=== PATIENT | male | born 1955 | race Native Hawaiian/Other Pacific Islander ===

== ENCOUNTER 2017-11-04 01:38 | Inpatient (IN) | payer MEDICAID, SELFPAY ==
--- NOTE | 2017-11-04 01:41 | C.PDOC ---
History Of Present Illness Patient presents to the ER after he woke up with sudden onset of severe SOB, no chest pain. Patient has a Hx of chronic kidney disease, not on dialysis yet. Patient is diaphoretic and unable to talk, Hx obtained from . Time Seen by Provider: 11/04/17 01:40 History Per: Family () History/Exam Limitations: clinical condition Onset/Duration Of Symptoms: Mins Current Symptoms Are (Timing): Worse Context: Other Severity: Severe Pain Scale Rating Of: 9 Associated Symptoms: Dyspnea Modifying Factors: None Exacerbating Factors: None Alleviating Factors: None Recent travel outside of the [place]: No Additional History Per: Family Past Medical History Reviewed: Historical Data, Nursing Documentation, Vital Signs Vital Signs: Last Vital Signs Temp Pulse 104 H 11/04/17 02:28 Resp 28 H 11/04/17 01:44 BP 266/134 H 11/04/17 01:44 Pulse Ox 78 L 11/04/17 02:26 Family History: States: No Known Family Hx Review Of Systems Review Of Systems: ROS cannot be obtained secondary to pt's inabilty to answer questions. Physical Exam - Physical Exam Appears: In Acute Distress, Other (Acute respiratory distress) Skin: Diaphoretic Head: Normacephalic Eye(s): bilateral: Normal Inspection Nose: Flaring Oral Mucosa: Dry Throat: No Erythema, No Exudate Neck: Trachea Midline, Supple Chest: Symmetrical, No Tenderness Cardiovascular: Rhythm Regular Respiratory: Decreased Breath Sounds, Rales, Rhonchi, No Wheezing Gastrointestinal/Abdominal: Soft, No Tenderness, Distention, No Guarding Back: No CVA Tenderness Extremity: Pedal Edema (Trace), No Calf Tenderness Extremity: Bilateral: Atraumatic Pulses: Left Dorsalis Pedis: Normal, Right Dorsalis Pedis: Normal Neurological/Psych: Oriented x3, Other (No focal deficit) Gait: Unable To Assess ED Course And Treatment - Laboratory Results Result Diagrams: 11/04/17 02:01 11/04/17 02:01 ECG: Interpreted By Me, Viewed By Me ECG Rhythm: Sinus Rhythm (91), R BBB, Nonspecific Changes O2 Sat by Pulse Oximetry: 78 Pulse Ox Interpretation: Abnormal (placed on bipap) - Radiology CXR: Interpreted by Me, Viewed By Me CXR Interpretation: Yes: Infiltrates (rll), Cardiomegaly, Other (chf) Progress Note: Blood work, CXR, EKG, and urinalysis ordered. Duoneb administered. Critical Care Time - Critical Care Note Total Time (in mins): 50 Documented critical care: time excludes all time spent performing seperately billable procedures. Disposition Discussed With DrOmar: Chaitanya Arguelles Comment: acceptd the pt on his service and took over the care at 3:10 AM Doctor Will See Patient In The: ED Counseled Patient/Family Regarding: Studies Performed, Diagnosis - Disposition Disposition: HOME/ ROUTINE Disposition Time: 01:40 Condition: CRITICAL - POA Present On Arrival: Poor Glycemic Control - Clinical Impression Clinical Impression: Respiratory distress, NSTEMI (non-ST elevated myocardial infarction), Renal failure, Pneumonia, CHF (congestive heart failure) - Scribe Statement The provider has reviewed the documentation as recorded by the Scribe Cal Waite All medical record entries made by the Scribe were at my direction and personally dictated by me. I have reviewed the chart and agree that the record accurately reflects my personal performance of the history, physical exam, medical decision making, and the department course for this patient. I have also personally directed, reviewed, and agree with the discharge instructions and disposition. Decision To Admit - Pt Status Changed To: Hospital Disposition Of: Inpatient - Admit Certification Admit to Inpatient:: After my assessment, the patient will require hospitalization for at least two midnights. This is because of the severity of symptoms shown, intensity of services needed, and/or the medical risk in this patient being treated as an outpatient. - InPatient: Physician Admission Certification: I certify that this patient requires 2 or more midnights of care for the following reason:: After my assessment, the patient will require hospitalization for at least two midnights. This is because of the severity of symptoms shown, intensity of services needed, and/or the medical risk in this patient being treated as an outpatient. - . Bed Request Type: Telemetry Admitting Physician: Chaitanya Arguelles Patient Diagnosis: Respiratory distress, NSTEMI (non-ST elevated myocardial infarction), Renal failure, Pneumonia, CHF (congestive heart failure)
[2017-11-04 01:48] VITALS: BMI 34.4
[2017-11-04] MEDS: Albuterol-Ipratrop 3 mg / 0.5 (3 ml) UD IH SCH ×3 (02:00→02:27)
[2017-11-04 02:05] LABS: BASO % 0.1 % (0.0-2.0); EOS # 1.2 K/uL (0.0-0.7); EOS % 8.4 % (0.0-4.0); HEMOGLOBIN 12.4 g/dL (12.0-18.0); LYMPH # 3.6 K/uL (1.0-4.3); LYMPH % 24.6 % (20.0-40.0); MEAN CELL VOLUME 88.9 fL (80.0-94.0); MEAN CORPUSCULAR HEMOGLOBIN 30.4 pg (27.0-31.0); MEAN CORPUSCULAR HGB CONC 34.2 g/dL (33.0-37.0); MONO # 1.6 K/uL (0.0-0.8); MONO % 10.9 % (0.0-10.0); NEUT # 8.3 K/uL (1.8-7.0); RBC 4.08 Mil/uL (4.40-5.90); RED CELL DISTRIBUTION WIDTH 13.4 % (11.5-14.5); WHITE BLOOD COUNT 14.8 K/uL (4.8-10.8)
[2017-11-04 02:17] LABS: ABG ALLEN TEST POS; ARTERIAL BLOOD GAS HCO3 25.6 mmol/L (21-28); ARTERIAL BLOOD GAS O2 SAT 94.4 % (95-98); ARTERIAL BLOOD GAS PCO2 76 mm/Hg (35-45); ARTERIAL BLOOD GAS PH 7.22 (7.35-7.45); ARTERIAL BLOOD GAS PO2 73 mm/Hg (80-100); ARTERIAL BLOOD GAS TCO2 33.4 mmol/L (22-28)
[2017-11-04] MEDS ORDERED: Piperacillin/Tazobact 3.375 gm 100 ML IVPB STA (02:21)
[2017-11-04] MEDS ORDERED: Albuterol-Ipratrop 3 mg / 0.5 (3 ml) UD ONE ×3 (02:23)
[2017-11-04] MEDS ORDERED: Vancomycin 1 GM 1 GM/250 ML BAG IVPB SCH (02:30)
[2017-11-04 02:43] LABS: CALCIUM 10.2 mg/dl (8.6-10.4)
[2017-11-04 02:44] LABS: ALB/GLOB RATIO 1.3 (1.0-2.1); ALBUMIN 4.8 g/dL (3.5-5.0)
[2017-11-04] MEDS ORDERED: Vancomycin 1 gm/NS 200 ml 1 GM/200 ML BAG IVPB SCH (02:45)
[2017-11-04 02:47] LABS: TROPONIN I 0.575 ng/mL (0.00-0.120)
[2017-11-04 02:56] LABS: PROTHROMBIN TIME 10.8 SECONDS (9.7-12.2)
[2017-11-04] MEDS ORDERED: Enoxaparin 40 mg Syringe SC STA (03:04)
[2017-11-04] MEDS ORDERED: Piperacillin/Tazobact 3.375 gm 100 ML IVPB ONE (03:06)
[2017-11-04] MEDS ORDERED: Enoxaparin 100 mg Syringe ONE (03:35)
[2017-11-04 05:34] LABS: HDL CHOLESTEROL 24 mg/dL (30-70)
--- NOTE | 2017-11-04 05:38 | CP.PCM.HP ---
<Blaire Whalen - Last Filed: 11/04/17 06:17> History of Present Illness - History of Present Illness History of Present Illness: Patient is a 62 year old male with a past medical history of HTN, DM, CHF, CKD, and cardiac stent, who presents to the ED with complaints of shortness of breath. The patient was sleeping, and abruptly woke up in the middle of the night feeling short of breath. He has had 2-3 similar episodes in the past few weeks, but never this severe. The patient sleeps flat with one pillow, but also sleeps on a chair that he has at bedside. Per the , who is at bedside, the patient transfers back and forth from the bed to the chair for the past few months due to shortness of breath. The patient reports being able to walk without difficulty, but he has noticed that he becomes increasingly more short of breath over the past few months. Patient states he also has a productive cough with white phlegm. He recently started using a CPAP since August 2017. Per the patient and patient's , they were scheduled for a "dialysis class" today to discuss possibly starting dialysis. The patient has been taking all of his medications as prescribed. He has not been hospitalized recently. He reports he is urinating normally, without difficulty, approximately every 2-3 hours. Patient denies chest pain, palpitations, nausea, vomiting, fevers, headaches, abdominal pain, diarrhea, constipation, dysuria, hematuria, sick contacts, and recent illnesses. PMD: Dr. Conte Service Observer: Dr. Davis Clock Repair Technician: Dr. Damon, who referred patient to Dr. Syed (patient has [facility]) PMHx: HTN, DM, CHF, CKD, and cardiac stent SurgHx: Angioplasty 2012 FamHx: Father- [place]; Brother- Stroke; Sister- cancer (unknown type) SocHx: Former tobacco use- quit 10 years ago ([id number]+yrs); denies alcohol and drug use; works 5 days/week at [employer]; lives with , Jocelin, in [place]. Allergies: NKDA Medications: Tamsulosin 0.4mg po daily, gabapentin 300mg po daily, furosemide 40mg po daily, carvidilol 12.5mg po daily, amlodipine 10mg po daily, lovastatin 40mg po hs , famotidine 40mg po daily, calcium acetate 667mg TID, Tresiba pen 450 units; glipizide 5mg po daily, asa 81mg po daily Code status: Full code; no living will/advanced directive. Proxy: Jocelin ( ; [phone]) Present on Admission - Present on Admission Any Indicators Present on Admission: No Review of Systems - Constitutional Constitutional: absent: Chills, Fever, Headache, Weakness - EENT Eyes: absent: Change in Vision Ears: absent: Dizziness - Cardiovascular Cardiovascular: Dyspnea, Dyspnea on Exertion. absent: Chest Pain, Edema, Irregular Heart Rhythm, Palpitations, Rapid Heart Rate - Respiratory Respiratory: Cough (productive of white phlegm), Dyspnea, Dyspnea on Exertion. absent: Hemoptysis - Gastrointestinal Gastrointestinal: absent: Abdominal Pain, Constipation, Diarrhea, Hematemesis, Hematochezia, Nausea, Vomiting - Genitourinary Genitourinary: absent: Difficulty Urinating, Dysuria, Hematuria, Pyuria, Urinary Frequency - Integumentary Integumentary: absent: Rash, Unusual Bruising - Neurological Neurological: absent: Dizziness, Frequent Falls, Headaches, Weakness - Endocrine Endocrine: absent: Fatigue, Palpitations, Polyuria - Hematologic/Lymphatic Hematologic: absent: Easy Bleeding, Easy Bruising Past Patient History - Infectious Disease Hx of Infectious Diseases: None - Past Social History Smoking Status: Never Smoked - CARDIAC Hx Hypercholesterolemia: Yes Hx Hypertension: Yes - RENAL Hx Dialysis: No - ENDOCRINE/METABOLIC Hx Diabetes Mellitus Type 1: Yes Hx Diabetes Mellitus Type 2: Yes - GENITOURINARY/GYNECOLOGICAL Hx Prostate Problems: Yes - PSYCHIATRIC Hx Substance Use: No - SURGICAL HISTORY Hx Angioplasty: Yes (3 stents 2012) - ANESTHESIA Hx Anesthesia: Yes Hx Anesthesia Reactions: No Meds Allergies/Adverse Reactions: Allergies Allergy/AdvReac Type Severity Reaction Status Date / Time No Known Allergies Allergy Verified 11/04/17 01:50 Physical Exam - Constitutional Appears: No Acute Distress - Head Exam Head Exam: ATRAUMATIC, NORMAL INSPECTION - Eye Exam Eye Exam: EOMI, Normal appearance, PERRL. absent: Scleral icterus - ENT Exam ENT Exam: Mucous Membranes Moist - Respiratory Exam Respiratory Exam: Rales (bilaterally mid to lower lung jimenez). absent: Clear to Auscultation Bilateral, Rhonchi, Wheezes Additional comments: BiPAP placed - Cardiovascular Exam Cardiovascular Exam: REGULAR RHYTHM, +S1, +S2. absent: Bradycardia, Tachycardia , Systolic Murmur - GI/Abdominal Exam GI & Abdominal Exam: Normal Bowel Sounds, Soft. absent: Distended, Firm, Guarding, Mass, Tenderness - Extremities Exam Extremities exam: Positive for: normal capillary refill, pedal edema (pitting pedal edema extending snf up to knee), pedal pulses present. Negative for: calf tenderness - Neurological Exam Neurological exam: Alert, CN II-XII Intact, Oriented x3 - Psychiatric Exam Psychiatric exam: Normal Affect, Normal Mood - Skin Skin Exam: Dry, Intact, Normal Color, Warm Results - Vital Signs Recent Vital Signs: Last Vital Signs Temp 97.2 F L 11/04/17 03:49 Pulse 74 11/04/17 03:49 Resp 21 11/04/17 03:49 BP 127/59 L 11/04/17 03:49 Pulse Ox 100 11/04/17 03:49 - Labs Result Diagrams: 11/04/17 02:01 11/04/17 02:01 Labs: Laboratory Results - last 24 hr 11/04/17 11/04/17 11/04/17 01:40 02:01 02:01 WBC 14.8 H D RBC 4.08 L Hgb 12.4 Hct 36.2 MCV 88.9 MCH 30.4 MCHC 34.2 RDW 13.4 Plt Count 354 MPV 9.0 Neut % (Auto) 56.0 Lymph % (Auto) 24.6 [place] % (Auto) 10.9 H Eos % (Auto) 8.4 H Baso % (Auto) 0.1 Neut # (Auto) 8.3 H Lymph # (Auto) 3.6 [place] # (Auto) 1.6 H Eos # (Auto) 1.2 H Baso # (Auto) 0.0 PT 10.8 INR 1.0 APTT 33 D-Dimer, Quantitative 329 H Puncture Site pCO2 pO2 HCO3 ABG pH ABG Total CO2 ABG O2 Saturation ABG Base Excess Dre Test ABG Potassium A-a O2 Difference Respiratory Index Glucose Lactate Vent Mode FiO2 Inspiratory BiPAP Expiratory BiPAP Crit Value Called To Crit Value Called By Crit Value Read Back Blood Gas Notified Time Sodium Potassium Chloride Carbon Dioxide Anion Gap BUN Creatinine Est GFR ( Amer) Est GFR (Non-Af Amer) POC Glucose (mg/dL) 86 Random Glucose Calcium Magnesium Total Bilirubin AST ALT Alkaline Phosphatase Troponin I NT-Pro-B Natriuret Pep Total Protein Albumin Globulin Albumin/Globulin Ratio Arterial Blood Potassium 11/04/17 11/04/17 02:01 02:05 WBC RBC Hgb Hct MCV MCH MCHC RDW Plt Count MPV Neut % (Auto) Lymph % (Auto) [place] % (Auto) Eos % (Auto) Baso % (Auto) Neut # (Auto) Lymph # (Auto) [place] # (Auto) Eos # (Auto) Baso # (Auto) PT INR APTT D-Dimer, Quantitative Puncture Site Rr pCO2 76 H* pO2 73 L HCO3 25.6 ABG pH 7.22 L ABG Total CO2 33.4 H ABG O2 Saturation 94.4 L ABG Base Excess 1.1 Dre Test Pos ABG Potassium 2.7 L A-a O2 Difference 545.0 Respiratory Index 7.5 Glucose 130 H Lactate 1.0 Vent Mode Bipap FiO2 100.0 Inspiratory BiPAP 12 Expiratory BiPAP 6 Crit Value Called To Yecenia rosen/rn Crit Value Called By Rudolph graham/rt Crit Value Read Back Y Blood Gas Notified Time 220 Sodium 143 Potassium 3.3 L Chloride 97 L 104.0 Carbon Dioxide 31 H Anion Gap 18 BUN 74 H Creatinine 5.4 H Est GFR ( Amer) 13 Est GFR (Non-Af Amer) 11 POC Glucose (mg/dL) Random Glucose 86 Calcium 10.2 Magnesium 2.8 H Total Bilirubin 0.7 AST 22 ALT 29 Alkaline Phosphatase 62 Troponin I 0.5750 H* NT-Pro-B Natriuret Pep 2910 H Total Protein 8.4 H Albumin 4.8 Globulin 3.6 Albumin/Globulin Ratio 1.3 Arterial Blood Potassium 2.7 L Assessment & Plan - Assessment and Plan (Free Text) Plan: Shortness of Breath - Secondary to CHF exacerbation? Renal failure? Pneumonia? - BiPAP 12/6, FiO2 100% - In the ED, Lasix 40mg IV given once. - Lasix 60mg IV and metolazone 5mg given once. - ABG: pH 7.22, Co2 76, O2 73, HCO3 25.6 - Repeat ABG: f/u - Chest xray: infiltrates right lower lobe; follow up official read - Pro-BNP: 2910 - Troponin 0.5750; follow up troponins & EKGs x2 - EKG: nsr@91bpm, LBBB, prolonged QT NSTEMI - EKG: nsr@91bpm, LBBB, prolonged QT - Troponin 0.5750 - Follow up troponins x2 & EKGs x2 - Lipid panel: f/u - A1c: f/u Abnormal chest xray - Chest xray: infiltrates right lower lobe; follow up official read - Infiltrates likely secondary to fluid overload 2/2 CHF? Renal Failure? Pneumonia? - Leukocytosis, WBC 14.8 - Afebrile; continue to monitor - lactate: 1.0 - Procalcitonin: f/u - In the ED, Vanco and Zosyn were given CHF - Echo (04/2017): LVEF 50-55%; mild concentric LVH; grade I abnormal relaxation pattern; aortic valve mildly sclerotic; mild MR, mild TR, mild PV regurg - Pro-BNP: 2910 - In the ED, Lasix 40mg IV given once. - Lasix 60mg IV and metolazone 5mg given once. - Continue home medication: furosemide 40mg po daily Renal Failure - Service Observer, Dr Davis, consulted; help appreciated - BUN/Cr at admission: 74/5.4 - Continue to monitor HTN - Continue home medications: carvidilol 12.5mg po daily, amlodipine 10mg po daily - Continue to monitor DM - Home medications: Tresiba pen 450 units; glipizide 5mg po daily, gabapentin 300mg po daily - Accuchecks - Hypoglycemia protocol - ISS - A1c: f/u CAD - Hx of angioplasty in 2012 - Continue home medications: lovastatin 40mg po hs, carvidilol 12.5mg po daily, [id number] po daily - Patient reports he was previously on Plavix, but was told by Dr. Damon, hoop punch and coiler operator, to stop taking it approximately 1 month ago. Prophylaxis: - DVT: SCDs, Heparin 5000u SC Q8h - GI: Pepcid 20mg PO daily - Renal diet <Chaitanya Arguelles P - Last Filed: 11/04/17 08:21> Results - Vital Signs Recent Vital Signs: Last Vital Signs Temp 97.2 F L 11/04/17 03:49 Pulse 72 11/04/17 07:11 Resp 14 11/04/17 07:11 BP 140/77 07/11/18 07:11 Pulse Ox 98 11/04/17 07:11 - Labs Result Diagrams: 11/04/17 02:01 11/04/17 02:01 Labs: Laboratory Results - last 24 hr 11/04/17 11/04/17 11/04/17 01:40 02:01 02:01 WBC 14.8 H D RBC 4.08 L Hgb 12.4 Hct 36.2 MCV 88.9 MCH 30.4 MCHC 34.2 RDW 13.4 Plt Count 354 MPV 9.0 Neut % (Auto) 56.0 Lymph % (Auto) 24.6 [place] % (Auto) 10.9 H Eos % (Auto) 8.4 H Baso % (Auto) 0.1 Neut # (Auto) 8.3 H Lymph # (Auto) 3.6 [place] # (Auto) 1.6 H Eos # (Auto) 1.2 H Baso # (Auto) 0.0 PT 10.8 INR 1.0 APTT 33 D-Dimer, Quantitative 329 H Puncture Site pCO2 pO2 HCO3 ABG pH ABG Total CO2 ABG O2 Saturation ABG Base Excess Dre Test ABG Potassium A-a O2 Difference Respiratory Index Glucose Lactate Vent Mode FiO2 Inspiratory BiPAP Expiratory BiPAP Crit Value Called To Crit Value Called By Crit Value Read Back Blood Gas Notified Time Sodium Potassium Chloride Carbon Dioxide Anion Gap BUN Creatinine Est GFR ( Amer) Est GFR (Non-Af Amer) POC Glucose (mg/dL) 86 Random Glucose Calcium Magnesium Total Bilirubin AST ALT Alkaline Phosphatase Troponin I NT-Pro-B Natriuret Pep Total Protein Albumin Globulin Albumin/Globulin Ratio Triglycerides Cholesterol LDL Cholesterol Direct HDL Cholesterol Arterial Blood Potassium Urine Color Urine Clarity Urine pH Ur Specific [place] Urine Protein Urine Glucose (UA) Urine Ketones Urine Blood Urine Nitrate Urine Bilirubin Urine Urobilinogen Ur Leukocyte Esterase Urine WBC (Auto) Urine RBC (Auto) Urine Bacteria 11/04/17 11/04/17 11/04/17 02:01 02:05 05:17 WBC RBC Hgb Hct MCV MCH MCHC RDW Plt Count MPV Neut % (Auto) Lymph % (Auto) [place] % (Auto) Eos % (Auto) Baso % (Auto) Neut # (Auto) Lymph # (Auto) [place] # (Auto) Eos # (Auto) Baso # (Auto) PT INR APTT D-Dimer, Quantitative Puncture Site Rr pCO2 76 H* pO2 73 L HCO3 25.6 ABG pH 7.22 L ABG Total CO2 33.4 H ABG O2 Saturation 94.4 L ABG Base Excess 1.1 Dre Test Pos ABG Potassium 2.7 L A-a O2 Difference 545.0 Respiratory Index 7.5 Glucose 130 H Lactate 1.0 Vent Mode Bipap FiO2 100.0 Inspiratory BiPAP 12 Expiratory BiPAP 6 Crit Value Called To Yecenia rosen/rn Crit Value Called By Rudolph graham/rt Crit Value Read Back Y Blood Gas Notified Time 220 Sodium 143 Potassium 3.3 L Chloride 97 L 104.0 Carbon Dioxide 31 H Anion Gap 18 BUN 74 H Creatinine 5.4 H Est GFR ( Amer) 13 Est GFR (Non-Af Amer) 11 POC Glucose (mg/dL) Random Glucose 86 Calcium 10.2 Magnesium 2.8 H Total Bilirubin 0.7 AST 22 ALT 29 Alkaline Phosphatase 62 Troponin I 0.5750 H* NT-Pro-B Natriuret Pep 2910 H Total Protein 8.4 H Albumin 4.8 Globulin 3.6 Albumin/Globulin Ratio 1.3 Triglycerides 423 H D Cholesterol 225 H LDL Cholesterol Direct 98 HDL Cholesterol 24 L Arterial Blood Potassium 2.7 L Urine Color Urine Clarity Urine pH Ur Specific [place] Urine Protein Urine Glucose (UA) Urine Ketones Urine Blood Urine Nitrate Urine Bilirubin Urine Urobilinogen Ur Leukocyte Esterase Urine WBC (Auto) Urine RBC (Auto) Urine Bacteria 11/04/17 11/04/17 11/04/17 05:50 07:30 07:54 WBC RBC Hgb Hct MCV MCH MCHC RDW Plt Count MPV Neut % (Auto) Lymph % (Auto) [place] % (Auto) Eos % (Auto) Baso % (Auto) Neut # (Auto) Lymph # (Auto) [place] # (Auto) Eos # (Auto) Baso # (Auto) PT INR APTT D-Dimer, Quantitative Puncture Site Rr pCO2 53 H pO2 193 H HCO3 26.4 ABG pH 7.34 L ABG Total CO2 30.2 H ABG O2 Saturation 100.0 H ABG Base Excess 1.8 Dre Test Pos ABG Potassium 2.7 L A-a O2 Difference 454.0 Respiratory Index 2.4 Glucose 106 Lactate 0.5 L Vent Mode FiO2 100.0 Inspiratory BiPAP 12 Expiratory BiPAP 6 Crit Value Called To Crit Value Called By Crit Value Read Back Blood Gas Notified Time Sodium 144.0 Potassium Chloride 109.0 H Carbon Dioxide Anion Gap BUN Creatinine Est GFR ( Amer) Est GFR (Non-Af Amer) POC Glucose (mg/dL) 125 H Random Glucose Calcium Magnesium Total Bilirubin AST ALT Alkaline Phosphatase Troponin I NT-Pro-B Natriuret Pep Total Protein Albumin Globulin Albumin/Globulin Ratio Triglycerides Cholesterol LDL Cholesterol Direct HDL Cholesterol Arterial Blood Potassium 2.7 L Urine Color Yellow Urine Clarity Clear Urine pH 5.0 Ur Specific [place] 1.011 Urine Protein 2+ H Urine Glucose (UA) 1+ H Urine Ketones Negative Urine Blood 1+ H Urine Nitrate Negative Urine Bilirubin Negative Urine Urobilinogen Normal Ur Leukocyte Esterase Neg Urine WBC (Auto) 2 Urine RBC (Auto) 1 Urine Bacteria Rare Attending/Attestation - Attestation I have personally seen and examined this patient.: Yes I have fully participated in the care of the patient.: Yes I have reviewed all pertinent clinical information: Yes Notes (Text): 11/04/17 08:17 SOB due to interstitial edema with hypoxia and Co2 retention, needed bipap on 100% fio2, responded with initial 40mg of iv lasix with 500ml of diuresis, as per patient has been compliant with meds, this was the 3rd episode in the 3 wks. Plan to diuresis more with 60mg of iv lasix and metalozone 5mg, patient will eventually need HD, when to start will be between him and nephrology group , who has been consulted. FIO2 requirement after initial lasix were 50%. Patient currently has mild volume overload, maintained ph, potassium, bicarb, mental status. Slight elevated trop, without ekg changes will repeat and make sure does not rise in the significant range.
[2017-11-04 05:44] LABS: LDL CHOLESTEROL 98 mg/dL (0-129)
[2017-11-04 06:03] LABS: ABG ALLEN TEST POS; ARTERIAL BLOOD GAS HCO3 26.4 mmol/L (21-28); ARTERIAL BLOOD GAS PCO2 53 mm/Hg (35-45); ARTERIAL BLOOD GAS PH 7.34 (7.35-7.45); ARTERIAL BLOOD GAS PO2 193 mm/Hg (80-100); ARTERIAL BLOOD GAS TCO2 30.2 mmol/L (22-28)
[2017-11-04 07:48] LABS: URINE BACTERIA RARE (<OCC); URINE BILIRUBIN NEGATIVE (NEGATIVE); URINE BLOOD 1+ (NEGATIVE); URINE CLARITY Clear (Clear); URINE COLOR Yellow (YELLOW); URINE GLUCOSE (UA) 1+ mg/dL (Normal); URINE LEUKOCYTE ESTERASE NEG Leu/uL (Negative); URINE PROTEIN 2+ mg/dL (NEGATIVE); URINE UROBILINOGEN NORMAL mg/dL (0.2-1.0)
[2017-11-04] MEDS: (Novolin R) Insulin Human Regular 100 units/ml vial SC SCH ×4 (08:04→22:12)
[2017-11-04 09:48] LABS: CK-MB 2.7 ng/mL (0.0-3.38)
--- NOTE | 2017-11-04 09:51 | RAD ---
Date of service: 11/04/2017 PROCEDURE: CHEST RADIOGRAPH, 1 VIEW HISTORY: SOB COMPARISON: None available. FINDINGS: LUNGS: Asymmetrical pulmonary edema right greater than left. PLEURA: No pneumothorax or pleural fluid seen. CARDIOVASCULAR: Cardiomegaly, asymmetric pulmonary edema. OSSEOUS STRUCTURES: No significant abnormalities. VISUALIZED UPPER ABDOMEN: Normal. OTHER FINDINGS: None. IMPRESSION: Cardiomegaly, asymmetrical acute pulmonary edema. Concordant results with the preliminary interpretation rendered by the emergency department physician procedure.
[2017-11-04] MEDS ORDERED: metOLazone 5 MG TAB PO SCH (10:00)
[2017-11-04 10:08] LABS: TROPONIN I 0.49 ng/mL (0.00-0.120)
--- NOTE | 2017-11-04 11:50 | CP.PCM.PN ---
Subjective - Date & Time of Evaluation Date of Evaluation: 11/04/17 Time of Evaluation: 09:30 - Subjective Subjective: PGY-[address] Brandon Damon. Patient seen and evaluated at bedside. Patient resting in bed on bipap. Denies shortness of breath at the time of examination. Denies chest pain, nausea, vomiting, shortness of breath, fever, chills, and lightheadedness. Objective - Vital Signs/Intake and Output Vital Signs (last 24 hours): Temp Pulse Resp BP Pulse Ox 97.2 F L 78 16 156/95 H 100 11/04/17 03:49 11/04/17 10:04 11/04/17 10:04 11/04/17 10:18 11/04/17 10:04 Intake and Output: 11/04/17 11/04/17 06:59 18:59 Output Total 500 300 Balance -500 -300 - Medications Medications: Current Medications Amlodipine Besylate (Norvasc) 10 mg PO DAILY [facility] Last Admin: 11/04/17 10:18 Dose: 10 mg Calcitriol (Rocaltrol) 0.5 mcg PO DAILY [facility] Last Admin: 11/04/17 10:19 Dose: 0.5 mcg Calcium Acetate (Phoslo) 667 mg PO TIDCC [facility] Last Admin: 11/04/17 10:10 Dose: 667 mg Carvedilol (Coreg) 12.5 mg PO DAILY [facility] Last Admin: 11/04/17 10:18 Dose: 12.5 mg Famotidine (Pepcid) 20 mg PO DAILY [facility] Last Admin: 11/04/17 10:19 Dose: 20 mg Furosemide (Lasix) 40 mg PO DAILY [facility] Gabapentin (Neurontin) 300 mg PO DAILY [facility] Last Admin: 11/04/17 10:18 Dose: 300 mg Heparin Sodium (Porcine) (Heparin) 5,000 units SC Q8 [facility] Last Admin: 11/04/17 06:08 Dose: Not Given Insulin Human Regular (Novolin R) 0 unit SC ACHS [facility] PRN Reason: Protocol Last Admin: 11/04/17 08:04 Dose: Not Given Metolazone (Zaroxolyn) 5 mg PO DAILY [facility] Last Admin: 11/04/17 10:19 Dose: 5 mg Rosuvastatin Calcium (Crestor) 5 mg PO HS [facility] Tamsulosin HCl (Flomax) 0.4 mg PO DAILY [facility] Last Admin: 11/04/17 10:18 Dose: 0.4 mg - Labs Labs: 11/04/17 02:01 11/04/17 02:01 PT 10.8 SECONDS (9.7-12.2) 11/04/17 02:01 INR 1.0 11/04/17 02:01 APTT 33 SECONDS (21-34) 11/04/17 02:01 - Constitutional Appears: No Acute Distress - Head Exam Head Exam: ATRAUMATIC, NORMAL INSPECTION, NORMOCEPHALIC - Eye Exam Eye Exam: EOMI, Normal appearance - ENT Exam ENT Exam: Mucous Membranes Moist - Respiratory Exam Respiratory Exam: Rales (bibasilar). absent: Rhonchi, Wheezes Additional comments: Patient on biPAP - Cardiovascular Exam Cardiovascular Exam: REGULAR RHYTHM, +S1, +S2 - GI/Abdominal Exam GI & Abdominal Exam: Soft, Normal Bowel Sounds. absent: Distended, Guarding, Rigid, Tenderness - Extremities Exam Extremities Exam: absent: Normal Inspection, Pedal Edema, Tenderness - Neurological Exam Neurological Exam: Alert, Awake, Oriented x3 - Psychiatric Exam Psychiatric exam: Normal Mood - Skin Skin Exam: Dry, Intact, Normal Color, Warm Assessment and Plan - Assessment and Plan (Free Text) Plan: 62 year old M admitted for shortness of breath. Shortness of Breath - Secondary to CHF exacerbation? Renal failure? Pneumonia? - BiPAP 12/6, FiO2 100% - In the ED, Lasix 40mg IV given once. - Lasix 60mg IV and metolazone 5mg given once. - ABG: pH 7.22, Co2 76, O2 73, HCO3 25.6 - Repeat ABG: pH 7.34, Co2 53, O2 193, HCO3 26.4 - Chest xray: infiltrates right lower lobe; follow up official read - Pro-BNP: 2910 - Troponin 0.5750; 0.4900; 0.382 - EKG: nsr@91bpm, LBBB, prolonged QT NSTEMI - EKG: nsr@91bpm, LBBB, prolonged QT - Troponin 0.5750 - Follow up troponins: 0.5750; 0.4900; 0.382, no significant changes in repeat EKGs - Lipid panel: TG 423, Chl 225, LDL 98, HDL 24 - A1c: 7.3 -Cardiology consulted, help appreciated. Abnormal chest xray - Chest xray: infiltrates right lower lobe; follow up official read - Infiltrates likely secondary to fluid overload 2/2 CHF? Renal Failure? Pneumonia? - Leukocytosis, WBC 14.8 - Afebrile; continue to monitor - lactate: 1.0 - Procalcitonin: 0.66 - In the ED, Vanco and Zosyn were given -Repeat chest XRay CHF - Echo (04/2017): LVEF 50-55%; mild concentric LVH; grade I abnormal relaxation pattern; aortic valve mildly sclerotic; mild MR, mild TR, mild PV regurg - Pro-BNP: 2910 - In the ED, Lasix 40mg IV given once. - Lasix 60mg IV and metolazone 5mg given once. - Continue home medication: furosemide 40mg po daily Renal Failure - Melter Assistant, Dr Davis, consulted; help appreciated -As per Dr. Davis note: Patient needs dialysis soon, will call surgery for access - BUN/Cr at admission: 74/5.4 - Continue to monitor HTN - Continue home medications: carvidilol 12.5mg po daily, amlodipine 10mg po daily - Continue to monitor DM - Home medications: Tresiba pen 450 units; glipizide 5mg po daily, gabapentin 300mg po daily - Accuchecks - Hypoglycemia protocol - ISS - A1c: 7.3 CAD - Hx of angioplasty in 2012 - Continue home medications: lovastatin 40mg po hs, carvidilol 12.5mg po daily, [id number] po daily - Patient reports he was previously on Plavix, but was told by Dr. Damon, dolly driver, to stop taking it approximately 1 month ago. Prophylaxis: - DVT: SCDs, Heparin 5000u SC Q8h - GI: Pepcid 20mg PO daily - Renal diet
[2017-11-04 14:41] LABS: CK-MB 2.47 ng/mL (0.0-3.38); TROPONIN I 0.382 ng/mL (0.00-0.120)
--- NOTE | 2017-11-04 14:55 | CP.PCM.CON ---
History of Present Illness - History of Present Illness History of Present Illness: : Patient is a 62 year old male with a past medical history of HTN, DM, CHF, CKD stage 4-5, and CAD postcardiac stent, who presents to the ED with complaints of shortness of breath. The patient was sleeping, and abruptly woke up in the middle of the night feeling short of breath. He has had 2-3 similar episodes in the past few weeks, but never this severe. The patient sleeps flat with one pillow, but also sleeps on a chair that he has at bedside. Per the , who is at bedside, the patient transfers back and forth from the bed to the chair for the past few months due to shortness of breath. The patient reports being able to walk without difficulty, but he has noticed that he becomes increasingly more short of breath over the past few months. Patient states he also has a productive cough with white phlegm. He recently started using a CPAP since August 2017. Per the patient and patient's , they were scheduled for a "dialysis class" ie [facility] program to discuss possibly starting dialysis. The patient has been taking all of his medications as prescribed. He has not been hospitalized recently. He reports he is urinating normally, without difficulty, approximately every 2-3 hours. Patient denies chest pain, palpitations, nausea, vomiting, fevers, headaches, abdominal pain, diarrhea, constipation, dysuria, hematuria, sick contacts, and recent illnesses. PMD: Dr. Conte Rope Walker: Dr. Davis Collection Specialist: Dr. Damon, who referred patient to Dr. Syed (patient has [facility]) PMHx: HTN, DM, CHF, CKD with proteinuria, and cardiac stent SurgHx: Angioplasty 2012 FamHx: Father- OR; Brother- Stroke; Sister- cancer (unknown type) SocHx: Former tobacco use- quit 10 years ago ([id number]); denies alcohol and drug use; works 5 days/week at [email or web address]; lives with , Jocelin, in [place]. Allergies: NKDA Medications: Tamsulosin 0.4mg po daily, gabapentin 300mg po daily, furosemide 40mg po daily, carvidilol 12.5mg po daily, amlodipine 10mg po daily, lovastatin 40mg po hs , famotidine 40mg po daily, calcium acetate 667mg TID, Tresiba pen 450 units; glipizide 5mg po daily, asa 81mg po daily Code status: Full code; no living will/advanced directive. Proxy: Jocelin ( ; [phone]) Review of Systems - Constitutional Constitutional: Fatigue, Weakness - EENT Eyes: absent: As Per HPI, Blind Spots, Blurred Vision, Change in Vision, Decreased Night Vision, Diplopia, Discharge, Dry Eye, Exophthalmos, Floaters, Irritation, Itchy Eyes, Loss of Peripheral Vision, Pain, Photophobia, Requires Corrective Lenses, Sees Flashes, Spots in Vision, Tunnel Vision, Other Visual Disturbances, Loss of Vision, Other Ears: absent: As Per HPI, Decreased Hearing, Ear Discharge, Ear Pain, Tinnitus, Abnormal Hearing, Disequilibrium, Dizziness, Other Nose/Mouth/Throat: absent: As Per HPI, Epistaxis, Nasal Congestion, Nasal Discharge, Nasal Obstruction, Nasal Trauma, Nose Pain, Post Nasal Drip, Sinus Pain, Sinus Pressure, Bleeding Gums, Change in Voice, Dental Pain, Dry Mouth, Dysphagia, Halitosis, Hoarsness, Lip Swelling, Mouth Lesions, Mouth Pain, Odynophagia, Sore Throat, Throat Swelling, Tongue Swelling, Facial Pain, Neck Pain, Neck Mass, Other - Cardiovascular Cardiovascular: Dyspnea on Exertion, Leg Edema - Respiratory Respiratory: Cough, Dyspnea on Exertion - Gastrointestinal Gastrointestinal: absent: As Per HPI, Abdominal Pain, Belching, Bloating, Change in Bowel Habits, Change in Stool Character, Coffee Ground Emesis, Constipation, Cramping, Diarrhea, Dyspepsia, Dysphagia, Early Satiety, Excessive Flatus, Fecal Incontinence, Heartburn, Hematemesis, Hematochezia, Loose Stools, Melena, Nausea, Odynophagia, Temesmus, Vomiting, Other - Genitourinary Genitourinary: Change in Urinary Stream - Musculoskeletal Musculoskeletal: Muscle Cramps, Muscle Weakness, Myalgias - Neurological Neurological: Weakness Past Patient History - Infectious Disease Hx of Infectious Diseases: None - Past Social History Smoking Status: Never Smoked Chewing Tobacco Use: No Cigar Use: No Alcohol: None Drugs: Denies Home Situation {Lives}: With Family - CARDIAC Hx Hypercholesterolemia: Yes Hx Hypertension: Yes - RENAL Hx Dialysis: No - ENDOCRINE/METABOLIC Hx Diabetes Mellitus Type 1: Yes Hx Diabetes Mellitus Type 2: Yes - GENITOURINARY/GYNECOLOGICAL Hx Prostate Problems: Yes - PSYCHIATRIC Hx Substance Use: No - SURGICAL HISTORY Hx Angioplasty: Yes (3 stents 2012) - ANESTHESIA Hx Anesthesia: Yes Hx Anesthesia Reactions: No Meds Allergies/Adverse Reactions: Allergies Allergy/AdvReac Type Severity Reaction Status Date / Time No Known Allergies Allergy Verified 11/04/17 01:50 - Medications Medications: Current Medications Amlodipine Besylate (Norvasc) 10 mg PO DAILY [facility] Last Admin: 11/04/17 10:18 Dose: 10 mg Calcitriol (Rocaltrol) 0.5 mcg PO DAILY [facility] Last Admin: 11/04/17 10:19 Dose: 0.5 mcg Calcium Acetate (Phoslo) 667 mg PO TIDCC [facility] Last Admin: 11/04/17 12:43 Dose: 667 mg Carvedilol (Coreg) 12.5 mg PO DAILY [facility] Last Admin: 11/04/17 10:18 Dose: 12.5 mg Famotidine (Pepcid) 20 mg PO DAILY [facility] Last Admin: 11/04/17 10:19 Dose: 20 mg Furosemide (Lasix) 40 mg PO DAILY [facility] Gabapentin (Neurontin) 300 mg PO DAILY [facility] Last Admin: 11/04/17 10:18 Dose: 300 mg Heparin Sodium (Porcine) (Heparin) 5,000 units SC Q8 [facility] Last Admin: 11/04/17 06:08 Dose: Not Given Insulin Human Regular (Novolin R) 0 unit SC ACHS [facility] PRN Reason: Protocol Last Admin: 11/04/17 12:43 Dose: 2 units Metolazone (Zaroxolyn) 5 mg PO DAILY [facility] Last Admin: 11/04/17 10:19 Dose: 5 mg Rosuvastatin Calcium (Crestor) 5 mg PO HS [facility] Tamsulosin HCl (Flomax) 0.4 mg PO DAILY [facility] Last Admin: 11/04/17 10:18 Dose: 0.4 mg Physical Exam - Constitutional Appears: No Acute Distress, Chronically Ill - Head Exam Head Exam: ATRAUMATIC, NORMAL INSPECTION - Eye Exam Eye Exam: EOMI, Normal appearance - Neck Exam Neck exam: Positive for: Normal Inspection. Negative for: Tenderness - Respiratory Exam Respiratory Exam: Rhonchi, NORMAL BREATHING PATTERN - Cardiovascular Exam Cardiovascular Exam: REGULAR RHYTHM, +S1 - GI/Abdominal Exam GI & Abdominal Exam: Soft. absent: Tenderness - Extremities Exam Extremities exam: Positive for: pedal edema. Negative for: tenderness - Neurological Exam Neurological exam: Alert, CN II-XII Intact - Skin Skin Exam: Dry, Warm Results - Vital Signs Recent Vital Signs: Last Vital Signs Temp 97.2 F L 11/04/17 03:49 Pulse 78 11/04/17 10:04 Resp 16 11/04/17 10:04 BP 156/95 H 11/04/17 10:18 Pulse Ox 100 11/04/17 10:04 - Labs Result Diagrams: 11/04/17 02:01 11/04/17 02:01 Labs: Laboratory Results - last 24 hr 11/04/17 11/04/17 11/04/17 01:40 02:01 02:01 WBC 14.8 H D RBC 4.08 L Hgb 12.4 Hct 36.2 MCV 88.9 MCH 30.4 MCHC 34.2 RDW 13.4 Plt Count 354 MPV 9.0 Neut % (Auto) 56.0 Lymph % (Auto) 24.6 [place] % (Auto) 10.9 H Eos % (Auto) 8.4 H Baso % (Auto) 0.1 Neut # (Auto) 8.3 H Lymph # (Auto) 3.6 [place] # (Auto) 1.6 H Eos # (Auto) 1.2 H Baso # (Auto) 0.0 PT 10.8 INR 1.0 APTT 33 D-Dimer, Quantitative 329 H Puncture Site pCO2 pO2 HCO3 ABG pH ABG Total CO2 ABG O2 Saturation ABG Base Excess Dre Test ABG Potassium A-a O2 Difference Respiratory Index Glucose Lactate Vent Mode FiO2 Inspiratory BiPAP Expiratory BiPAP Crit Value Called To Crit Value Called By Crit Value Read Back Blood Gas Notified Time Sodium Potassium Chloride Carbon Dioxide Anion Gap BUN Creatinine Est GFR ( Amer) Est GFR (Non-Af Amer) POC Glucose (mg/dL) 86 Random Glucose Hemoglobin A1c Calcium Magnesium Total Bilirubin AST ALT Alkaline Phosphatase Total Creatine Kinase CK-MB (Mass) Troponin I NT-Pro-B Natriuret Pep Total Protein Albumin Globulin Albumin/Globulin Ratio Triglycerides Cholesterol LDL Cholesterol Direct HDL Cholesterol Procalcitonin Arterial Blood Potassium Urine Color Urine Clarity Urine pH Ur Specific [place] Urine Protein Urine Glucose (UA) Urine Ketones Urine Blood Urine Nitrate Urine Bilirubin Urine Urobilinogen Ur Leukocyte Esterase Urine WBC (Auto) Urine RBC (Auto) Urine Bacteria 11/04/17 11/04/17 11/04/17 02:01 02:05 05:17 WBC RBC Hgb Hct MCV MCH MCHC RDW Plt Count MPV Neut % (Auto) Lymph % (Auto) [place] % (Auto) Eos % (Auto) Baso % (Auto) Neut # (Auto) Lymph # (Auto) [place] # (Auto) Eos # (Auto) Baso # (Auto) PT INR APTT D-Dimer, Quantitative Puncture Site Rr pCO2 76 H* pO2 73 L HCO3 25.6 ABG pH 7.22 L ABG Total CO2 33.4 H ABG O2 Saturation 94.4 L ABG Base Excess 1.1 Dre Test Pos ABG Potassium 2.7 L A-a O2 Difference 545.0 Respiratory Index 7.5 Glucose 130 H Lactate 1.0 Vent Mode Bipap FiO2 100.0 Inspiratory BiPAP 12 Expiratory BiPAP 6 Crit Value Called To Yecenia rosen/rn Crit Value Called By Rudolph graham/rt Crit Value Read Back Y Blood Gas Notified Time 220 Sodium 143 Potassium 3.3 L Chloride 97 L 104.0 Carbon Dioxide 31 H Anion Gap 18 BUN 74 H Creatinine 5.4 H Est GFR ( Amer) 13 Est GFR (Non-Af Amer) 11 POC Glucose (mg/dL) Random Glucose 86 Hemoglobin A1c 7.3 H Calcium 10.2 Magnesium 2.8 H Total Bilirubin 0.7 AST 22 ALT 29 Alkaline Phosphatase 62 Total Creatine Kinase CK-MB (Mass) Troponin I 0.5750 H* NT-Pro-B Natriuret Pep 2910 H Total Protein 8.4 H Albumin 4.8 Globulin 3.6 Albumin/Globulin Ratio 1.3 Triglycerides Cholesterol LDL Cholesterol Direct HDL Cholesterol Procalcitonin Arterial Blood Potassium 2.7 L Urine Color Urine Clarity Urine pH Ur Specific [place] Urine Protein Urine Glucose (UA) Urine Ketones Urine Blood Urine Nitrate Urine Bilirubin Urine Urobilinogen Ur Leukocyte Esterase Urine WBC (Auto) Urine RBC (Auto) Urine Bacteria 11/04/17 11/04/17 11/04/17 05:17 05:50 07:30 WBC RBC Hgb Hct MCV MCH MCHC RDW Plt Count MPV Neut % (Auto) Lymph % (Auto) [place] % (Auto) Eos % (Auto) Baso % (Auto) Neut # (Auto) Lymph # (Auto) [place] # (Auto) Eos # (Auto) Baso # (Auto) PT INR APTT D-Dimer, Quantitative Puncture Site Rr pCO2 53 H pO2 193 H HCO3 26.4 ABG pH 7.34 L ABG Total CO2 30.2 H ABG O2 Saturation 100.0 H ABG Base Excess 1.8 Dre Test Pos ABG Potassium 2.7 L A-a O2 Difference 454.0 Respiratory Index 2.4 Glucose 106 Lactate 0.5 L Vent Mode FiO2 100.0 Inspiratory BiPAP 12 Expiratory BiPAP 6 Crit Value Called To Crit Value Called By Crit Value Read Back Blood Gas Notified Time Sodium 144.0 Potassium Chloride 109.0 H Carbon Dioxide Anion Gap BUN Creatinine Est GFR ( Amer) Est GFR (Non-Af Amer) POC Glucose (mg/dL) Random Glucose Hemoglobin A1c Calcium Magnesium Total Bilirubin AST ALT Alkaline Phosphatase Total Creatine Kinase CK-MB (Mass) Troponin I NT-Pro-B Natriuret Pep Total Protein Albumin Globulin Albumin/Globulin Ratio Triglycerides 423 H D Cholesterol 225 H LDL Cholesterol Direct 98 HDL Cholesterol 24 L Procalcitonin Arterial Blood Potassium 2.7 L Urine Color Yellow Urine Clarity Clear Urine pH 5.0 Ur Specific [place] 1.011 Urine Protein 2+ H Urine Glucose (UA) 1+ H Urine Ketones Negative Urine Blood 1+ H Urine Nitrate Negative Urine Bilirubin Negative Urine Urobilinogen Normal Ur Leukocyte Esterase Neg Urine WBC (Auto) 2 Urine RBC (Auto) 1 Urine Bacteria Rare 11/04/17 11/04/17 11/04/17 07:54 08:17 08:17 WBC RBC Hgb Hct MCV MCH MCHC RDW Plt Count MPV Neut % (Auto) Lymph % (Auto) [place] % (Auto) Eos % (Auto) Baso % (Auto) Neut # (Auto) Lymph # (Auto) [place] # (Auto) Eos # (Auto) Baso # (Auto) PT INR APTT D-Dimer, Quantitative Puncture Site pCO2 pO2 HCO3 ABG pH ABG Total CO2 ABG O2 Saturation ABG Base Excess Dre Test ABG Potassium A-a O2 Difference Respiratory Index Glucose Lactate Vent Mode FiO2 Inspiratory BiPAP Expiratory BiPAP Crit Value Called To Crit Value Called By Crit Value Read Back Blood Gas Notified Time Sodium Potassium Chloride Carbon Dioxide Anion Gap BUN Creatinine Est GFR ( Amer) Est GFR (Non-Af Amer) POC Glucose (mg/dL) 125 H Random Glucose Hemoglobin A1c Calcium Magnesium Total Bilirubin AST ALT Alkaline Phosphatase Total Creatine Kinase 260 H CK-MB (Mass) 2.70 Troponin I 0.4900 H* NT-Pro-B Natriuret Pep Total Protein Albumin Globulin Albumin/Globulin Ratio Triglycerides Cholesterol LDL Cholesterol Direct HDL Cholesterol Procalcitonin 0.66 H Arterial Blood Potassium Urine Color Urine Clarity Urine pH Ur Specific [place] Urine Protein Urine Glucose (UA) Urine Ketones Urine Blood Urine Nitrate Urine Bilirubin Urine Urobilinogen Ur Leukocyte Esterase Urine WBC (Auto) Urine RBC (Auto) Urine Bacteria 11/04/17 11/04/17 12:26 13:54 WBC RBC Hgb Hct MCV MCH MCHC RDW Plt Count MPV Neut % (Auto) Lymph % (Auto) [place] % (Auto) Eos % (Auto) Baso % (Auto) Neut # (Auto) Lymph # (Auto) [place] # (Auto) Eos # (Auto) Baso # (Auto) PT INR APTT D-Dimer, Quantitative Puncture Site pCO2 pO2 HCO3 ABG pH ABG Total CO2 ABG O2 Saturation ABG Base Excess Dre Test ABG Potassium A-a O2 Difference Respiratory Index Glucose Lactate Vent Mode FiO2 Inspiratory BiPAP Expiratory BiPAP Crit Value Called To Crit Value Called By Crit Value Read Back Blood Gas Notified Time Sodium Potassium Chloride Carbon Dioxide Anion Gap BUN Creatinine Est GFR ( Amer) Est GFR (Non-Af Amer) POC Glucose (mg/dL) 184 H Random Glucose Hemoglobin A1c Calcium Magnesium Total Bilirubin AST ALT Alkaline Phosphatase Total Creatine Kinase 352 H CK-MB (Mass) 2.47 Troponin I 0.3820 H* NT-Pro-B Natriuret Pep Total Protein Albumin Globulin Albumin/Globulin Ratio Triglycerides Cholesterol LDL Cholesterol Direct HDL Cholesterol Procalcitonin Arterial Blood Potassium Urine Color Urine Clarity Urine pH Ur Specific [place] Urine Protein Urine Glucose (UA) Urine Ketones Urine Blood Urine Nitrate Urine Bilirubin Urine Urobilinogen Ur Leukocyte Esterase Urine WBC (Auto) Urine RBC (Auto) Urine Bacteria Assessment & Plan (1) CAD (coronary artery disease) Status: Acute (2) ESRD (end stage renal disease) Status: Acute (3) Type 2 diabetes mellitus with diabetic nephropathy Status: Acute (4) CHF (congestive heart failure) Status: Acute - Assessment and Plan (Free Text) Plan: due to CHF and worsening renal failure, will need dialysis soon will contact surgery for access recheck chemistries
[2017-11-04 18:56] LABS: HEPATITIS B SURFACE AG Negative (NEGATIVE)
[2017-11-04 19:01] LABS: FERRITIN 28.6 ng/mL; HEPATITIS B CORE AB NEGATIVE (NEGATIVE)
[2017-11-04 19:11] LABS: ALB/GLOB RATIO 1.2 (1.0-2.1); ALBUMIN 3.8 g/dL (3.5-5.0); CALCIUM 9.2 mg/dl (8.6-10.4)
[2017-11-04 19:12] LABS: HEPATITIS C ANTIBODY NEGATIVE (NEGATIVE)
[2017-11-05 04:31] LABS: BASO # 0.1 K/uL (0.0-0.2); EOS # 0.8 K/uL (0.0-0.7); HEMOGLOBIN 11.6 g/dL (12.0-18.0); LYMPH # 1.5 K/uL (1.0-4.3); LYMPH % 13.3 % (20.0-40.0); MEAN CELL VOLUME 88.1 fL (80.0-94.0); MEAN CORPUSCULAR HEMOGLOBIN 31.5 pg (27.0-31.0); MEAN CORPUSCULAR HGB CONC 35.7 g/dL (33.0-37.0); MEAN PLATELET VOLUME 8.6 fL (7.2-11.7); MONO % 8.6 % (0.0-10.0); NEUT # 8.2 K/uL (1.8-7.0); NEUT % 70.1 % (50.0-75.0); RBC 3.69 Mil/uL (4.40-5.90); RED CELL DISTRIBUTION WIDTH 13.4 % (11.5-14.5); WHITE BLOOD COUNT 11.6 K/uL (4.8-10.8)
[2017-11-05 04:41] LABS: ALB/GLOB RATIO 1.4 (1.0-2.1); ALBUMIN 4.3 g/dL (3.5-5.0); CALCIUM 9.3 mg/dl (8.6-10.4)
[2017-11-05] MEDS: (Novolin R) Insulin Human Regular 100 units/ml vial SC SCH ×4 (07:42→21:27)
[2017-11-05] MEDS ORDERED: Lidocaine 1% 20 MG/2 ML PF AMP ONE (08:58)
[2017-11-05] MEDS ORDERED: HEPARIN-NS 5,000 UNITS/500 ML 5,000 UNIT/500 ML BAG IV ONE (08:58)
[2017-11-05] MEDS ORDERED: Lidocaine 2% MPF (5 ml) Inj ONE (08:59)
[2017-11-05] MEDS ORDERED: Sodium Chloride 0.9% 500 ML IV ONE (09:00)
[2017-11-05] MEDS ORDERED: ceFAZolin 1 gm in NS 2 GM/200 ML BAG IVPB ONE (09:05)
[2017-11-05] MEDS ORDERED: Propofol 10 mg/ml Inj (20 ML) ONE (09:20)
[2017-11-05] MEDS ORDERED: Etomidate 20 mg/10ml Inj IV ONE (09:21)
--- NOTE | 2017-11-05 09:39 | CP.PCM.PN ---
<Padmini Zuniga P - Last Filed: 11/05/17 18:23> Subjective - Date & Time of Evaluation Date of Evaluation: 11/05/17 Time of Evaluation: 09:39 - Subjective Subjective: PGY-[address] Brandon Damon. Patient was seen and evaluated at bedside. Patient status post permacath placement this morning. He is sitting in his chair, off bipap, in no acute distress. Patient feels much better and is in good spirits. States he is no longer short of breath. Denies chest pain, shortness of breath, fever, chills, abdominal pain, nausea, vomiting and headache. Patient to start dialysis today. Objective - Vital Signs/Intake and Output Vital Signs (last 24 hours): Temp Pulse Resp BP Pulse Ox 98.7 F 80 20 150/82 96 11/05/17 07:30 11/05/17 07:30 11/05/17 07:30 11/05/17 07:30 11/05/17 07:30 Intake and Output: 11/05/17 11/05/17 06:59 18:59 Intake Total 220 Balance 220 - Medications Medications: Current Medications Amlodipine Besylate (Norvasc) 10 mg PO DAILY [facility] Last Admin: 11/04/17 10:18 Dose: 10 mg Calcitriol (Rocaltrol) 0.5 mcg PO DAILY [facility] Last Admin: 11/04/17 10:19 Dose: 0.5 mcg Calcium Acetate (Phoslo) 667 mg PO TIDCC [facility] Last Admin: 11/05/17 07:52 Dose: 667 mg Carvedilol (Coreg) 12.5 mg PO DAILY [facility] Last Admin: 11/04/17 10:18 Dose: 12.5 mg Famotidine (Pepcid) 20 mg PO DAILY [facility] Last Admin: 11/04/17 10:19 Dose: 20 mg Furosemide (Lasix) 80 mg PO BID [facility] Gabapentin (Neurontin) 300 mg PO DAILY [facility] Last Admin: 11/04/17 10:18 Dose: 300 mg Heparin Sodium (Porcine) (Heparin) 5,000 units SC Q8 [facility] Last Admin: 11/05/17 05:22 Dose: 5,000 units Potassium Chloride (Potassium Chloride 20 Meq/100 Ml) 20 meq in 100 mls @ 50 mls/hr IVPB Q2H [facility] Stop: 11/05/17 10:59 Last Admin: 11/05/17 07:02 Dose: 50 mls/hr Insulin Human Regular (Novolin R) 0 unit SC ACHS [facility] PRN Reason: Protocol Last Admin: 11/05/17 07:42 Dose: Not Given Metolazone (Zaroxolyn) 5 mg PO DAILY [facility] Last Admin: 11/04/17 10:19 Dose: 5 mg Rosuvastatin Calcium (Crestor) 5 mg PO HS [facility] Last Admin: 11/04/17 21:17 Dose: 5 mg Tamsulosin HCl (Flomax) 0.4 mg PO DAILY [facility] Last Admin: 11/04/17 10:18 Dose: 0.4 mg - Labs Labs: 11/05/17 04:19 11/05/17 04:19 PT 10.8 SECONDS (9.7-12.2) 11/04/17 02:01 INR 1.0 11/04/17 02:01 APTT 33 SECONDS (21-34) 11/04/17 02:01 - Constitutional Appears: No Acute Distress - Head Exam Head Exam: ATRAUMATIC, NORMOCEPHALIC - Eye Exam Eye Exam: EOMI, Normal appearance - ENT Exam ENT Exam: Mucous Membranes Moist - Respiratory Exam Respiratory Exam: Decreased Breath Sounds (R base), Clear to Ausculation Bilateral - Cardiovascular Exam Cardiovascular Exam: REGULAR RHYTHM, +S1, +S2 - GI/Abdominal Exam GI & Abdominal Exam: Soft, Normal Bowel Sounds. absent: Tenderness - Extremities Exam Extremities Exam: Normal Capillary Refill. absent: Pedal Edema, Tenderness - Neurological Exam Neurological Exam: Alert, Awake, Oriented x3 - Psychiatric Exam Psychiatric exam: Normal Affect, Normal Mood - Skin Skin Exam: Dry, Intact, Normal Color Additional comments: Permacath R chest Assessment and Plan - Assessment and Plan (Free Text) Plan: 62 year old M admitted for shortness of breath. Shortness of Breath - Secondary to CHF exacerbation? Renal failure? - BiPAP /, FiO2 100% - In the ED, Lasix 40mg IV given once. - Lasix 60mg IV and metolazone 5mg given once. - ABG: pH 7.22, Co2 76, O2 73, HCO3 25.6 - Repeat ABG: pH 7.34, Co2 53, O2 193, HCO3 26.4 - Chest xray: infiltrates right lower lobe; follow up official read - Pro-BNP: 2910 - Troponin 0.5750; 0.4900; 0.382 - EKG: nsr@91bpm, LBBB, prolonged QT Elevated troponin likely secondary to renal failure - EKG: nsr@91bpm, LBBB, prolonged QT - troponins: 0.5750; 0.4900; 0.382, no significant changes in repeat EKGs - Lipid panel: TG 423, Chl 225, LDL 98, HDL 24 - A1c: 7.3 CHF - Echo (04/2017): LVEF 50-55%; mild concentric LVH; grade I abnormal relaxation pattern; aortic valve mildly sclerotic; mild MR, mild TR, mild PV regurg - Pro-BNP: 2910 - In the ED, Lasix 40mg IV given once. - Lasix 60mg IV and metolazone 5mg given once. - Continue home medication: furosemide 40mg po daily Abnormal chest XRay likely secondary to CHF - 11/04 Chest xray: infiltrates right lower lobe ([place]); Official read: Cardiomegaly, asymmetrical pulmonary edema - In the ED, Vanco and Zosyn were given due to possible PNA - 11/05 Repeat chest xray: Pulmonary vascular congestion. No consolidation. - Leukocytosis, WBC 14.8->11.6 - Afebrile; continue to monitor - lactate: 1.0 - Procalcitonin: 0.66 Renal Failure - [place] Planning Manager, Dr Davis, consulted; help appreciated -As per Dr. Davis note: arranging dialysis for patient today status post permacath placement. Pt to have AV fistula placed next week. -Cardiology consulted, help appreciated. 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 Prophylaxis: - DVT: SCDs, Heparin 5000u SC Q8h - GI: Pepcid 20mg PO daily - Renal diet Patient status post permacath placement and going for dialysis today. Patient to have AV fistula placed next week by vascular surgery. Dr. Smith, Cardiology, consulted for medical optimization. f/u recs <Bjorn Damon - Last Filed: 11/05/17 20:41> Objective - Vital Signs/Intake and Output Vital Signs (last 24 hours): Temp Pulse Resp BP Pulse Ox 98.6 F 92 H 20 165/79 H 95 11/05/17 19:17 11/05/17 19:17 11/05/17 19:17 11/05/17 19:17 11/05/17 19:17 Intake and Output: 11/05/17 11/06/17 18:59 06:59 Intake Total 600 Balance 600 - Medications Medications: Current Medications Amlodipine Besylate (Norvasc) 10 mg PO DAILY [facility] Last Admin: 11/05/17 12:19 Dose: 10 mg Calcitriol (Rocaltrol) 0.5 mcg PO DAILY [facility] Last Admin: 11/05/17 12:20 Dose: 0.5 mcg Calcium Acetate (Phoslo) 667 mg PO TIDCC [facility] Last Admin: 11/05/17 18:53 Dose: 667 mg Carvedilol (Coreg) 12.5 mg PO DAILY [facility] Last Admin: 11/05/17 12:19 Dose: 12.5 mg Famotidine (Pepcid) 20 mg PO DAILY [facility] Last Admin: 11/05/17 12:19 Dose: 20 mg Ferric Sodium Gluconate Complex (Ferrlecit) 125 mg IVPB Q24H [facility] Stop: 11/13/17 12:01 Last Admin: 11/05/17 12:20 Dose: 125 mg Gabapentin (Neurontin) 300 mg PO DAILY [facility] Last Admin: 11/05/17 12:19 Dose: 300 mg Heparin Sodium (Porcine) (Heparin) 5,000 units SC Q8 [facility] Last Admin: 11/05/17 13:57 Dose: Not Given Insulin Human Regular (Novolin R) 0 unit SC ACHS [facility] PRN Reason: Protocol Last Admin: 11/05/17 18:53 Dose: 2 units Rosuvastatin Calcium (Crestor) 5 mg PO HS [facility] Last Admin: 11/04/17 21:17 Dose: 5 mg Tamsulosin HCl (Flomax) 0.4 mg PO DAILY [facility] Last Admin: 11/05/17 12:19 Dose: 0.4 mg - Labs Labs: 11/05/17 04:19 11/05/17 04:19 PT 10.8 SECONDS (9.7-12.2) 11/04/17 02:01 INR 1.0 11/04/17 02:01 APTT 33 SECONDS (21-34) 11/04/17 02:01 Attending/Attestation - Attestation I have personally seen and examined this patient.: Yes I have fully participated in the care of the patient.: Yes I have reviewed all pertinent clinical information, including history, physical exam and plan: Yes Notes (Text): 11/05/17 20:22 Patient was seen and examined at 1:30 PM Exam, assessment and plan were gone over with the resident Also upon ROS: NO longer with SOB NO cough NO other complaints upon FULL ROS Also on Exam: Respiratory: NO R/R/W with decreased breath sounds at the bilateral basilar area Assessments: 1). SOB secondary to Pulmonary Edema secondary to ESRD Symptomatically improved after 100 mg total of Lasix on 11/04/17 and Metaloz[employer] 2). ESRD CKD Stage 5 S/P Right Chest Permacath placement by Dr. Gil 11/05/17 Tentatively planning for Left Arm AVF for Thursday11/09/17 once clearance obtained from Cardiology Will need to have at least 3 HD inpatient before being accepted by outpatient HD center F/U with [facility] for outpatient HD placement process Nephrology Dr. Davis Calcitriol 0.5 mcg PO 1x/day Phoslo 667 mg PO TID 3). Elevated Troponin Likely secondary to ESRD 4). Hx CAD with Angioplasty in 2012 and Hx of HFpEF Coreg 12.5 mg PO 1x/day Crestor 5 mg PO HS Lasix 40 mg PO 1x/day Metolazone 5 mg PO 1x/day ProBNP upon admission 2910 Echo 04/2017: LVEF 50-55%, mild concentric LVH, Grade I abnormal relaxation pattern, aortic valve mildly sclerotic Cardiology Dr. Smith on board and we will need cardiac clearance for the planned AVF 5). DM 2 requiring Insulin HgBA1C is 7.1 On Insulin Degludec 45 units SC 1x/day and Glipizide 5 mg PO 1x/day at home Currently on RISS and blood glucose are under control Added Glipizide 5 mg PO 1x/day starting 11/06/17 6). HTN Norvasc 10 mg PO 1x/day 7). Diabetic Neuropathy Involving the toes and feet bilaterally Gabapentin 300 mg PO 1x/day 8). BPH Flomax 0.4 mg PO 1x/day 9). Anemia likely secondary to ESRD Ferric Gluconate 125 mg IV 1x/day Plan: need cardiac clearance for tentative AVF placement 11/09/17. Will need to have outpatient HD placement arrangement with the help of Nephrology and [facility] Bjorn Damon D.O. 11/05/17 20:41
[2017-11-05] MEDS ORDERED: HYDROmorphone 0.5 mg/0.5 ml ISec IVP PRN (09:55)
--- NOTE | 2017-11-05 09:56 | PCM.SURG1 ---
Surgeon's Initial Post Op Note - Surgeon's Notes Surgeon: Dr. Neto Gil [employer] Supervisor: Akhil Acuña PGY1 Type of Anesthesia: IV Sedation Pre-Operative Diagnosis: ESRD Operative Findings: see dictation Post-Operative Diagnosis: ESRD Operation Performed: Permacatheter placement Right Internal Jugular Vein Specimen/Specimens Removed: none Estimated Blood Loss: EBL {In ML}: 10 Blood Products Given: N/A Drains Used: No Drains Date of Surgery/Procedure: 11/05/17 Time of Surgery/Procedure: 09:56
[2017-11-05] MEDS ORDERED: Labetalol 25mg/5ml Syringe IV STA (09:57)
--- NOTE | 2017-11-05 10:40 | CP.PCM.PN ---
Subjective - Date & Time of Evaluation Date of Evaluation: 11/05/17 Time of Evaluation: 10:37 - Subjective Subjective: right permcath just placed awaiting cardiac clearance for AV access less dyspneic before will arrange for dialysis soon Objective - Vital Signs/Intake and Output Vital Signs (last 24 hours): Temp Pulse Resp BP Pulse Ox 99.1 F 86 14 179/75 H 100 11/05/17 09:53 11/05/17 10:15 11/05/17 10:15 11/05/17 10:15 11/05/17 10:15 Intake and Output: 11/05/17 11/05/17 06:59 18:59 Intake Total 220 Balance 220 - Medications Medications: Current Medications Amlodipine Besylate (Norvasc) 10 mg PO DAILY [facility] Last Admin: 11/04/17 10:18 Dose: 10 mg Calcitriol (Rocaltrol) 0.5 mcg PO DAILY [facility] Last Admin: 11/04/17 10:19 Dose: 0.5 mcg Calcium Acetate (Phoslo) 667 mg PO TIDCC [facility] Last Admin: 11/05/17 07:52 Dose: 667 mg Carvedilol (Coreg) 12.5 mg PO DAILY [facility] Last Admin: 11/04/17 10:18 Dose: 12.5 mg Famotidine (Pepcid) 20 mg PO DAILY [facility] Last Admin: 11/04/17 10:19 Dose: 20 mg Furosemide (Lasix) 80 mg PO BID [facility] Gabapentin (Neurontin) 300 mg PO DAILY [facility] Last Admin: 11/04/17 10:18 Dose: 300 mg Heparin Sodium (Porcine) (Heparin) 5,000 units SC Q8 [facility] Last Admin: 11/05/17 05:22 Dose: 5,000 units Hydromorphone HCl (Dilaudid) 0.25 mg IVP Q10M PRN PRN Reason: Pain, moderate (4-7) Stop: 11/05/17 11:55 Potassium Chloride (Potassium Chloride 20 Meq/100 Ml) 20 meq in 100 mls @ 50 mls/hr IVPB Q2H [facility] Stop: 11/05/17 10:59 Last Admin: 11/05/17 07:02 Dose: 50 mls/hr Insulin Human Regular (Novolin R) 0 unit SC ACHS [facility] PRN Reason: Protocol Last Admin: 11/05/17 07:42 Dose: Not Given Metolazone (Zaroxolyn) 5 mg PO DAILY [facility] Last Admin: 11/04/17 10:19 Dose: 5 mg Rosuvastatin Calcium (Crestor) 5 mg PO HS [facility] Last Admin: 11/04/17 21:17 Dose: 5 mg Tamsulosin HCl (Flomax) 0.4 mg PO DAILY [facility] Last Admin: 11/04/17 10:18 Dose: 0.4 mg - Labs Labs: 11/05/17 04:19 11/05/17 04:19 PT 10.8 SECONDS (9.7-12.2) 11/04/17 02:01 INR 1.0 11/04/17 02:01 APTT 33 SECONDS (21-34) 11/04/17 02:01 - Constitutional Appears: No Acute Distress, Chronically Ill - Head Exam Head Exam: ATRAUMATIC, NORMAL INSPECTION - Eye Exam Eye Exam: EOMI, Normal appearance - Neck Exam Neck Exam: Normal Inspection. absent: Tenderness - Respiratory Exam Respiratory Exam: Clear to Ausculation Bilateral, NORMAL BREATHING PATTERN - Cardiovascular Exam Cardiovascular Exam: REGULAR RHYTHM, +S1 - GI/Abdominal Exam GI & Abdominal Exam: Soft. absent: Tenderness - Extremities Exam Extremities Exam: Normal Inspection. absent: Tenderness - Neurological Exam Neurological Exam: Alert, CN II-XII Intact - Skin Skin Exam: Dry, Warm Assessment and Plan (1) CAD (coronary artery disease) Status: Acute (2) ESRD (end stage renal disease) Status: Acute (3) Type 2 diabetes mellitus with diabetic nephropathy Status: Acute (4) CHF (congestive heart failure) Status: Acute - Assessment and Plan (Free Text) Plan: dialysis soon await Av access IV Fe
--- NOTE | 2017-11-05 11:00 | RAD ---
Date of service: 11/05/2017 HISTORY: permacath COMPARISON: Chest radiograph dated 11/04/2017. FINDINGS: LUNGS: Pulmonary vascular congestion. No focal consolidation. PLEURA: No significant pleural effusion identified, no pneumothorax apparent. CARDIOVASCULAR: Atherosclerotic aortic calcifications. Cardiomediastinal silhouette stably enlarged. OSSEOUS STRUCTURES: Unchanged. VISUALIZED UPPER ABDOMEN: Normal. OTHER FINDINGS: Right internal jugular access tunneled hemodialysis catheter with tips in the upper right atrium. IMPRESSION: New right internal jugular access tunneled hemodialysis catheter in satisfactory position. No appreciable pneumothorax. No other significant interval change.
[2017-11-05] MEDS ORDERED: Labetalol 25mg/5ml Syringe ONE (11:01)
[2017-11-05] MEDS: Ferric Sodium Gluconat Complex 62.5 mg/5 ml Vial IVPB SCH (12:20)
--- NOTE | 2017-11-05 15:18 | RAD ---
Date of service: 11/05/2017 PROCEDURE: Fluoroscopy up to 1 hr. HISTORY: RENAL FAILURE COMPARISON: None TECHNIQUE: Standard protocol for this study/examination. FINDINGS: Total fluoroscopic time (continuous mode) utilized during the procedure (seconds) 17.3. IMPRESSION: Total exam DLP: 1.69 (mGy)
--- NOTE | 2017-11-05 21:33 | OP ---
PROCEDURE DATE: 11/05/2017 PREOPERATIVE DIAGNOSIS: Renal failure. POSTOPERATIVE DIAGNOSIS: Renal failure. PROCEDURE CARRIED OUT: Placement of Perm-A-Cath right jugular vein with C-arm fluoroscopy, ultrasound-guided puncture, and micropuncture technique. SURGEON: Neto Gil Jr., M.D. TRAIN CONTROL TECHNICIAN: Dr. Acuña ANESTHESIOLOGIST: Dr. Pollard. TYPE OF ANESTHESIA: Local with sedation. INDICATION: A 62-year-old man with renal insufficiency, now requiring dialysis. OPERATIVE FINDINGS: Catheter was inserted uneventfully via the jugular vein. DESCRIPTION OF PROCEDURE: Using ultrasound guidance and micropuncture technique, the right jugular vein was punctured. Under fluoroscopic control, a guidewire was advanced centrally. This was exchanged for an 0.035 wire. After this had been done, a sheath dilator was passed over this and the catheter was positioned at the tip in the superior vena cava and right atrium, draped out on the right chest wall and coming out through the jugular vein on the right side. There was excellent flow and return. The patient tolerated the procedure uneventfully. Blood loss was 20 mL. Ultrasound images from the neck showed that the vein was 14 mm in diameter with normal compressibility and no intraluminal thrombosis. Neto Gil Jr., MD
--- NOTE | 2017-11-06 03:01 | CON ---
DATE: 11/05/2017 CARDIOLOGY CONSULTATION REASON FOR CONSULTATION: Shortness of breath. HISTORY OF PRESENT ILLNESS: The patient is a 62-year-old [facility] male who has advanced renal insufficiency, being followed at an outpatient clinic in [place]. He presented because of worsening of shortness of breath. The patient denies any productive cough or retrosternal chest pain, and is unaware of any history of heart attack in the past. SOCIAL HISTORY: Nonsmoker. He is and lives with his . MEDICATIONS: Coreg 12.5 mg daily, Crestor 5 mg once a day, Flomax 0.4 mg once a day, Ferrlecit infusion, heparin 5000 units every 8 hours, Neurontin 300 mg once a day, Norvasc 10 mg once a day, Lasix 20 mg orally daily, Rocaltrol 0.5 mg daily. PAST MEDICAL HISTORY: Hypertension and diabetes mellitus as well as chronic renal insufficiency. PHYSICAL EXAMINATION: GENERAL: The patient is an elderly female who does not appear to be in acute distress. VITAL SIGNS: Blood pressure 137/78, heart rate 81, temperature 98.5, respirations 17. HEENT: Normocephalic. NECK: No JVD. CHEST: Diffuse bilateral rhonchi. HEART: S1, S2 regular. ABDOMEN: Soft. EXTREMITIES: No edema. IMAGING: Chest x-ray on admission revealed cardiomegaly with moderate to severe congestive heart failure. EKG revealed sinus rhythm, left atrial enlargement, incomplete left bundle branch block, prolonged QT interval. Echocardiographic study performed in April of this year revealed normal ejection fraction and normal wall motion, mild concentric LVH, mild mitral insufficiency, and mild tricuspid insufficiency. LABORATORY DATA: Today's SMA-7: Sodium 143, potassium 2.9, chloride is 97, CO2 of 33, glucose 119, BUN 72, creatinine 5.2. Troponins were borderline 0.49 and 0.38. Hemoglobin and hematocrit today 11.6 and 32.5, white count 11.6, and platelet count 326,000. D-dimer is elevated 329. PT, PTT, INR are within normal limit. Hepatitis profile is negative. ASSESSMENT: 1. End-stage renal disease. 2. Volume overload. 3. Diastolic heart failure. 4. Borderline troponin elevation, unlikely represents myocardial injury. 5. Hypokalemia. 6. Hypertension. 7. Diabetes mellitus. RECOMMENDATIONS: Continue current Coreg 12.5 mg daily, heparin 5000 units every 8 hours, Norvasc 10 mg once a day. I did increase Lasix to 80 mg orally twice a day yesterday. The patient underwent Perm-A-Cath this morning, and he is due to undergo hemodialysis today. The patient can undergo AV fistula placement from the cardiac point of view. Felipe Smith MD
[2017-11-06 07:26] LABS: BASO # 0.1 K/uL (0.0-0.2); BASO % 0.7 % (0.0-2.0); EOS # 0.8 K/uL (0.0-0.7); HEMOGLOBIN 11.2 g/dL (12.0-18.0); LYMPH # 1.5 K/uL (1.0-4.3); LYMPH % 15.1 % (20.0-40.0); MEAN CELL VOLUME 88.6 fL (80.0-94.0); MEAN CORPUSCULAR HEMOGLOBIN 30.8 pg (27.0-31.0); MEAN CORPUSCULAR HGB CONC 34.8 g/dL (33.0-37.0); MONO # 0.9 K/uL (0.0-0.8); MONO % 9.5 % (0.0-10.0); NEUT # 6.6 K/uL (1.8-7.0); NEUT % 66.7 % (50.0-75.0); RBC 3.64 Mil/uL (4.40-5.90); RED CELL DISTRIBUTION WIDTH 12.9 % (11.5-14.5)
[2017-11-06 07:27] LABS: ALB/GLOB RATIO 1.4 (1.0-2.1); ALBUMIN 4.2 g/dL (3.5-5.0); CALCIUM 9.3 mg/dl (8.6-10.4)
[2017-11-06] MEDS: (Novolin R) Insulin Human Regular 100 units/ml vial SC SCH ×4 (07:37→22:14)
--- NOTE | 2017-11-06 07:43 | CP.PCM.PN ---
<Padmini Zuniga P - Last Filed: 11/06/17 10:38> Subjective - Date & Time of Evaluation Date of Evaluation: 11/06/17 Time of Evaluation: 07:40 - Subjective Subjective: PGY-[address] Damon. Patient seen and evaluated at bedside. Patient laying bed, off biPAP, and in no acute distress. Patient went for dialysis yesterday and tolerated well. Patient denies shortness of breath, chest pain, nausea, vomiting, fevers, and chills. Objective - Vital Signs/Intake and Output Vital Signs (last 24 hours): Temp Pulse Resp BP Pulse Ox 98.4 F 93 H 20 157/78 H 96 11/06/17 04:00 11/06/17 04:00 11/06/17 04:00 11/06/17 04:00 11/06/17 04:00 Intake and Output: 11/06/17 11/06/17 06:59 18:59 Intake Total 400 Balance 400 - Medications Medications: Current Medications Amlodipine Besylate (Norvasc) 10 mg PO DAILY [facility] Last Admin: 11/05/17 12:19 Dose: 10 mg Calcitriol (Rocaltrol) 0.5 mcg PO DAILY [facility] Last Admin: 11/05/17 12:20 Dose: 0.5 mcg Calcium Acetate (Phoslo) 667 mg PO TIDCC [facility] Last Admin: 11/05/17 18:53 Dose: 667 mg Carvedilol (Coreg) 12.5 mg PO DAILY [facility] Last Admin: 11/05/17 12:19 Dose: 12.5 mg Famotidine (Pepcid) 20 mg PO DAILY [facility] Last Admin: 11/05/17 12:19 Dose: 20 mg Ferric Sodium Gluconate Complex (Ferrlecit) 125 mg IVPB Q24H [facility] Stop: 11/13/17 12:01 Last Admin: 11/05/17 12:20 Dose: 125 mg Gabapentin (Neurontin) 300 mg PO DAILY [facility] Last Admin: 11/05/17 12:19 Dose: 300 mg Glipizide (Glucotrol) 5 mg PO ACB [facility] Heparin Sodium (Porcine) (Heparin) 5,000 units SC Q8 [facility] Last Admin: 11/06/17 06:06 Dose: 5,000 units Insulin Human Regular (Novolin R) 0 unit SC ACHS [facility] PRN Reason: Protocol Last Admin: 11/06/17 07:37 Dose: Not Given Rosuvastatin Calcium (Crestor) 5 mg PO HS [facility] Last Admin: 11/05/17 21:24 Dose: 5 mg Tamsulosin HCl (Flomax) 0.4 mg PO DAILY [facility] Last Admin: 11/05/17 12:19 Dose: 0.4 mg - Labs Labs: 11/06/17 06:38 11/06/17 06:38 PT 10.8 SECONDS (9.7-12.2) 11/04/17 02:01 INR 1.0 11/04/17 02:01 APTT 33 SECONDS (21-34) 11/04/17 02:01 - Head Exam Head Exam: ATRAUMATIC, NORMAL INSPECTION, NORMOCEPHALIC - Eye Exam Eye Exam: EOMI, Normal appearance - ENT Exam ENT Exam: Mucous Membranes Moist - Respiratory Exam Respiratory Exam: Decreased Breath Sounds, Clear to Ausculation Bilateral, NORMAL BREATHING PATTERN. absent: Rales, Rhonchi, Wheezes - Cardiovascular Exam Cardiovascular Exam: REGULAR RHYTHM, +S1, +S2 - GI/Abdominal Exam GI & Abdominal Exam: Soft, Normal Bowel Sounds. absent: Tenderness - Extremities Exam Extremities Exam: absent: Pedal Edema, Tenderness - Neurological Exam Neurological Exam: Alert, Awake, Oriented x3 - Psychiatric Exam Psychiatric exam: Normal Affect, Normal Mood - Skin Skin Exam: Dry, Normal Color, Warm Additional comments: Patient with tunneled catheter in R upper chest, dressing is clean, dry and intact. Assessment and Plan - Assessment and Plan (Free Text) Plan: 62 year old M admitted for shortness of breath. Shortness of Breath secondary to ESRD - BiPAP 04/01, FiO2 100% - In the ED, Lasix 40mg IV given once. - Lasix 60mg IV and metolazone 5mg given once. - ABG: pH 7.22, Co2 76, O2 73, HCO3 25.6 - Repeat ABG: pH 7.34, Co2 53, O2 193, HCO3 26.4 - Chest xray: infiltrates right lower lobe; follow up official read - Pro-BNP: 2910 - Troponin 0.5750; 0.4900; 0.382 - EKG: nsr@91bpm, LBBB, prolonged QT CKD stage 5 - Stud Master/Mistress, Dr Davis, consulted; help appreciated -As per Dr. Davis note: arranging dialysis for patient 11/05 status post permacath placement. Pt to have AV fistula placed next week. -Cardiology consulted for cardiac optimization, help appreciated. f/u recs - BUN/Cr at admission: 74/5.4-> 43/4.0 on 11/06 Elevated troponin likely secondary to ESRD - EKG: nsr@91bpm, LBBB, prolonged QT - troponins: 0.5750; 0.4900; 0.382, no significant changes in repeat EKGs - Lipid panel: TG 423, Chl 225, LDL 98, HDL 24 - A1c: 7.3 CHF - Echo (04/2017): LVEF 50-55%; mild concentric LVH; grade I abnormal relaxation pattern; aortic valve mildly sclerotic; mild MR, mild TR, mild PV regurg - Pro-BNP: 2910 - In the ED, Lasix 40mg IV given once. - Lasix 60mg IV and metolazone 5mg given once. - Continue home medication: furosemide 40mg po daily Abnormal chest XRay likely secondary to CHF - 11/04 Chest xray: infiltrates right lower lobe ([place]); Official read: Cardiomegaly, asymmetrical pulmonary edema - In the ED, Vanco and Zosyn were given due to possible PNA - 11/05 Repeat chest xray: Pulmonary vascular congestion. No consolidation. - Leukocytosis, WBC 14.8->11.6 - Afebrile; continue to monitor - lactate: 1.0 - Procalcitonin: 0.66 HTN - Continue home medications: carvidilol 12.5mg po daily, amlodipine 10mg po daily - Continue to monitor DM - Home medications: Tresiba pen 450 units; glipizide 5mg po daily, gabapentin 300mg po daily - Accuchecks - Hypoglycemia protocol - ISS - A1c: 7.3 CAD - Hx of angioplasty in 2012 - Continue home medications: lovastatin 40mg po hs, carvidilol 12.5mg po daily, [id number] po daily - Patient reports he was previously on Plavix, but was told by Dr. Damon, jet aircraft servicer, to stop taking it approximately 1 month ago. Prophylaxis: - DVT: SCDs, Heparin 5000u SC Q8h - GI: Pepcid 20mg PO daily - Renal diet Patient went for dialysis yesterday. Tolerated well. Patient to have AV fistula to be placed next week by vascular surgery. Cardiac optimization approved as per Dr. Smith. SW working on placing patient in outpatient dialysis [facility] and [facility], patient is [facility] patient. <Bjorn Damon - Last Filed: 11/06/17 18:58> Objective - Vital Signs/Intake and Output Vital Signs (last 24 hours): Temp Pulse Resp BP Pulse Ox 98.1 F 76 20 151/72 H 95 11/06/17 15:10 11/06/17 15:10 11/06/17 15:10 11/06/17 15:10 11/06/17 15:10 Intake and Output: 11/06/17 11/06/17 06:59 18:59 Intake Total 400 500 Balance 400 500 - Medications Medications: Current Medications Amlodipine Besylate (Norvasc) 10 mg PO DAILY [facility] Last Admin: 11/06/17 10:26 Dose: 10 mg Calcitriol (Rocaltrol) 0.5 mcg PO DAILY [facility] Last Admin: 11/06/17 10:27 Dose: 0.5 mcg Calcium Acetate (Phoslo) 667 mg PO TIDCC [facility] Last Admin: 11/06/17 17:56 Dose: 667 mg Carvedilol (Coreg) 12.5 mg PO DAILY [facility] Last Admin: 11/06/17 10:26 Dose: 12.5 mg Famotidine (Pepcid) 20 mg PO DAILY [facility] Last Admin: 11/06/17 10:27 Dose: 20 mg Ferric Sodium Gluconate Complex (Ferrlecit) 125 mg IVPB Q24H [facility] Stop: 11/13/17 12:01 Last Admin: 11/06/17 12:30 Dose: 125 mg Gabapentin (Neurontin) 300 mg PO DAILY [facility] Last Admin: 11/06/17 10:26 Dose: 300 mg Glipizide (Glucotrol) 5 mg PO ACB [facility] Last Admin: 11/06/17 08:02 Dose: 5 mg Heparin Sodium (Porcine) (Heparin) 5,000 units SC Q8 [facility] Last Admin: 11/06/17 13:32 Dose: 5,000 units Insulin Human Regular (Novolin R) 0 unit SC ACHS [facility] PRN Reason: Protocol Last Admin: 11/06/17 16:47 Dose: Not Given Rosuvastatin Calcium (Crestor) 5 mg PO HS [facility] Last Admin: 11/05/17 21:24 Dose: 5 mg Tamsulosin HCl (Flomax) 0.4 mg PO DAILY [facility] Last Admin: 11/06/17 10:27 Dose: 0.4 mg - Labs Labs: 11/06/17 06:38 11/06/17 06:38 PT 10.8 SECONDS (9.7-12.2) 11/04/17 02:01 INR 1.0 11/04/17 02:01 APTT 33 SECONDS (21-34) 11/04/17 02:01 Attending/Attestation - Attestation I have personally seen and examined this patient.: Yes I have fully participated in the care of the patient.: Yes I have reviewed all pertinent clinical information, including history, physical exam and plan: Yes Notes (Text): 11/06/17 18:48 Patient was seen and examined at 1:45 PM Hospitalist Progress Note Currently upon FULL ROS: NO chest pain NO SOB/Cough NO abdominal pain NO n/v/d/c: normal bowel movement this morning NO burning pain with urination NO dysphagia/odynophagia NO lightheadedenss/dizziness NO paresthesias NO new changes in visioin NO new changes in hearing NO headache Exam: General: AAOX3, NAD HEENT: NCA, EOMI, PERRLA, NO cervical/supraclavicular/submandibular lymphadenopathy, NO pharyngeal erythema/exudate, Nasal Turbinates are nonerythematous/nonedematous, Oral Mucosa is moist Cardio: NS1 and NS2, NO M/R?G Resp: CTA B/L, NO R/R/W Right chest permacath GI: BSx4, Soft, NT, NO HSM, NO guarding/rebound tenderness Ext: Pulses are strong and equal in bilateral UE and LE, NO edema noted, capillary refills is 2 seconds on all toes Neuro: CN II through XII are grossly intact Assessments: 1). SOB secondary to Pulmonary Edema secondary to ESRD Symptomatically improved after 100 mg total of Lasix on 11/04/17 and Metalozone at the time of admission 2). ESRD CKD Stage 5 S/P Right Chest Permacath placement by Dr. Gil 11/05/17 Tentatively planning for Left Arm AVF for Thursday11/09/17 or Thursday11/10/17: he has been cleared by Cardiology Will need to have at least 3 HD inpatient before being accepted by outpatient HD center Associate Product Integrity Engineer Smita and Aluminum Pourer Julia are aware that patient needs outpatient HD placement Nephrology Dr. Davis Calcitriol 0.5 mcg PO 1x/day Phoslo 667 mg PO TID 3). Hx Elevated Troponin Likely secondary to ESRD 4). Hx CAD with Angioplasty in 2012 and Hx of HFpEF Coreg 12.5 mg PO 1x/day Crestor 5 mg PO HS Lasix and Metolazone were discontinued 11/05/17 ProBNP upon admission 0 Echo 04/2017: LVEF 50-55%, mild concentric LVH, Grade I abnormal relaxation pattern, aortic valve mildly sclerotic Cardiology Dr. Smith on board and he has cleared patient for planned AVF 5). DM 2 requiring Insulin HgBA1C is 7.1 On Insulin Degludec 45 units SC 1x/day and Glipizide 5 mg PO 1x/day at home Currently on RISS and Glipizide 5 mg PO 1x/day and blood glucose are under control 6). HTN Norvasc 10 mg PO 1x/day 7). Diabetic Neuropathy Involving the toes and feet bilaterally Gabapentin 300 mg PO 1x/day 8). BPH Flomax 0.4 mg PO 1x/day 9). Anemia likely secondary to ESRD Ferric Gluconate 125 mg IV 1x/day Plan: patient has been cleared by Cardiology for AVF, which is tentatively planned for either 11/09/17 or 11/10/17. Will need to have outpatient HD placement arrangement with the help of Nephrology and Associate Product Integrity Engineer/Aluminum Pourer. Emergency Medicaid application was completed and placed in the front of the patient chart. Bjorn Damon D.O.
--- NOTE | 2017-11-06 12:05 | CP.PCM.PN ---
Subjective - Date & Time of Evaluation Date of Evaluation: 11/06/17 Time of Evaluation: 12:04 - Subjective Subjective: hd yesterday no complaints s/p permcath denies any n/v/d/sob/cp/dizziness/headache/dysuria/cough/f/c Objective - Vital Signs/Intake and Output Vital Signs (last 24 hours): Temp Pulse Resp BP Pulse Ox 98.1 F 90 18 153/72 H 98 11/06/17 07:00 11/06/17 10:23 11/06/17 07:00 11/06/17 10:26 11/06/17 07:00 Intake and Output: 11/06/17 11/06/17 06:59 18:59 Intake Total 400 Balance 400 - Medications Medications: Current Medications Amlodipine Besylate (Norvasc) 10 mg PO DAILY [facility] Last Admin: 11/06/17 10:26 Dose: 10 mg Calcitriol (Rocaltrol) 0.5 mcg PO DAILY [facility] Last Admin: 11/06/17 10:27 Dose: 0.5 mcg Calcium Acetate (Phoslo) 667 mg PO TIDCC [facility] Last Admin: 11/06/17 08:02 Dose: 667 mg Carvedilol (Coreg) 12.5 mg PO DAILY [facility] Last Admin: 11/06/17 10:26 Dose: 12.5 mg Famotidine (Pepcid) 20 mg PO DAILY [facility] Last Admin: 11/06/17 10:27 Dose: 20 mg Ferric Sodium Gluconate Complex (Ferrlecit) 125 mg IVPB Q24H [facility] Stop: 11/13/17 12:01 Last Admin: 11/05/17 12:20 Dose: 125 mg Gabapentin (Neurontin) 300 mg PO DAILY [facility] Last Admin: 11/06/17 10:26 Dose: 300 mg Glipizide (Glucotrol) 5 mg PO ACB [facility] Last Admin: 11/06/17 08:02 Dose: 5 mg Heparin Sodium (Porcine) (Heparin) 5,000 units SC Q8 [facility] Last Admin: 11/06/17 06:06 Dose: 5,000 units Insulin Human Regular (Novolin R) 0 unit SC ACHS [facility] PRN Reason: Protocol Last Admin: 11/06/17 07:37 Dose: Not Given Rosuvastatin Calcium (Crestor) 5 mg PO HS [facility] Last Admin: 11/05/17 21:24 Dose: 5 mg Tamsulosin HCl (Flomax) 0.4 mg PO DAILY [facility] Last Admin: 11/06/17 10:27 Dose: 0.4 mg - Labs Labs: 11/06/17 06:38 11/06/17 06:38 PT 10.8 SECONDS (9.7-12.2) 11/04/17 02:01 INR 1.0 11/04/17 02:01 APTT 33 SECONDS (21-34) 11/04/17 02:01 - Constitutional Appears: Non-toxic, No Acute Distress, Chronically Ill - Head Exam Head Exam: NORMAL INSPECTION, NORMOCEPHALIC - Eye Exam Eye Exam: Normal appearance, PERRL - ENT Exam ENT Exam: Mucous Membranes Moist, Normal Exam - Neck Exam Neck Exam: Full ROM - Respiratory Exam Respiratory Exam: Clear to Ausculation Bilateral, NORMAL BREATHING PATTERN - Cardiovascular Exam Cardiovascular Exam: REGULAR RHYTHM, RRR - GI/Abdominal Exam GI & Abdominal Exam: Distended, Soft - Extremities Exam Extremities Exam: Full ROM, Normal Inspection, Pedal Edema - Neurological Exam Neurological Exam: Alert, Awake, Oriented x3 Assessment and Plan (1) CAD (coronary artery disease) Status: Acute (2) CHF (congestive heart failure) Status: Acute (3) ESRD (end stage renal disease) Status: Acute (4) Respiratory distress Status: Acute (5) Type 2 diabetes mellitus with diabetic nephropathy Status: Acute - Assessment and Plan (Free Text) Assessment: maintain hd, next treatment tomorrow. liberalize potassium in diet hgb acceptable, on iv iron outpt hd placement. avf after cardiac clearance
--- NOTE | 2017-11-06 12:12 | CARD ---
APPROVED REPORT Date of service: 11/04/2017 EKG Measurement Heart [id number] <Conclusion> Normal sinus rhythm Possible Left atrial enlargement Nonspecific intraventricular conduction delay Nonspecific T wave abnormality Prolonged QT Abnormal ECG
--- NOTE | 2017-11-06 12:12 | CARD ---
APPROVED REPORT Date of service: 11/04/2017 EKG Measurement Heart [id number] <Conclusion> Normal sinus rhythm Prolonged QT Abnormal ECG
--- NOTE | 2017-11-06 12:13 | CARD ---
APPROVED REPORT Date of service: 11/04/2017 EKG Measurement Heart [id number] <Conclusion> Normal sinus rhythm Possible Left atrial enlargement Incomplete left bundle branch block Nonspecific ST abnormality Prolonged QT Abnormal ECG
[2017-11-06] MEDS: Ferric Sodium Gluconat Complex 62.5 mg/5 ml Vial IVPB SCH (12:30)
--- NOTE | 2017-11-06 13:21 | VASCLAB ---
Date of service: 11/06/2017 PROCEDURE: Upper Extremity Venous Mapping HISTORY: Pre-op AV Fistula, Vein mapping PRIORS: None. TECHNIQUE: Bilateral upper extremity, internal jugular, subclavian, axillary, brachial, ulnar, radial, basilic and upper cephalic veins were evaluated. Flow was assessed with color Doppler, compressibility, assessment of phasic flow and augmentation response. Report prepared by Cal [place], BS, RVT FINDINGS: RIGHT: 1. Internal Jugular Vein: Compressibility - Fully compressible: Thrombus - None : Flow - Phasic 2. Subclavian Vein:Compressibility - Fully compressible: Thrombus - None : Flow - Phasic 3. Axillary Vein: Compressibility - Fully compressible: Thrombus - None 4. Brachial Vein: Compressibility - Fully compressible: Thrombus - None 5. Ulnar Vein:Compressibility - Fully compressible: Thrombus - None 6. Radial Vein:Compressibility - Fully compressible: Thrombus - None 7. Cephalic Vein: Compressibility - Fully compressible: thrombus - None 7.1. Upper Arm: Proximal Diameter: 0.62cm. Mid Diameter: 0.57cm. Distal Diameter: 0.64cm. 7.2. Forearm: Proximal Diameter: 0.43cm. Mid Diameter:0.41cm. Distal Diameter: 0.32cm 8. Basilic Vein:Compressibility - Fully compressible: thrombus - None 8.1. Upper Arm:Proximal Diameter: 0.71cm. Mid Diameter: 0.68cm. Distal Diameter: 0.65cm. 8.2. Forearm: Proximal Diameter: 0.42cm. Mid Diameter:0.40cm. Distal Diameter: 0.34cm. LEFT: 1. Internal Jugular Vein: Compressibility - Fully compressible: Thrombus - None : Flow - Phasic 2. Subclavian Vein:Compressibility - Fully compressible: Thrombus - None : Flow - Phasic 3. Axillary Vein: Compressibility - Fully compressible: Thrombus - None 4. Brachial Vein: Compressibility - Fully compressible: Thrombus - None 5. Ulnar Vein:Compressibility - Fully compressible: Thrombus - None 6. Radial Vein:Compressibility - Fully compressible: Thrombus - None 7. Cephalic Vein: Compressibility - Fully compressible: thrombus - None 7.1. Upper Arm: Proximal Diameter: 0.55cm. Mid Diameter: 0.62cm. Distal Diameter: 0.68cm. 7.2. Forearm: Proximal Diameter: 0.40cm. Mid Diameter:0.47cm. Distal Diameter: 0.38cm 8. Basilic Vein:Compressibility - Fully compressible: thrombus - None 8.1. Upper Arm:Proximal Diameter: 0.71cm. Mid Diameter: 0.75cm. Distal Diameter: 0.67cm. 8.2. Forearm: Proximal Diameter: 0.25cm. Mid Diameter:0.25cm. Distal Diameter: 0.25cm. OTHER FINDINGS: Right: None. Left: None. IMPRESSION: Refer to the above listed measurements for vein sizes.
--- NOTE | 2017-11-06 18:33 | PN ---
DATE: 11/06/2017 SUBJECTIVE: The patient underwent hemodialysis yesterday. He denies any chest pain. PHYSICAL EXAMINATION: VITAL SIGNS: Blood pressure 153/72, heart rate 90, temperature 98.2, and respirations 18. HEENT: Normocephalic. CHEST: Clear. HEART: S1 and S2, regular. EXTREMITIES: No edema. LABORATORY DATA: Today's SMA-7, sodium 146, potassium 3.3, chloride 98, CO2 of 34, glucose 141, BUN 43, creatinine 4. Today's hemoglobin and hematocrit 11.1 and 32.3. White count and platelet count are within normal limits. ASSESSMENT: 1. End-stage renal disease, hemodialysis was initiated yesterday. 2. Hypokalemia. 3. Diastolic left ventricular dysfunction. 4. Hypertension. 5. Diabetes mellitus. RECOMMENDATIONS: Continue Coreg 12.5 mg daily, Crestor 5 mg daily, glipizide 5 mg twice a day, heparin 5000 units every 8 hours, Neurontin 300 mg daily, Norvasc 10 mg once a day, and PhosLo one tablet t.i.d. Consider potassium replacement if okay with the design studio consultant caul fat puller. Felipe Smith MD
--- NOTE | 2017-11-07 04:03 | CP.PCM.PN ---
<Zain Manzo - Last Filed: 11/07/17 08:37> Subjective - Date & Time of Evaluation Date of Evaluation: 11/07/17 Time of Evaluation: 03:59 - Subjective Subjective: PGY-[address] Bjorn Damon Service Patient is seen and examined at bedside. Patient reports no acute events overnight. Patient feels well overall and was previously sleeping before the encounter. Patient denies any fevers, chills, headache, Chest pain, SOB, nausea , vomiting, diarrhea or constipation. Objective - Vital Signs/Intake and Output Vital Signs (last 24 hours): Temp Pulse Resp BP Pulse Ox 98.1 F 76 20 171/77 H 97 11/06/17 23:15 11/06/17 23:38 11/06/17 23:15 11/06/17 23:15 11/06/17 23:15 Intake and Output: 11/06/17 11/07/17 18:59 06:59 Intake Total 500 Balance 500 - Medications Medications: Current Medications Amlodipine Besylate (Norvasc) 10 mg PO DAILY [facility] Last Admin: 11/06/17 10:26 Dose: 10 mg Calcitriol (Rocaltrol) 0.5 mcg PO DAILY [facility] Last Admin: 11/06/17 10:27 Dose: 0.5 mcg Calcium Acetate (Phoslo) 667 mg PO TIDCC [facility] Last Admin: 11/06/17 17:56 Dose: 667 mg Carvedilol (Coreg) 12.5 mg PO DAILY [facility] Last Admin: 11/06/17 10:26 Dose: 12.5 mg Famotidine (Pepcid) 20 mg PO DAILY [facility] Last Admin: 11/06/17 10:27 Dose: 20 mg Ferric Sodium Gluconate Complex (Ferrlecit) 125 mg IVPB Q24H [facility] Stop: 11/13/17 12:01 Last Admin: 11/06/17 12:30 Dose: 125 mg Gabapentin (Neurontin) 300 mg PO DAILY [facility] Last Admin: 11/06/17 10:26 Dose: 300 mg Glipizide (Glucotrol) 5 mg PO ACB [facility] Last Admin: 11/06/17 08:02 Dose: 5 mg Heparin Sodium (Porcine) (Heparin) 5,000 units SC Q8 [facility] Last Admin: 11/06/17 21:30 Dose: 5,000 units Insulin Human Regular (Novolin R) 0 unit SC ACHS [facility] PRN Reason: Protocol Last Admin: 11/06/17 22:14 Dose: Not Given Rosuvastatin Calcium (Crestor) 5 mg PO HS [facility] Last Admin: 11/06/17 21:30 Dose: 5 mg Tamsulosin HCl (Flomax) 0.4 mg PO DAILY [facility] Last Admin: 11/06/17 10:27 Dose: 0.4 mg - Labs Labs: 11/06/17 06:38 11/06/17 06:38 PT 10.8 SECONDS (9.7-12.2) 11/04/17 02:01 INR 1.0 11/04/17 02:01 APTT 33 SECONDS (21-34) 11/04/17 02:01 - Constitutional Appears: Well, Non-toxic, No Acute Distress - Head Exam Head Exam: ATRAUMATIC, NORMAL INSPECTION, NORMOCEPHALIC - Eye Exam Eye Exam: EOMI, Normal appearance, PERRL - Neck Exam Neck Exam: Full ROM, Normal Inspection - Respiratory Exam Respiratory Exam: Clear to Ausculation Bilateral, NORMAL BREATHING PATTERN - Cardiovascular Exam Cardiovascular Exam: REGULAR RHYTHM, +S1, +S2 - GI/Abdominal Exam GI & Abdominal Exam: Soft, Hypoactive Bowel Sounds. absent: Distended, Guarding , Tenderness - Extremities Exam Extremities Exam: Full ROM, Normal Capillary Refill, Normal Inspection - Neurological Exam Neurological Exam: Alert, Awake - Psychiatric Exam Psychiatric exam: Normal Affect, Normal Mood - Skin Skin Exam: Dry, Normal Color Assessment and Plan - Assessment and Plan (Free Text) Plan: Shortness of Breath secondary to ESRD - 11/04 Pro-BNP: 2910 - 11/04 Troponin 0.5750; 0.4900; 0.382 - 11/04EKG: nsr@91bpm, LBBB, prolonged QT - Chest xray: infiltrates right lower lobe; follow up official read - 11/04 ABG: pH 7.22, Co2 76, O2 73, HCO3 25.6 - Repeat ABG: pH 7.34, Co2 53, O2 193, HCO3 26.4 - BiPAP 12/6, FiO2 100% CKD stage 5 -F/U labs 11/08, BUN and Cr levels -Last BUN and Cr levels on 11/07: 51/4.3 -Dialysis today 11/07 -awaiting outpatient Hd placement -AV fistula scheduled for placement on Thursday 11/09. Cardiac clearance needed- F /U -Right permacath placed 11/05 -Senior Sales Operations Manager, Dr Davis, consulted - liberalize potassium in diet, hbg acceptable, on IV iron. - BUN/Cr at admission: 74/5.4 Elevated troponin likely secondary to ESRD -No chest pain symptoms -EKG: nsr@91bpm, LBBB, prolonged QT - phvurureb89/11: 0.5750; 0.4900; 0.382, no significant changes in repeat EKGs - 11/04 Lipid panel: TG 423, Chl 225, LDL 98, HDL 24 - 11/04 A1c: 7.3 CHF - Echo (04/2017): LVEF 50-55%; mild concentric LVH; grade I abnormal relaxation pattern; aortic valve mildly sclerotic; mild MR, mild TR, mild PV regurg - Pro-BNP: 2910 - Meds -Continue furosemide 40mg po daily Abnormal chest XRay likely secondary to CHF - 11/04 Chest xray: infiltrates right lower lobe ([place]); Official read: Cardiomegaly, asymmetrical pulmonary edema - In the ED, Vanco and Zosyn were given due to possible PNA - 11/05 Repeat chest xray: Pulmonary vascular congestion. No consolidation. - Leukocytosis 11/06 - 10.0 to 11/07 - 12.2 - Afebrile; continue to monitor - lactate: 1.0 - Procalcitonin: 0.66 HTN - Continue Meds: - carvidilol 12.5mg po daily - amlodipine 10mg po daily - Continue to monitor BP DM - Home medications: Tresiba pen 450 units; glipizide 5mg po daily, gabapentin 300mg po daily - Accuchecks - Hypoglycemia protocol - ISS - 11/04 A1c: 7.3 CAD - Hx of angioplasty in 2012 - Continue meds: -lovastatin 40mg po hs -carvidilol 12.5mg po daily -[id number] po daily Prophylaxis: - DVT: SCDs, Heparin 5000u SC Q8h - GI: Pepcid 20mg PO daily - Renal diet <Bjorn Damon - Last Filed: 11/07/17 09:33> Objective - Vital Signs/Intake and Output Vital Signs (last 24 hours): Temp Pulse Resp BP Pulse Ox 98.2 F 97 H 20 146/77 96 11/07/17 07:20 11/07/17 07:20 11/07/17 07:20 11/07/17 07:20 11/07/17 07:20 - Medications Medications: Current Medications Amlodipine Besylate (Norvasc) 10 mg PO DAILY [facility] Last Admin: 11/06/17 10:26 Dose: 10 mg Calcitriol (Rocaltrol) 0.5 mcg PO DAILY [facility] Last Admin: 11/06/17 10:27 Dose: 0.5 mcg Calcium Acetate (Phoslo) 667 mg PO TIDCC [facility] Last Admin: 11/07/17 07:43 Dose: 667 mg Carvedilol (Coreg) 12.5 mg PO DAILY [facility] Last Admin: 11/06/17 10:26 Dose: 12.5 mg Famotidine (Pepcid) 20 mg PO DAILY [facility] Last Admin: 11/06/17 10:27 Dose: 20 mg Ferric Sodium Gluconate Complex (Ferrlecit) 125 mg IVPB Q24H [facility] Stop: 11/13/17 12:01 Last Admin: 11/06/17 12:30 Dose: 125 mg Gabapentin (Neurontin) 300 mg PO DAILY [facility] Last Admin: 11/06/17 10:26 Dose: 300 mg Glipizide (Glucotrol) 5 mg PO ACB [facility] Last Admin: 11/07/17 07:43 Dose: 5 mg Insulin Human Regular (Novolin R) 0 unit SC ACHS [facility] PRN Reason: Protocol Last Admin: 11/07/17 07:18 Dose: Not Given Rosuvastatin Calcium (Crestor) 5 mg PO HS [facility] Last Admin: 11/06/17 21:30 Dose: 5 mg Tamsulosin HCl (Flomax) 0.4 mg PO DAILY [facility] Last Admin: 11/06/17 10:27 Dose: 0.4 mg - Labs Labs: 11/07/17 06:14 11/07/17 06:14 PT 10.8 SECONDS (9.7-12.2) 11/04/17 02:01 INR 1.0 11/04/17 02:01 APTT 33 SECONDS (21-34) 11/04/17 02:01 Attending/Attestation - Attestation I have personally seen and examined this patient.: Yes I have fully participated in the care of the patient.: Yes I have reviewed all pertinent clinical information, including history, physical exam and plan: Yes Notes (Text): 11/07/17 09:32 Hospitalist Progress Note Patient was seen and examined at 9:15 AM Hospitalist Progress Note Currently upon FULL ROS: NO chest pain NO SOB/Cough NO abdominal pain NO n/v/d/c: normal bowel movement this morning NO burning pain with urination NO dysphagia/odynophagia NO lightheadedenss/dizziness NO paresthesias NO new changes in visioin NO new changes in hearing NO headache Exam: General: AAOX3, NAD HEENT: NCA, EOMI, PERRLA, NO cervical/supraclavicular/submandibular lymphadenopathy, NO pharyngeal erythema/exudate, Nasal Turbinates are nonerythematous/nonedematous, Oral Mucosa is moist Cardio: NS1 and NS2, NO M/R/G Resp: CTA B/L, NO R/R/W Right chest permacath GI: BSx4, Soft, NT, NO HSM, NO guarding/rebound tenderness Ext: Pulses are strong and equal in bilateral UE and LE, NO edema noted, capillary refills is 2 seconds on all toes Neuro: CN II through XII are grossly intact Assessments: 1). SOB secondary to Pulmonary Edema secondary to ESRD Symptomatically improved after 100 mg total of Lasix on 11/04/17 and Metalozone at the time of admission 2). ESRD CKD Stage 5 S/P Right Chest Permacath placement by Dr. Gil 11/05/17 Tentatively planning for Left Arm AVF for Thursday11/09/17 or Thursday11/10/17: he has been cleared by Cardiology Will need to have at least 3 HD inpatient before being accepted by outpatient HD center Recreational Resort Manager Smita and Survey Analyst Julia are aware that patient needs outpatient HD placement Nephrology Dr. Davis Calcitriol 0.5 mcg PO 1x/day Phoslo 667 mg PO TID 3). Hx Elevated Troponin Likely secondary to ESRD 4). Hx CAD with Angioplasty in 2012 and Hx of HFpEF Coreg 12.5 mg PO 1x/day Crestor 5 mg PO HS Lasix and Metolazone were discontinued 11/05/17 ProBNP upon admission 2910 Echo 04/2017: LVEF 50-55%, mild concentric LVH, Grade I abnormal relaxation pattern, aortic valve mildly sclerotic Cardiology Dr. Smith on board and he has cleared patient for planned AVF 5). DM 2 requiring Insulin HgBA1C is 7.1 On Insulin Degludec 45 units SC 1x/day and Glipizide 5 mg PO 1x/day at home Currently on RISS and Glipizide 5 mg PO 1x/day and blood glucose are under control 6). HTN Norvasc 10 mg PO 1x/day 7). Diabetic Neuropathy Involving the toes and feet bilaterally Gabapentin 300 mg PO 1x/day 8). BPH Flomax 0.4 mg PO 1x/day 9). Anemia likely secondary to ESRD Ferric Gluconate 125 mg IV 1x/day Plan: patient has been cleared by Cardiology for AVF, which is tentatively planned for either 11/09/17 or 11/10/17. Will need to have outpatient HD placement arrangement with the help of Nephrology and Recreational Resort Manager/Survey Analyst. Emergency Medicaid application was completed and placed in the front of the patient chart. Bjorn Damon D.O.
[2017-11-07 06:20] LABS: BASO # 0.1 K/uL (0.0-0.2); BASO % 0.6 % (0.0-2.0); EOS # 0.9 K/uL (0.0-0.7); EOS % 7.6 % (0.0-4.0); HEMOGLOBIN 11.7 g/dL (12.0-18.0); LYMPH # 1.5 K/uL (1.0-4.3); LYMPH % 12.4 % (20.0-40.0); MEAN CELL VOLUME 87.4 fL (80.0-94.0); MEAN CORPUSCULAR HEMOGLOBIN 30.3 pg (27.0-31.0); MEAN CORPUSCULAR HGB CONC 34.7 g/dL (33.0-37.0); MEAN PLATELET VOLUME 8.6 fL (7.2-11.7); MONO # 1.1 K/uL (0.0-0.8); NEUT # 8.6 K/uL (1.8-7.0); NEUT % 70.4 % (50.0-75.0); RBC 3.85 Mil/uL (4.40-5.90); RED CELL DISTRIBUTION WIDTH 12.8 % (11.5-14.5); WHITE BLOOD COUNT 12.2 K/uL (4.8-10.8)
[2017-11-07 06:44] LABS: ALB/GLOB RATIO 1.3 (1.0-2.1); ALBUMIN 4.2 g/dL (3.5-5.0); CALCIUM 10.2 mg/dl (8.6-10.4)
[2017-11-07] MEDS: (Novolin R) Insulin Human Regular 100 units/ml vial SC SCH ×4 (07:18→22:52)
--- NOTE | 2017-11-07 07:49 | CP.PCM.PN ---
Subjective - Date & Time of Evaluation Date of Evaluation: 11/07/17 Time of Evaluation: 07:45 - Subjective Subjective: comfortabe in chair ROS no chills fever no sob or chest pain No abd pain,n,v,d Objective - Vital Signs/Intake and Output Vital Signs (last 24 hours): Temp Pulse Resp BP Pulse Ox 98.1 F 90 20 139/80 96 11/07/17 04:05 11/07/17 04:05 11/07/17 04:05 11/07/17 04:05 11/07/17 04:05 - Medications Medications: Current Medications Amlodipine Besylate (Norvasc) 10 mg PO DAILY [facility] Last Admin: 11/06/17 10:26 Dose: 10 mg Calcitriol (Rocaltrol) 0.5 mcg PO DAILY [facility] Last Admin: 11/06/17 10:27 Dose: 0.5 mcg Calcium Acetate (Phoslo) 667 mg PO TIDCC [facility] Last Admin: 11/07/17 07:43 Dose: 667 mg Carvedilol (Coreg) 12.5 mg PO DAILY [facility] Last Admin: 11/06/17 10:26 Dose: 12.5 mg Famotidine (Pepcid) 20 mg PO DAILY [facility] Last Admin: 11/06/17 10:27 Dose: 20 mg Ferric Sodium Gluconate Complex (Ferrlecit) 125 mg IVPB Q24H [facility] Stop: 11/13/17 12:01 Last Admin: 11/06/17 12:30 Dose: 125 mg Gabapentin (Neurontin) 300 mg PO DAILY [facility] Last Admin: 11/06/17 10:26 Dose: 300 mg Glipizide (Glucotrol) 5 mg PO ACB [facility] Last Admin: 11/07/17 07:43 Dose: 5 mg Insulin Human Regular (Novolin R) 0 unit SC ACHS [facility] PRN Reason: Protocol Last Admin: 11/07/17 07:18 Dose: Not Given Rosuvastatin Calcium (Crestor) 5 mg PO HS [facility] Last Admin: 11/06/17 21:30 Dose: 5 mg Tamsulosin HCl (Flomax) 0.4 mg PO DAILY [facility] Last Admin: 11/06/17 10:27 Dose: 0.4 mg - Labs Labs: 11/07/17 06:14 11/07/17 06:14 PT 10.8 SECONDS (9.7-12.2) 11/04/17 02:01 INR 1.0 11/04/17 02:01 APTT 33 SECONDS (21-34) 11/04/17 02:01 - Constitutional Appears: No Acute Distress - Eye Exam Eye Exam: Normal appearance - ENT Exam ENT Exam: Mucous Membranes Moist - Respiratory Exam Respiratory Exam: Clear to Ausculation Bilateral - Cardiovascular Exam Cardiovascular Exam: REGULAR RHYTHM - GI/Abdominal Exam GI & Abdominal Exam: Soft. absent: Tenderness - Back Exam Back Exam: absent: CVA tenderness (L), CVA tenderness (R) - Neurological Exam Additional comments: 1+ leg edema - Psychiatric Exam Psychiatric exam: Normal Affect - Skin Skin Exam: Dry Assessment and Plan (1) ESRD (end stage renal disease) Status: Acute (2) Type 2 diabetes mellitus with diabetic nephropathy Status: Acute - Assessment and Plan (Free Text) Plan: dialysis today await outpatient dialysis placement
[2017-11-07] MEDS: Ferric Sodium Gluconat Complex 62.5 mg/5 ml Vial IVPB SCH (12:37)
--- NOTE | 2017-11-07 22:49 | PN ---
DATE: 11/07/2017 SUBJECTIVE: The patient denies chest pain and on hemodialysis today. PHYSICAL EXAMINATION: VITAL SIGNS: Blood pressure 112/78, heart rate 89, temperature 99.6, respirations 20. HEENT: Normocephalic. CHEST: Clear. HEART: Heart sounds are regular. EXTREMITIES: No edema. LABORATORY DATA: SMA-7 morning, sodium 144, potassium 3.1, chloride 97, CO2 of 32, glucose 157, BUN 51, creatinine 4.3. Hemoglobin and hematocrit 11.7 and 33.6. White count 12.2, platelet count 211,000. ASSESSMENT: 1. End-stage renal disease. The patient was initiated on hemodialysis and is awaiting AV fistula placement. 2. Uncontrolled diabetes mellitus. 3. Diastolic left ventricular dysfunction. 4. Hypokalemia. 5. Hypertension. RECOMMENDATIONS: Continue Coreg 12.5 mg daily, Crestor 5 mg once a day, Glucotrol 5 mg once a day, heparin 5000 units every 12 hours, Norvasc 10 mg once a day, PhosLo one tablet t.i.d., Pepcid 20 mg p.o. once a day. The patient can undergo AV fistula placement on Thursday given the fact that his serum potassium is normalized. Felpie Smith MD
[2017-11-08 07:22] LABS: BASO # 0.1 K/uL (0.0-0.2); BASO % 0.7 % (0.0-2.0); EOS % 7.9 % (0.0-4.0); HEMOGLOBIN 11.4 g/dL (12.0-18.0); LYMPH # 1.7 K/uL (1.0-4.3); LYMPH % 14.1 % (20.0-40.0); MEAN CELL VOLUME 88.5 fL (80.0-94.0); MEAN CORPUSCULAR HEMOGLOBIN 30.6 pg (27.0-31.0); MEAN CORPUSCULAR HGB CONC 34.6 g/dL (33.0-37.0); MEAN PLATELET VOLUME 8.9 fL (7.2-11.7); MONO # 1.2 K/uL (0.0-0.8); MONO % 9.5 % (0.0-10.0); NEUT # 8.3 K/uL (1.8-7.0); NEUT % 67.8 % (50.0-75.0); RBC 3.73 Mil/uL (4.40-5.90); RED CELL DISTRIBUTION WIDTH 12.8 % (11.5-14.5); WHITE BLOOD COUNT 12.3 K/uL (4.8-10.8)
[2017-11-08 07:57] LABS: ALB/GLOB RATIO 1.3 (1.0-2.1); ALBUMIN 4.2 g/dL (3.5-5.0); CALCIUM 9.5 mg/dl (8.6-10.4)
[2017-11-08] MEDS: (Novolin R) Insulin Human Regular 100 units/ml vial SC SCH ×4 (08:05→22:40)
--- NOTE | 2017-11-08 08:23 | CP.PCM.PN ---
Subjective - Date & Time of Evaluation Date of Evaluation: 11/08/17 Time of Evaluation: 08:22 - Subjective Subjective: PGY-[address] Bjorn Damon service Patient is seen and examined at bedside. Patient states feeling much better. Patient states she has mild tingling type of pain in the right foot, 5/10. Patient denies fever, chills shortness of breath, chest pain, abdominal pain, nausea, vomiting, diarrhea, constipation or dysuria. Objective - Vital Signs/Intake and Output Vital Signs (last 24 hours): Temp Pulse Resp BP Pulse Ox 98.1 F 89 20 127/62 98 11/08/17 04:42 11/08/17 04:42 11/08/17 04:42 11/08/17 04:42 11/08/17 04:42 - Medications Medications: Current Medications Amlodipine Besylate (Norvasc) 10 mg PO DAILY [facility] Last Admin: 11/07/17 12:37 Dose: 10 mg Calcitriol (Rocaltrol) 0.5 mcg PO DAILY [facility] Last Admin: 11/07/17 12:38 Dose: 0.5 mcg Calcium Acetate (Phoslo) 667 mg PO TIDCC [facility] Last Admin: 11/08/17 08:08 Dose: 667 mg Carvedilol (Coreg) 12.5 mg PO DAILY [facility] Last Admin: 11/07/17 12:37 Dose: 12.5 mg Famotidine (Pepcid) 20 mg PO DAILY [facility] Last Admin: 11/07/17 12:37 Dose: 20 mg Ferric Sodium Gluconate Complex (Ferrlecit) 125 mg IVPB Q24H [facility] Stop: 11/13/17 12:01 Last Admin: 11/07/17 12:37 Dose: 125 mg Gabapentin (Neurontin) 300 mg PO DAILY [facility] Last Admin: 11/07/17 12:36 Dose: 300 mg Glipizide (Glucotrol) 5 mg PO ACB [facility] Last Admin: 11/08/17 08:05 Dose: 5 mg Heparin Sodium (Porcine) (Heparin) 5,000 units SC Q8 [facility] Last Admin: 11/08/17 05:40 Dose: 5,000 units Insulin Human Regular (Novolin R) 0 unit SC ACHS [facility] PRN Reason: Protocol Last Admin: 11/08/17 08:05 Dose: 2 units Potassium Chloride (K-Dur 20 Meq Er Tab) 40 meq PO ONCE ONE Stop: 11/08/17 18:46 Rosuvastatin Calcium (Crestor) 5 mg PO HS [facility] Last Admin: 11/07/17 21:35 Dose: 5 mg Tamsulosin HCl (Flomax) 0.4 mg PO DAILY [facility] Last Admin: 11/07/17 12:37 Dose: 0.4 mg - Labs Labs: 11/08/17 07:15 11/08/17 07:15 PT 10.8 SECONDS (9.7-12.2) 11/04/17 02:01 INR 1.0 11/04/17 02:01 APTT 33 SECONDS (21-34) 11/04/17 02:01 - Constitutional Appears: Well, Non-toxic, No Acute Distress - Head Exam Head Exam: ATRAUMATIC, NORMAL INSPECTION, NORMOCEPHALIC - Eye Exam Eye Exam: EOMI, Normal appearance, PERRL Pupil Exam: NORMAL ACCOMODATION - ENT Exam ENT Exam: Mucous Membranes Moist, Normal Exam - Neck Exam Neck Exam: Full ROM, Normal Inspection - Respiratory Exam Respiratory Exam: Clear to Ausculation Bilateral, NORMAL BREATHING PATTERN - Cardiovascular Exam Cardiovascular Exam: REGULAR RHYTHM, +S1, +S2. absent: Tachycardia, Gallop, Rubs - GI/Abdominal Exam GI & Abdominal Exam: Soft, Normal Bowel Sounds. absent: Distended, Guarding, Rigid, Tenderness - Extremities Exam Extremities Exam: Full ROM, Normal Inspection. absent: Pedal Edema, Tenderness - Neurological Exam Neurological Exam: Alert, Awake, Oriented x3 - Psychiatric Exam Psychiatric exam: Normal Affect, Normal Mood - Skin Skin Exam: Dry, Intact Assessment and Plan - Assessment and Plan (Free Text) Plan: Shortness of Breath secondary to ESRD - SOB resolved, continue to monitor patient - 11/04 Pro-BNP: 2910 - 11/04 Troponin 0.5750; 0.4900; 0.382 - 11/04EKG: nsr@91bpm, LBBB, prolonged QT - Chest xray: infiltrates right lower lobe; follow up official read - 11/04 ABG: pH 7.22, Co2 76, O2 73, HCO3 25.6 - Repeat ABG: pH 7.34, Co2 53, O2 193, HCO3 26.4 - continue BiPAP 04/01, FiO2 100% CKD stage 5 -11/08, BUN and Cr levels 49/4.9 -Last BUN and Cr levels on 11/07: 51/4.3 -awaiting outpatient Hd placement -AV fistula scheduled for placement on Thursday 11/09. Cardiac clearance needed- F /U -Right permacath placed 11/05 -Home Stereo Equipment Installer, Dr Davis, consulted - liberalize potassium in diet, hbg acceptable, on IV iron. - BUN/Cr at admission: 74/5.4 CHF - Echo (04/2017): LVEF 50-55%; mild concentric LVH; grade I abnormal relaxation pattern; aortic valve mildly sclerotic; mild MR, mild TR, mild PV regurg - Pro-BNP: 2910 - Meds -Continue furosemide 40mg po daily HTN - Continue Meds: - carvidilol 12.5mg po daily - amlodipine 10mg po daily - Continue to monitor BP DM - Home medications: Tresiba pen 450 units; glipizide 5mg po daily, gabapentin 300mg po daily - Accuchecks - Hypoglycemia protocol - ISS - 11/04 A1c: 7.3 CAD - Hx of angioplasty in 2012 - Continue meds: -lovastatin 40mg po hs -carvidilol 12.5mg po daily -ASA 81mg po daily Prophylaxis: - DVT: SCDs, Heparin 5000u SC Q8h - GI: Pepcid 20mg PO daily - Renal diet Zain Manzo, PGY-1 Plan to be discussed with Dr Brandon Damon
[2017-11-08] MEDS: Ferric Sodium Gluconat Complex 62.5 mg/5 ml Vial IVPB SCH (12:09)
[2017-11-08] MEDS ORDERED: Glucagon Recombinant 1 mg Inj IM PRN (14:55)
[2017-11-08] MEDS ORDERED: Dextrose 50% SYRINGE Inj (50 ml) IV PRN (14:55)
--- NOTE | 2017-11-08 14:55 | CP.PCM.PN ---
Subjective - Date & Time of Evaluation Date of Evaluation: 11/08/17 Time of Evaluation: 14:30 - Subjective Subjective: Hospitalist Progress Note Patient was seen and examined at 2:30 PM at 652 A Currently upon FULL ROS: Complains of Right Ankle Pain: located on lateral aspect posterior to the Right Lateral Malleoli NO chest pain NO SOB/Cough NO abdominal pain NO n/v/d/c: normal bowel movement this morning NO burning pain with urination NO dysphagia/odynophagia NO lightheadedenss/dizziness NO paresthesias NO new changes in visioin NO new changes in hearing NO headache Exam: General: AAOX3, NAD HEENT: NCA, EOMI, PERRLA, NO cervical/supraclavicular/submandibular lymphadenopathy, NO pharyngeal erythema/exudate, Nasal Turbinates are nonerythematous/nonedematous, Oral Mucosa is moist Cardio: NS1 and NS2, NO M/R/G Resp: CTA B/L, NO R/R/W Right chest permacath GI: BSx4, Soft, NT, NO HSM, NO guarding/rebound tenderness Ext: Pulses are strong and equal in bilateral UE and LE, NO edema noted, capillary refills is 2 seconds on all toes, slightly tender to deep palpation on the Right Lateral Malleoli posterior aspect (no signs of edema/erythema/ warmth on exam) Neuro: CN II through XII are grossly intact Assessments: 1). SOB secondary to Pulmonary Edema secondary to ESRD Symptomatically improved after 100 mg total of Lasix on 11/04/17 and Metalozone at the time of admission 2). ESRD CKD Stage 5 S/P Right Chest Permacath placement by Dr. Gil 11/05/17 Tentatively planning for Left Arm AVF for Thursday11/09/17 or Thursday11/10/17: he has been cleared by Cardiology Will need to have at least 3 HD inpatient before being accepted by outpatient HD center Geographic Area Intelligence Officer Smita and Signal Maintenance Technician Julia are aware that patient needs outpatient HD placement Nephrology Dr. Davis Calcitriol 0.5 mcg PO 1x/day Phoslo 667 mg PO TID 3). Hx Elevated Troponin Likely secondary to ESRD 4). Hx CAD with Angioplasty in 2012 and Hx of HFpEF Coreg 12.5 mg PO 1x/day Crestor 5 mg PO HS Lasix and Metolazone were discontinued 11/05/17 ProBNP upon admission 2910 Echo 04/2017: LVEF 50-55%, mild concentric LVH, Grade I abnormal relaxation pattern, aortic valve mildly sclerotic Cardiology Dr. Smith on board and he has cleared patient for planned AVF 5). DM 2 requiring Insulin HgBA1C is 7.1 On Insulin Degludec 45 units SC 1x/day and Glipizide 5 mg PO 1x/day at home Currently on RISS and Glipizide 5 mg PO 1x/day and blood glucose are under control 6). HTN Norvasc 10 mg PO 1x/day 7). Diabetic Neuropathy Involving the toes and feet bilaterally Gabapentin 300 mg PO 1x/day 8). BPH Flomax 0.4 mg PO 1x/day 9). Anemia likely secondary to ESRD Ferric Gluconate 125 mg IV 1x/day 10). Prophylaxis Heparin 5,000 Units SC Q8H ICE Pack to the Right Lateral Ankle Q6H Plan: patient has been cleared by Cardiology for AVF, which is tentatively planned for either 11/09/17 or 11/10/17. Will need to have outpatient HD placement arrangement with the help of Nephrology and Geographic Area Intelligence Officer/Signal Maintenance Technician. Emergency Medicaid application was completed and placed in the front of the patient chart. Both patient and his are aware that outpatient HD placement can take weeks to months and he can not leave the hospital during that time. Bjorn Damon D.O. Objective - Vital Signs/Intake and Output Vital Signs (last 24 hours): Temp Pulse Resp BP Pulse Ox 97.8 F 87 20 123/76 97 11/08/17 07:20 11/08/17 07:20 11/08/17 07:20 11/08/17 09:19 11/08/17 07:20 - Medications Medications: Current Medications Amlodipine Besylate (Norvasc) 10 mg PO DAILY [facility] Last Admin: 11/08/17 09:23 Dose: 10 mg Calcitriol (Rocaltrol) 0.5 mcg PO DAILY [facility] Last Admin: 11/08/17 09:22 Dose: 0.5 mcg Calcium Acetate (Phoslo) 667 mg PO TIDCC [facility] Last Admin: 11/08/17 12:09 Dose: 667 mg Carvedilol (Coreg) 12.5 mg PO DAILY [facility] Last Admin: 11/08/17 09:19 Dose: 12.5 mg Famotidine (Pepcid) 20 mg PO DAILY [facility] Last Admin: 11/08/17 09:21 Dose: 20 mg Ferric Sodium Gluconate Complex (Ferrlecit) 125 mg IVPB Q24H [facility] Stop: 11/13/17 12:01 Last Admin: 11/08/17 12:09 Dose: 125 mg Gabapentin (Neurontin) 300 mg PO DAILY [facility] Last Admin: 11/08/17 09:21 Dose: 300 mg Glipizide (Glucotrol) 5 mg PO ACB [facility] Last Admin: 11/08/17 08:05 Dose: 5 mg Heparin Sodium (Porcine) (Heparin) 5,000 units SC Q8 [facility] Last Admin: 11/08/17 13:12 Dose: 5,000 units Insulin Human Regular (Novolin R) 0 unit SC ACHS [facility] PRN Reason: Protocol Last Admin: 11/08/17 12:09 Dose: 2 units Potassium Chloride (K-Dur 20 Meq Er Tab) 40 meq PO ONCE ONE Stop: 11/08/17 18:46 Rosuvastatin Calcium (Crestor) 5 mg PO HS [facility] Last Admin: 11/07/17 21:35 Dose: 5 mg Tamsulosin HCl (Flomax) 0.4 mg PO DAILY [facility] Last Admin: 11/08/17 09:22 Dose: 0.4 mg - Labs Labs: 11/08/17 07:15 11/08/17 07:15 PT 10.8 SECONDS (9.7-12.2) 11/04/17 02:01 INR 1.0 11/04/17 02:01 APTT 33 SECONDS (21-34) 11/04/17 02:01
[2017-11-08] MEDS ORDERED: Potassium Chloride 20 mEq ER Tab PO ONE (18:45)
--- NOTE | 2017-11-09 06:30 | CP.PCM.PN ---
<Liana Aguilera V - Last Filed: 11/09/17 14:52> Objective - Vital Signs/Intake and Output Vital Signs (last 24 hours): Temp Pulse Resp BP Pulse Ox 97.8 F 83 16 133/78 98 11/09/17 14:10 11/09/17 14:10 11/09/17 14:10 11/09/17 14:40 11/09/17 14:10 - Medications Medications: Current Medications Calcitriol (Rocaltrol) 0.5 mcg PO DAILY [facility] Last Admin: 11/09/17 10:47 Dose: 0.5 mcg Calcium Acetate (Phoslo) 667 mg PO TIDCC [facility] Last Admin: 11/09/17 12:06 Dose: 667 mg Carvedilol (Coreg) 6.25 mg PO BID [facility] Last Admin: 11/09/17 11:00 Dose: 6.25 mg Dextrose (Dextrose 50% Inj) 0 ml IV STAT PRN; Protocol PRN Reason: Hypoglycemia Protocol Dextrose (Glutose 15) 0 gm PO ONCE PRN; Protocol PRN Reason: Hypoglycemia Protocol Famotidine (Pepcid) 20 mg PO DAILY [facility] Last Admin: 11/09/17 11:00 Dose: 20 mg Ferric Sodium Gluconate Complex (Ferrlecit) 125 mg IVPB Q24H [facility] Stop: 11/13/17 12:01 Last Admin: 11/09/17 11:19 Dose: 125 mg Gabapentin (Neurontin) 300 mg PO MWF [facility] Glipizide (Glucotrol) 5 mg PO ACB [facility] Last Admin: 11/09/17 08:19 Dose: 5 mg Glucagon (Glucagen Diagnostic Kit) 0 mg IM STAT PRN; Protocol PRN Reason: Hypoglycemia Protocol Heparin Sodium (Porcine) (Heparin) 5,000 units SC Q8 [facility] Last Admin: 11/09/17 06:03 Dose: 5,000 units Dextrose (Dextrose 5% In Water 1000 Ml) 1,000 mls @ 0 mls/hr IV .Q0M PRN; Protocol; Per Protocol PRN Reason: Hypoglycemia Protocol Insulin Human Regular (Novolin R) 0 unit SC ACHS [facility] PRN Reason: Protocol Last Admin: 11/09/17 12:37 Dose: 4 units Rosuvastatin Calcium (Crestor) 5 mg PO HS [facility] Last Admin: 11/08/17 21:31 Dose: 5 mg Tamsulosin HCl (Flomax) 0.4 mg PO DAILY [facility] Last Admin: 11/09/17 11:00 Dose: 0.4 mg - Labs Labs: 11/09/17 06:43 11/09/17 06:43 PT 10.8 SECONDS (9.7-12.2) 11/04/17 02:01 INR 1.0 11/04/17 02:01 APTT 33 SECONDS (21-34) 11/04/17 02:01 Attending/Attestation - Attestation I have personally seen and examined this patient.: Yes I have fully participated in the care of the patient.: Yes I have reviewed all pertinent clinical information, including history, physical exam and plan: Yes Notes (Text): Patient seen, examined, case and case discussed with medical aides teacher. Patient seen after lunch approximately about 1:30 PM. Patient denies acute complaints. He is a very pleasant gentleman. This is my first meeting with him. Patient with a known history of chronic kidney disease preparation for dialysis who had symptomatic shortness of breath on admission. Patient has noted permacath placement last week and is currently receiving dialysis Thursday and Thursday. Patient is scheduled for left arm AV fistula for tomorrow Thursday with surgery. We will hold heparin and we will hold glipizide to prevent hypoglycemic events until patient is completely procedure tomorrow. Assessments: 1). SOB secondary to Pulmonary Edema secondary to ESRD Assessment/plan * Symptomatically improved after 100 mg total of Lasix on 11/04/17 and [employer] at the time of admission * No complaints with me at this time 2). ESRD CKD Stage 5 Assessment/plan * Nephrology (Dr. Davis) on the case help appreciated * Vascular surgery (Dr. Gil) on the case help appreciated * dialysis Thursday//Thursday * S/P Right Chest Permacath placement by Dr. Gil 11/05/17 * Patient planned for left arm AV fistula for Thursday11/10/17: he has been cleared by Cardiology * Will need to have at least 3 HD inpatient before being accepted by outpatient HD center * Certification Engineer Smita and [employer]ch [employer]razier Julia are aware that patient needs outpatient HD placement * Calcitriol 0.5 mcg PO 1x/day * Phoslo 667 mg PO TIDCC 3). Hx Elevated Troponin Assessment/plan * Likely secondary to ESRD 4). Hx CAD with Angioplasty in 2012 and Hx of HFpEF Assessment/plan * Cardiology Dr. Smith on board and he has cleared patient for planned AVF * changed Coreg to 6.25 by mouth twice to accommodate 12.5mg PO once a daily * Crestor 5 mg PO HS * Lasix and Metolazone were discontinued 11/05/17 * ProBNP upon admission 2910 * Echo 04/2017: LVEF 50-55%, mild concentric LVH, Grade I abnormal relaxation pattern, aortic valve mildly sclerotic 5). DM 2 requiring Insulin Assessment/plan * HgBA1C is 7.1 * home medications: Insulin Degludec 45 units SC 1x/day and Glipizide 5 mg PO 1x /day at home * Currently on RISS and holdGlipizide 5 mg PO 1x/day and blood glucose are under control * Accu-Cheks Q before meals daily at bedtime * hypoglycemic protocol 6). HTN Assessment/Plan * Norvasc discontinued by nephrology noted for low blood pressure today * Change Coreg o 6.25 mg by mouth twice a day 7). Diabetic Neuropathy Assessment/Plan * Involving the toes and feet bilaterally * Gabapentin 300 mg PO 1x/day 8). BPH Assessment/Plan * Flomax 0.4 mg PO 1x/day 9). Anemia likely secondary to ESRD * Ferric Gluconate 125 mg IV 1x/day 10). Prophylaxis * hold Heparin 5,000 Units SC Q8Hfor left arm aVF surgery tomorrow * ICE Pack to the Right Lateral Ankle Q6H * Pepcid 20 mg once a day Plan: patient has been cleared by Cardiology for AVF, which is tentatively planned for Thursday11/10/17. heparin held in light of procedure tomorrow. Glipizide held in light of procedure tomorrow. <Padmini Zuniga P - Last Filed: 11/09/17 20:44> Subjective - Date & Time of Evaluation Date of Evaluation: 11/09/17 Time of Evaluation: 06:30 - Subjective Subjective: PGY-[address] Aguilera. Patient seen and evaluated at bedside. Sitting in chair, in no acute distress. Only complaint is a chronic burning pain to lateral R foot. Pain worsens with weight bearing. Patient denies foot trauma, fever, chills, chest pain, shortness of breath, abdominal pain, nausea, and vomiting. Objective - Vital Signs/Intake and Output Vital Signs (last 24 hours): Temp Pulse Resp BP Pulse Ox 99.7 F H 101 H 20 122/63 96 11/08/17 23:10 11/08/17 23:10 11/08/17 23:10 11/08/17 23:10 11/08/17 23:10 - Medications Medications: Current Medications Amlodipine Besylate (Norvasc) 10 mg PO DAILY [facility] Last Admin: 11/08/17 09:23 Dose: 10 mg Calcitriol (Rocaltrol) 0.5 mcg PO DAILY [facility] Last Admin: 11/08/17 09:22 Dose: 0.5 mcg Calcium Acetate (Phoslo) 667 mg PO TIDCC [facility] Last Admin: 11/08/17 17:25 Dose: 667 mg Carvedilol (Coreg) 12.5 mg PO DAILY [facility] Last Admin: 11/08/17 09:19 Dose: 12.5 mg Dextrose (Dextrose 50% Inj) 0 ml IV STAT PRN; Protocol PRN Reason: Hypoglycemia Protocol Dextrose (Glutose 15) 0 gm PO ONCE PRN; Protocol PRN Reason: Hypoglycemia Protocol Famotidine (Pepcid) 20 mg PO DAILY [facility] Last Admin: 11/08/17 09:21 Dose: 20 mg Ferric Sodium Gluconate Complex (Ferrlecit) 125 mg IVPB Q24H [facility] Stop: 11/13/17 12:01 Last Admin: 11/08/17 12:09 Dose: 125 mg Gabapentin (Neurontin) 300 mg PO DAILY [facility] Last Admin: 11/08/17 09:21 Dose: 300 mg Glipizide (Glucotrol) 5 mg PO ACB [facility] Last Admin: 11/08/17 08:05 Dose: 5 mg Glucagon (Glucagen Diagnostic Kit) 0 mg IM STAT PRN; Protocol PRN Reason: Hypoglycemia Protocol Heparin Sodium (Porcine) (Heparin) 5,000 units SC Q8 [facility] Last Admin: 11/09/17 06:03 Dose: 5,000 units Dextrose (Dextrose 5% In Water 1000 Ml) 1,000 mls @ 0 mls/hr IV .Q0M PRN; Protocol; Per Protocol PRN Reason: Hypoglycemia Protocol Insulin Human Regular (Novolin R) 0 unit SC ACHS [facility] PRN Reason: Protocol Last Admin: 11/08/17 22:40 Dose: Not Given Rosuvastatin Calcium (Crestor) 5 mg PO HS [facility] Last Admin: 11/08/17 21:31 Dose: 5 mg Tamsulosin HCl (Flomax) 0.4 mg PO DAILY [facility] Last Admin: 11/08/17 09:22 Dose: 0.4 mg - Labs Labs: 11/08/17 07:15 11/08/17 07:15 PT 10.8 SECONDS (9.7-12.2) 11/04/17 02:01 INR 1.0 11/04/17 02:01 APTT 33 SECONDS (21-34) 11/04/17 02:01 - Constitutional Appears: Non-toxic, No Acute Distress - Head Exam Head Exam: ATRAUMATIC, NORMOCEPHALIC - Eye Exam Eye Exam: EOMI, Normal appearance - ENT Exam ENT Exam: Mucous Membranes Moist - Respiratory Exam Respiratory Exam: Clear to Ausculation Bilateral. absent: Rales, Rhonchi, Wheezes - Cardiovascular Exam Cardiovascular Exam: REGULAR RHYTHM. absent: +S1, +S2 - GI/Abdominal Exam GI & Abdominal Exam: Soft, Normal Bowel Sounds. absent: Tenderness - Extremities Exam Extremities Exam: Tenderness (to R lateral foot, full ROM, no signs of trauma. ) . absent: Joint Swelling - Neurological Exam Neurological Exam: Alert, Awake, Oriented x3 - Psychiatric Exam Psychiatric exam: Normal Affect, Normal Mood - Skin Skin Exam: Intact, Normal Color, Warm Assessment and Plan - Assessment and Plan (Free Text) Plan: 62 year old M admitted for shortness of breath. Shortness of Breath secondary to ESRD-improved - On admission: In the ED, Lasix 40mg IV given once. - Lasix 60mg IV and metolazone 5mg given once. - ABG: pH 7.22, Co2 76, O2 73, HCO3 25.6 - Repeat ABG: pH 7.34, Co2 53, O2 193, HCO3 26.4 - Chest xray: infiltrates right lower lobe; follow up official read - Pro-BNP: 2910 - Troponin 0.5750; 0.4900; 0.382 - EKG: nsr@91bpm, LBBB, prolonged QT CKD stage 5 HD TTHS - Coffee Shop Manager, Dr Davis, consulted; help appreciated -11/05 status post permacath placement. -Cardiac clearance approved by Dr. Smith for AVF - Pt to have AV fistula placed 11/10/17. Patient NPO past Midnight -Ferrlecit 125mg IVBP Q24H, Phoslo 667mg PO TIDCC, Calcitriol 0.5mcg PO daily Abnormal chest XRay likely secondary to ESRD - 11/04 Chest xray: infiltrates right lower lobe ([place]); Official read: Cardiomegaly, asymmetrical pulmonary edema - In the ED, Vanco and Zosyn were given due to possible PNA - 11/05 Repeat chest xray: Pulmonary vascular congestion. No consolidation. - Leukocytosis, WBC 14.8->11.6 - Afebrile; continue to monitor - lactate: 1.0 - Procalcitonin: 0.66 HTN - Continue home medications: carvidilol 6.25mg BID, Flomax 0.4mg PO daily, amlodipine 10mg po daily (held due to low bp) - Continue to monitor DM - Home medications: glipizide 5mg po daily (held 11/10) - Accuchecks - Hypoglycemia protocol - ISS - A1c: 7.3 Neuropathic pain Secondary to DM -gabapentin 300mg po MWF Elevated troponin likely secondary to ESRD- downtrending - EKG: nsr@91bpm, LBBB, prolonged QT - troponins: 0.5750; 0.4900; 0.382, no significant changes in repeat EKGs - Lipid panel: TG 423, Chl 225, LDL 98, HDL 24 - A1c: 7.3 CHF - Echo (04/2017): LVEF 50-55%; mild concentric LVH; grade I abnormal relaxation pattern; aortic valve mildly sclerotic; mild MR, mild TR, mild PV regurg - Pro-BNP: 2910 - In the ED, Lasix 40mg IV given once. - Lasix 60mg IV and metolazone 5mg given once. - Continue home medication: furosemide 40mg po daily CAD - Hx of angioplasty in 2012 - Continue home medications: lovastatin 40mg po hs, carvidilol 12.5mg po daily, SRF10sp po daily - Patient reports he was previously on Plavix, but was told by Dr. Damon, industrial controller, to stop taking it approximately 1 month ago. Prophylaxis: - DVT: SCDs, Heparin 5000u SC Q8h (held 11/09/17) - GI: Pepcid 20mg PO daily - Renal diet Pt to have AV fistula placed 11/10/17. Patient NPO past Midnight. Heparin held, Glipizide held.
[2017-11-09 06:54] LABS: BASO # 0.1 K/uL (0.0-0.2); BASO % 0.8 % (0.0-2.0); EOS # 0.8 K/uL (0.0-0.7); EOS % 6.8 % (0.0-4.0); HEMOGLOBIN 11.3 g/dL (12.0-18.0); LYMPH # 1.8 K/uL (1.0-4.3); LYMPH % 14.8 % (20.0-40.0); MEAN CORPUSCULAR HEMOGLOBIN 30.2 pg (27.0-31.0); MEAN CORPUSCULAR HGB CONC 34.3 g/dL (33.0-37.0); MEAN PLATELET VOLUME 8.9 fL (7.2-11.7); MONO # 1.2 K/uL (0.0-0.8); MONO % 9.6 % (0.0-10.0); NEUT # 8.3 K/uL (1.8-7.0); RBC 3.73 Mil/uL (4.40-5.90); WHITE BLOOD COUNT 12.2 K/uL (4.8-10.8)
[2017-11-09 07:39] LABS: ALB/GLOB RATIO 1.5 (1.0-2.1); ALBUMIN 4.3 g/dL (3.5-5.0); CALCIUM 9.5 mg/dl (8.6-10.4)
[2017-11-09] MEDS: (Novolin R) Insulin Human Regular 100 units/ml vial SC SCH ×4 (08:12→21:35)
--- NOTE | 2017-11-09 10:15 | CP.PCM.PN ---
Subjective - Date & Time of Evaluation Date of Evaluation: 11/09/17 Time of Evaluation: 10:12 - Subjective Subjective: Surgery: Dr. Gil Pt seen and examined. Resting comfortably in bed. No complaints / acute events overnight. Objective - Vital Signs/Intake and Output Vital Signs (last 24 hours): Temp Pulse Resp BP Pulse Ox 97.7 F 92 H 20 100/57 L 100 11/09/17 07:25 11/09/17 07:25 11/09/17 07:25 11/09/17 07:25 11/09/17 07:25 - Medications Medications: Current Medications Amlodipine Besylate (Norvasc) 10 mg PO DAILY [facility] Last Admin: 11/08/17 09:23 Dose: 10 mg Calcitriol (Rocaltrol) 0.5 mcg PO DAILY [facility] Last Admin: 11/08/17 09:22 Dose: 0.5 mcg Calcium Acetate (Phoslo) 667 mg PO TIDCC [facility] Last Admin: 11/09/17 08:19 Dose: 667 mg Carvedilol (Coreg) 6.25 mg PO BID [facility] Dextrose (Dextrose 50% Inj) 0 ml IV STAT PRN; Protocol PRN Reason: Hypoglycemia Protocol Dextrose (Glutose 15) 0 gm PO ONCE PRN; Protocol PRN Reason: Hypoglycemia Protocol Famotidine (Pepcid) 20 mg PO DAILY [facility] Last Admin: 11/08/17 09:21 Dose: 20 mg Ferric Sodium Gluconate Complex (Ferrlecit) 125 mg IVPB Q24H [facility] Stop: 11/13/17 12:01 Last Admin: 11/08/17 12:09 Dose: 125 mg Gabapentin (Neurontin) 300 mg PO DAILY [facility] Last Admin: 11/08/17 09:21 Dose: 300 mg Glipizide (Glucotrol) 5 mg PO ACB [facility] Last Admin: 11/09/17 08:19 Dose: 5 mg Glucagon (Glucagen Diagnostic Kit) 0 mg IM STAT PRN; Protocol PRN Reason: Hypoglycemia Protocol Heparin Sodium (Porcine) (Heparin) 5,000 units SC Q8 [facility] Last Admin: 11/09/17 06:03 Dose: 5,000 units Dextrose (Dextrose 5% In Water 1000 Ml) 1,000 mls @ 0 mls/hr IV .Q0M PRN; Protocol; Per Protocol PRN Reason: Hypoglycemia Protocol Insulin Human Regular (Novolin R) 0 unit SC ACHS [facility] PRN Reason: Protocol Last Admin: 11/09/17 08:12 Dose: Not Given Rosuvastatin Calcium (Crestor) 5 mg PO HS [facility] Last Admin: 11/08/17 21:31 Dose: 5 mg Tamsulosin HCl (Flomax) 0.4 mg PO DAILY [facility] Last Admin: 11/08/17 09:22 Dose: 0.4 mg - Labs Labs: 11/09/17 06:43 11/09/17 06:43 PT 10.8 SECONDS (9.7-12.2) 11/04/17 02:01 INR 1.0 11/04/17 02:01 APTT 33 SECONDS (21-34) 11/04/17 02:01 - Constitutional Appears: Non-toxic, No Acute Distress - Head Exam Head Exam: ATRAUMATIC, NORMOCEPHALIC - Eye Exam Eye Exam: EOMI - ENT Exam ENT Exam: Mucous Membranes Moist - Neck Exam Neck Exam: Full ROM - Respiratory Exam Respiratory Exam: NORMAL BREATHING PATTERN. absent: Accessory Muscle Use, Respiratory Distress - Cardiovascular Exam Cardiovascular Exam: REGULAR RHYTHM - GI/Abdominal Exam GI & Abdominal Exam: Soft. absent: Tenderness - Extremities Exam Extremities Exam: absent: Calf Tenderness, Pedal Edema - Neurological Exam Neurological Exam: Alert, Awake, Oriented x3 - Skin Skin Exam: Dry, Warm Assessment and Plan - Assessment and Plan (Free Text) Assessment: 62M w. ESRD -Plan for OR tomorrow 11/10 -NPO at midnight -PM labs -L arm precautions -d/w attending Zemaitis PGY4
--- NOTE | 2017-11-09 10:24 | CP.PCM.PN ---
Subjective - Date & Time of Evaluation Date of Evaluation: 11/09/17 Time of Evaluation: 10:23 - Subjective Subjective: seen and examined no complaints. no events notes reviewd bp low feels well. no complaints Objective - Vital Signs/Intake and Output Vital Signs (last 24 hours): Temp Pulse Resp BP Pulse Ox 97.7 F 92 H 20 100/57 L 100 11/09/17 07:25 11/09/17 07:25 11/09/17 07:25 11/09/17 07:25 11/09/17 07:25 - Medications Medications: Current Medications Calcitriol (Rocaltrol) 0.5 mcg PO DAILY [facility] Last Admin: 11/08/17 09:22 Dose: 0.5 mcg Calcium Acetate (Phoslo) 667 mg PO TIDCC [facility] Last Admin: 11/09/17 08:19 Dose: 667 mg Carvedilol (Coreg) 6.25 mg PO BID [facility] Dextrose (Dextrose 50% Inj) 0 ml IV STAT PRN; Protocol PRN Reason: Hypoglycemia Protocol Dextrose (Glutose 15) 0 gm PO ONCE PRN; Protocol PRN Reason: Hypoglycemia Protocol Famotidine (Pepcid) 20 mg PO DAILY [facility] Last Admin: 11/08/17 09:21 Dose: 20 mg Ferric Sodium Gluconate Complex (Ferrlecit) 125 mg IVPB Q24H [facility] Stop: 11/13/17 12:01 Last Admin: 11/08/17 12:09 Dose: 125 mg Gabapentin (Neurontin) 300 mg PO MWF [facility] Glipizide (Glucotrol) 5 mg PO ACB [facility] Last Admin: 11/09/17 08:19 Dose: 5 mg Glucagon (Glucagen Diagnostic Kit) 0 mg IM STAT PRN; Protocol PRN Reason: Hypoglycemia Protocol Heparin Sodium (Porcine) (Heparin) 5,000 units SC Q8 [facility] Last Admin: 11/09/17 06:03 Dose: 5,000 units Dextrose (Dextrose 5% In Water 1000 Ml) 1,000 mls @ 0 mls/hr IV .Q0M PRN; Protocol; Per Protocol PRN Reason: Hypoglycemia Protocol Insulin Human Regular (Novolin R) 0 unit SC ACHS [facility] PRN Reason: Protocol Last Admin: 11/09/17 08:12 Dose: Not Given Rosuvastatin Calcium (Crestor) 5 mg PO HS [facility] Last Admin: 11/08/17 21:31 Dose: 5 mg Tamsulosin HCl (Flomax) 0.4 mg PO DAILY [facility] Last Admin: 11/08/17 09:22 Dose: 0.4 mg - Labs Labs: 11/09/17 06:43 11/09/17 06:43 PT 10.8 SECONDS (9.7-12.2) 11/04/17 02:01 INR 1.0 11/04/17 02:01 APTT 33 SECONDS (21-34) 11/04/17 02:01 - Constitutional Appears: Non-toxic, No Acute Distress - Head Exam Head Exam: NORMAL INSPECTION, NORMOCEPHALIC - Eye Exam Eye Exam: Normal appearance, PERRL Pupil Exam: PERRL - ENT Exam ENT Exam: Mucous Membranes Moist, Normal Exam - Neck Exam Neck Exam: Full ROM, Normal Inspection - Respiratory Exam Respiratory Exam: Clear to Ausculation Bilateral, NORMAL BREATHING PATTERN - Cardiovascular Exam Cardiovascular Exam: REGULAR RHYTHM, RRR - GI/Abdominal Exam GI & Abdominal Exam: Distended, Soft, Normal Bowel Sounds - Extremities Exam Extremities Exam: Full ROM, Normal Inspection - Neurological Exam Neurological Exam: Alert, Awake, CN II-XII Intact - Psychiatric Exam Psychiatric exam: Normal Affect, Normal Mood - Skin Skin Exam: Dry, Normal Color Assessment and Plan (1) CAD (coronary artery disease) Status: Acute (2) CHF (congestive heart failure) Status: Acute (3) ESRD (end stage renal disease) Status: Acute (4) Respiratory distress Status: Acute (5) Type 2 diabetes mellitus with diabetic nephropathy Status: Acute - Assessment and Plan (Free Text) Assessment: hd today and mwf plan for OR for avf tomorrow noted dc norvasc lower gabapentin to mwf dosing
[2017-11-09] MEDS: Ferric Sodium Gluconat Complex 62.5 mg/5 ml Vial IVPB SCH (11:19)
[2017-11-09] MEDS ORDERED: Potassium Chloride 20 mEq/15 ml LIQ UD PO ONE (13:51)
--- NOTE | 2017-11-09 22:37 | PN ---
DATE: 11/09/2017 SUBJECTIVE: The patient denies any chest pain or shortness of breath. He is awaiting to go for hemodialysis. PHYSICAL EXAMINATION: VITAL SIGNS: Blood pressure 120/83, heart rate 87, temperature 97.9, respirations 16. HEENT: Normocephalic. CHEST: Clear. HEART: S1 and S2 are regular. EXTREMITIES: No edema. LABORATORY DATA: SMA-7: Sodium 138, potassium 3.3, chloride 95, CO2 of 25, glucose 133, BUN 63, creatinine 5.5. Today's hemoglobin and hematocrit 11.3 and 32.8, white count 12.2, platelet count 197,000. ASSESSMENT: 1. End-stage renal disease, on hemodialysis. 2. Hypokalemia. 3. Diastolic left ventricular dysfunction. 4. Hypertension. 5. Diabetes mellitus. RECOMMENDATIONS: Continue Coreg 6.25 mg twice a day; Crestor 5 mg once a day; Flomax 0.4 mg daily; glipizide 5 mg once a day; Neurontin 300 mg on Thursday, Thursday and Thursday; PhosLo one tablet t.i.d. The patient can undergo AV fistula placement tomorrow from the cardiac point of view with postoperative telemetry monitoring. Felipe Smith MD
--- NOTE | 2017-11-10 06:28 | CP.PCM.PN ---
<Liana Aguilera V - Last Filed: 11/10/17 17:12> Objective - Vital Signs/Intake and Output Vital Signs (last 24 hours): Temp Pulse Resp BP Pulse Ox 98.2 F 84 16 141/41 L 96 11/10/17 15:16 11/10/17 15:16 11/10/17 15:16 11/10/17 15:16 11/10/17 15:16 Intake and Output: 11/10/17 11/10/17 06:59 18:59 Intake Total 620 450 Balance 620 450 - Medications Medications: Current Medications Acetaminophen (Tylenol 325mg Tab) 650 mg PO Q6 PRN PRN Reason: Pain, Mild (1-3) Last Admin: 11/09/17 21:38 Dose: 650 mg Calcitriol (Rocaltrol) 0.5 mcg PO DAILY [facility] Last Admin: 11/10/17 10:32 Dose: 0.5 mcg Calcium Acetate (Phoslo) 667 mg PO TIDCC [facility] Last Admin: 11/10/17 11:30 Dose: Not Given Carvedilol (Coreg) 6.25 mg PO BID [facility] Last Admin: 11/10/17 10:32 Dose: 6.25 mg Dextrose (Dextrose 50% Inj) 0 ml IV STAT PRN; Protocol PRN Reason: Hypoglycemia Protocol Dextrose (Glutose 15) 0 gm PO ONCE PRN; Protocol PRN Reason: Hypoglycemia Protocol Famotidine (Pepcid) 20 mg PO DAILY [facility] Last Admin: 11/10/17 10:32 Dose: 20 mg Ferric Sodium Gluconate Complex (Ferrlecit) 125 mg IVPB Q24H [facility] Stop: 11/13/17 12:01 Last Admin: 11/10/17 11:25 Dose: 125 mg Gabapentin (Neurontin) 300 mg PO MWF [facility] Glipizide (Glucotrol) 5 mg PO ACB [facility] Glucagon (Glucagen Diagnostic Kit) 0 mg IM STAT PRN; Protocol PRN Reason: Hypoglycemia Protocol Heparin Sodium (Porcine) (Heparin) 5,000 units SC Q8 [facility] Last Admin: 11/09/17 06:03 Dose: 5,000 units Dextrose (Dextrose 5% In Water 1000 Ml) 1,000 mls @ 0 mls/hr IV .Q0M PRN; Protocol; Per Protocol PRN Reason: Hypoglycemia Protocol Insulin Human Regular (Novolin R) 0 unit SC ACHS [facility] PRN Reason: Protocol Last Admin: 11/10/17 11:30 Dose: Not Given Oxycodone/Acetaminophen (Percocet 5/325 Mg Tab) 1 tab PO Q4H PRN PRN Reason: Pain, moderate (4-7) Stop: 11/13/17 14:13 Rosuvastatin Calcium (Crestor) 5 mg PO HS [facility] Last Admin: 11/09/17 21:39 Dose: 5 mg Tamsulosin HCl (Flomax) 0.4 mg PO DAILY [facility] Last Admin: 11/10/17 10:33 Dose: 0.4 mg - Labs Labs: 11/10/17 08:23 11/10/17 08:23 PT 11.8 SECONDS (9.7-12.2) 11/10/17 08:23 INR 1.1 11/10/17 08:23 APTT 33 SECONDS (21-34) 11/04/17 02:01 Attending/Attestation - Attestation I have personally seen and examined this patient.: Yes I have fully participated in the care of the patient.: Yes I have reviewed all pertinent clinical information, including history, physical exam and plan: Yes Notes (Text): Patient seen, examined, and case discussed with medical library assistant. Patient seen this morning. Patient awaiting OR this morning for left AV fistula placement. Patient subsequently underwent placement of left snuffbox aVR. We have renewed telemetry per cardio work recommendation for monitoring. As post-OR, diet was restarted. We'll follow up with surgery in regards to restarting chemical anticoagulation for DVT prophylaxis. Assessments: 1). SOB secondary to Pulmonary Edema secondary to ESRD Assessment/plan * Symptomatically improved after 100 mg total of Lasix on 11/04/17 and Metalozone at the time of admission * No complaints with me at this time 2). ESRD CKD Stage 5 Assessment/plan * Nephrology (Dr. Davis) on the case help appreciated * Vascular surgery (Dr. Gil) on the case help appreciated * dialysis Thursday//Thursday * S/P Right Chest Permacath placement by Dr. Gil 11/05/17 * Patient planned for left arm AV fistula for today 11/10/17: he has been cleared by Cardiology * Postoperative telemetry monitoring * Will need to have at least 3 HD inpatient before being accepted by outpatient HD center * Managed Care Specialist Smita and Box Car Bracer Julia are aware that patient needs outpatient HD placement * Calcitriol 0.5 mcg PO 1x/day * Phoslo 667 mg PO TIDCC 3). Hx Elevated Troponin Assessment/plan * Likely secondary to ESRD 4). Hx CAD with Angioplasty in 2012 and Hx of HFpEF Assessment/plan * Cardiology Dr. Smith on board and he has cleared patient for planned AVF * changed Coreg to 6.25 by mouth twice to accommodate 12.5mg PO once a daily * Crestor 5 mg PO HS * Lasix and Metolazone were discontinued 11/05/17 * ProBNP upon admission 2910 * Echo 04/2017: LVEF 50-55%, mild concentric LVH, Grade I abnormal relaxation pattern, aortic valve mildly sclerotic 5). DM 2 requiring Insulin Assessment/plan * HgBA1C is 7.1 * home medications: Insulin Degludec 45 units SC 1x/day and Glipizide 5 mg PO 1x /day at home * Currently on RISS and hold Glipizide 5 mg PO 1x/day and blood glucose are under control * Accu-Cheks Q before meals daily at bedtime * hypoglycemic protocol 6). HTN Assessment/Plan * Norvasc discontinued by nephrology noted for low blood pressure * Change Coreg o 6.25 mg by mouth twice a day 7). Diabetic Neuropathy Assessment/Plan * Involving the toes and feet bilaterally * Gabapentin 300 mg PO 1x/day 8). BPH Assessment/Plan * Flomax 0.4 mg PO 1x/day 9). Anemia likely secondary to ESRD * Ferric Gluconate 125 mg IV 1x/day 10). Prophylaxis * hold Heparin 5,000 Units SC Q8Hfor left arm aVF surgery today * ICE Pack to the Right Lateral Ankle Q6H * Pepcid 20 mg once a day Plan: patient to OR today for creation of AV fistula. He will restart glipizide and diet post-OR. We will follow up with surgery to see when to restart DVT ppx. Telemetry renewed. <Padmini Zuniga P - Last Filed: 11/10/17 21:24> Subjective - Date & Time of Evaluation Date of Evaluation: 11/10/17 Time of Evaluation: 06:28 - Subjective Subjective: PGY-[address] Aguilera. Patient seen and evaluated at bedside. Patient is in no acute distress. He went for hemodialysis yesterday and tolerated well. States R foot pain has improved. Also states he did not sleep well last night as his neighbor was quite loud. Patient denies fever, chills, chest pain, shortness of breath, abdominal pain, nausea, and vomiting. Patient to go to OR today for L AV fistula. Objective - Vital Signs/Intake and Output Vital Signs (last 24 hours): Temp Pulse Resp BP Pulse Ox 98.0 F 88 20 145/78 96 11/09/17 23:10 11/09/17 23:10 11/09/17 23:10 11/09/17 23:10 11/09/17 23:10 Intake and Output: 11/09/17 11/10/17 18:59 06:59 Intake Total 620 Balance 620 - Medications Medications: Current Medications Acetaminophen (Tylenol 325mg Tab) 650 mg PO Q6 PRN PRN Reason: Pain, Mild (1-3) Last Admin: 11/09/17 21:38 Dose: 650 mg Calcitriol (Rocaltrol) 0.5 mcg PO DAILY [facility] Last Admin: 11/09/17 10:47 Dose: 0.5 mcg Calcium Acetate (Phoslo) 667 mg PO TIDCC [facility] Last Admin: 11/09/17 18:28 Dose: 667 mg Carvedilol (Coreg) 6.25 mg PO BID [facility] Last Admin: 11/09/17 18:28 Dose: 6.25 mg Dextrose (Dextrose 50% Inj) 0 ml IV STAT PRN; Protocol PRN Reason: Hypoglycemia Protocol Dextrose (Glutose 15) 0 gm PO ONCE PRN; Protocol PRN Reason: Hypoglycemia Protocol Famotidine (Pepcid) 20 mg PO DAILY [facility] Last Admin: 11/09/17 11:00 Dose: 20 mg Ferric Sodium Gluconate Complex (Ferrlecit) 125 mg IVPB Q24H [facility] Stop: 11/13/17 12:01 Last Admin: 11/09/17 11:19 Dose: 125 mg Gabapentin (Neurontin) 300 mg PO MWF [facility] Glucagon (Glucagen Diagnostic Kit) 0 mg IM STAT PRN; Protocol PRN Reason: Hypoglycemia Protocol Heparin Sodium (Porcine) (Heparin) 5,000 units SC Q8 [facility] Last Admin: 11/09/17 06:03 Dose: 5,000 units Dextrose (Dextrose 5% In Water 1000 Ml) 1,000 mls @ 0 mls/hr IV .Q0M PRN; Protocol; Per Protocol PRN Reason: Hypoglycemia Protocol Insulin Human Regular (Novolin R) 0 unit SC ACHS [facility] PRN Reason: Protocol Last Admin: 11/09/17 21:35 Dose: Not Given Rosuvastatin Calcium (Crestor) 5 mg PO HS [facility] Last Admin: 11/09/17 21:39 Dose: 5 mg Tamsulosin HCl (Flomax) 0.4 mg PO DAILY [facility] Last Admin: 11/09/17 11:00 Dose: 0.4 mg - Labs Labs: 11/09/17 06:43 11/09/17 19:48 PT 10.8 SECONDS (9.7-12.2) 11/04/17 02:01 INR 1.0 11/04/17 02:01 APTT 33 SECONDS (21-34) 11/04/17 02:01 - Constitutional Appears: No Acute Distress - Head Exam Head Exam: ATRAUMATIC, NORMOCEPHALIC - Eye Exam Eye Exam: EOMI, Normal appearance - Respiratory Exam Respiratory Exam: Clear to Ausculation Bilateral. absent: Rales, Rhonchi, Wheezes - Cardiovascular Exam Cardiovascular Exam: REGULAR RHYTHM, +S1, +S2 Additional comments: Permacath R upper chest, without redness, warmth or signs of infection. - GI/Abdominal Exam GI & Abdominal Exam: Soft, Normal Bowel Sounds. absent: Firm, Guarding, Tenderness - Back Exam Back Exam: Full ROM, tenderness (mild, lateral R foot) - Neurological Exam Neurological Exam: Alert, Awake, Oriented x3 - Psychiatric Exam Psychiatric exam: Normal Mood - Skin Skin Exam: Dry, Intact, Normal Color Assessment and Plan - Assessment and Plan (Free Text) Plan: 62 year old M with PMHx of ESRD, DM, HTN, CHF, and CAD admitted for shortness of breath. Shortness of Breath secondary to ESRD-improved - On admission: In the ED, Lasix 40mg IV given once. - Lasix 60mg IV and metolazone 5mg given once. - ABG: pH 7.22, Co2 76, O2 73, HCO3 25.6 - Repeat ABG: pH 7.34, Co2 53, O2 193, HCO3 26.4 - Chest xray: infiltrates right lower lobe; follow up official read - Pro-BNP: 2910 - Troponin 0.5750; 0.4900; 0.382 - EKG: nsr@91bpm, LBBB, prolonged QT ESRD CKD stage 5 with anemia -Nephrology, Dr Davis, consulted; help appreciated -Vascular surgery, Dr. Gil consulted, help appreciated. -Cardiology, Dr. Smith consulted, help appreciated -Cardiac clearance approved by Dr. Smith for permacath and AVF -Permacath placed 11/05/17 , AV fistula placed 11/10/17. -Ferrlecit 125mg IVBP Q24H, Phoslo 667mg PO TIDCC, Calcitriol 0.5mcg PO daily -HD MWF Abnormal chest XRay likely secondary to ESRD - 11/04 Chest xray: infiltrates right lower lobe ([place]); Official read: Cardiomegaly, asymmetrical pulmonary edema - In the ED, Vanco and Zosyn were given due to possible PNA - 11/05 Repeat chest xray: Pulmonary vascular congestion. No consolidation. - Afebrile; continue to monitor - lactate: 1.0 - Procalcitonin: 0.66 HTN - Continue home medications: carvidilol 6.25mg BID, amlodipine 10mg po daily ( held due to low bp) - Continue to monitor DM - Home medications: glipizide 5mg po daily (restarted 11/11) - Accuchecks - Hypoglycemia protocol - ISS - A1c: 7.3 Neuropathic pain Secondary to DM -gabapentin 300mg po MWF Elevated troponin likely secondary to ESRD- downtrending - EKG: nsr@91bpm, LBBB, prolonged QT - troponins: 0.5750; 0.4900; 0.382, no significant changes in repeat EKGs - Lipid panel: TG 423, Chl 225, LDL 98, HDL 24 - A1c: 7.3 CHF - Echo (04/2017): LVEF 50-55%; mild concentric LVH; grade I abnormal relaxation pattern; aortic valve mildly sclerotic; mild MR, mild TR, mild PV regurg - Pro-BNP: 2910 - In the ED, Lasix 40mg IV given once. - Lasix 60mg IV and metolazone 5mg given once. - Continue home medication: furosemide 40mg po daily (discontinued by Dr. Davis ) CAD - Hx of angioplasty in 2013 - Continue home medications: lovastatin 40mg po hs, carvidilol 12.5mg po daily, LEQ71po po daily - Patient reports he was previously on Plavix, but was told by Dr. Damon, county engineer, to stop taking it approximately 1 month ago. -Cardiology, Dr. Smith consulted, help appreciated BPH -Flomax 0.4mg PO daily Prophylaxis: - Heparin 5000u SC Q8h (restarted 11/10/17) - Pepcid 20mg PO daily - Renal diet Patient went for left AVF today with Dr. Gil. heparin resumed, as per surgery. Patient placed on post operative telemetry monitoring, as per Dr. Smith. Glipizide resumed.
[2017-11-10] MEDS: (Novolin R) Insulin Human Regular 100 units/ml vial SC SCH ×4 (08:06→23:03)
[2017-11-10 08:38] LABS: INR 1.1; PROTHROMBIN TIME 11.8 SECONDS (9.7-12.2)
[2017-11-10 08:40] LABS: BASO # 0.1 K/uL (0.0-0.2); BASO % 0.8 % (0.0-2.0); EOS # 0.8 K/uL (0.0-0.7); EOS % 7.8 % (0.0-4.0); HEMOGLOBIN 11.4 g/dL (12.0-18.0); LYMPH # 1.4 K/uL (1.0-4.3); LYMPH % 13.5 % (20.0-40.0); MEAN CELL VOLUME 88.9 fL (80.0-94.0); MEAN CORPUSCULAR HEMOGLOBIN 30.9 pg (27.0-31.0); MEAN CORPUSCULAR HGB CONC 34.7 g/dL (33.0-37.0); MEAN PLATELET VOLUME 8.8 fL (7.2-11.7); MONO % 10.1 % (0.0-10.0); NEUT # 6.9 K/uL (1.8-7.0); NEUT % 67.8 % (50.0-75.0); RBC 3.68 Mil/uL (4.40-5.90); RED CELL DISTRIBUTION WIDTH 13.1 % (11.5-14.5); WHITE BLOOD COUNT 10.2 K/uL (4.8-10.8)
[2017-11-10 08:55] LABS: ALB/GLOB RATIO 1.4 (1.0-2.1); ALBUMIN 4.4 g/dL (3.5-5.0); CALCIUM 9.8 mg/dl (8.6-10.4)
[2017-11-10] MEDS: Ferric Sodium Gluconat Complex 62.5 mg/5 ml Vial IVPB SCH (11:25)
[2017-11-10] MEDS ORDERED: HEPARIN-NS 5,000 UNITS/500 ML 5,000 UNIT/500 ML BAG IV ONE (11:56)
[2017-11-10] MEDS ORDERED: ceFAZolin 1 gm in NS 2 GM/200 ML BAG IVPB ONE (11:56)
[2017-11-10] MEDS ORDERED: Midazolam 2 MG/2 ML VIAL ONE (12:01)
[2017-11-10] MEDS ORDERED: Propofol 10 mg/ml Inj (20 ML) ONE (12:02)
[2017-11-10] MEDS ORDERED: Papaverine Hydrochloride 30 mg/ml (2ml) ONE (12:33)
[2017-11-10] MEDS ORDERED: HYDROmorphone 0.5 mg/0.5 ml ISec IVP PRN (13:47)
--- NOTE | 2017-11-10 13:48 | PCM.SURG1 ---
Surgeon's Initial Post Op Note - Surgeon's Notes Surgeon: Dr. Gil Golf Course Ranger: Dr. Bryant PGY3, Dr. Acuña PGY1 Type of Anesthesia: General LMA Pre-Operative Diagnosis: ESRD Operative Findings: See operative dictation Post-Operative Diagnosis: ESRD Operation Performed: Left Snuffbox Arterio-venous fistula creation Specimen/Specimens Removed: none Estimated Blood Loss: EBL {In ML}: 20 Blood Products Given: N/A Drains Used: No Drains Post-Op Condition: Good Date of Surgery/Procedure: 11/10/17 Time of Surgery/Procedure: 13:48
--- NOTE | 2017-11-10 17:28 | CP.PCM.PN ---
Subjective - Date & Time of Evaluation Date of Evaluation: 11/10/17 Time of Evaluation: 17:26 - Subjective Subjective: seen and examined in am c/o rt foot pain no f/c/n/v/d/sob/dizziness Objective - Vital Signs/Intake and Output Vital Signs (last 24 hours): Temp Pulse Resp BP Pulse Ox 98.2 F 84 16 141/41 L 96 11/10/17 15:16 11/10/17 15:16 11/10/17 15:16 11/10/17 15:16 11/10/17 15:16 Intake and Output: 11/10/17 11/10/17 06:59 18:59 Intake Total 620 450 Balance 620 450 - Medications Medications: Current Medications Acetaminophen (Tylenol 325mg Tab) 650 mg PO Q6 PRN PRN Reason: Pain, Mild (1-3) Last Admin: 11/09/17 21:38 Dose: 650 mg Calcitriol (Rocaltrol) 0.5 mcg PO DAILY [facility] Last Admin: 11/10/17 10:32 Dose: 0.5 mcg Calcium Acetate (Phoslo) 667 mg PO TIDCC [facility] Last Admin: 11/10/17 11:30 Dose: Not Given Carvedilol (Coreg) 6.25 mg PO BID [facility] Last Admin: 11/10/17 10:32 Dose: 6.25 mg Dextrose (Dextrose 50% Inj) 0 ml IV STAT PRN; Protocol PRN Reason: Hypoglycemia Protocol Dextrose (Glutose 15) 0 gm PO ONCE PRN; Protocol PRN Reason: Hypoglycemia Protocol Famotidine (Pepcid) 20 mg PO DAILY [facility] Last Admin: 11/10/17 10:32 Dose: 20 mg Ferric Sodium Gluconate Complex (Ferrlecit) 125 mg IVPB Q24H [facility] Stop: 11/13/17 12:01 Last Admin: 11/10/17 11:25 Dose: 125 mg Gabapentin (Neurontin) 300 mg PO MWF [facility] Glipizide (Glucotrol) 5 mg PO ACB [facility] Glucagon (Glucagen Diagnostic Kit) 0 mg IM STAT PRN; Protocol PRN Reason: Hypoglycemia Protocol Heparin Sodium (Porcine) (Heparin) 5,000 units SC Q8 [facility] Last Admin: 11/09/17 06:03 Dose: 5,000 units Dextrose (Dextrose 5% In Water 1000 Ml) 1,000 mls @ 0 mls/hr IV .Q0M PRN; Protocol; Per Protocol PRN Reason: Hypoglycemia Protocol Insulin Human Regular (Novolin R) 0 unit SC ACHS [facility] PRN Reason: Protocol Last Admin: 11/10/17 11:30 Dose: Not Given Oxycodone/Acetaminophen (Percocet 5/325 Mg Tab) 1 tab PO Q4H PRN PRN Reason: Pain, moderate (4-7) Stop: 11/13/17 14:13 Rosuvastatin Calcium (Crestor) 5 mg PO HS [facility] Last Admin: 11/09/17 21:39 Dose: 5 mg Tamsulosin HCl (Flomax) 0.4 mg PO DAILY [facility] Last Admin: 11/10/17 10:33 Dose: 0.4 mg - Labs Labs: 11/10/17 08:23 11/10/17 08:23 PT 11.8 SECONDS (9.7-12.2) 11/10/17 08:23 INR 1.1 11/10/17 08:23 APTT 33 SECONDS (21-34) 11/04/17 02:01 - Constitutional Appears: No Acute Distress, Chronically Ill - Head Exam Head Exam: NORMAL INSPECTION, NORMOCEPHALIC - Eye Exam Eye Exam: Normal appearance Pupil Exam: NORMAL ACCOMODATION - ENT Exam ENT Exam: Mucous Membranes Moist, Normal Exam - Neck Exam Neck Exam: Full ROM, Normal Inspection - Respiratory Exam Respiratory Exam: Clear to Ausculation Bilateral, NORMAL BREATHING PATTERN - Cardiovascular Exam Cardiovascular Exam: REGULAR RHYTHM, RRR - GI/Abdominal Exam GI & Abdominal Exam: Distended, Soft - Extremities Exam Extremities Exam: Full ROM, Normal Inspection - Neurological Exam Neurological Exam: Alert, Awake, Oriented x3 - Psychiatric Exam Psychiatric exam: Normal Affect, Normal Mood - Skin Skin Exam: Dry, Normal Color Assessment and Plan (1) CAD (coronary artery disease) Status: Acute (2) CHF (congestive heart failure) Status: Acute (3) ESRD (end stage renal disease) Status: Acute (4) Respiratory distress Status: Acute (5) Type 2 diabetes mellitus with diabetic nephropathy Status: Acute - Assessment and Plan (Free Text) Assessment: maintain hd mwf bp acceptable av fistula today outpt placement pending
[2017-11-10] MEDS: Oxycodone/Acetaminophen 5/325 mg Tab PO PRN (17:43)
[2017-11-11] MEDS: Oxycodone/Acetaminophen 5/325 mg Tab PO PRN ×2 (04:18→14:25)
[2017-11-11 06:47] LABS: ALB/GLOB RATIO 1.5 (1.0-2.1); ALBUMIN 4.1 g/dL (3.5-5.0); CALCIUM 9.3 mg/dl (8.6-10.4)
--- NOTE | 2017-11-11 07:01 | OP ---
PROCEDURE DATE: 11/10/2017 PREOPERATIVE DIAGNOSIS: Renal failure. POSTOPERATIVE DIAGNOSIS: Renal failure. PROCEDURE CARRIED OUT: Snuffbox fistula, left wrist. SURGEON: Neto Gil M.D. CONVEYOR SYSTEM DISPATCHER: Carmelo Bryant DO ANESTHESIOLOGIST: Mr. Antony. TYPE OF ANESTHESIA: General LMA. INDICATIONS: The patient is a middle-aged man with renal insufficiency presently dialyzes by means of a catheter placed on an urgent basis. OPERATIVE FINDINGS: Vein was of good size, artery was of good size. Artery did not seem there was much I wanted to have but basically at the end of the procedure, we had good flow through the fistula and a palpable thrill. DESCRIPTION OF PROCEDURE: The patient was given general anesthesia and intravenous antibiotics. The arm was prepped and draped with Betadine. An incision was made exposing the artery and the vein which were then anastomosed in an end of vein to side of artery which was the superficial branch of the radial artery in an end-to-side fashion using loupe magnification and heparin anticoagulation. After completion of the anastomosis, there was good hemostasis. The wound was then closed with Monocryl and nylon sutures. Blood loss for the procedure was less than 20 mL. Operation carried out, snuffbox fistula, left wrist. Neto Gil Jr., MD
[2017-11-11 07:24] LABS: BASO # 0.1 K/uL (0.0-0.2); BASO % 0.8 % (0.0-2.0); EOS # 0.8 K/uL (0.0-0.7); EOS % 7.8 % (0.0-4.0); HEMOGLOBIN 10.2 g/dL (12.0-18.0); LYMPH # 1.6 K/uL (1.0-4.3); LYMPH % 15.8 % (20.0-40.0); MEAN CELL VOLUME 88.3 fL (80.0-94.0); MEAN CORPUSCULAR HEMOGLOBIN 30.7 pg (27.0-31.0); MEAN CORPUSCULAR HGB CONC 34.8 g/dL (33.0-37.0); MEAN PLATELET VOLUME 8.9 fL (7.2-11.7); MONO # 1.2 K/uL (0.0-0.8); MONO % 11.9 % (0.0-10.0); NEUT # 6.5 K/uL (1.8-7.0); NEUT % 63.7 % (50.0-75.0); RBC 3.33 Mil/uL (4.40-5.90); RED CELL DISTRIBUTION WIDTH 12.8 % (11.5-14.5); WHITE BLOOD COUNT 10.2 K/uL (4.8-10.8)
[2017-11-11] MEDS: (Novolin R) Insulin Human Regular 100 units/ml vial SC SCH ×4 (08:24→21:22)
[2017-11-11] MEDS: Ferric Sodium Gluconat Complex 62.5 mg/5 ml Vial IVPB SCH (11:22)
--- NOTE | 2017-11-11 12:18 | CP.PCM.PN ---
Subjective - Date & Time of Evaluation Date of Evaluation: 11/11/17 Time of Evaluation: 12:17 - Subjective Subjective: 62M seen and evaluated this morning at bedside. Pt resting comfortably in bed. No acute events overnight. Pain controlled and diet tolerated. Dressings over left AVF c/d/i w/ palpable thrill. Denies f/c and n/v/d. Objective - Vital Signs/Intake and Output Vital Signs (last 24 hours): Temp Pulse Resp BP Pulse Ox 97.9 F 81 17 144/84 96 11/11/17 09:30 11/11/17 12:00 11/11/17 12:00 11/11/17 12:00 11/11/17 12:00 - Medications Medications: Current Medications Acetaminophen (Tylenol 325mg Tab) 650 mg PO Q6 PRN PRN Reason: Pain, Mild (1-3) Last Admin: 11/09/17 21:38 Dose: 650 mg Calcitriol (Rocaltrol) 0.5 mcg PO DAILY [facility] Last Admin: 11/10/17 10:32 Dose: 0.5 mcg Calcium Acetate (Phoslo) 667 mg PO TIDCC [facility] Last Admin: 11/11/17 08:24 Dose: 667 mg Carvedilol (Coreg) 6.25 mg PO BID [facility] Last Admin: 11/10/17 17:44 Dose: 6.25 mg Dextrose (Dextrose 50% Inj) 0 ml IV STAT PRN; Protocol PRN Reason: Hypoglycemia Protocol Dextrose (Glutose 15) 0 gm PO ONCE PRN; Protocol PRN Reason: Hypoglycemia Protocol Famotidine (Pepcid) 20 mg PO DAILY [facility] Last Admin: 11/10/17 10:32 Dose: 20 mg Ferric Sodium Gluconate Complex (Ferrlecit) 125 mg IVPB Q24H [facility] Stop: 11/13/17 12:01 Last Admin: 11/11/17 11:22 Dose: 125 mg Gabapentin (Neurontin) 300 mg PO MWF [facility] Last Admin: 11/11/17 08:27 Dose: 300 mg Glipizide (Glucotrol) 5 mg PO ACB [facility] Last Admin: 11/11/17 08:24 Dose: 5 mg Glucagon (Glucagen Diagnostic Kit) 0 mg IM STAT PRN; Protocol PRN Reason: Hypoglycemia Protocol Heparin Sodium (Porcine) (Heparin) 5,000 units SC Q8 [facility] Last Admin: 11/11/17 06:22 Dose: 5,000 units Dextrose (Dextrose 5% In Water 1000 Ml) 1,000 mls @ 0 mls/hr IV .Q0M PRN; Protocol; Per Protocol PRN Reason: Hypoglycemia Protocol Insulin Human Regular (Novolin R) 0 unit SC ACHS [facility] PRN Reason: Protocol Last Admin: 11/11/17 08:24 Dose: 2 units Oxycodone/Acetaminophen (Percocet 5/325 Mg Tab) 1 tab PO Q4H PRN PRN Reason: Pain, moderate (4-7) Stop: 11/13/17 14:13 Last Admin: 11/11/17 04:18 Dose: 1 tab Rosuvastatin Calcium (Crestor) 5 mg PO HS [facility] Last Admin: 11/10/17 21:20 Dose: 5 mg Tamsulosin HCl (Flomax) 0.4 mg PO DAILY [facility] Last Admin: 11/10/17 10:33 Dose: 0.4 mg - Labs Labs: 11/11/17 06:20 11/11/17 06:18 PT 11.8 SECONDS (9.7-12.2) 11/10/17 08:23 INR 1.1 11/10/17 08:23 APTT 33 SECONDS (21-34) 11/04/17 02:01 - Constitutional Appears: Well, Non-toxic, No Acute Distress - Head Exam Head Exam: ATRAUMATIC, NORMAL INSPECTION, NORMOCEPHALIC - Eye Exam Eye Exam: EOMI, Normal appearance - Respiratory Exam Respiratory Exam: Clear to Ausculation Bilateral, NORMAL BREATHING PATTERN - Cardiovascular Exam Cardiovascular Exam: REGULAR RHYTHM, +S1, +S2. absent: Murmur - GI/Abdominal Exam GI & Abdominal Exam: Soft, Normal Bowel Sounds. absent: Tenderness - Extremities Exam Extremities Exam: Normal Inspection, Tenderness - Neurological Exam Neurological Exam: Alert, Awake, Oriented x3 - Psychiatric Exam Psychiatric exam: Normal Affect, Normal Mood - Skin Skin Exam: Dry, Intact, Normal Color, Warm Assessment and Plan - Assessment and Plan (Free Text) Assessment: 62M w/ ESRD s/p left arm AVF POD1 Plan: palpable thrill on left arm AVF no further surgical intervention at this time please reconsult as needed Akhil Acuña PGY1
--- NOTE | 2017-11-11 13:24 | CP.PCM.PN ---
Subjective - Date & Time of Evaluation Date of Evaluation: 11/11/17 Time of Evaluation: 13:20 - Subjective Subjective: Hospitalist note Patient seen, examined. Sign patient seen upright in chair. Patient eating lunch. Patient denies acute complaints except for mild tenderness over the left snuffbox AV fistula placement. Patient reports he is moving bowels. Patient is very pleasant. Objective - Vital Signs/Intake and Output Vital Signs (last 24 hours): Temp Pulse Resp BP Pulse Ox 97.9 F 78 18 140/49 L 96 11/11/17 09:30 11/11/17 12:30 11/11/17 12:30 11/11/17 12:30 11/11/17 12:30 - Medications Medications: Current Medications Acetaminophen (Tylenol 325mg Tab) 650 mg PO Q6 PRN PRN Reason: Pain, Mild (1-3) Last Admin: 11/09/17 21:38 Dose: 650 mg Calcitriol (Rocaltrol) 0.5 mcg PO DAILY [facility] Last Admin: 11/10/17 10:32 Dose: 0.5 mcg Calcium Acetate (Phoslo) 667 mg PO TIDCC [facility] Last Admin: 11/11/17 08:24 Dose: 667 mg Carvedilol (Coreg) 6.25 mg PO BID [facility] Last Admin: 11/10/17 17:44 Dose: 6.25 mg Dextrose (Dextrose 50% Inj) 0 ml IV STAT PRN; Protocol PRN Reason: Hypoglycemia Protocol Dextrose (Glutose 15) 0 gm PO ONCE PRN; Protocol PRN Reason: Hypoglycemia Protocol Famotidine (Pepcid) 20 mg PO DAILY [facility] Last Admin: 11/10/17 10:32 Dose: 20 mg Ferric Sodium Gluconate Complex (Ferrlecit) 125 mg IVPB Q24H [facility] Stop: 11/13/17 12:01 Last Admin: 11/11/17 11:22 Dose: 125 mg Gabapentin (Neurontin) 300 mg PO MWF [facility] Last Admin: 11/11/17 08:27 Dose: 300 mg Glipizide (Glucotrol) 5 mg PO ACB [facility] Last Admin: 11/11/17 08:24 Dose: 5 mg Glucagon (Glucagen Diagnostic Kit) 0 mg IM STAT PRN; Protocol PRN Reason: Hypoglycemia Protocol Heparin Sodium (Porcine) (Heparin) 5,000 units SC Q8 [facility] Last Admin: 11/11/17 06:22 Dose: 5,000 units Dextrose (Dextrose 5% In Water 1000 Ml) 1,000 mls @ 0 mls/hr IV .Q0M PRN; Protocol; Per Protocol PRN Reason: Hypoglycemia Protocol Insulin Human Regular (Novolin R) 0 unit SC ACHS [facility] PRN Reason: Protocol Last Admin: 11/11/17 08:24 Dose: 2 units Oxycodone/Acetaminophen (Percocet 5/325 Mg Tab) 1 tab PO Q4H PRN PRN Reason: Pain, moderate (4-7) Stop: 11/13/17 14:13 Last Admin: 11/11/17 04:18 Dose: 1 tab Rosuvastatin Calcium (Crestor) 5 mg PO HS [facility] Last Admin: 11/10/17 21:20 Dose: 5 mg Tamsulosin HCl (Flomax) 0.4 mg PO DAILY [facility] Last Admin: 11/10/17 10:33 Dose: 0.4 mg - Labs Labs: 11/11/17 06:20 11/11/17 06:18 PT 11.8 SECONDS (9.7-12.2) 11/10/17 08:23 INR 1.1 11/10/17 08:23 APTT 33 SECONDS (21-34) 11/04/17 02:01 - Constitutional Appears: Non-toxic, No Acute Distress - Head Exam Head Exam: NORMAL INSPECTION Additional comments: tunneled permacath over right-sided chest clean dry intact old Steri-Strip over the nape of neck. - Eye Exam Eye Exam: EOMI - ENT Exam ENT Exam: Mucous Membranes Moist - Respiratory Exam Respiratory Exam: NORMAL BREATHING PATTERN. absent: Rales, Rhonchi, Wheezes - Cardiovascular Exam Cardiovascular Exam: REGULAR RHYTHM, +S1, +S2 - GI/Abdominal Exam GI & Abdominal Exam: Distended (obese habitus), Soft, Normal Bowel Sounds. absent: Firm, Guarding, Rigid, Tenderness, Rebound - Extremities Exam Additional comments: left snuffbox (hand) clean dry and intact - Neurological Exam Neurological Exam: Alert, Awake, Oriented x3 Neuro motor strength exam: Left Upper Extremity: 5, Right Upper Extremity: 5, Left Lower Extremity: 5, Right Lower Extremity: 5 - Psychiatric Exam Psychiatric exam: Normal Affect, Normal Mood - Skin Skin Exam: Dry, Intact, Normal Color, Warm Assessment and Plan - Assessment and Plan (Free Text) Assessment: Patient seen at lunch. Patient is postoperative day 1 of left snuffbox AV fistula placement. Patient reports mild pain over surgical s Patient denies any acute complaints. Patient is tolerating diet. Patient reports he is having bowel movements. Patient completed dialysis this morning. Assessments: 1). SOB secondary to Pulmonary Edema secondary to ESRD Assessment/plan * Symptomatically improved after 100 mg total of Lasix on 11/04/17 and Metalozone at the time of admission * resolved 2). ESRD CKD Stage 5 Assessment/plan * Nephrology (Dr. Davis) on the case help appreciated * Vascular surgery (Dr. Gil) on the case help appreciated * dialysis Thursday//Thursday * S/P Right Chest Permacath placement by Dr. Gil 11/05/17 * Patient planned for left arm AV fistula for today 11/10/17: he has been cleared by Cardiology * Postoperative telemetry monitoring * Will need to have at least 3 HD inpatient before being accepted by outpatient HD center * Dietary Worker Smita and Campus Manager Julia are aware that patient needs outpatient HD placement * Calcitriol 0.5 mcg PO 1x/day * Phoslo 667 mg PO TIDCC 3). Hx Elevated Troponin Assessment/plan * Likely secondary to ESRD 4). Hx CAD with Angioplasty in 2012 and Hx of HFpEF Assessment/plan * Cardiology Dr. Smith on board and he has cleared patient for planned AVF * changed Coreg to 6.25 by mouth twice to accommodate 12.5mg PO once a daily * Crestor 5 mg PO HS * Lasix and Metolazone were discontinued 11/05/17 * ProBNP upon admission 2910 * Echo 04/2017: LVEF 50-55%, mild concentric LVH, Grade I abnormal relaxation pattern, aortic valve mildly sclerotic 5). DM 2 requiring Insulin Assessment/plan * HgBA1C is 7.1 * home medications: Insulin Degludec 45 units SC 1x/day and Glipizide 5 mg PO 1x /day at home * Currently on RISS and hold Glipizide 5 mg PO 1x/day and blood glucose are under control * Accu-Cheks Q before meals daily at bedtime * hypoglycemic protocol 6). HTN Assessment/Plan * Norvasc discontinued by nephrology noted for low blood pressure * Change Coreg o 6.25 mg by mouth twice a day * bblood pressure controlled * Patient is dialysis Thursday 7). Diabetic Neuropathy Assessment/Plan * Involving the toes and feet bilaterally * Gabapentin 300 mg PO 1x/day 8). BPH Assessment/Plan * Flomax 0.4 mg PO 1x/day 9). Anemia likely secondary to ESRD * Ferric Gluconate 125 mg IV 1x/day 10). Prophylaxis * Resumed Heparin 5,000 Units SC Q8H post procedure * ICE Pack to the Right Lateral Ankle Q6H * Pepcid 20 mg once a day Plan: patient is awaiting placement for outpatient dialysis. Patient is postoperative day one of left snuffbox AV fistula placement.
--- NOTE | 2017-11-11 14:41 | CP.PCM.PN ---
Subjective - Date & Time of Evaluation Date of Evaluation: 11/11/17 Time of Evaluation: 14:40 - Subjective Subjective: tolerating HD [facility] with good bruit HD today no chest pain no sob Objective - Vital Signs/Intake and Output Vital Signs (last 24 hours): Temp Pulse Resp BP Pulse Ox 97.9 F 78 18 140/49 L 96 11/11/17 09:30 11/11/17 12:30 11/11/17 12:30 11/11/17 12:30 11/11/17 12:30 - Medications Medications: Current Medications Acetaminophen (Tylenol 325mg Tab) 650 mg PO Q6 PRN PRN Reason: Pain, Mild (1-3) Last Admin: 11/09/17 21:38 Dose: 650 mg Calcitriol (Rocaltrol) 0.5 mcg PO DAILY [facility] Last Admin: 11/11/17 14:21 Dose: 0.5 mcg Calcium Acetate (Phoslo) 667 mg PO TIDCC [facility] Last Admin: 11/11/17 14:20 Dose: 667 mg Carvedilol (Coreg) 6.25 mg PO BID [facility] Last Admin: 11/11/17 10:00 Dose: Not Given Dextrose (Dextrose 50% Inj) 0 ml IV STAT PRN; Protocol PRN Reason: Hypoglycemia Protocol Dextrose (Glutose 15) 0 gm PO ONCE PRN; Protocol PRN Reason: Hypoglycemia Protocol Famotidine (Pepcid) 20 mg PO DAILY [facility] Last Admin: 11/11/17 14:20 Dose: 20 mg Ferric Sodium Gluconate Complex (Ferrlecit) 125 mg IVPB Q24H [facility] Stop: 11/13/17 12:01 Last Admin: 11/11/17 11:22 Dose: 125 mg Gabapentin (Neurontin) 300 mg PO MWF [facility] Last Admin: 11/11/17 08:27 Dose: 300 mg Glipizide (Glucotrol) 5 mg PO ACB [facility] Last Admin: 11/11/17 08:24 Dose: 5 mg Glucagon (Glucagen Diagnostic Kit) 0 mg IM STAT PRN; Protocol PRN Reason: Hypoglycemia Protocol Heparin Sodium (Porcine) (Heparin) 5,000 units SC Q8 [facility] Last Admin: 11/11/17 14:21 Dose: 5,000 units Dextrose (Dextrose 5% In Water 1000 Ml) 1,000 mls @ 0 mls/hr IV .Q0M PRN; Protocol; Per Protocol PRN Reason: Hypoglycemia Protocol Insulin Human Regular (Novolin R) 0 unit SC ACHS [facility] PRN Reason: Protocol Last Admin: 11/11/17 11:30 Dose: Not Given Oxycodone/Acetaminophen (Percocet 5/325 Mg Tab) 1 tab PO Q4H PRN PRN Reason: Pain, moderate (4-7) Stop: 11/13/17 14:13 Last Admin: 11/11/17 14:25 Dose: 1 tab Rosuvastatin Calcium (Crestor) 5 mg PO HS [facility] Last Admin: 11/10/17 21:20 Dose: 5 mg Tamsulosin HCl (Flomax) 0.4 mg PO DAILY [facility] Last Admin: 11/11/17 14:20 Dose: 0.4 mg - Labs Labs: 11/11/17 06:20 11/11/17 06:18 PT 11.8 SECONDS (9.7-12.2) 11/10/17 08:23 INR 1.1 11/10/17 08:23 APTT 33 SECONDS (21-34) 11/04/17 02:01 - Constitutional Appears: Non-toxic, No Acute Distress - Head Exam Head Exam: ATRAUMATIC, NORMAL INSPECTION - Eye Exam Eye Exam: EOMI, Normal appearance - ENT Exam ENT Exam: Mucous Membranes Moist - Neck Exam Neck Exam: Full ROM. absent: Lymphadenopathy - Respiratory Exam Respiratory Exam: Clear to Ausculation Bilateral. absent: Accessory Muscle Use - Cardiovascular Exam Cardiovascular Exam: REGULAR RHYTHM. absent: Rubs - GI/Abdominal Exam GI & Abdominal Exam: Normal Bowel Sounds. absent: Tenderness - Extremities Exam Extremities Exam: absent: Pedal Edema - Neurological Exam Neurological Exam: Alert, Oriented x3 Assessment and Plan - Assessment and Plan (Free Text) Plan: new HD treatment today awaiting acceptance to unit
--- NOTE | 2017-11-11 21:55 | PN ---
DATE: 11/11/2017 SUBJECTIVE: The patient underwent AV fistula placement yesterday in the left forearm, and he underwent hemodialysis today. He denies any chest pain. PHYSICAL EXAMINATION: VITAL SIGNS: Blood pressure 116/69, heart rate 88, temperature 98.5, respirations 18. HEENT: Normocephalic. CHEST: Clear. HEART: S1, S2 are regular. EXTREMITIES: No edema. LABORATORY DATA: Today's SMA-7: Sodium 139, potassium 3.5, chloride 97, CO2 of 28, glucose 164, BUN 68, creatinine 5.8. Today's hemoglobin and hematocrit 10.2 and 29.4. ASSESSMENT: 1. End-stage renal disease, on hemodialysis. 2. Status post left forearm arteriovenous fistula placement. 3. Hypertension and diabetes mellitus. 4. Hypokalemia. 5. Diastolic left ventricular dysfunction. RECOMMENDATIONS: Continue Coreg 6.25 mg twice a day, Crestor 5 mg once a day, subcutaneous heparin 5000 units every 8 hours, PhosLo one tablet t.i.d. Obtain postoperative 12-lead EKG and if unremarkable, discontinue telemetry. Felipe Smith MD
[2017-11-12 06:28] LABS: BASO # 0.1 K/uL (0.0-0.2); EOS # 0.6 K/uL (0.0-0.7); EOS % 6.5 % (0.0-4.0); HEMOGLOBIN 10.7 g/dL (12.0-18.0); LYMPH # 1.9 K/uL (1.0-4.3); MEAN CELL VOLUME 88.4 fL (80.0-94.0); MEAN CORPUSCULAR HEMOGLOBIN 30.3 pg (27.0-31.0); MEAN CORPUSCULAR HGB CONC 34.2 g/dL (33.0-37.0); MEAN PLATELET VOLUME 8.5 fL (7.2-11.7); MONO # 1.1 K/uL (0.0-0.8); MONO % 11.4 % (0.0-10.0); NEUT # 5.8 K/uL (1.8-7.0); NEUT % 61.1 % (50.0-75.0); RBC 3.53 Mil/uL (4.40-5.90); RED CELL DISTRIBUTION WIDTH 12.9 % (11.5-14.5); WHITE BLOOD COUNT 9.5 K/uL (4.8-10.8)
[2017-11-12 06:54] LABS: ALB/GLOB RATIO 1.3 (1.0-2.1); ALBUMIN 4.1 g/dL (3.5-5.0); CALCIUM 9.3 mg/dl (8.6-10.4)
--- NOTE | 2017-11-12 07:20 | CP.PCM.PN ---
<Bhavani Mendez Y - Last Filed: 11/12/17 20:32> Subjective - Date & Time of Evaluation Date of Evaluation: 11/12/17 Time of Evaluation: 07:50 - Subjective Subjective: PGY-1 Medicine Progress Note for hospitalist Dr. Aguilera Patient was seen and examined today OOB sitting in chair in no acute distress. Nurse reports no overnight events. Patient complains of no acute new problems. Pain at AVF site is still at 2/10 pain, unchanged from yesterday. Denies chest pain, shortness of breath, abdominal pain, nausea, vomiting, constipation, diarrhea. Objective - Vital Signs/Intake and Output Vital Signs (last 24 hours): Temp Pulse Resp BP Pulse Ox 97.6 F 90 20 154/81 H 97 11/11/17 23:05 11/11/17 23:05 11/11/17 23:05 11/11/17 23:05 11/11/17 23:05 - Medications Medications: Current Medications Acetaminophen (Tylenol 325mg Tab) 650 mg PO Q6 PRN PRN Reason: Pain, Mild (1-3) Last Admin: 11/09/17 21:38 Dose: 650 mg Calcitriol (Rocaltrol) 0.5 mcg PO DAILY [facility] Last Admin: 11/11/17 14:21 Dose: 0.5 mcg Calcium Acetate (Phoslo) 667 mg PO TIDCC [facility] Last Admin: 11/11/17 17:13 Dose: 667 mg Carvedilol (Coreg) 6.25 mg PO BID [facility] Last Admin: 11/11/17 17:13 Dose: 6.25 mg Dextrose (Dextrose 50% Inj) 0 ml IV STAT PRN; Protocol PRN Reason: Hypoglycemia Protocol Dextrose (Glutose 15) 0 gm PO ONCE PRN; Protocol PRN Reason: Hypoglycemia Protocol Famotidine (Pepcid) 20 mg PO DAILY [facility] Last Admin: 11/11/17 14:20 Dose: 20 mg Ferric Sodium Gluconate Complex (Ferrlecit) 125 mg IVPB Q24H [facility] Stop: 11/13/17 12:01 Last Admin: 11/11/17 11:22 Dose: 125 mg Gabapentin (Neurontin) 300 mg PO MWF [facility] Last Admin: 11/11/17 08:27 Dose: 300 mg Glipizide (Glucotrol) 5 mg PO ACB [facility] Last Admin: 11/11/17 08:24 Dose: 5 mg Glucagon (Glucagen Diagnostic Kit) 0 mg IM STAT PRN; Protocol PRN Reason: Hypoglycemia Protocol Heparin Sodium (Porcine) (Heparin) 5,000 units SC Q8 [facility] Last Admin: 11/12/17 05:51 Dose: 5,000 units Dextrose (Dextrose 5% In Water 1000 Ml) 1,000 mls @ 0 mls/hr IV .Q0M PRN; Protocol; Per Protocol PRN Reason: Hypoglycemia Protocol Insulin Human Regular (Novolin R) 0 unit SC ACHS [facility] PRN Reason: Protocol Last Admin: 11/11/17 21:22 Dose: Not Given Oxycodone/Acetaminophen (Percocet 5/325 Mg Tab) 1 tab PO Q4H PRN PRN Reason: Pain, moderate (4-7) Stop: 11/13/17 14:13 Last Admin: 11/11/17 14:25 Dose: 1 tab Rosuvastatin Calcium (Crestor) 5 mg PO HS [facility] Last Admin: 11/11/17 21:23 Dose: 5 mg Tamsulosin HCl (Flomax) 0.4 mg PO DAILY [facility] Last Admin: 11/11/17 14:20 Dose: 0.4 mg - Labs Labs: 11/12/17 06:20 11/12/17 06:20 PT 11.8 SECONDS (9.7-12.2) 11/10/17 08:23 INR 1.1 11/10/17 08:23 APTT 33 SECONDS (21-34) 11/04/17 02:01 - Constitutional Appears: Well, Non-toxic, No Acute Distress - Head Exam Head Exam: ATRAUMATIC, NORMOCEPHALIC - Eye Exam Eye Exam: EOMI, Normal appearance, PERRL. absent: Scleral icterus Additional comments: glasses - ENT Exam ENT Exam: Mucous Membranes Moist, Normal Exam - Neck Exam Neck Exam: Full ROM, Normal Inspection. absent: Lymphadenopathy Additional comments: Steri strip remains on lower right aspect, not yet peeling - Respiratory Exam Respiratory Exam: Clear to Ausculation Bilateral, NORMAL BREATHING PATTERN. absent: Rales, Rhonchi, Wheezes - Cardiovascular Exam Cardiovascular Exam: REGULAR RHYTHM, +S1, +S2. absent: Murmur Additional comments: Permacath on right chest - GI/Abdominal Exam GI & Abdominal Exam: Soft, Normal Bowel Sounds. absent: Tenderness Additional comments: obese - Extremities Exam Extremities Exam: Full ROM, Normal Capillary Refill, Normal Inspection. absent : Joint Swelling, Pedal Edema Additional comments: slight right ankle swelling. tenderness to palpation of bunion on right foot. AVF at L snuffbox healing well. Dressing c/d/i IV in right inner wrist, good flow - Neurological Exam Neurological Exam: Alert, Awake, CN II-XII Intact, Normal Gait, Oriented x3 - Psychiatric Exam Psychiatric exam: Normal Affect, Normal Mood - Skin Skin Exam: Dry, Intact, Normal Color, Warm Assessment and Plan - Assessment and Plan (Free Text) Plan: Assessments: 1). SOB secondary to Pulmonary Edema secondary to ESRD Assessment/plan * Symptomatically improved after 100 mg total of Lasix on 11/04/17 and Metalozone at the time of admission * resolved 2). ESRD CKD Stage 5 Assessment/plan * Nephrology (Dr. Davis) on the case help appreciated * Vascular surgery (Dr. Gil) on the case help appreciated * dialysis MWF * S/P Right Chest Permacath placement by Dr. Gil 11/05/17 * Cleared by Cardiology for AVF placement * POD#2 AVF placement left arm (11/10/17) * Postoperative telemetry monitoring * Per cardiology, can discontinue telemetry if repeat EKG shows no changes post- op * Will need to have at least 3 HD inpatient before being accepted by outpatient HD center (has had 1, going for 2nd tomorrow) * Plunger Shovel Operator Smita and Auto Emissions Technician Julia are aware that patient needs outpatient HD placement * Calcitriol 0.5 mcg PO 1x/day * Phoslo 667 mg PO TIDCC * Monitor Cr 3). Hx Elevated Troponin Assessment/plan * Likely secondary to ESRD 4). Hx CAD with Angioplasty in 2012 and Hx of HFpEF Assessment/plan * Cardiology Dr. Smith on board and cleared patient for planned AVF * changed Coreg to 6.25 by mouth twice to accommodate 12.5mg PO once a daily * Crestor 5 mg PO HS * Lasix and Metolazone were discontinued 11/05/17 * ProBNP upon admission 2910 * Echo 04/2017: LVEF 50-55%, mild concentric LVH, Grade I abnormal relaxation pattern, aortic valve mildly sclerotic 5). DM 2 requiring Insulin Assessment/plan * HgBA1C is 7.1 * home medications: Insulin Degludec 45 units SC 1x/day and Glipizide 5 mg PO 1x /day at home * Currently on RISS and hold Glipizide 5 mg PO 1x/day and blood glucose are under control * Accu-Cheks Q before meals daily at bedtime * hypoglycemic protocol 6). HTN Assessment/Plan * Norvasc discontinued by nephrology noted for low blood pressure * Change Coreg to 6.25 mg by mouth twice a day * blood pressure controlled * Patient is dialysis Thursday 7). Diabetic Neuropathy Assessment/Plan * Involving the toes and feet bilaterally * Gabapentin 300 mg PO 1x/day 8). BPH Assessment/Plan * Flomax 0.4 mg PO 1x/day 9). Anemia likely secondary to ESRD * Ferric Gluconate 125 mg IV 1x/day * H&H stable. Continue to monitor 10). Prophylaxis * Resumed Heparin 5,000 Units SC Q8H post procedure * ICE Pack to the Right Lateral Ankle Q6H * Pepcid 20 mg once a day * PT/OT discharge rec: home with cane Plan: patient is awaiting placement for outpatient dialysis. Patient is postoperative day two of left snuffbox AV fistula placement. <Liana Aguilera V - Last Filed: 11/14/17 16:56> Objective - Vital Signs/Intake and Output Vital Signs (last 24 hours): Temp Pulse Resp BP Pulse Ox 98.8 F 86 20 110/74 99 11/14/17 15:51 11/14/17 15:51 11/14/17 15:51 11/14/17 15:51 11/14/17 15:51 Intake and Output: 11/14/17 11/14/17 06:59 18:59 Intake Total 500 480 Balance 500 480 - Medications Medications: Current Medications Acetaminophen (Tylenol 325mg Tab) 650 mg PO Q6 PRN PRN Reason: Pain, Mild (1-3) Last Admin: 11/13/17 21:35 Dose: 650 mg Calcitriol (Rocaltrol) 0.5 mcg PO DAILY [facility] Last Admin: 11/14/17 09:57 Dose: 0.5 mcg Calcium Acetate (Phoslo) 667 mg PO TIDCC [facility] Last Admin: 11/14/17 11:51 Dose: 667 mg Carvedilol (Coreg) 6.25 mg PO BID [facility] Last Admin: 11/14/17 09:57 Dose: 6.25 mg Dextrose (Dextrose 50% Inj) 0 ml IV STAT PRN; Protocol PRN Reason: Hypoglycemia Protocol Dextrose (Glutose 15) 0 gm PO ONCE PRN; Protocol PRN Reason: Hypoglycemia Protocol Famotidine (Pepcid) 20 mg PO DAILY [facility] Last Admin: 11/14/17 09:57 Dose: 20 mg Gabapentin (Neurontin) 300 mg PO MWF [facility] Last Admin: 11/13/17 14:32 Dose: 300 mg Glipizide (Glucotrol) 5 mg PO ACB [facility] Last Admin: 11/14/17 08:09 Dose: 5 mg Glucagon (Glucagen Diagnostic Kit) 0 mg IM STAT PRN; Protocol PRN Reason: Hypoglycemia Protocol Heparin Sodium (Porcine) (Heparin) 5,000 units SC Q8 [facility] Last Admin: 11/14/17 13:12 Dose: 5,000 units Dextrose (Dextrose 5% In Water 1000 Ml) 1,000 mls @ 0 mls/hr IV .Q0M PRN; Protocol; Per Protocol PRN Reason: Hypoglycemia Protocol Insulin Human Regular (Novolin R) 0 unit SC ACHS [facility] PRN Reason: Protocol Last Admin: 11/14/17 11:51 Dose: 3 units Rosuvastatin Calcium (Crestor) 5 mg PO HS [facility] Last Admin: 11/13/17 21:37 Dose: 5 mg Tamsulosin HCl (Flomax) 0.4 mg PO DAILY [facility] Last Admin: 11/14/17 09:57 Dose: 0.4 mg - Labs Labs: 11/14/17 08:29 11/14/17 08:29 PT 11.8 SECONDS (9.7-12.2) 11/10/17 08:23 INR 1.1 11/10/17 08:23 APTT 33 SECONDS (21-34) 11/04/17 02:01 Attending/Attestation - Attestation I have personally seen and examined this patient.: Yes I have fully participated in the care of the patient.: Yes I have reviewed all pertinent clinical information, including history, physical exam and plan: Yes Notes (Text): this is late computer entry for 11/12/17. Patient seen at lunch. Patient is postoperative day 2 of left snuffbox AV fistula placement. Patient denies any acute complaints. Patient is tolerating diet. Patient reports he is having bowel movements. We will f/u with case management and social work in regards to outpatient dialysis placement Assessments: 1). SOB secondary to Pulmonary Edema secondary to ESRD Assessment/plan * Symptomatically improved after 100 mg total of Lasix on 11/04/17 and Metalozone at the time of admission * resolved 2). ESRD CKD Stage 5 Assessment/plan * Nephrology (Dr. Davis) on the case help appreciated * Vascular surgery (Dr. Gil) on the case help appreciated * dialysis Thursday//Thursday * S/P Right Chest Permacath placement by Dr. Gil 11/05/17 * s/p left arm AV fistula 11/10/17: he has been cleared by Cardiology * Will need to have at least 3 HD inpatient before being accepted by outpatient HD center * Plunger Shovel Operator Smita and Auto Emissions Technician Julia are aware that patient needs outpatient HD placement * Calcitriol 0.5 mcg PO 1x/day * Phoslo 667 mg PO TIDCC 3). Hx Elevated Troponin Assessment/plan * Likely secondary to ESRD 4). Hx CAD with Angioplasty in 2012 and Hx of HFpEF Assessment/plan * Cardiology Dr. Smith on board and he has cleared patient for planned AVF * changed Coreg to 6.25 by mouth twice to accommodate 12.5mg PO once a daily * Crestor 5 mg PO HS * Lasix and Metolazone were discontinued 11/05/17 * ProBNP upon admission 2910 * Echo 04/2017: LVEF 50-55%, mild concentric LVH, Grade I abnormal relaxation pattern, aortic valve mildly sclerotic 5). DM 2 requiring Insulin Assessment/plan * HgBA1C is 7.1 * home medications: Insulin Degludec 45 units SC 1x/day and Glipizide 5 mg PO 1x /day at home * Currently on RISS and hold Glipizide 5 mg PO 1x/day and blood glucose are under control * Accu-Cheks Q before meals daily at bedtime * hypoglycemic protocol 6). HTN Assessment/Plan * Norvasc discontinued by nephrology noted for low blood pressure * Change Coreg to 6.25 mg by mouth twice a day * Blood pressure controlled * Patient is dialysis Thursday 7). Diabetic Neuropathy Assessment/Plan * Involving the toes and feet bilaterally * Gabapentin 300 mg PO 1x/day 8). BPH Assessment/Plan * Flomax 0.4 mg PO 1x/day 9). Anemia likely secondary to ESRD * Ferric Gluconate 125 mg IV 1x/day 10). Prophylaxis * Heparin 5,000 Units SC Q8H post procedure * ICE Pack to the Right Lateral Ankle Q6H * Pepcid 20 mg once a day Plan: patient is awaiting placement for outpatient dialysis.
[2017-11-12] MEDS: (Novolin R) Insulin Human Regular 100 units/ml vial SC SCH ×4 (07:48→21:38)
--- NOTE | 2017-11-12 10:04 | CP.PCM.PN ---
Subjective - Date & Time of Evaluation Date of Evaluation: 11/12/17 Time of Evaluation: 10:02 - Subjective Subjective: feels better s/p AV fistula- has thrill no new complaint on MWF dialysis schedule Objective - Vital Signs/Intake and Output Vital Signs (last 24 hours): Temp Pulse Resp BP Pulse Ox 98.6 F 93 H 18 135/76 97 11/12/17 07:30 11/12/17 07:30 11/12/17 07:30 11/12/17 07:30 11/12/17 07:30 - Medications Medications: Current Medications Acetaminophen (Tylenol 325mg Tab) 650 mg PO Q6 PRN PRN Reason: Pain, Mild (1-3) Last Admin: 11/09/17 21:38 Dose: 650 mg Calcitriol (Rocaltrol) 0.5 mcg PO DAILY [facility] Last Admin: 11/11/17 14:21 Dose: 0.5 mcg Calcium Acetate (Phoslo) 667 mg PO TIDCC [facility] Last Admin: 11/12/17 08:23 Dose: 667 mg Carvedilol (Coreg) 6.25 mg PO BID [facility] Last Admin: 11/11/17 17:13 Dose: 6.25 mg Dextrose (Dextrose 50% Inj) 0 ml IV STAT PRN; Protocol PRN Reason: Hypoglycemia Protocol Dextrose (Glutose 15) 0 gm PO ONCE PRN; Protocol PRN Reason: Hypoglycemia Protocol Famotidine (Pepcid) 20 mg PO DAILY [facility] Last Admin: 11/11/17 14:20 Dose: 20 mg Ferric Sodium Gluconate Complex (Ferrlecit) 125 mg IVPB Q24H [facility] Stop: 11/13/17 12:01 Last Admin: 11/11/17 11:22 Dose: 125 mg Gabapentin (Neurontin) 300 mg PO MWF [facility] Last Admin: 11/11/17 08:27 Dose: 300 mg Glipizide (Glucotrol) 5 mg PO ACB [facility] Last Admin: 11/12/17 08:23 Dose: 5 mg Glucagon (Glucagen Diagnostic Kit) 0 mg IM STAT PRN; Protocol PRN Reason: Hypoglycemia Protocol Heparin Sodium (Porcine) (Heparin) 5,000 units SC Q8 [facility] Last Admin: 11/12/17 05:51 Dose: 5,000 units Dextrose (Dextrose 5% In Water 1000 Ml) 1,000 mls @ 0 mls/hr IV .Q0M PRN; Protocol; Per Protocol PRN Reason: Hypoglycemia Protocol Insulin Human Regular (Novolin R) 0 unit SC ACHS [facility] PRN Reason: Protocol Last Admin: 11/12/17 07:48 Dose: Not Given Oxycodone/Acetaminophen (Percocet 5/325 Mg Tab) 1 tab PO Q4H PRN PRN Reason: Pain, moderate (4-7) Stop: 11/13/17 14:13 Last Admin: 11/11/17 14:25 Dose: 1 tab Rosuvastatin Calcium (Crestor) 5 mg PO HS [facility] Last Admin: 11/11/17 21:23 Dose: 5 mg Tamsulosin HCl (Flomax) 0.4 mg PO DAILY [facility] Last Admin: 11/11/17 14:20 Dose: 0.4 mg - Labs Labs: 11/12/17 06:20 11/12/17 06:20 PT 11.8 SECONDS (9.7-12.2) 11/10/17 08:23 INR 1.1 11/10/17 08:23 APTT 33 SECONDS (21-34) 11/04/17 02:01 - Constitutional Appears: No Acute Distress, Chronically Ill - Head Exam Head Exam: ATRAUMATIC, NORMAL INSPECTION - Eye Exam Eye Exam: EOMI, Normal appearance - Neck Exam Neck Exam: Normal Inspection. absent: Tenderness - Respiratory Exam Respiratory Exam: Clear to Ausculation Bilateral, NORMAL BREATHING PATTERN - Cardiovascular Exam Cardiovascular Exam: REGULAR RHYTHM, +S1 - GI/Abdominal Exam GI & Abdominal Exam: Soft. absent: Tenderness - Extremities Exam Extremities Exam: Normal Inspection. absent: Tenderness - Neurological Exam Neurological Exam: Alert, CN II-XII Intact - Skin Skin Exam: Dry, Warm Assessment and Plan (1) CAD (coronary artery disease) Status: Acute (2) ESRD (end stage renal disease) Status: Acute (3) Type 2 diabetes mellitus with diabetic nephropathy Status: Acute (4) CHF (congestive heart failure) Status: Acute - Assessment and Plan (Free Text) Plan: [facility] dialysis MWF follow up labs await AV access maturation needs outpt dialysis placement
--- NOTE | 2017-11-12 11:28 | CARD ---
APPROVED REPORT Date of service: 11/11/2017 EKG Measurement Heart [id number] <Conclusion> Normal sinus rhythm Possible Left atrial enlargement Prolonged QT Abnormal ECG
[2017-11-12] MEDS: Ferric Sodium Gluconat Complex 62.5 mg/5 ml Vial IVPB SCH (12:14)
[2017-11-13 06:27] LABS: BASO # 0.1 K/uL (0.0-0.2); EOS # 0.8 K/uL (0.0-0.7); EOS % 7.8 % (0.0-4.0); LYMPH # 1.8 K/uL (1.0-4.3); LYMPH % 17.7 % (20.0-40.0); MEAN CELL VOLUME 87.7 fL (80.0-94.0); MEAN CORPUSCULAR HEMOGLOBIN 30.5 pg (27.0-31.0); MEAN CORPUSCULAR HGB CONC 34.8 g/dL (33.0-37.0); MEAN PLATELET VOLUME 8.3 fL (7.2-11.7); MONO % 9.7 % (0.0-10.0); NEUT # 6.5 K/uL (1.8-7.0); NEUT % 63.8 % (50.0-75.0); NRBC % 0.1 % (0.0-2.0); RBC 3.6 Mil/uL (4.40-5.90); RED CELL DISTRIBUTION WIDTH 12.9 % (11.5-14.5); WHITE BLOOD COUNT 10.2 K/uL (4.8-10.8)
[2017-11-13 06:53] LABS: ALB/GLOB RATIO 1.2 (1.0-2.1); ALBUMIN 4.1 g/dL (3.5-5.0); CALCIUM 9.5 mg/dl (8.6-10.4)
[2017-11-13] MEDS: (Novolin R) Insulin Human Regular 100 units/ml vial SC SCH ×4 (07:43→21:42)
[2017-11-13] MEDS: Ferric Sodium Gluconat Complex 62.5 mg/5 ml Vial IVPB SCH (11:13)
--- NOTE | 2017-11-13 13:31 | CP.PCM.PN ---
Subjective - Date & Time of Evaluation Date of Evaluation: 11/13/17 Time of Evaluation: 13:29 - Subjective Subjective: Stable dialysis today- UF 1700ml good thrill over AV F feels better labs acceptable Objective - Vital Signs/Intake and Output Vital Signs (last 24 hours): Temp Pulse Resp BP Pulse Ox 97.7 F 89 16 127/87 98 11/13/17 12:20 11/13/17 12:20 11/13/17 12:20 11/13/17 12:20 11/13/17 12:20 - Medications Medications: Current Medications Acetaminophen (Tylenol 325mg Tab) 650 mg PO Q6 PRN PRN Reason: Pain, Mild (1-3) Last Admin: 11/12/17 21:40 Dose: 650 mg Calcitriol (Rocaltrol) 0.5 mcg PO DAILY [facility] Last Admin: 11/13/17 10:00 Dose: Not Given Calcium Acetate (Phoslo) 667 mg PO TIDCC [facility] Last Admin: 11/13/17 08:00 Dose: 667 mg Carvedilol (Coreg) 6.25 mg PO BID [facility] Last Admin: 11/13/17 09:58 Dose: Not Given Dextrose (Dextrose 50% Inj) 0 ml IV STAT PRN; Protocol PRN Reason: Hypoglycemia Protocol Dextrose (Glutose 15) 0 gm PO ONCE PRN; Protocol PRN Reason: Hypoglycemia Protocol Famotidine (Pepcid) 20 mg PO DAILY [facility] Last Admin: 11/13/17 10:00 Dose: Not Given Gabapentin (Neurontin) 300 mg PO MWF [facility] Last Admin: 11/11/17 08:27 Dose: 300 mg Glipizide (Glucotrol) 5 mg PO ACB [facility] Last Admin: 11/13/17 08:00 Dose: 5 mg Glucagon (Glucagen Diagnostic Kit) 0 mg IM STAT PRN; Protocol PRN Reason: Hypoglycemia Protocol Heparin Sodium (Porcine) (Heparin) 5,000 units SC Q8 [facility] Last Admin: 11/13/17 05:25 Dose: 5,000 units Dextrose (Dextrose 5% In Water 1000 Ml) 1,000 mls @ 0 mls/hr IV .Q0M PRN; Protocol; Per Protocol PRN Reason: Hypoglycemia Protocol Insulin Human Regular (Novolin R) 0 unit SC ACHS [facility] PRN Reason: Protocol Last Admin: 11/13/17 07:43 Dose: Not Given Oxycodone/Acetaminophen (Percocet 5/325 Mg Tab) 1 tab PO Q4H PRN PRN Reason: Pain, moderate (4-7) Stop: 11/13/17 14:13 Last Admin: 11/11/17 14:25 Dose: 1 tab Rosuvastatin Calcium (Crestor) 5 mg PO HS [facility] Last Admin: 11/12/17 21:13 Dose: 5 mg Tamsulosin HCl (Flomax) 0.4 mg PO DAILY [facility] Last Admin: 11/13/17 09:58 Dose: Not Given - Labs Labs: 11/13/17 06:16 11/13/17 06:16 PT 11.8 SECONDS (9.7-12.2) 11/10/17 08:23 INR 1.1 11/10/17 08:23 APTT 33 SECONDS (21-34) 11/04/17 02:01 - Constitutional Appears: No Acute Distress, Chronically Ill - Head Exam Head Exam: ATRAUMATIC, NORMAL INSPECTION - Eye Exam Eye Exam: EOMI, Normal appearance - Neck Exam Neck Exam: Normal Inspection. absent: Tenderness - Respiratory Exam Respiratory Exam: Clear to Ausculation Bilateral, NORMAL BREATHING PATTERN - Cardiovascular Exam Cardiovascular Exam: REGULAR RHYTHM, +S1 - GI/Abdominal Exam GI & Abdominal Exam: Soft. absent: Tenderness - Extremities Exam Extremities Exam: Normal Inspection. 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
--- NOTE | 2017-11-14 02:48 | CP.PCM.PN ---
<Nestor Garnett - Last Filed: 11/14/17 02:52> Subjective - Date & Time of Evaluation Date of Evaluation: 11/14/17 Time of Evaluation: 02:45 - Subjective Subjective: Progress Note for Hospitalist service Patient seen and examined at bedside. Patient is sitting in chair, eating food and watching TV. He has no acute complaints currently. Only admits to some pain on his right foot, which is chronic in nature. He denies chest pain, shortness of breath, abdominal pain, nausea, vomiting, constipation, diarrhea, leg swelling. Family at bedside. Objective - Vital Signs/Intake and Output Vital Signs (last 24 hours): Temp Pulse Resp BP Pulse Ox 98.3 F 82 20 147/66 98 11/13/17 23:10 11/13/17 23:10 11/13/17 23:10 11/13/17 23:10 11/13/17 23:10 Intake and Output: 11/13/17 11/14/17 18:59 06:59 Intake Total 500 Balance 500 - Medications Medications: Current Medications Acetaminophen (Tylenol 325mg Tab) 650 mg PO Q6 PRN PRN Reason: Pain, Mild (1-3) Last Admin: 11/13/17 21:35 Dose: 650 mg Calcitriol (Rocaltrol) 0.5 mcg PO DAILY [facility] Last Admin: 11/13/17 10:00 Dose: Not Given Calcium Acetate (Phoslo) 667 mg PO TIDCC [facility] Last Admin: 11/13/17 18:00 Dose: 667 mg Carvedilol (Coreg) 6.25 mg PO BID [facility] Last Admin: 11/13/17 17:59 Dose: Not Given Dextrose (Dextrose 50% Inj) 0 ml IV STAT PRN; Protocol PRN Reason: Hypoglycemia Protocol Dextrose (Glutose 15) 0 gm PO ONCE PRN; Protocol PRN Reason: Hypoglycemia Protocol Famotidine (Pepcid) 20 mg PO DAILY [facility] Last Admin: 11/13/17 10:00 Dose: Not Given Gabapentin (Neurontin) 300 mg PO MWF [facility] Last Admin: 11/13/17 14:32 Dose: 300 mg Glipizide (Glucotrol) 5 mg PO ACB [facility] Last Admin: 11/13/17 08:00 Dose: 5 mg Glucagon (Glucagen Diagnostic Kit) 0 mg IM STAT PRN; Protocol PRN Reason: Hypoglycemia Protocol Heparin Sodium (Porcine) (Heparin) 5,000 units SC Q8 [facility] Last Admin: 11/13/17 21:37 Dose: 5,000 units Dextrose (Dextrose 5% In Water 1000 Ml) 1,000 mls @ 0 mls/hr IV .Q0M PRN; Protocol; Per Protocol PRN Reason: Hypoglycemia Protocol Insulin Human Regular (Novolin R) 0 unit SC ACHS [facility] PRN Reason: Protocol Last Admin: 11/13/17 21:42 Dose: Not Given Rosuvastatin Calcium (Crestor) 5 mg PO HS [facility] Last Admin: 11/13/17 21:37 Dose: 5 mg Tamsulosin HCl (Flomax) 0.4 mg PO DAILY [facility] Last Admin: 11/13/17 09:58 Dose: Not Given - Labs Labs: 11/13/17 06:16 11/13/17 06:16 PT 11.8 SECONDS (9.7-12.2) 11/10/17 08:23 INR 1.1 11/10/17 08:23 APTT 33 SECONDS (21-34) 11/04/17 02:01 - Constitutional Appears: Well, Non-toxic, No Acute Distress - Head Exam Head Exam: ATRAUMATIC, NORMOCEPHALIC - Eye Exam Eye Exam: EOMI, PERRL. absent: Scleral icterus - ENT Exam ENT Exam: Mucous Membranes Moist - Neck Exam Neck Exam: Full ROM. absent: Tenderness - Respiratory Exam Respiratory Exam: Clear to Ausculation Bilateral, NORMAL BREATHING PATTERN. absent: Rales, Rhonchi, Wheezes, Respiratory Distress, Stridor Additional comments: permacath to right chest - Cardiovascular Exam Cardiovascular Exam: REGULAR RHYTHM, +S1, +S2 - GI/Abdominal Exam GI & Abdominal Exam: Soft, Normal Bowel Sounds. absent: Distended, Firm, Guarding, Rigid, Tenderness - Extremities Exam Extremities Exam: Tenderness (Mild tenderness to dorsum of right foot. Mild ankle swelling. Good pulses on right lower extremity. ). absent: Calf Tenderness, Pedal Edema Additional comments: AV fistula in place on left snuffbox, with palpable thrill. Dressing clean dry and intact. - Neurological Exam Neurological Exam: Alert, Awake, Oriented x3 - Psychiatric Exam Psychiatric exam: Normal Affect, Normal Mood - Skin Skin Exam: Dry, Intact, Normal Color, Warm Assessment and Plan - Assessment and Plan (Free Text) Plan: Plan: Assessments: 1). SOB secondary to Pulmonary Edema secondary to ESRD * Symptomatically improved after 100 mg total of Lasix on 11/04/17 and Metalozone at the time of admission * resolved 2). ESRD CKD Stage 5 * Nephrology (Dr. Davis) on the case help appreciated * Vascular surgery (Dr. Gil) on the case help appreciated * dialysis MWF, received dialysis last on 11/13/17 * S/P Right Chest Permacath placement by Dr. Gil 11/05/17 * Cleared by Cardiology for AVF placement * POD#4 AVF placement left arm on 11/10/17 * Postoperative telemetry monitoring * Per cardiology, can discontinue telemetry if repeat EKG shows no changes post- op * Lead Generation Marketing Manager Smita and [employer] Operator Julia are aware that patient needs outpatient HD placement * Calcitriol 0.5 mcg PO 1x/day * Phoslo 667 mg PO TIDCC * Monitor Cr 3). Hx Elevated Troponin * Likely secondary to ESRD * continue to monitor for symptoms 4). Hx CAD with Angioplasty in 2012 and Hx of HFpEF * Cardiology Dr. Smith on board and cleared patient for planned AVF * changed Coreg to 6.25 by mouth twice to accommodate 12.5mg PO once a daily * Crestor 5 mg PO HS * Lasix and Metolazone were discontinued 11/05/17 * ProBNP upon admission 2910 * Echo 04/2017: LVEF 50-55%, mild concentric LVH, Grade I abnormal relaxation pattern, aortic valve mildly sclerotic 5). DM 2 requiring Insulin * HgBA1C is 7.1 * home medications: Insulin Degludec 45 units SC 1x/day and Glipizide 5 mg PO 1x /day at home * Currently on RISS and hold Glipizide 5 mg PO 1x/day and blood glucose are under control * Accu-Cheks Q before meals daily at bedtime * hypoglycemic protocol 6). HTN * Norvasc discontinued by nephrology noted for low blood pressure * Coreg to 6.25 mg by mouth twice a day * blood pressure controlled * Patient is dialysis Thursday 7). Diabetic Neuropathy * Involving the toes and feet bilaterally * Gabapentin 300 mg PO 1x/day 8). BPH * Flomax 0.4 mg PO 1x/day 9). Anemia likely secondary to ESRD * H&H stable. Continue to monitor 10). Prophylaxis * Resumed Heparin 5,000 Units SC Q8H post procedure * ICE Pack to the Right Lateral Ankle Q6H * Pepcid 20 mg once a day * PT/OT discharge rec: home with cane Plan:patient is awaiting placement for outpatient dialysis. Patient is postoperative day 4 of left snuffbox AV fistula placement. <Liana Aguilera V - Last Filed: 11/14/17 16:54> Objective - Vital Signs/Intake and Output Vital Signs (last 24 hours): Temp Pulse Resp BP Pulse Ox 98.8 F 86 20 110/74 99 11/14/17 15:51 11/14/17 15:51 11/14/17 15:51 11/14/17 15:51 11/14/17 15:51 Intake and Output: 11/14/17 11/14/17 06:59 18:59 Intake Total 500 480 Balance 500 480 - Medications Medications: Current Medications Acetaminophen (Tylenol 325mg Tab) 650 mg PO Q6 PRN PRN Reason: Pain, Mild (1-3) Last Admin: 11/13/17 21:35 Dose: 650 mg Calcitriol (Rocaltrol) 0.5 mcg PO DAILY [facility] Last Admin: 11/14/17 09:57 Dose: 0.5 mcg Calcium Acetate (Phoslo) 667 mg PO TIDCC [facility] Last Admin: 11/14/17 11:51 Dose: 667 mg Carvedilol (Coreg) 6.25 mg PO BID [facility] Last Admin: 11/14/17 09:57 Dose: 6.25 mg Dextrose (Dextrose 50% Inj) 0 ml IV STAT PRN; Protocol PRN Reason: Hypoglycemia Protocol Dextrose (Glutose 15) 0 gm PO ONCE PRN; Protocol PRN Reason: Hypoglycemia Protocol Famotidine (Pepcid) 20 mg PO DAILY [facility] Last Admin: 11/14/17 09:57 Dose: 20 mg Gabapentin (Neurontin) 300 mg PO MWF [facility] Last Admin: 11/13/17 14:32 Dose: 300 mg Glipizide (Glucotrol) 5 mg PO ACB [facility] Last Admin: 11/14/17 08:09 Dose: 5 mg Glucagon (Glucagen Diagnostic Kit) 0 mg IM STAT PRN; Protocol PRN Reason: Hypoglycemia Protocol Heparin Sodium (Porcine) (Heparin) 5,000 units SC Q8 [facility] Last Admin: 11/14/17 13:12 Dose: 5,000 units Dextrose (Dextrose 5% In Water 1000 Ml) 1,000 mls @ 0 mls/hr IV .Q0M PRN; Protocol; Per Protocol PRN Reason: Hypoglycemia Protocol Insulin Human Regular (Novolin R) 0 unit SC ACHS [facility] PRN Reason: Protocol Last Admin: 11/14/17 11:51 Dose: 3 units Rosuvastatin Calcium (Crestor) 5 mg PO HS [facility] Last Admin: 11/13/17 21:37 Dose: 5 mg Tamsulosin HCl (Flomax) 0.4 mg PO DAILY [facility] Last Admin: 11/14/17 09:57 Dose: 0.4 mg - Labs Labs: 11/14/17 08:29 11/14/17 08:29 PT 11.8 SECONDS (9.7-12.2) 11/10/17 08:23 INR 1.1 11/10/17 08:23 APTT 33 SECONDS (21-34) 11/04/17 02:01 Attending/Attestation - Attestation I have personally seen and examined this patient.: Yes I have fully participated in the care of the patient.: Yes I have reviewed all pertinent clinical information, including history, physical exam and plan: Yes Notes (Text): Patient seen at lunch. Patient is postoperative day 4 of left snuffbox AV fistula placement. Patient denies any acute complaints. Patient is tolerating diet. Patient reports he is having bowel movements. Patient reports he has mild swelling over the right antecubital fossa. It appears he had had peripheral access there in the past. Will order right lower extremity venous doppler r/o SVT. He is celebrating soberly off alcohol and smoking for the past 20 years. I did acknowledge to him that it is an achievement. Assessments: 1). SOB secondary to Pulmonary Edema secondary to ESRD Assessment/plan * Symptomatically improved after 100 mg total of Lasix on 11/04/17 and Metalozone at the time of admission * resolved 2). ESRD CKD Stage 5 Assessment/plan * Nephrology (Dr. Davis) on the case help appreciated * Vascular surgery (Dr. Gil) on the case help appreciated * dialysis Thursday//Thursday * S/P Right Chest Permacath placement by Dr. Gil 11/05/17 * s/p left arm AV fistula 11/10/17: he has been cleared by Cardiology * Will need to have at least 3 HD inpatient before being accepted by outpatient HD center * Lead Generation Marketing Manager Smita and [employer] Operator Julia are aware that patient needs outpatient HD placement * Calcitriol 0.5 mcg PO 1x/day * Phoslo 667 mg PO TIDCC 3). Hx Elevated Troponin Assessment/plan * Likely secondary to ESRD 4). Hx CAD with Angioplasty in 2012 and Hx of HFpEF Assessment/plan * Cardiology Dr. Smith on board and he has cleared patient for planned AVF * changed Coreg to 6.25 by mouth twice to accommodate 12.5mg PO once a daily * Crestor 5 mg PO HS * Lasix and Metolazone were discontinued 11/05/17 * ProBNP upon admission 2910 * Echo 04/2017: LVEF 50-55%, mild concentric LVH, Grade I abnormal relaxation pattern, aortic valve mildly sclerotic 5). DM 2 requiring Insulin Assessment/plan * HgBA1C is 7.1 * home medications: Insulin Degludec 45 units SC 1x/day and Glipizide 5 mg PO 1x /day at home * Currently on RISS and hold Glipizide 5 mg PO 1x/day and blood glucose are under control * Accu-Cheks Q before meals daily at bedtime * hypoglycemic protocol 6). HTN Assessment/Plan * Norvasc discontinued by nephrology noted for low blood pressure * Change Coreg o 6.25 mg by mouth twice a day * bblood pressure controlled * Patient is dialysis Thursday 7). Diabetic Neuropathy Assessment/Plan * Involving the toes and feet bilaterally * Gabapentin 300 mg PO 1x/day 8). BPH Assessment/Plan * Flomax 0.4 mg PO 1x/day 9). Anemia likely secondary to ESRD * Ferric Gluconate 125 mg IV 1x/day 10). Prophylaxis * Heparin 5,000 Units SC Q8H post procedure * ICE Pack to the Right Lateral Ankle Q6H * Pepcid 20 mg once a day Plan: patient is awaiting placement for outpatient dialysis.
--- NOTE | 2017-11-14 08:05 | CP.PCM.PN ---
Subjective - Date & Time of Evaluation Date of Evaluation: 11/14/17 Time of Evaluation: 08:03 - Subjective Subjective: alert, no new complaint stable dialysis 11/13 labs acceptable Objective - Vital Signs/Intake and Output Vital Signs (last 24 hours): Temp Pulse Resp BP Pulse Ox 98.3 F 82 20 147/66 98 11/13/17 23:10 11/13/17 23:10 11/13/17 23:10 11/13/17 23:10 11/13/17 23:10 Intake and Output: 11/14/17 11/14/17 06:59 18:59 Intake Total 500 Balance 500 - Medications Medications: Current Medications Acetaminophen (Tylenol 325mg Tab) 650 mg PO Q6 PRN PRN Reason: Pain, Mild (1-3) Last Admin: 11/13/17 21:35 Dose: 650 mg Calcitriol (Rocaltrol) 0.5 mcg PO DAILY [facility] Last Admin: 11/13/17 10:00 Dose: Not Given Calcium Acetate (Phoslo) 667 mg PO TIDCC [facility] Last Admin: 11/13/17 18:00 Dose: 667 mg Carvedilol (Coreg) 6.25 mg PO BID [facility] Last Admin: 11/13/17 17:59 Dose: Not Given Dextrose (Dextrose 50% Inj) 0 ml IV STAT PRN; Protocol PRN Reason: Hypoglycemia Protocol Dextrose (Glutose 15) 0 gm PO ONCE PRN; Protocol PRN Reason: Hypoglycemia Protocol Famotidine (Pepcid) 20 mg PO DAILY [facility] Last Admin: 11/13/17 10:00 Dose: Not Given Gabapentin (Neurontin) 300 mg PO MWF [facility] Last Admin: 11/13/17 14:32 Dose: 300 mg Glipizide (Glucotrol) 5 mg PO ACB [facility] Last Admin: 11/13/17 08:00 Dose: 5 mg Glucagon (Glucagen Diagnostic Kit) 0 mg IM STAT PRN; Protocol PRN Reason: Hypoglycemia Protocol Heparin Sodium (Porcine) (Heparin) 5,000 units SC Q8 [facility] Last Admin: 11/14/17 06:16 Dose: 5,000 units Dextrose (Dextrose 5% In Water 1000 Ml) 1,000 mls @ 0 mls/hr IV .Q0M PRN; Protocol; Per Protocol PRN Reason: Hypoglycemia Protocol Insulin Human Regular (Novolin R) 0 unit SC ACHS [facility] PRN Reason: Protocol Last Admin: 11/13/17 21:42 Dose: Not Given Rosuvastatin Calcium (Crestor) 5 mg PO HS [facility] Last Admin: 11/13/17 21:37 Dose: 5 mg Tamsulosin HCl (Flomax) 0.4 mg PO DAILY [facility] Last Admin: 11/13/17 09:58 Dose: Not Given - Labs Labs: 11/13/17 06:16 11/13/17 06:16 PT 11.8 SECONDS (9.7-12.2) 11/10/17 08:23 INR 1.1 11/10/17 08:23 APTT 33 SECONDS (21-34) 11/04/17 02:01 - Constitutional Appears: No Acute Distress, Chronically Ill - Head Exam Head Exam: ATRAUMATIC, NORMAL INSPECTION - Eye Exam Eye Exam: EOMI, Normal appearance - Neck Exam Neck Exam: Normal Inspection. absent: Tenderness - Respiratory Exam Respiratory Exam: Clear to Ausculation Bilateral, NORMAL BREATHING PATTERN - Cardiovascular Exam Cardiovascular Exam: REGULAR RHYTHM, +S1 - GI/Abdominal Exam GI & Abdominal Exam: Soft. absent: Tenderness - Extremities Exam Extremities Exam: Normal Inspection, Tenderness - Neurological Exam Neurological Exam: Alert, CN II-XII Intact - Skin Skin Exam: Warm. 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
[2017-11-14] MEDS: (Novolin R) Insulin Human Regular 100 units/ml vial SC SCH ×4 (08:09→22:15)
[2017-11-14 08:44] LABS: BASO # 0.1 K/uL (0.0-0.2); BASO % 0.9 % (0.0-2.0); EOS # 0.6 K/uL (0.0-0.7); EOS % 6.4 % (0.0-4.0); HEMOGLOBIN 11.1 g/dL (12.0-18.0); LYMPH # 1.6 K/uL (1.0-4.3); MEAN CELL VOLUME 88.2 fL (80.0-94.0); MEAN CORPUSCULAR HEMOGLOBIN 30.5 pg (27.0-31.0); MEAN CORPUSCULAR HGB CONC 34.6 g/dL (33.0-37.0); MEAN PLATELET VOLUME 8.2 fL (7.2-11.7); MONO # 0.9 K/uL (0.0-0.8); MONO % 9.3 % (0.0-10.0); NEUT # 6.4 K/uL (1.8-7.0); NEUT % 66.4 % (50.0-75.0); RBC 3.65 Mil/uL (4.40-5.90); RED CELL DISTRIBUTION WIDTH 12.8 % (11.5-14.5); WHITE BLOOD COUNT 9.6 K/uL (4.8-10.8)
[2017-11-14 09:04] LABS: ALB/GLOB RATIO 1.3 (1.0-2.1); ALBUMIN 4.2 g/dL (3.5-5.0); CALCIUM 9.5 mg/dl (8.6-10.4)
--- NOTE | 2017-11-14 16:48 | CP.PCM.PN ---
Subjective - Date & Time of Evaluation Date of Evaluation: 11/13/17 Time of Evaluation: 13:00 - Subjective Subjective: Medical Attending Note: Patient seen and examined. Patient denies headache, denies dizziness, denies chest pain, denies palpitations, denies abdominal pain, denies nausea, denies dizziness, denies constipation, and denies dysuria. Patient had dialysis this morning. Objective - Vital Signs/Intake and Output Vital Signs (last 24 hours): Temp Pulse Resp BP Pulse Ox 98.8 F 86 20 110/74 99 11/14/17 15:51 11/14/17 15:51 11/14/17 15:51 11/14/17 15:51 11/14/17 15:51 Intake and Output: 11/14/17 11/14/17 06:59 18:59 Intake Total 500 480 Balance 500 480 - Medications Medications: Current Medications Acetaminophen (Tylenol 325mg Tab) 650 mg PO Q6 PRN PRN Reason: Pain, Mild (1-3) Last Admin: 11/13/17 21:35 Dose: 650 mg Calcitriol (Rocaltrol) 0.5 mcg PO DAILY [facility] Last Admin: 11/14/17 09:57 Dose: 0.5 mcg Calcium Acetate (Phoslo) 667 mg PO TIDCC [facility] Last Admin: 11/14/17 11:51 Dose: 667 mg Carvedilol (Coreg) 6.25 mg PO BID [facility] Last Admin: 11/14/17 09:57 Dose: 6.25 mg Dextrose (Dextrose 50% Inj) 0 ml IV STAT PRN; Protocol PRN Reason: Hypoglycemia Protocol Dextrose (Glutose 15) 0 gm PO ONCE PRN; Protocol PRN Reason: Hypoglycemia Protocol Famotidine (Pepcid) 20 mg PO DAILY [facility] Last Admin: 11/14/17 09:57 Dose: 20 mg Gabapentin (Neurontin) 300 mg PO MWF [facility] Last Admin: 11/13/17 14:32 Dose: 300 mg Glipizide (Glucotrol) 5 mg PO ACB [facility] Last Admin: 11/14/17 08:09 Dose: 5 mg Glucagon (Glucagen Diagnostic Kit) 0 mg IM STAT PRN; Protocol PRN Reason: Hypoglycemia Protocol Heparin Sodium (Porcine) (Heparin) 5,000 units SC Q8 [facility] Last Admin: 11/14/17 13:12 Dose: 5,000 units Dextrose (Dextrose 5% In Water 1000 Ml) 1,000 mls @ 0 mls/hr IV .Q0M PRN; Protocol; Per Protocol PRN Reason: Hypoglycemia Protocol Insulin Human Regular (Novolin R) 0 unit SC ACHS [facility] PRN Reason: Protocol Last Admin: 11/14/17 11:51 Dose: 3 units Rosuvastatin Calcium (Crestor) 5 mg PO HS [facility] Last Admin: 11/13/17 21:37 Dose: 5 mg Tamsulosin HCl (Flomax) 0.4 mg PO DAILY [facility] Last Admin: 11/14/17 09:57 Dose: 0.4 mg - Labs Labs: 11/14/17 08:29 11/14/17 08:29 PT 11.8 SECONDS (9.7-12.2) 11/10/17 08:23 INR 1.1 11/10/17 08:23 APTT 33 SECONDS (21-34) 11/04/17 02:01 - Constitutional Appears: Non-toxic, No Acute Distress - Head Exam Head Exam: NORMAL INSPECTION Additional comments: permcath right c/d/i - Eye Exam Eye Exam: EOMI - ENT Exam ENT Exam: Mucous Membranes Moist - Respiratory Exam Respiratory Exam: Clear to Ausculation Bilateral, NORMAL BREATHING PATTERN. absent: Rales, Rhonchi, Wheezes - Cardiovascular Exam Cardiovascular Exam: REGULAR RHYTHM, +S1, +S2 - GI/Abdominal Exam GI & Abdominal Exam: Rigid, Soft, Normal Bowel Sounds. absent: Distended, Firm , Guarding, Tenderness, Rebound - Extremities Exam Extremities Exam: absent: Pedal Edema Additional comments: left hand extremity: c/d/i snuffbox dialysis etc - Neurological Exam Neurological Exam: Alert, Awake, Oriented x3 - Psychiatric Exam Psychiatric exam: Normal Affect, Normal Mood - Skin Skin Exam: Dry, Normal Color, Warm Assessment and Plan - Assessment and Plan (Free Text) Assessment: This is late computer entry for 11/13/17. Patient seen at lunch. Patient is postoperative day 3 of left snuffbox AV fistula placement. Patient denies any acute complaints. Patient is tolerating diet. Patient reports he is having bowel movements. Patient completed dialysis this morning. Assessments: 1). SOB secondary to Pulmonary Edema secondary to ESRD Assessment/plan * Symptomatically improved after 100 mg total of Lasix on 11/04/17 and Metalozone at the time of admission * resolved 2). ESRD CKD Stage 5 Assessment/plan * Nephrology (Dr. Davis) on the case help appreciated * Vascular surgery (Dr. Gil) on the case help appreciated * dialysis Thursday//Thursday * S/P Right Chest Permacath placement by Dr. Gil 11/05/17 * Patient planned for left arm AV fistula for today 11/10/17: he has been cleared by Cardiology * Postoperative telemetry monitoring * Will need to have at least 3 HD inpatient before being accepted by outpatient HD center * Loan Consultant Smita and Laboratory Animal Facility Supervisor Julia are aware that patient needs outpatient HD placement * Calcitriol 0.5 mcg PO 1x/day * Phoslo 667 mg PO TIDCC 3). Hx Elevated Troponin Assessment/plan * Likely secondary to ESRD 4). Hx CAD with Angioplasty in 2012 and Hx of HFpEF Assessment/plan * Cardiology Dr. Smith on board and he has cleared patient for planned AVF * changed Coreg to 6.25 by mouth twice to accommodate 12.5mg PO once a daily * Crestor 5 mg PO HS * Lasix and Metolazone were discontinued 11/05/17 * ProBNP upon admission 2910 * Echo 04/2017: LVEF 50-55%, mild concentric LVH, Grade I abnormal relaxation pattern, aortic valve mildly sclerotic 5). DM 2 requiring Insulin Assessment/plan * HgBA1C is 7.1 * home medications: Insulin Degludec 45 units SC 1x/day and Glipizide 5 mg PO 1x /day at home * Currently on RISS and hold Glipizide 5 mg PO 1x/day and blood glucose are under control * Accu-Cheks Q before meals daily at bedtime * hypoglycemic protocol 6). HTN Assessment/Plan * Norvasc discontinued by nephrology noted for low blood pressure * Change Coreg o 6.25 mg by mouth twice a day * bblood pressure controlled * Patient is dialysis Thursday 7). Diabetic Neuropathy Assessment/Plan * Involving the toes and feet bilaterally * Gabapentin 300 mg PO 1x/day 8). BPH Assessment/Plan * Flomax 0.4 mg PO 1x/day 9). Anemia likely secondary to ESRD * Ferric Gluconate 125 mg IV 1x/day 10). Prophylaxis * Resumed Heparin 5,000 Units SC Q8H post procedure * ICE Pack to the Right Lateral Ankle Q6H * Pepcid 20 mg once a day Plan: patient is awaiting placement for outpatient dialysis. Patient is postoperative day one of left snuffbox AV fistula placement.
--- NOTE | 2017-11-15 02:38 | CP.PCM.PN ---
<Nestor Garnett - Last Filed: 11/15/17 04:33> Subjective - Date & Time of Evaluation Date of Evaluation: 11/15/17 Time of Evaluation: 02:38 - Subjective Subjective: Progress note for Hospitalist service Patient seen and examined. He currently offers no complaints. Patient was advised that he may shower. States that his pain in his left foot has improved. He denies fevers, chills, chest pain, shortness of breath, abdominal pain, nausea, vomiting, diarrhea, leg pain. Objective - Vital Signs/Intake and Output Vital Signs (last 24 hours): Temp Pulse Resp BP Pulse Ox 97.8 F 83 20 150/77 97 11/14/17 23:10 11/14/17 23:10 11/14/17 23:10 11/14/17 23:10 11/14/17 23:10 Intake and Output: 11/14/17 11/15/17 18:59 06:59 Intake Total 480 Balance 480 - Medications Medications: Current Medications Acetaminophen (Tylenol 325mg Tab) 650 mg PO Q6 PRN PRN Reason: Pain, Mild (1-3) Last Admin: 11/13/17 21:35 Dose: 650 mg Calcitriol (Rocaltrol) 0.5 mcg PO DAILY [facility] Last Admin: 11/14/17 09:57 Dose: 0.5 mcg Calcium Acetate (Phoslo) 667 mg PO TIDCC [facility] Last Admin: 11/14/17 17:46 Dose: 667 mg Carvedilol (Coreg) 6.25 mg PO BID [facility] Last Admin: 11/14/17 17:54 Dose: 6.25 mg Dextrose (Dextrose 50% Inj) 0 ml IV STAT PRN; Protocol PRN Reason: Hypoglycemia Protocol Dextrose (Glutose 15) 0 gm PO ONCE PRN; Protocol PRN Reason: Hypoglycemia Protocol Famotidine (Pepcid) 20 mg PO DAILY [facility] Last Admin: 11/14/17 09:57 Dose: 20 mg Gabapentin (Neurontin) 300 mg PO MWF [facility] Last Admin: 11/13/17 14:32 Dose: 300 mg Glipizide (Glucotrol) 5 mg PO ACB [facility] Last Admin: 11/14/17 08:09 Dose: 5 mg Glucagon (Glucagen Diagnostic Kit) 0 mg IM STAT PRN; Protocol PRN Reason: Hypoglycemia Protocol Heparin Sodium (Porcine) (Heparin) 5,000 units SC Q8 [facility] Last Admin: 11/14/17 22:28 Dose: 5,000 units Dextrose (Dextrose 5% In Water 1000 Ml) 1,000 mls @ 0 mls/hr IV .Q0M PRN; Protocol; Per Protocol PRN Reason: Hypoglycemia Protocol Insulin Human Regular (Novolin R) 0 unit SC ACHS [facility] PRN Reason: Protocol Last Admin: 11/14/17 22:15 Dose: Not Given Rosuvastatin Calcium (Crestor) 5 mg PO HS [facility] Last Admin: 11/14/17 22:28 Dose: 5 mg Tamsulosin HCl (Flomax) 0.4 mg PO DAILY [facility] Last Admin: 11/14/17 09:57 Dose: 0.4 mg - Labs Labs: 11/14/17 08:29 11/14/17 08:29 PT 11.8 SECONDS (9.7-12.2) 11/10/17 08:23 INR 1.1 11/10/17 08:23 APTT 33 SECONDS (21-34) 11/04/17 02:01 - Constitutional Appears: Well, No Acute Distress - Head Exam Head Exam: ATRAUMATIC, NORMOCEPHALIC - Eye Exam Eye Exam: EOMI - ENT Exam ENT Exam: Mucous Membranes Moist - Neck Exam Neck Exam: Full ROM - Respiratory Exam Respiratory Exam: Clear to Ausculation Bilateral, NORMAL BREATHING PATTERN. absent: Rales, Rhonchi, Wheezes, Respiratory Distress - Cardiovascular Exam Cardiovascular Exam: REGULAR RHYTHM, +S1, +S2 Additional comments: Portacath to right anterior chest - GI/Abdominal Exam GI & Abdominal Exam: Soft, Normal Bowel Sounds. absent: Distended, Firm, Guarding, Rigid, Tenderness - Extremities Exam Extremities Exam: absent: Calf Tenderness, Pedal Edema Additional comments: Right upper extremity: small area of edema with mild tenderness on right arm near elbow Left upper extremity: AV fistula near snuffbox with palpable thrill - Back Exam Back Exam: absent: CVA tenderness (L), CVA tenderness (R) - Neurological Exam Neurological Exam: Alert, Awake, Oriented x3 Assessment and Plan - Assessment and Plan (Free Text) Plan: Assessment/plan 1). SOB secondary to Pulmonary Edema secondary to ESRD Symptomatically improved after 100 mg total of Lasix on 11/04/17 and Metalozone at the time of admission resolved 2). ESRD CKD Stage 5 Nephrology (Dr. Davis) on the case help appreciated Vascular surgery (Dr. Gil) on the case help appreciated dialysis MWF, received dialysis last on 11/13/17 S/P Right Chest Permacath placement by Dr. Gil 11/05/17 Cleared by Cardiology for AVF placement POD#6 AVF placement left arm on 11/10/17 Transport Tech Smita and Marketing Operations Consultant Julia are aware that patient needs outpatient HD placement Calcitriol 0.5 mcg PO 1x/day Phoslo 667 mg PO TIDCC Monitor Cr 3). Hx Elevated Troponin Likely secondary to ESRD continue to monitor for symptoms 4). Hx CAD with Angioplasty in 2012 and Hx of HFpEF Cardiology Dr. Smith on board and cleared patient for planned AVF changed Coreg to 6.25 by mouth twice to accommodate 12.5mg PO once a daily Crestor 5 mg PO HS Lasix and Metolazone were discontinued 11/05/17 ProBNP upon admission 2910 Echo 04/2017: LVEF 50-55%, mild concentric LVH, Grade I abnormal relaxation pattern,aortic valve mildly sclerotic 5). DM 2 requiring Insulin HgBA1C is 7.1 home medications: Insulin Degludec 45 units SC 1x/day and Glipizide 5 mg PO 1x/day at home Currently on RISS and hold Glipizide 5 mg PO 1x/day and blood glucose are under control Accu-Cheks Q before meals daily at bedtime hypoglycemic protocol 6). HTN Norvasc discontinued by nephrology noted for low blood pressure Coreg to 6.25 mg by mouth twice a day blood pressure controlled Patient is dialysis Thursday 7). Diabetic Neuropathy Involving the toes and feet bilaterally Gabapentin 300 mg PO 1x/day 8). BPH Flomax 0.4 mg PO 1x/day 9). Anemia likely secondary to ESRD H&H stable. Continue to monitor 10). Prophylaxis Resumed Heparin 5,000 Units SC Q8H post procedure ICE Pack to the Right Lateral Ankle Q6H Pepcid 20 mg once a day PT/OT discharge rec: home with cane Plan:patient is awaiting placement for outpatient dialysis. Patient is postoperative day 6 of left snuffbox AV fistula placement. Case discussed with Dr. Ale Garnett, PGY1 <Liana Aguilera V - Last Filed: 11/15/17 14:03> Objective - Vital Signs/Intake and Output Vital Signs (last 24 hours): Temp Pulse Resp BP Pulse Ox 99.1 F 95 H 18 130/78 97 11/15/17 07:00 11/15/17 07:00 11/15/17 07:00 11/15/17 07:00 11/15/17 07:00 - Medications Medications: Current Medications Acetaminophen (Tylenol 325mg Tab) 650 mg PO Q6 PRN PRN Reason: Pain, Mild (1-3) Last Admin: 11/13/17 21:35 Dose: 650 mg Calcitriol (Rocaltrol) 0.5 mcg PO DAILY [facility] Last Admin: 11/15/17 10:45 Dose: 0.5 mcg Calcium Acetate (Phoslo) 667 mg PO TIDCC [facility] Last Admin: 11/15/17 12:11 Dose: 667 mg Carvedilol (Coreg) 6.25 mg PO BID [facility] Last Admin: 11/15/17 10:45 Dose: 6.25 mg Dextrose (Dextrose 50% Inj) 0 ml IV STAT PRN; Protocol PRN Reason: Hypoglycemia Protocol Dextrose (Glutose 15) 0 gm PO ONCE PRN; Protocol PRN Reason: Hypoglycemia Protocol Famotidine (Pepcid) 20 mg PO DAILY [facility] Last Admin: 11/15/17 10:45 Dose: 20 mg Gabapentin (Neurontin) 300 mg PO MWF [facility] Last Admin: 11/13/17 14:32 Dose: 300 mg Glipizide (Glucotrol) 5 mg PO ACB [facility] Last Admin: 11/15/17 08:15 Dose: 5 mg Glucagon (Glucagen Diagnostic Kit) 0 mg IM STAT PRN; Protocol PRN Reason: Hypoglycemia Protocol Heparin Sodium (Porcine) (Heparin) 5,000 units SC Q8 [facility] Last Admin: 11/15/17 05:14 Dose: 5,000 units Dextrose (Dextrose 5% In Water 1000 Ml) 1,000 mls @ 0 mls/hr IV .Q0M PRN; Protocol; Per Protocol PRN Reason: Hypoglycemia Protocol Insulin Human Regular (Novolin R) 0 unit SC ACHS [facility] PRN Reason: Protocol Last Admin: 11/15/17 12:09 Dose: 2 units Rosuvastatin Calcium (Crestor) 5 mg PO HS [facility] Last Admin: 11/14/17 22:28 Dose: 5 mg Tamsulosin HCl (Flomax) 0.4 mg PO DAILY [facility] Last Admin: 11/15/17 10:45 Dose: 0.4 mg - Labs Labs: 11/15/17 07:58 11/15/17 07:58 PT 11.8 SECONDS (9.7-12.2) 11/10/17 08:23 INR 1.1 11/10/17 08:23 APTT 33 SECONDS (21-34) 11/04/17 02:01 Attending/Attestation - Attestation I have personally seen and examined this patient.: Yes I have fully participated in the care of the patient.: Yes I have reviewed all pertinent clinical information, including history, physical exam and plan: Yes Notes (Text): Patient seen at lunch. Patient is postoperative day 5 of left snuffbox AV fistula placement. Patient denies any acute complaints. Patient is tolerating diet. Patient reports he is having bowel movements. Patient reports he has mild swelling over the right antecubital fossa. It appears he had had peripheral access there in the past. Will order right upper extremity venous doppler r/o SVT. Assessments: 1). SOB secondary to Pulmonary Edema secondary to ESRD Assessment/plan * Symptomatically improved after 100 mg total of Lasix on 11/04/17 and Metalozone at the time of admission * resolved 2). ESRD CKD Stage 5 Assessment/plan * Nephrology (Dr. Davis) on the case help appreciated * Vascular surgery (Dr. Gil) on the case help appreciated * dialysis Thursday//Thursday * S/P Right Chest Permacath placement by Dr. Gil 11/05/17 * s/p left arm AV fistula 11/10/17: he has been cleared by Cardiology * Will need to have at least 3 HD inpatient before being accepted by outpatient HD center * Transport Tech Smita and Marketing Operations Consultant Julia are aware that patient needs outpatient HD placement * Calcitriol 0.5 mcg PO 1x/day * Phoslo 667 mg PO TIDCC 3). Hx Elevated Troponin Assessment/plan * Likely secondary to ESRD 4). Hx CAD with Angioplasty in 2012 and Hx of HFpEF Assessment/plan * Cardiology Dr. Smith on board and he has cleared patient for planned AVF * changed Coreg to 6.25 by mouth twice to accommodate 12.5mg PO once a daily * Crestor 5 mg PO HS * Lasix and Metolazone were discontinued 11/05/17 * ProBNP upon admission 2910 * Echo 04/2017: LVEF 50-55%, mild concentric LVH, Grade I abnormal relaxation pattern, aortic valve mildly sclerotic 5). DM 2 requiring Insulin Assessment/plan * HgBA1C is 7.1 * home medications: Insulin Degludec 45 units SC 1x/day and Glipizide 5 mg PO 1x /day at home * Currently on RISS and hold Glipizide 5 mg PO 1x/day and blood glucose are under control * Accu-Cheks Q before meals daily at bedtime * hypoglycemic protocol 6). HTN Assessment/Plan * Norvasc discontinued by nephrology noted for low blood pressure * Change Coreg o 6.25 mg by mouth twice a day * bblood pressure controlled * Patient is dialysis Thursday 7). Diabetic Neuropathy Assessment/Plan * Involving the toes and feet bilaterally * Gabapentin 300 mg PO 1x/day 8). BPH Assessment/Plan * Flomax 0.4 mg PO 1x/day 9). Anemia likely secondary to ESRD * Ferric Gluconate 125 mg IV 1x/day 10). Prophylaxis * Heparin 5,000 Units SC Q8H post procedure * ICE Pack to the Right Lateral Ankle Q6H * Pepcid 20 mg once a day Plan: patient is awaiting placement for outpatient dialysis.
[2017-11-15 08:12] LABS: BASO # 0.1 K/uL (0.0-0.2); BASO % 1.2 % (0.0-2.0); EOS # 0.6 K/uL (0.0-0.7); EOS % 5.8 % (0.0-4.0); HEMOGLOBIN 10.6 g/dL (12.0-18.0); LYMPH # 1.8 K/uL (1.0-4.3); LYMPH % 17.5 % (20.0-40.0); MEAN CELL VOLUME 88.5 fL (80.0-94.0); MEAN CORPUSCULAR HEMOGLOBIN 30.7 pg (27.0-31.0); MEAN CORPUSCULAR HGB CONC 34.7 g/dL (33.0-37.0); MEAN PLATELET VOLUME 8.4 fL (7.2-11.7); MONO # 0.9 K/uL (0.0-0.8); NEUT # 6.9 K/uL (1.8-7.0); NEUT % 66.5 % (50.0-75.0); RBC 3.47 Mil/uL (4.40-5.90); RED CELL DISTRIBUTION WIDTH 13.1 % (11.5-14.5); WHITE BLOOD COUNT 10.4 K/uL (4.8-10.8)
[2017-11-15] MEDS: (Novolin R) Insulin Human Regular 100 units/ml vial SC SCH ×4 (08:15→22:12)
[2017-11-15 08:27] LABS: ALB/GLOB RATIO 1.2 (1.0-2.1); ALBUMIN 4.1 g/dL (3.5-5.0); CALCIUM 9.7 mg/dl (8.6-10.4)
--- NOTE | 2017-11-16 07:05 | CP.PCM.PN ---
<Padmini Zuniga P - Last Filed: 11/16/17 21:41> Subjective - Date & Time of Evaluation Date of Evaluation: 11/16/17 Time of Evaluation: 07:05 - Subjective Subjective: PGY-[address] Damon. Patient seen and examined at bedside. Patient complains of worsening pain and swelling to R AC previous IV site. states pain is 8/10. Denies fever, chills, chest pain and shortness of breath. Objective - Vital Signs/Intake and Output Vital Signs (last 24 hours): Temp Pulse Resp BP Pulse Ox 98.2 F 95 H 20 137/69 97 11/15/17 23:10 11/15/17 23:10 11/15/17 23:10 11/15/17 23:10 11/15/17 23:10 - Medications Medications: Current Medications Acetaminophen (Tylenol 325mg Tab) 650 mg PO Q6 PRN PRN Reason: Pain, Mild (1-3) Last Admin: 11/13/17 21:35 Dose: 650 mg Calcitriol (Rocaltrol) 0.5 mcg PO DAILY [facility] Last Admin: 11/15/17 10:45 Dose: 0.5 mcg Calcium Acetate (Phoslo) 667 mg PO TIDCC [facility] Last Admin: 11/15/17 17:37 Dose: 667 mg Carvedilol (Coreg) 6.25 mg PO BID [facility] Last Admin: 11/15/17 17:37 Dose: 6.25 mg Dextrose (Dextrose 50% Inj) 0 ml IV STAT PRN; Protocol PRN Reason: Hypoglycemia Protocol Dextrose (Glutose 15) 0 gm PO ONCE PRN; Protocol PRN Reason: Hypoglycemia Protocol Famotidine (Pepcid) 20 mg PO DAILY [facility] Last Admin: 11/15/17 10:45 Dose: 20 mg Gabapentin (Neurontin) 300 mg PO MWF [facility] Last Admin: 11/13/17 14:32 Dose: 300 mg Glipizide (Glucotrol) 5 mg PO ACB [facility] Last Admin: 11/15/17 08:15 Dose: 5 mg Glucagon (Glucagen Diagnostic Kit) 0 mg IM STAT PRN; Protocol PRN Reason: Hypoglycemia Protocol Heparin Sodium (Porcine) (Heparin) 5,000 units SC Q8 [facility] Last Admin: 11/16/17 05:24 Dose: 5,000 units Dextrose (Dextrose 5% In Water 1000 Ml) 1,000 mls @ 0 mls/hr IV .Q0M PRN; Protocol; Per Protocol PRN Reason: Hypoglycemia Protocol Insulin Human Regular (Novolin R) 0 unit SC ACHS [facility] PRN Reason: Protocol Last Admin: 11/15/17 22:12 Dose: Not Given Rosuvastatin Calcium (Crestor) 5 mg PO HS [facility] Last Admin: 11/15/17 21:48 Dose: 5 mg Tamsulosin HCl (Flomax) 0.4 mg PO DAILY [facility] Last Admin: 11/15/17 10:45 Dose: 0.4 mg - Labs Labs: 11/15/17 07:58 11/15/17 07:58 PT 11.8 SECONDS (9.7-12.2) 11/10/17 08:23 INR 1.1 11/10/17 08:23 APTT 33 SECONDS (21-34) 11/04/17 02:01 - Constitutional Appears: No Acute Distress - Head Exam Head Exam: ATRAUMATIC, NORMOCEPHALIC - Eye Exam Eye Exam: EOMI, Normal appearance - ENT Exam ENT Exam: Mucous Membranes Moist - Neck Exam Neck Exam: Full ROM, Normal Inspection - Respiratory Exam Respiratory Exam: Clear to Ausculation Bilateral, NORMAL BREATHING PATTERN. absent: Rales, Rhonchi, Wheezes - Cardiovascular Exam Cardiovascular Exam: REGULAR RHYTHM, +S1, +S2 - GI/Abdominal Exam GI & Abdominal Exam: Soft, Normal Bowel Sounds. absent: Guarding, Rigid, Tenderness - Extremities Exam Extremities Exam: absent: Pedal Edema Additional comments: Slightly increased swelling and warmth to R Antecubita fossa, old IV site. There is mild tenderness to palpation. non-fluctuant. no drainage. AVF to L anatomical snuff box with palpable thrill. - Neurological Exam Neurological Exam: Alert, Awake, Oriented x3 - Psychiatric Exam Psychiatric exam: Normal Affect, Normal Mood - Skin Skin Exam: Dry, Intact, Warm Additional comments: Permacath R chest clean and dry, no signs of infection. Assessment and Plan - Assessment and Plan (Free Text) Plan: Assessments: 1). SOB secondary to Pulmonary Edema secondary to ESRD * Symptomatically improved after 100 mg total of Lasix on 11/04/17 and Metalozone at the time of admission * resolved 2). ESRD CKD Stage 5 * Nephrology (Dr. Davis) on the case help appreciated * Vascular surgery (Dr. Gil) on the case help appreciated * dialysis MWF, received dialysis last on 11/13/17 * S/P Right Chest Permacath placement by Dr. Gil 11/05/17 * Cleared by Cardiology for AVF placement * POD#4 AVF placement left arm on 11/10/17 * Postoperative telemetry monitoring * Per cardiology, can discontinue telemetry if repeat EKG shows no changes post- op * Sales Development Director Smita and Nuclear Waste Process Operator Julia are aware that patient needs outpatient HD placement * Calcitriol 0.5 mcg PO 1x/day * Phoslo 667 mg PO TIDCC * Monitor Cr 3). Hx Elevated Troponin * Likely secondary to ESRD * continue to monitor for symptoms 4). Hx CAD with Angioplasty in 2012 and Hx of HFpEF * Cardiology Dr. Smith on board and cleared patient for planned AVF * changed Coreg to 6.25 by mouth twice to accommodate 12.5mg PO once a daily * Crestor 5 mg PO HS * Lasix and Metolazone were discontinued 11/05/17 * ProBNP upon admission 2910 * Echo 04/2017: LVEF 50-55%, mild concentric LVH, Grade I abnormal relaxation pattern, aortic valve mildly sclerotic 5). DM 2 requiring Insulin * HgBA1C is 7.1 * home medications: Insulin Degludec 45 units SC 1x/day and Glipizide 5 mg PO 1x /day at home * Currently on RISS and hold Glipizide 5 mg PO 1x/day and blood glucose are under control * Accu-Cheks Q before meals daily at bedtime * hypoglycemic protocol 6). HTN * Norvasc discontinued by nephrology noted for low blood pressure * Coreg to 6.25 mg by mouth twice a day * blood pressure controlled * Patient is dialysis Thursday 7). Diabetic Neuropathy * Involving the toes and feet bilaterally * Gabapentin 300 mg PO 1x/day 8). BPH * Flomax 0.4 mg PO 1x/day 9). Anemia likely secondary to ESRD * H&H stable. Continue to monitor * 11/06/17- hemoglobin downtrending. Dr. Davis to order iron studies. EPO MWF. 10). Prophylaxis * Resumed Heparin 5,000 Units SC Q8H post procedure * ICE Pack to the Right Lateral Ankle Q6H * Pepcid 20 mg once a day * PT/OT discharge rec: home with cane Plan:patient is awaiting placement for outpatient dialysis. Patient with pain and swelling to R antecubital fossa. RUE US was negative. ordered warm compresses and elevation of arm for possible phlebitis. <Bjorn Damon - Last Filed: 11/19/17 20:49> Objective - Vital Signs/Intake and Output Vital Signs (last 24 hours): Temp Pulse Resp BP Pulse Ox 98.3 F 111 H 20 136/72 98 11/19/17 18:10 11/19/17 18:10 11/19/17 15:01 11/19/17 18:10 11/19/17 15:01 - Medications Medications: Current Medications Acetaminophen (Tylenol 325mg Tab) 650 mg PO Q6 PRN PRN Reason: Pain, Mild (1-3) Last Admin: 11/18/17 08:25 Dose: 650 mg Calcitriol (Rocaltrol) 0.5 mcg PO DAILY [facility] Last Admin: 11/19/17 10:00 Dose: Not Given Calcium Acetate (Phoslo) 667 mg PO TIDCC [facility] Last Admin: 11/19/17 17:55 Dose: 667 mg Carvedilol (Coreg) 6.25 mg PO BID [facility] Last Admin: 11/19/17 18:14 Dose: 6.25 mg Dextrose (Dextrose 50% Inj) 0 ml IV STAT PRN; Protocol PRN Reason: Hypoglycemia Protocol Dextrose (Glutose 15) 0 gm PO ONCE PRN; Protocol PRN Reason: Hypoglycemia Protocol Epoetin Rodrigo (Procrit) 10,000 unit IV [facility] Famotidine (Pepcid) 20 mg PO DAILY [facility] Last Admin: 11/19/17 10:00 Dose: Not Given Ferric Sodium Gluconate Complex (Ferrlecit) 125 mg IVPB DAILY [facility] Stop: 11/27/17 10:01 Last Admin: 11/19/17 10:00 Dose: Not Given Gabapentin (Neurontin) 300 mg PO F [facility] Last Admin: 11/18/17 08:22 Dose: 300 mg Glipizide (Glucotrol) 5 mg PO ACB [facility] Last Admin: 11/19/17 08:00 Dose: Not Given Glucagon (Glucagen Diagnostic Kit) 0 mg IM STAT PRN; Protocol PRN Reason: Hypoglycemia Protocol Heparin Sodium (Porcine) (Heparin) 5,000 units SC Q8 [facility] Last Admin: 11/19/17 14:30 Dose: Not Given Insulin Human Regular (Novolin R) 0 unit SC ACHS [facility] PRN Reason: Protocol Last Admin: 11/19/17 17:10 Dose: 4 units Oxycodone/Acetaminophen (Percocet 5/325 Mg Tab) 1 tab PO Q4H PRN PRN Reason: Pain, moderate (4-7) Stop: 11/22/17 10:28 Rosuvastatin Calcium (Crestor) 5 mg PO HS [facility] Last Admin: 11/18/17 21:15 Dose: 5 mg Tamsulosin HCl (Flomax) 0.4 mg PO DAILY [facility] Last Admin: 11/19/17 10:00 Dose: Not Given - Labs Labs: 11/19/17 06:37 11/19/17 06:37 PT 11.8 SECONDS (9.7-12.2) 11/10/17 08:23 INR 1.1 11/10/17 08:23 APTT 33 SECONDS (21-34) 11/04/17 02:01 Attending/Attestation - Attestation I have personally seen and examined this patient.: Yes I have fully participated in the care of the patient.: Yes I have reviewed all pertinent clinical information, including history, physical exam and plan: Yes
[2017-11-16 07:15] LABS: BASO # 0.1 K/uL (0.0-0.2); BASO % 0.9 % (0.0-2.0); EOS # 0.5 K/uL (0.0-0.7); EOS % 4.3 % (0.0-4.0); HEMOGLOBIN 10.2 g/dL (12.0-18.0); LYMPH # 1.9 K/uL (1.0-4.3); LYMPH % 15.4 % (20.0-40.0); MEAN CELL VOLUME 88.1 fL (80.0-94.0); MEAN CORPUSCULAR HEMOGLOBIN 30.3 pg (27.0-31.0); MEAN CORPUSCULAR HGB CONC 34.4 g/dL (33.0-37.0); MEAN PLATELET VOLUME 8.4 fL (7.2-11.7); MONO # 1.2 K/uL (0.0-0.8); MONO % 9.9 % (0.0-10.0); NEUT # 8.4 K/uL (1.8-7.0); NEUT % 69.5 % (50.0-75.0); RBC 3.36 Mil/uL (4.40-5.90)
[2017-11-16 07:41] LABS: ALB/GLOB RATIO 1.4 (1.0-2.1); ALBUMIN 4.1 g/dL (3.5-5.0); CALCIUM 9.5 mg/dl (8.6-10.4)
[2017-11-16] MEDS: (Novolin R) Insulin Human Regular 100 units/ml vial SC SCH ×4 (07:43→21:07)
--- NOTE | 2017-11-16 11:21 | CP.PCM.PN ---
Subjective - Date & Time of Evaluation Date of Evaluation: 11/16/17 Time of Evaluation: 11:18 - Subjective Subjective: Seen at dialysis No new complant To UF 2500ml AV fistula with thrill Hg lower now Objective - Vital Signs/Intake and Output Vital Signs (last 24 hours): Temp Pulse Resp BP Pulse Ox 98.1 F 99 H 18 150/74 98 11/16/17 09:20 11/16/17 09:20 11/16/17 09:20 11/16/17 10:50 11/16/17 09:20 - Medications Medications: Current Medications Acetaminophen (Tylenol 325mg Tab) 650 mg PO Q6 PRN PRN Reason: Pain, Mild (1-3) Last Admin: 11/13/17 21:35 Dose: 650 mg Calcitriol (Rocaltrol) 0.5 mcg PO DAILY [facility] Last Admin: 11/16/17 10:00 Dose: Not Given Calcium Acetate (Phoslo) 667 mg PO TIDCC [facility] Last Admin: 11/16/17 08:01 Dose: 667 mg Carvedilol (Coreg) 6.25 mg PO BID [facility] Last Admin: 11/16/17 10:00 Dose: Not Given Dextrose (Dextrose 50% Inj) 0 ml IV STAT PRN; Protocol PRN Reason: Hypoglycemia Protocol Dextrose (Glutose 15) 0 gm PO ONCE PRN; Protocol PRN Reason: Hypoglycemia Protocol Famotidine (Pepcid) 20 mg PO DAILY [facility] Last Admin: 11/16/17 10:00 Dose: Not Given Gabapentin (Neurontin) 300 mg PO MWF [facility] Last Admin: 11/16/17 08:01 Dose: 300 mg Glipizide (Glucotrol) 5 mg PO ACB [facility] Last Admin: 11/16/17 08:01 Dose: 5 mg Glucagon (Glucagen Diagnostic Kit) 0 mg IM STAT PRN; Protocol PRN Reason: Hypoglycemia Protocol Insulin Human Regular (Novolin R) 0 unit SC ACHS [facility] PRN Reason: Protocol Last Admin: 11/16/17 07:43 Dose: Not Given Rosuvastatin Calcium (Crestor) 5 mg PO HS [facility] Last Admin: 11/15/17 21:48 Dose: 5 mg Tamsulosin HCl (Flomax) 0.4 mg PO DAILY [facility] Last Admin: 11/16/17 10:00 Dose: Not Given - Labs Labs: 11/16/17 06:32 11/16/17 06:32 PT 11.8 SECONDS (9.7-12.2) 11/10/17 08:23 INR 1.1 11/10/17 08:23 APTT 33 SECONDS (21-34) 11/04/17 02:01 - Constitutional Appears: No Acute Distress, Chronically Ill - Head Exam Head Exam: ATRAUMATIC, NORMAL INSPECTION - Eye Exam Eye Exam: EOMI, Normal appearance - Neck Exam Neck Exam: Normal Inspection. absent: Tenderness - Respiratory Exam Respiratory Exam: Clear to Ausculation Bilateral, NORMAL BREATHING PATTERN - Cardiovascular Exam Cardiovascular Exam: REGULAR RHYTHM, +S1 - GI/Abdominal Exam GI & Abdominal Exam: Soft. absent: Tenderness - Extremities Exam Extremities Exam: Normal Inspection. absent: Tenderness - Neurological Exam Neurological Exam: Alert, CN II-XII Intact - Skin Skin Exam: Dry, Warm Assessment and Plan (1) CAD (coronary artery disease) Status: Acute (2) ESRD (end stage renal disease) Status: Acute (3) Type 2 diabetes mellitus with diabetic nephropathy Status: Acute (4) CHF (congestive heart failure) Status: Acute - Assessment and Plan (Free Text) Plan: dialysis MWF outpt dialysis placement EPO recheck iron stores
--- NOTE | 2017-11-16 13:59 | US ---
Date of service: 11/15/2017 PROCEDURE: Ultrasound soft tissue limited HISTORY: swelling antecubital fossa, right upper extremity COMPARISON: Not available TECHNIQUE: Targeted examination of the right antecubital fossa was performed utilizing a high-frequency linear array transducer. FINDINGS: No solid or cystic mass is identified. There is no fluid collection. IMPRESSION: Unremarkable examination.
--- NOTE | 2017-11-17 07:36 | CP.PCM.PN ---
Subjective - Date & Time of Evaluation Date of Evaluation: 11/17/17 Time of Evaluation: 07:34 - Subjective Subjective: no complaints rt arm pain improved no n/v/d/f/c/sob/cp/dizziness/headache Objective - Vital Signs/Intake and Output Vital Signs (last 24 hours): Temp Pulse Resp BP Pulse Ox 97.9 F 90 20 129/74 99 11/16/17 23:10 11/16/17 23:10 11/16/17 23:10 11/16/17 23:10 11/16/17 23:10 - Medications Medications: Current Medications Acetaminophen (Tylenol 325mg Tab) 650 mg PO Q6 PRN PRN Reason: Pain, Mild (1-3) Last Admin: 11/13/17 21:35 Dose: 650 mg Calcitriol (Rocaltrol) 0.5 mcg PO DAILY [facility] Last Admin: 11/16/17 14:37 Dose: 0.5 mcg Calcium Acetate (Phoslo) 667 mg PO TIDCC [facility] Last Admin: 11/16/17 17:30 Dose: 667 mg Carvedilol (Coreg) 6.25 mg PO BID [facility] Last Admin: 11/16/17 17:30 Dose: 6.25 mg Dextrose (Dextrose 50% Inj) 0 ml IV STAT PRN; Protocol PRN Reason: Hypoglycemia Protocol Dextrose (Glutose 15) 0 gm PO ONCE PRN; Protocol PRN Reason: Hypoglycemia Protocol Epoetin Rodrigo (Procrit) 4,000 unit IV [facility] Famotidine (Pepcid) 20 mg PO DAILY [facility] Last Admin: 11/16/17 14:37 Dose: 20 mg Gabapentin (Neurontin) 300 mg PO MWF [facility] Last Admin: 11/16/17 08:01 Dose: 300 mg Glipizide (Glucotrol) 5 mg PO ACB [facility] Last Admin: 11/16/17 08:01 Dose: 5 mg Glucagon (Glucagen Diagnostic Kit) 0 mg IM STAT PRN; Protocol PRN Reason: Hypoglycemia Protocol Heparin Sodium (Porcine) (Heparin) 5,000 units SC Q8 [facility] Last Admin: 11/17/17 05:36 Dose: 5,000 units Insulin Human Regular (Novolin R) 0 unit SC ACHS [facility] PRN Reason: Protocol Last Admin: 11/16/17 21:07 Dose: Not Given Rosuvastatin Calcium (Crestor) 5 mg PO HS [facility] Last Admin: 11/16/17 22:08 Dose: 5 mg Tamsulosin HCl (Flomax) 0.4 mg PO DAILY [facility] Last Admin: 11/16/17 14:37 Dose: 0.4 mg - Labs Labs: 11/16/17 06:32 11/16/17 06:32 PT 11.8 SECONDS (9.7-12.2) 11/10/17 08:23 INR 1.1 11/10/17 08:23 APTT 33 SECONDS (21-34) 11/04/17 02:01 - Constitutional Appears: Non-toxic, No Acute Distress - Head Exam Head Exam: NORMAL INSPECTION, NORMOCEPHALIC - Eye Exam Eye Exam: Normal appearance Pupil Exam: NORMAL ACCOMODATION, PERRL - ENT Exam ENT Exam: Mucous Membranes Moist, Normal Exam - Neck Exam Neck Exam: Normal Inspection - Respiratory Exam Respiratory Exam: Clear to Ausculation Bilateral, NORMAL BREATHING PATTERN - Cardiovascular Exam Cardiovascular Exam: REGULAR RHYTHM, RRR - GI/Abdominal Exam GI & Abdominal Exam: Distended, Soft - Extremities Exam Extremities Exam: Normal Inspection (lue avf w/ thrill) - Neurological Exam Neurological Exam: Alert, Awake, Oriented x3 - Psychiatric Exam Psychiatric exam: Normal Affect, Normal Mood - Skin Skin Exam: Intact, Warm Assessment and Plan (1) CAD (coronary artery disease) Status: Acute (2) CHF (congestive heart failure) Status: Acute (3) ESRD (end stage renal disease) Status: Acute (4) Respiratory distress Status: Acute (5) Type 2 diabetes mellitus with diabetic nephropathy Status: Acute - Assessment and Plan (Free Text) Assessment: maintain hd mwf await placement mae w/ hd bp controlled
[2017-11-17 07:46] LABS: BASO # 0.1 K/uL (0.0-0.2); EOS # 0.3 K/uL (0.0-0.7); EOS % 2.4 % (0.0-4.0); HEMOGLOBIN 10.2 g/dL (12.0-18.0); LYMPH # 1.8 K/uL (1.0-4.3); LYMPH % 14.1 % (20.0-40.0); MEAN CELL VOLUME 88.5 fL (80.0-94.0); MEAN CORPUSCULAR HEMOGLOBIN 30.6 pg (27.0-31.0); MEAN CORPUSCULAR HGB CONC 34.6 g/dL (33.0-37.0); MEAN PLATELET VOLUME 8.2 fL (7.2-11.7); MONO # 1.3 K/uL (0.0-0.8); NEUT % 72.5 % (50.0-75.0); NRBC % 0.1 % (0.0-2.0); RBC 3.35 Mil/uL (4.40-5.90); RED CELL DISTRIBUTION WIDTH 12.9 % (11.5-14.5); WHITE BLOOD COUNT 12.5 K/uL (4.8-10.8)
[2017-11-17] MEDS: (Novolin R) Insulin Human Regular 100 units/ml vial SC SCH ×4 (08:09→21:11)
[2017-11-17 08:25] LABS: ALB/GLOB RATIO 1.3 (1.0-2.1); ALBUMIN 4.2 g/dL (3.5-5.0); CALCIUM 9.5 mg/dl (8.6-10.4)
--- NOTE | 2017-11-17 12:22 | VASCLAB ---
Date of service: 11/17/2017 PROCEDURE: Right Upper Extremity Venous Duplex Exam HISTORY: Swelling of right upper extremity PRIORS: None. TECHNIQUE: Right upper extremity, internal jugular, subclavian, axillary, brachial, ulnar, radial, basilic and upper cephalic veins were evaluated. Flow was assessed with color Doppler, compressibility, assessment of phasic flow and augmentation response. Report prepared by KEVIN Pascual FINDINGS: RIGHT: 1. Internal Jugular: 1.1. Compressibility - Fully compressible: Thrombus - None : Flow - Phasic: Augmentation -Normal: Reflux - None. 2. Subclavian: 2.1. PICC line in place 3. Axillary: 3.1. Compressibility - Fully compressible: Thrombus - None : Flow - Phasic: Augmentation -Normal: Reflux - None. 4. Brachial: 4.1. Compressibility - Fully compressible: Thrombus - None: Flow - Phasic: Augmentation -Normal: Reflux - None. 5. Ulnar: 5.1. Compressibility - Fully compressible: Thrombus - None: Flow - Phasic: Augmentation -Normal: Reflux - None. 6. Radial: 6.1. Compressibility - Fully compressible: Thrombus - None: Flow - Phasic: Augmentation - Normal: Reflux - None. 7. Cephalic: 7.1. Compressibility - Fully compressible: Thrombus - None: Flow - Phasic: Augmentation -Normal: Reflux - None. 8. Basilic: 8.1. Compressibility - Fully compressible: Thrombus - None: Flow - Phasic: Augmentation -Normal: Reflux - None. OTHER FINDINGS: Right: None. IMPRESSION: Right: No evidence of vein thrombosis of the right upper extremity with excellent venous flow. Normal valve function noted of the right side. Normal venous flow noted in the left internal jugular and left subclavian veins.
--- NOTE | 2017-11-17 21:27 | CP.PCM.PN ---
<Padmini Zuniga P - Last Filed: 11/17/17 21:30> Subjective - Date & Time of Evaluation Date of Evaluation: 11/17/17 Time of Evaluation: 09:00 - Subjective Subjective: PGY-1 note for hospitalist service. Patient seen and evaluated at bedside. Complains of continued pain to R arm. Denies fever, chills, nausea and vomiting. Patient advised that he has both acetaminophen and warm compresses ordered for him. Objective - Vital Signs/Intake and Output Vital Signs (last 24 hours): Temp Pulse Resp BP Pulse Ox 98.2 F 96 H 20 115/61 99 11/17/17 15:00 11/17/17 15:00 11/17/17 15:00 11/17/17 15:00 11/17/17 15:00 - Medications Medications: Current Medications Acetaminophen (Tylenol 325mg Tab) 650 mg PO Q6 PRN PRN Reason: Pain, Mild (1-3) Last Admin: 11/13/17 21:35 Dose: 650 mg Calcitriol (Rocaltrol) 0.5 mcg PO DAILY [facility] Last Admin: 11/17/17 10:26 Dose: 0.5 mcg Calcium Acetate (Phoslo) 667 mg PO TIDCC [facility] Last Admin: 11/17/17 17:42 Dose: 667 mg Carvedilol (Coreg) 6.25 mg PO BID [facility] Last Admin: 11/17/17 17:42 Dose: 6.25 mg Dextrose (Dextrose 50% Inj) 0 ml IV STAT PRN; Protocol PRN Reason: Hypoglycemia Protocol Dextrose (Glutose 15) 0 gm PO ONCE PRN; Protocol PRN Reason: Hypoglycemia Protocol Epoetin Rodrigo (Procrit) 4,000 unit IV [facility] Famotidine (Pepcid) 20 mg PO DAILY [facility] Last Admin: 11/17/17 10:26 Dose: 20 mg Gabapentin (Neurontin) 300 mg PO MWF [facility] Last Admin: 11/16/17 08:01 Dose: 300 mg Glipizide (Glucotrol) 5 mg PO ACB [facility] Last Admin: 11/17/17 08:08 Dose: 5 mg Glucagon (Glucagen Diagnostic Kit) 0 mg IM STAT PRN; Protocol PRN Reason: Hypoglycemia Protocol Heparin Sodium (Porcine) (Heparin) 5,000 units SC Q8 [facility] Last Admin: 11/17/17 21:08 Dose: 5,000 units Insulin Human Regular (Novolin R) 0 unit SC ACHS [facility] PRN Reason: Protocol Last Admin: 11/17/17 21:11 Dose: Not Given Rosuvastatin Calcium (Crestor) 5 mg PO HS [facility] Last Admin: 11/17/17 21:09 Dose: 5 mg Tamsulosin HCl (Flomax) 0.4 mg PO DAILY [facility] Last Admin: 11/17/17 10:26 Dose: 0.4 mg - Labs Labs: 11/17/17 07:37 11/17/17 07:37 PT 11.8 SECONDS (9.7-12.2) 11/10/17 08:23 INR 1.1 11/10/17 08:23 APTT 33 SECONDS (21-34) 11/04/17 02:01 - Constitutional Appears: Well, No Acute Distress - Head Exam Head Exam: ATRAUMATIC, NORMOCEPHALIC - Eye Exam Eye Exam: EOMI, Normal appearance - ENT Exam ENT Exam: Mucous Membranes Moist - Neck Exam Neck Exam: Full ROM - Respiratory Exam Respiratory Exam: Clear to Ausculation Bilateral, NORMAL BREATHING PATTERN. absent: Rales, Rhonchi, Wheezes, Stridor - Cardiovascular Exam Cardiovascular Exam: REGULAR RHYTHM, +S1, +S2 - GI/Abdominal Exam GI & Abdominal Exam: Soft, Normal Bowel Sounds. absent: Firm, Guarding, Tenderness - Extremities Exam Additional comments: AV fistula to L anatomical snuffbox clean, dry, intact, with palpable thrill. - Neurological Exam Neurological Exam: Alert, Awake, Oriented x3 - Psychiatric Exam Psychiatric exam: Normal Affect, Normal Mood - Skin Skin Exam: Dry, Normal Color, Warm Assessment and Plan - Assessment and Plan (Free Text) Plan: 1). SOB secondary to Pulmonary Edema secondary to ESRD * Symptomatically improved after 100 mg total of Lasix on 11/04/17 and Metalozone at the time of admission * resolved 2). ESRD CKD Stage 5 * Nephrology (Dr. Davis) on the case help appreciated * Vascular surgery (Dr. Gil) on the case help appreciated * dialysis MWF, received dialysis last on 11/13/17 * S/P Right Chest Permacath placement by Dr. Gil 11/05/17 * Cleared by Cardiology for AVF placement * POD#4 AVF placement left arm on 11/10/17 * Postoperative telemetry monitoring * Per cardiology, can discontinue telemetry if repeat EKG shows no changes post- op * Motion Picture Commentator Smita and Fibreglass Laminator Julia are aware that patient needs outpatient HD placement * Calcitriol 0.5 mcg PO 1x/day * Phoslo 667 mg PO TIDCC * Monitor Cr 3). Hx Elevated Troponin * Likely secondary to ESRD * continue to monitor for symptoms 4). Hx CAD with Angioplasty in 2012 and Hx of HFpEF * Cardiology Dr. Smith on board and cleared patient for planned AVF * changed Coreg to 6.25 by mouth twice to accommodate 12.5mg PO once a daily * Crestor 5 mg PO HS * Lasix and Metolazone were discontinued 11/05/17 * ProBNP upon admission 2910 * Echo 04/2017: LVEF 50-55%, mild concentric LVH, Grade I abnormal relaxation pattern, aortic valve mildly sclerotic 5). DM 2 requiring Insulin * HgBA1C is 7.1 * home medications: Insulin Degludec 45 units SC 1x/day and Glipizide 5 mg PO 1x /day at home * Currently on RISS and hold Glipizide 5 mg PO 1x/day and blood glucose are under control * Accu-Cheks Q before meals daily at bedtime * hypoglycemic protocol 6). HTN * Norvasc discontinued by nephrology noted for low blood pressure * Coreg to 6.25 mg by mouth twice a day * blood pressure controlled * Patient is dialysis Thursday 7). Diabetic Neuropathy * Involving the toes and feet bilaterally * Gabapentin 300 mg PO 1x/day 8). BPH * Flomax 0.4 mg PO 1x/day 9). Anemia likely secondary to ESRD * H&H stable. Continue to monitor * 11/06/17- hemoglobin downtrending. Dr. Davis to order iron studies. EPO MWF. 10). Prophylaxis * Resumed Heparin 5,000 Units SC Q8H post procedure * ICE Pack to the Right Lateral Ankle Q6H * Pepcid 20 mg once a day * PT/OT discharge rec: home with cane Plan:patient is awaiting placement for outpatient dialysis. Patient with pain and swelling to R antecubital fossa. RUE US was negative. ordered warm compresses and elevation of arm for possible phlebitis. <Bjorn Damon - Last Filed: 11/19/17 20:49> Objective - Vital Signs/Intake and Output Vital Signs (last 24 hours): Temp Pulse Resp BP Pulse Ox 98.3 F 111 H 20 136/72 98 11/19/17 18:10 11/19/17 18:10 11/19/17 15:01 11/19/17 18:10 11/19/17 15:01 - Medications Medications: Current Medications Acetaminophen (Tylenol 325mg Tab) 650 mg PO Q6 PRN PRN Reason: Pain, Mild (1-3) Last Admin: 11/18/17 08:25 Dose: 650 mg Calcitriol (Rocaltrol) 0.5 mcg PO DAILY [facility] Last Admin: 11/19/17 10:00 Dose: Not Given Calcium Acetate (Phoslo) 667 mg PO TIDCC [facility] Last Admin: 11/19/17 17:55 Dose: 667 mg Carvedilol (Coreg) 6.25 mg PO BID [facility] Last Admin: 11/19/17 18:14 Dose: 6.25 mg Dextrose (Dextrose 50% Inj) 0 ml IV STAT PRN; Protocol PRN Reason: Hypoglycemia Protocol Dextrose (Glutose 15) 0 gm PO ONCE PRN; Protocol PRN Reason: Hypoglycemia Protocol Epoetin Rodrigo (Procrit) 10,000 unit IV [facility] Famotidine (Pepcid) 20 mg PO DAILY [facility] Last Admin: 11/19/17 10:00 Dose: Not Given Ferric Sodium Gluconate Complex (Ferrlecit) 125 mg IVPB DAILY [facility] Stop: 11/27/17 10:01 Last Admin: 11/19/17 10:00 Dose: Not Given Gabapentin (Neurontin) 300 mg PO MWF [facility] Last Admin: 11/18/17 08:22 Dose: 300 mg Glipizide (Glucotrol) 5 mg PO ACB [facility] Last Admin: 11/19/17 08:00 Dose: Not Given Glucagon (Glucagen Diagnostic Kit) 0 mg IM STAT PRN; Protocol PRN Reason: Hypoglycemia Protocol Heparin Sodium (Porcine) (Heparin) 5,000 units SC Q8 [facility] Last Admin: 11/19/17 14:30 Dose: Not Given Insulin Human Regular (Novolin R) 0 unit SC ACHS [facility] PRN Reason: Protocol Last Admin: 11/19/17 17:10 Dose: 4 units Oxycodone/Acetaminophen (Percocet 5/325 Mg Tab) 1 tab PO Q4H PRN PRN Reason: Pain, moderate (4-7) Stop: 11/22/17 10:28 Rosuvastatin Calcium (Crestor) 5 mg PO HS [facility] Last Admin: 11/18/17 21:15 Dose: 5 mg Tamsulosin HCl (Flomax) 0.4 mg PO DAILY [facility] Last Admin: 11/19/17 10:00 Dose: Not Given - Labs Labs: 11/19/17 06:37 11/19/17 06:37 PT 11.8 SECONDS (9.7-12.2) 11/10/17 08:23 INR 1.1 11/10/17 08:23 APTT 33 SECONDS (21-34) 11/04/17 02:01 Attending/Attestation - Attestation I have personally seen and examined this patient.: Yes I have fully participated in the care of the patient.: Yes I have reviewed all pertinent clinical information, including history, physical exam and plan: Yes
--- NOTE | 2017-11-18 07:12 | CP.PCM.PN ---
<Padmini Zuniga P - Last Filed: 11/18/17 14:35> Subjective - Date & Time of Evaluation Date of Evaluation: 11/18/17 Time of Evaluation: 07:11 - Subjective Subjective: PGY-1 medicine note for hospitalist service. Patient seen and evaluated today. Patient states R arm pain increased and had difficulty sleeping. Has not asked nurse for tylenol, which is ordered. Patient going for hemodyalsis today. Denies chest pain, shortness of breath, fever, chills. Objective - Vital Signs/Intake and Output Vital Signs (last 24 hours): Temp Pulse Resp BP Pulse Ox 98.2 F 96 H 20 136/67 97 11/18/17 04:53 11/18/17 04:53 11/18/17 04:53 11/18/17 04:53 11/18/17 04:53 Intake and Output: 11/18/17 11/18/17 06:59 18:59 Intake Total 120 Balance 120 - Medications Medications: Current Medications Acetaminophen (Tylenol 325mg Tab) 650 mg PO Q6 PRN PRN Reason: Pain, Mild (1-3) Last Admin: 11/13/17 21:35 Dose: 650 mg Calcitriol (Rocaltrol) 0.5 mcg PO DAILY [facility] Last Admin: 11/17/17 10:26 Dose: 0.5 mcg Calcium Acetate (Phoslo) 667 mg PO TIDCC [facility] Last Admin: 11/17/17 17:42 Dose: 667 mg Carvedilol (Coreg) 6.25 mg PO BID [facility] Last Admin: 11/17/17 17:42 Dose: 6.25 mg Dextrose (Dextrose 50% Inj) 0 ml IV STAT PRN; Protocol PRN Reason: Hypoglycemia Protocol Dextrose (Glutose 15) 0 gm PO ONCE PRN; Protocol PRN Reason: Hypoglycemia Protocol Epoetin Rodrigo (Procrit) 4,000 unit IV [facility] [place] Famotidine (Pepcid) 20 mg PO DAILY [facility] Last Admin: 11/17/17 10:26 Dose: 20 mg Gabapentin (Neurontin) 300 mg PO F [facility] Last Admin: 11/16/17 08:01 Dose: 300 mg Glipizide (Glucotrol) 5 mg PO ACB [facility] Last Admin: 11/17/17 08:08 Dose: 5 mg Glucagon (Glucagen Diagnostic Kit) 0 mg IM STAT PRN; Protocol PRN Reason: Hypoglycemia Protocol Heparin Sodium (Porcine) (Heparin) 5,000 units SC Q8 [facility] Last Admin: 11/18/17 06:12 Dose: 5,000 units Insulin Human Regular (Novolin R) 0 unit SC ACHS [facility] PRN Reason: Protocol Last Admin: 11/17/17 21:11 Dose: Not Given Rosuvastatin Calcium (Crestor) 5 mg PO HS [facility] Last Admin: 11/17/17 21:09 Dose: 5 mg Tamsulosin HCl (Flomax) 0.4 mg PO DAILY [facility] Last Admin: 11/17/17 10:26 Dose: 0.4 mg - Labs Labs: 11/17/17 07:37 11/17/17 07:37 PT 11.8 SECONDS (9.7-12.2) 11/10/17 08:23 INR 1.1 11/10/17 08:23 APTT 33 SECONDS (21-34) 11/04/17 02:01 - Constitutional Appears: Well, No Acute Distress - Head Exam Head Exam: ATRAUMATIC, NORMOCEPHALIC - Eye Exam Eye Exam: EOMI, Normal appearance - ENT Exam ENT Exam: Mucous Membranes Moist - Neck Exam Neck Exam: Full ROM, Normal Inspection - Respiratory Exam Respiratory Exam: Clear to Ausculation Bilateral, NORMAL BREATHING PATTERN. absent: Rales, Rhonchi, Wheezes - Cardiovascular Exam Cardiovascular Exam: REGULAR RHYTHM, +S1, +S2 - GI/Abdominal Exam GI & Abdominal Exam: Soft, Normal Bowel Sounds. absent: Firm, Guarding, Rigid, Tenderness - Extremities Exam Extremities Exam: Full ROM. absent: Pedal Edema Additional comments: mild erythema, swelling, and warmth to R antecubital fossa, no change from previous. - Neurological Exam Neurological Exam: Alert, Awake, Normal Gait, Oriented x3 - Psychiatric Exam Psychiatric exam: Normal Affect, Normal Mood - Skin Skin Exam: Normal Color, Warm Assessment and Plan - Assessment and Plan (Free Text) Plan: Plan: SOB secondary to Pulmonary Edema secondary to ESRD-resolved * Symptomatically improved after 100 mg total of Lasix on 11/04/17 and Metalozone at the time of admission * resolved ESRD CKD Stage 5 * Nephrology (Dr. Davis) on the case help appreciated * Vascular surgery (Dr. Gil) on the case help appreciated * dialysis MWF, received dialysis last on 11/13/17 * S/P Right Chest Permacath placement by Dr. Gil 11/05/17 * Cleared by Cardiology for AVF placement * AVF placement left arm on 11/10/17 * Postoperative telemetry monitoring * Per cardiology, can discontinue telemetry if repeat EKG shows no changes post- op * Weld Fitter Smita and I&C Technician Julia are aware that patient needs outpatient HD placement * Calcitriol 0.5 mcg PO 1x/day * Phoslo 667 mg PO TIDCC * Monitor Cr R arm phlebitis Warm compress tylenol for pain keep arm elevated RUE US- negative Hx Elevated Troponin * Likely secondary to ESRD * continue to monitor for symptoms Hx CAD with Angioplasty in 2012 and Hx of HFpEF * Cardiology Dr. Smith on board and cleared patient for planned AVF * changed Coreg to 6.25 by mouth twice to accommodate 12.5mg PO once a daily * Crestor 5 mg PO HS * Lasix and Metolazone were discontinued 11/05/17 * ProBNP upon admission 2910 * Echo 04/2017: LVEF 50-55%, mild concentric LVH, Grade I abnormal relaxation pattern, aortic valve mildly sclerotic DM 2 requiring Insulin * HgBA1C is 7.1 * home medications: Insulin Degludec 45 units SC 1x/day and Glipizide 5 mg PO 1x /day at home * Currently on RISS and hold Glipizide 5 mg PO 1x/day and blood glucose are under control * Accu-Cheks Q before meals daily at bedtime * hypoglycemic protocol HTN * Norvasc discontinued by nephrology noted for low blood pressure * Coreg to 6.25 mg by mouth twice a day * blood pressure controlled * Patient is dialysis Thursday Diabetic Neuropathy * Involving the toes and feet bilaterally * Gabapentin 300 mg PO 1x/day BPH * Flomax 0.4 mg PO 1x/day Anemia likely secondary to ESRD * H&H stable. Continue to monitor * 11/06/17- hemoglobin downtrending. Dr. Davis to order iron studies. EPO MWF. * EPO, as per nephro Prophylaxis * Resumed Heparin 5,000 Units SC Q8H post procedure * ICE Pack to the Right Lateral Ankle Q6H * Pepcid 20 mg once a day * PT/OT discharge rec: home with cane Plan:patient is awaiting placement for outpatient dialysis. Hemodialysis today. Follow up nephrology recs. <Bjorn Damon - Last Filed: 11/19/17 20:49> Objective - Vital Signs/Intake and Output Vital Signs (last 24 hours): Temp Pulse Resp BP Pulse Ox 98.3 F 111 H 20 136/72 98 11/19/17 18:10 11/19/17 18:10 11/19/17 15:01 11/19/17 18:10 11/19/17 15:01 - Medications Medications: Current Medications Acetaminophen (Tylenol 325mg Tab) 650 mg PO Q6 PRN PRN Reason: Pain, Mild (1-3) Last Admin: 11/18/17 08:25 Dose: 650 mg Calcitriol (Rocaltrol) 0.5 mcg PO DAILY [facility] Last Admin: 11/19/17 10:00 Dose: Not Given Calcium Acetate (Phoslo) 667 mg PO TIDCC [facility] Last Admin: 11/19/17 17:55 Dose: 667 mg Carvedilol (Coreg) 6.25 mg PO BID [facility] Last Admin: 11/19/17 18:14 Dose: 6.25 mg Dextrose (Dextrose 50% Inj) 0 ml IV STAT PRN; Protocol PRN Reason: Hypoglycemia Protocol Dextrose (Glutose 15) 0 gm PO ONCE PRN; Protocol PRN Reason: Hypoglycemia Protocol Epoetin Rodrigo (Procrit) 10,000 unit IV [facility] [place] Famotidine (Pepcid) 20 mg PO DAILY [facility] Last Admin: 11/19/17 10:00 Dose: Not Given Ferric Sodium Gluconate Complex (Ferrlecit) 125 mg IVPB DAILY [facility] Stop: 11/27/17 10:01 Last Admin: 11/19/17 10:00 Dose: Not Given Gabapentin (Neurontin) 300 mg PO MWF [facility] Last Admin: 11/18/17 08:22 Dose: 300 mg Glipizide (Glucotrol) 5 mg PO ACB [facility] Last Admin: 11/19/17 08:00 Dose: Not Given Glucagon (Glucagen Diagnostic Kit) 0 mg IM STAT PRN; Protocol PRN Reason: Hypoglycemia Protocol Heparin Sodium (Porcine) (Heparin) 5,000 units SC Q8 [facility] Last Admin: 11/19/17 14:30 Dose: Not Given Insulin Human Regular (Novolin R) 0 unit SC ACHS [facility] PRN Reason: Protocol Last Admin: 11/19/17 17:10 Dose: 4 units Oxycodone/Acetaminophen (Percocet 5/325 Mg Tab) 1 tab PO Q4H PRN PRN Reason: Pain, moderate (4-7) Stop: 11/22/17 10:28 Rosuvastatin Calcium (Crestor) 5 mg PO HS [facility] Last Admin: 11/18/17 21:15 Dose: 5 mg Tamsulosin HCl (Flomax) 0.4 mg PO DAILY [facility] Last Admin: 11/19/17 10:00 Dose: Not Given - Labs Labs: 11/19/17 06:37 11/19/17 06:37 PT 11.8 SECONDS (9.7-12.2) 11/10/17 08:23 INR 1.1 11/10/17 08:23 APTT 33 SECONDS (21-34) 11/04/17 02:01 Attending/Attestation - Attestation I have personally seen and examined this patient.: Yes I have fully participated in the care of the patient.: Yes I have reviewed all pertinent clinical information, including history, physical exam and plan: Yes
[2017-11-18 07:33] LABS: BASO # 0.1 K/uL (0.0-0.2); BASO % 1.2 % (0.0-2.0); EOS # 0.3 K/uL (0.0-0.7); EOS % 2.6 % (0.0-4.0); HEMOGLOBIN 9.8 g/dL (12.0-18.0); LYMPH # 1.7 K/uL (1.0-4.3); LYMPH % 14.8 % (20.0-40.0); MEAN CELL VOLUME 87.3 fL (80.0-94.0); MEAN CORPUSCULAR HGB CONC 35.5 g/dL (33.0-37.0); MEAN PLATELET VOLUME 8.6 fL (7.2-11.7); MONO # 1.2 K/uL (0.0-0.8); MONO % 10.2 % (0.0-10.0); NEUT # 8.3 K/uL (1.8-7.0); NEUT % 71.2 % (50.0-75.0); RBC 3.15 Mil/uL (4.40-5.90); RED CELL DISTRIBUTION WIDTH 12.9 % (11.5-14.5); WHITE BLOOD COUNT 11.7 K/uL (4.8-10.8)
[2017-11-18 07:53] LABS: ALB/GLOB RATIO 1.2 (1.0-2.1); ALBUMIN 3.9 g/dL (3.5-5.0); CALCIUM 9.1 mg/dl (8.6-10.4)
[2017-11-18] MEDS: (Novolin R) Insulin Human Regular 100 units/ml vial SC SCH ×4 (08:12→21:15)
[2017-11-18] MEDS ORDERED: EPOETIN ALFA 4,000 UNIT/ML ML Dialysis IV SCH ×2 (09:00→11:45)
--- NOTE | 2017-11-18 12:41 | CP.PCM.PN ---
Subjective - Date & Time of Evaluation Date of Evaluation: 11/18/17 Time of Evaluation: 12:39 - Subjective Subjective: Stable dialysis now- UF 1500ml Feels well Hg lower now ? AV bruit over fistula Objective - Vital Signs/Intake and Output Vital Signs (last 24 hours): Temp Pulse Resp BP Pulse Ox 98.1 F 84 18 124/54 L 98 11/18/17 09:20 11/18/17 12:10 11/18/17 12:10 11/18/17 12:10 11/18/17 12:10 Intake and Output: 11/18/17 11/18/17 06:59 18:59 Intake Total 120 Balance 120 - Medications Medications: Current Medications Acetaminophen (Tylenol 325mg Tab) 650 mg PO Q6 PRN PRN Reason: Pain, Mild (1-3) Last Admin: 11/18/17 08:25 Dose: 650 mg Calcitriol (Rocaltrol) 0.5 mcg PO DAILY [facility] Last Admin: 11/18/17 09:57 Dose: Not Given Calcium Acetate (Phoslo) 667 mg PO TIDCC [facility] Last Admin: 11/18/17 08:22 Dose: 667 mg Carvedilol (Coreg) 6.25 mg PO BID [facility] Last Admin: 11/18/17 09:56 Dose: Not Given Dextrose (Dextrose 50% Inj) 0 ml IV STAT PRN; Protocol PRN Reason: Hypoglycemia Protocol Dextrose (Glutose 15) 0 gm PO ONCE PRN; Protocol PRN Reason: Hypoglycemia Protocol Epoetin Rodrigo (Procrit) 10,000 unit IV MWF [facility] Famotidine (Pepcid) 20 mg PO DAILY [facility] Last Admin: 11/18/17 09:57 Dose: Not Given Gabapentin (Neurontin) 300 mg PO MWF [facility] Last Admin: 11/18/17 08:22 Dose: 300 mg Glipizide (Glucotrol) 5 mg PO ACB [facility] Last Admin: 11/18/17 08:22 Dose: 5 mg Glucagon (Glucagen Diagnostic Kit) 0 mg IM STAT PRN; Protocol PRN Reason: Hypoglycemia Protocol Heparin Sodium (Porcine) (Heparin) 5,000 units SC Q8 [facility] Last Admin: 11/18/17 06:12 Dose: 5,000 units Insulin Human Regular (Novolin R) 0 unit SC ACHS [facility] PRN Reason: Protocol Last Admin: 11/18/17 08:12 Dose: Not Given Rosuvastatin Calcium (Crestor) 5 mg PO HS [facility] Last Admin: 11/17/17 21:09 Dose: 5 mg Tamsulosin HCl (Flomax) 0.4 mg PO DAILY [facility] Last Admin: 11/18/17 09:56 Dose: Not Given - Labs Labs: 11/18/17 07:11 11/18/17 07:11 PT 11.8 SECONDS (9.7-12.2) 11/10/17 08:23 INR 1.1 11/10/17 08:23 APTT 33 SECONDS (21-34) 11/04/17 02:01 - Constitutional Appears: No Acute Distress, Chronically Ill - Head Exam Head Exam: ATRAUMATIC, NORMAL INSPECTION - Eye Exam Eye Exam: EOMI, Normal appearance - Neck Exam Neck Exam: Normal Inspection. absent: Tenderness - Respiratory Exam Respiratory Exam: Clear to Ausculation Bilateral, NORMAL BREATHING PATTERN - Cardiovascular Exam Cardiovascular Exam: REGULAR RHYTHM, +S1 - GI/Abdominal Exam GI & Abdominal Exam: Soft. absent: Tenderness - Extremities Exam Extremities Exam: Normal Inspection. 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
[2017-11-18 20:33] LABS: BASO # 0.1 K/uL (0.0-0.2); EOS # 0.3 K/uL (0.0-0.7); EOS % 2.7 % (0.0-4.0); HEMOGLOBIN 9.3 g/dL (12.0-18.0); LYMPH # 1.6 K/uL (1.0-4.3); LYMPH % 14.1 % (20.0-40.0); MEAN CORPUSCULAR HEMOGLOBIN 30.4 pg (27.0-31.0); MEAN CORPUSCULAR HGB CONC 34.2 g/dL (33.0-37.0); MEAN PLATELET VOLUME 8.4 fL (7.2-11.7); MONO # 1.2 K/uL (0.0-0.8); MONO % 10.1 % (0.0-10.0); NEUT # 8.3 K/uL (1.8-7.0); NEUT % 72.1 % (50.0-75.0); RBC 3.04 Mil/uL (4.40-5.90); RED CELL DISTRIBUTION WIDTH 12.8 % (11.5-14.5); WHITE BLOOD COUNT 11.5 K/uL (4.8-10.8)
[2017-11-18 20:49] LABS: ALB/GLOB RATIO 1.3 (1.0-2.1); CALCIUM 8.7 mg/dl (8.6-10.4)
[2017-11-19 06:42] LABS: BASO # 0.1 K/uL (0.0-0.2); EOS # 0.3 K/uL (0.0-0.7); EOS % 2.7 % (0.0-4.0); HEMOGLOBIN 9.9 g/dL (12.0-18.0); LYMPH # 1.7 K/uL (1.0-4.3); LYMPH % 15.7 % (20.0-40.0); MEAN CELL VOLUME 87.7 fL (80.0-94.0); MEAN CORPUSCULAR HEMOGLOBIN 30.5 pg (27.0-31.0); MEAN CORPUSCULAR HGB CONC 34.7 g/dL (33.0-37.0); MEAN PLATELET VOLUME 8.1 fL (7.2-11.7); MONO # 1.1 K/uL (0.0-0.8); MONO % 10.1 % (0.0-10.0); NEUT # 7.8 K/uL (1.8-7.0); NEUT % 70.5 % (50.0-75.0); NRBC % 0.1 % (0.0-2.0); RBC 3.25 Mil/uL (4.40-5.90); RED CELL DISTRIBUTION WIDTH 12.8 % (11.5-14.5)
[2017-11-19 06:56] LABS: ALB/GLOB RATIO 1.2 (1.0-2.1); CALCIUM 8.4 mg/dl (8.6-10.4)
[2017-11-19] MEDS ORDERED: ceFAZolin 1 gm in NS 2 GM/200 ML BAG IVPB ONE (07:01)
[2017-11-19] MEDS ORDERED: HEPARIN-NS 5,000 UNITS/500 ML 5,000 UNIT/500 ML BAG IV ONE (07:01)
[2017-11-19] MEDS: (Novolin R) Insulin Human Regular 100 units/ml vial SC SCH ×4 (07:30→22:20)
[2017-11-19] MEDS ORDERED: Midazolam 2 MG/2 ML VIAL ONE (07:51)
[2017-11-19] MEDS ORDERED: Sodium Chloride 0.9% 500 ML IV ONE ×2 (08:03→10:15)
[2017-11-19] MEDS ORDERED: Propofol 10 mg/ml Inj (20 ML) ONE (08:09)
[2017-11-19] MEDS ORDERED: Papaverine Hydrochloride 30 mg/ml (2ml) ONE (08:40)
--- NOTE | 2017-11-19 09:13 | CP.PCM.PN ---
Subjective - Date & Time of Evaluation Date of Evaluation: 11/19/17 Time of Evaluation: 09:11 - Subjective Subjective: for AV fistula revision now- it had thrombosed Hg better with Fe, ESAa BP controlled Objective - Vital Signs/Intake and Output Vital Signs (last 24 hours): Temp Pulse Resp BP Pulse Ox 99.7 F H 99 H 18 145/79 97 11/19/17 07:05 11/19/17 07:05 11/19/17 07:05 11/19/17 07:05 11/19/17 07:05 Intake and Output: 11/19/17 11/19/17 06:59 18:59 Intake Total 0 Balance 0 - Medications Medications: Current Medications Acetaminophen (Tylenol 325mg Tab) 650 mg PO Q6 PRN PRN Reason: Pain, Mild (1-3) Last Admin: 11/18/17 08:25 Dose: 650 mg Calcitriol (Rocaltrol) 0.5 mcg PO DAILY [facility] Last Admin: 11/18/17 13:03 Dose: 0.5 mcg Calcium Acetate (Phoslo) 667 mg PO TIDCC [facility] Last Admin: 11/18/17 17:41 Dose: 667 mg Carvedilol (Coreg) 6.25 mg PO BID [facility] Last Admin: 11/18/17 17:41 Dose: 6.25 mg Dextrose (Dextrose 50% Inj) 0 ml IV STAT PRN; Protocol PRN Reason: Hypoglycemia Protocol Dextrose (Glutose 15) 0 gm PO ONCE PRN; Protocol PRN Reason: Hypoglycemia Protocol Epoetin Rodrigo (Procrit) 10,000 unit IV MWF [facility] Famotidine (Pepcid) 20 mg PO DAILY [facility] Last Admin: 11/18/17 13:03 Dose: 20 mg Ferric Sodium Gluconate Complex (Ferrlecit) 125 mg IVPB DAILY [facility] Stop: 11/27/17 10:01 Gabapentin (Neurontin) 300 mg PO MWF [facility] Last Admin: 11/18/17 08:22 Dose: 300 mg Glipizide (Glucotrol) 5 mg PO ACB [facility] Last Admin: 11/18/17 08:22 Dose: 5 mg Glucagon (Glucagen Diagnostic Kit) 0 mg IM STAT PRN; Protocol PRN Reason: Hypoglycemia Protocol Heparin Sodium (Porcine) (Heparin) 5,000 units SC Q8 [facility] Last Admin: 11/19/17 05:20 Dose: Not Given Insulin Human Regular (Novolin R) 0 unit SC ACHS [facility] PRN Reason: Protocol Last Admin: 11/18/17 21:15 Dose: Not Given Rosuvastatin Calcium (Crestor) 5 mg PO HS [facility] Last Admin: 11/18/17 21:15 Dose: 5 mg Tamsulosin HCl (Flomax) 0.4 mg PO DAILY [facility] Last Admin: 11/18/17 13:02 Dose: 0.4 mg - Labs Labs: 11/19/17 06:37 11/19/17 06:37 PT 11.8 SECONDS (9.7-12.2) 11/10/17 08:23 INR 1.1 11/10/17 08:23 APTT 33 SECONDS (21-34) 11/04/17 02:01 - Constitutional Appears: No Acute Distress, Chronically Ill - Head Exam Head Exam: ATRAUMATIC, NORMAL INSPECTION - Eye Exam Eye Exam: EOMI, Normal appearance - Neck Exam Neck Exam: Normal Inspection. absent: Tenderness - Cardiovascular Exam Cardiovascular Exam: REGULAR RHYTHM, +S1 - GI/Abdominal Exam GI & Abdominal Exam: Soft. absent: Tenderness - Extremities Exam Extremities Exam: Normal Inspection. 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
--- NOTE | 2017-11-19 09:31 | CP.PCM.PN ---
<Nestor Garnett - Last Filed: 11/19/17 16:16> Subjective - Date & Time of Evaluation Date of Evaluation: 11/19/17 Time of Evaluation: 09:31 - Subjective Subjective: Progress note for Hospitalist service Patient seen and examined at bedside. He is due for AV fistula placement in his left arm since his AV fistula in his left snuffbox is not working. He states that his right arm swelling is persistent. Denies headaches, chest pain, dizziness, abdominal pain, nausea, vomiting, diarrhea, leg swelling or leg pain. Objective - Vital Signs/Intake and Output Vital Signs (last 24 hours): Temp Pulse Resp BP Pulse Ox 99.7 F H 99 H 18 145/79 97 11/19/17 07:05 11/19/17 07:05 11/19/17 07:05 11/19/17 07:05 11/19/17 07:05 Intake and Output: 11/19/17 11/19/17 06:59 18:59 Intake Total 0 Balance 0 - Medications Medications: Current Medications Acetaminophen (Tylenol 325mg Tab) 650 mg PO Q6 PRN PRN Reason: Pain, Mild (1-3) Last Admin: 11/18/17 08:25 Dose: 650 mg Calcitriol (Rocaltrol) 0.5 mcg PO DAILY [facility] Last Admin: 11/18/17 13:03 Dose: 0.5 mcg Calcium Acetate (Phoslo) 667 mg PO TIDCC [facility] Last Admin: 11/18/17 17:41 Dose: 667 mg Carvedilol (Coreg) 6.25 mg PO BID [facility] Last Admin: 11/18/17 17:41 Dose: 6.25 mg Dextrose (Dextrose 50% Inj) 0 ml IV STAT PRN; Protocol PRN Reason: Hypoglycemia Protocol Dextrose (Glutose 15) 0 gm PO ONCE PRN; Protocol PRN Reason: Hypoglycemia Protocol Epoetin Rodrigo (Procrit) 10,000 unit IV [facility] Famotidine (Pepcid) 20 mg PO DAILY [facility] Last Admin: 11/18/17 13:03 Dose: 20 mg Ferric Sodium Gluconate Complex (Ferrlecit) 125 mg IVPB DAILY [facility] Stop: 11/27/17 10:01 Gabapentin (Neurontin) 300 mg PO [facility] Last Admin: 11/18/17 08:22 Dose: 300 mg Glipizide (Glucotrol) 5 mg PO ACB [facility] Last Admin: 11/18/17 08:22 Dose: 5 mg Glucagon (Glucagen Diagnostic Kit) 0 mg IM STAT PRN; Protocol PRN Reason: Hypoglycemia Protocol Heparin Sodium (Porcine) (Heparin) 5,000 units SC Q8 [facility] Last Admin: 11/19/17 05:20 Dose: Not Given Insulin Human Regular (Novolin R) 0 unit SC ACHS [facility] PRN Reason: Protocol Last Admin: 11/18/17 21:15 Dose: Not Given Rosuvastatin Calcium (Crestor) 5 mg PO HS [facility] Last Admin: 11/18/17 21:15 Dose: 5 mg Tamsulosin HCl (Flomax) 0.4 mg PO DAILY [facility] Last Admin: 11/18/17 13:02 Dose: 0.4 mg - Labs Labs: 11/19/17 06:37 11/19/17 06:37 PT 11.8 SECONDS (9.7-12.2) 11/10/17 08:23 INR 1.1 11/10/17 08:23 APTT 33 SECONDS (21-34) 11/04/17 02:01 - Constitutional Appears: Well, No Acute Distress - Head Exam Head Exam: ATRAUMATIC, NORMOCEPHALIC - Eye Exam Eye Exam: EOMI, PERRL. absent: Scleral icterus - ENT Exam ENT Exam: Mucous Membranes Moist - Neck Exam Neck Exam: Full ROM. absent: Tenderness - Respiratory Exam Respiratory Exam: Clear to Ausculation Bilateral, NORMAL BREATHING PATTERN. absent: Rales, Rhonchi, Wheezes, Respiratory Distress, Stridor - Cardiovascular Exam Cardiovascular Exam: REGULAR RHYTHM, +S1, +S2 - GI/Abdominal Exam GI & Abdominal Exam: Soft, Normal Bowel Sounds. absent: Distended, Firm, Guarding, Rigid, Tenderness - Extremities Exam Extremities Exam: absent: Calf Tenderness, Pedal Edema Additional comments: Left snuffbox AV fistula, no thrill palpable Left brachiocephalic AV fistula, palpable thrill Right anterior chest permacath Edema to right forearm and upper arm, minimally tender, limited range of motion due to edema. - Back Exam Back Exam: absent: CVA tenderness (L), CVA tenderness (R) - Neurological Exam Neurological Exam: Alert, Awake, Oriented x3 Neuro motor strength exam: Left Upper Extremity: 4, Right Upper Extremity: 4, Left Lower Extremity: 4, Right Lower Extremity: 4 - Psychiatric Exam Psychiatric exam: Normal Affect, Normal Mood - Skin Skin Exam: Dry, Intact, Warm Assessment and Plan - Assessment and Plan (Free Text) Plan: Assessment/plan SOB secondary to Pulmonary Edema secondary to ESRD-resolved * Symptomatically improved after 100 mg total of Lasix on 11/04/17 and Metalozone at the time of admission * resolved ESRD CKD Stage 5 * Nephrology (Dr. Davis) on the case help appreciated * Vascular surgery (Dr. Gil) on the case help appreciated * dialysis MWF, received dialysis yesterday 11/18/17 * S/P Right Chest Permacath placement by Dr. Gil 11/05/17 * AVF placement left snuffbox on 11/10/17, no thrill palpable * AVF placed in left brachiocephalic on 11/19/17 * Postoperative telemetry monitoring * Per cardiology, can discontinue telemetry if repeat EKG shows no changes post- op * Loan Manager Smita and [employer] Carrier Julia are aware that patient needs outpatient HD placement * Calcitriol 0.5 mcg PO 1x/day * Phoslo 667 mg PO TIDCC * Monitor Cr R arm phlebitis Continue to apply warm compresses tylenol for pain keep arm elevated RUE US- negative Hx Elevated Troponin * Likely secondary to ESRD * continue to monitor for symptoms Hx CAD with Angioplasty in 2012 and Hx of HFpEF * Cardiology Dr. Smith on board and cleared patient for planned AVF * Coreg 6.25 by mouth BID * Crestor 5 mg PO HS * Lasix and Metolazone were discontinued 11/05/17 * ProBNP upon admission 2910 * Echo 04/2017: LVEF 50-55%, mild concentric LVH, Grade I abnormal relaxation pattern, aortic valve mildly sclerotic DM 2 requiring Insulin * HgBA1C is 7.1 * home medications: Insulin Degludec 45 units SC 1x/day and Glipizide 5 mg PO 1x /day at home * Currently on RISS and hold Glipizide 5 mg PO 1x/day and blood glucose are under control * Accu-Cheks Q before meals daily at bedtime * hypoglycemic protocol HTN * Norvasc discontinued by nephrology noted for low blood pressure * Coreg to 6.25 mg by mouth twice a day * blood pressure controlled * Patient is dialysis Thursday Diabetic Neuropathy * Involving the toes and feet bilaterally * Gabapentin 300 mg PO 1x/day BPH * Flomax 0.4 mg PO 1x/day Anemia likely secondary to ESRD * H&H stable. Continue to monitor * 11/06/17- hemoglobin downtrending. Dr. Davis to order iron studies. EPO MWF. * EPO 45570 units MWF, as per nephro Prophylaxis * Resumed Heparin 5,000 Units SC Q8H post procedure * ICE Pack to the Right Lateral Ankle Q6H * Pepcid 20 mg once a day * PT/OT discharge rec: home with cane Plan: Patient pending outpatient hemodialysis treatment. Case discussed with Dr. Bjorn Garnett, PGY1. <Bjorn Damon - Last Filed: 11/19/17 20:48> Objective - Vital Signs/Intake and Output Vital Signs (last 24 hours): Temp Pulse Resp BP Pulse Ox 98.3 F 111 H 20 136/72 98 11/19/17 18:10 11/19/17 18:10 11/19/17 15:01 11/19/17 18:10 11/19/17 15:01 - Medications Medications: Current Medications Acetaminophen (Tylenol 325mg Tab) 650 mg PO Q6 PRN PRN Reason: Pain, Mild (1-3) Last Admin: 11/18/17 08:25 Dose: 650 mg Calcitriol (Rocaltrol) 0.5 mcg PO DAILY [facility] Last Admin: 11/19/17 10:00 Dose: Not Given Calcium Acetate (Phoslo) 667 mg PO TIDCC [facility] Last Admin: 11/19/17 17:55 Dose: 667 mg Carvedilol (Coreg) 6.25 mg PO BID [facility] Last Admin: 11/19/17 18:14 Dose: 6.25 mg Dextrose (Dextrose 50% Inj) 0 ml IV STAT PRN; Protocol PRN Reason: Hypoglycemia Protocol Dextrose (Glutose 15) 0 gm PO ONCE PRN; Protocol PRN Reason: Hypoglycemia Protocol Epoetin Rodrigo (Procrit) 10,000 unit IV MWF [facility] Famotidine (Pepcid) 20 mg PO DAILY [facility] Last Admin: 11/19/17 10:00 Dose: Not Given Ferric Sodium Gluconate Complex (Ferrlecit) 125 mg IVPB DAILY [facility] Stop: 11/27/17 10:01 Last Admin: 11/19/17 10:00 Dose: Not Given Gabapentin (Neurontin) 300 mg PO MWF [facility] Last Admin: 11/18/17 08:22 Dose: 300 mg Glipizide (Glucotrol) 5 mg PO ACB [facility] Last Admin: 11/19/17 08:00 Dose: Not Given Glucagon (Glucagen Diagnostic Kit) 0 mg IM STAT PRN; Protocol PRN Reason: Hypoglycemia Protocol Heparin Sodium (Porcine) (Heparin) 5,000 units SC Q8 [facility] Last Admin: 11/19/17 14:30 Dose: Not Given Insulin Human Regular (Novolin R) 0 unit SC ACHS [facility] PRN Reason: Protocol Last Admin: 11/19/17 17:10 Dose: 4 units Oxycodone/Acetaminophen (Percocet 5/325 Mg Tab) 1 tab PO Q4H PRN PRN Reason: Pain, moderate (4-7) Stop: 11/22/17 10:28 Rosuvastatin Calcium (Crestor) 5 mg PO HS [facility] Last Admin: 11/18/17 21:15 Dose: 5 mg Tamsulosin HCl (Flomax) 0.4 mg PO DAILY [facility] Last Admin: 11/19/17 10:00 Dose: Not Given - Labs Labs: 11/19/17 06:37 11/19/17 06:37 PT 11.8 SECONDS (9.7-12.2) 11/10/17 08:23 INR 1.1 11/10/17 08:23 APTT 33 SECONDS (21-34) 11/04/17 02:01 Attending/Attestation - Attestation I have personally seen and examined this patient.: Yes I have fully participated in the care of the patient.: Yes I have reviewed all pertinent clinical information, including history, physical exam and plan: Yes Notes (Text): 11/19/17 20:47 Patient was seen and examined at 7:40 AM Exam, assessment and plan were gone over with the resident. Also on ROS: Right Lateral arm pain has improved with warm compresses but the nurses are not placing them consistently NO Other complaints Patient for new AVF on Left Upper Arm today. Awaiting outpatient HD placement. Bjorn Damon D.O.
[2017-11-19] MEDS: Ferric Sodium Gluconat Complex 62.5 mg/5 ml Vial IVPB SCH (10:00)
[2017-11-19] MEDS ORDERED: HYDROmorphone 0.5 mg/0.5 ml ISec IVP PRN (10:25)
--- NOTE | 2017-11-19 10:26 | PCM.SURG1 ---
Surgeon's Initial Post Op Note - Surgeon's Notes Surgeon: Dr. Gil Production Supv: Dr. Bryant PGY3, Dale MS3 Type of Anesthesia: General Endo Pre-Operative Diagnosis: ESRD Operative Findings: See operative dictation Post-Operative Diagnosis: ESRD Operation Performed: Brachiocephalic left arm Arteriovenous fistula formation Specimen/Specimens Removed: none Estimated Blood Loss: EBL {In ML}: 100 Blood Products Given: N/A Drains Used: No Drains Post-Op Condition: Good Date of Surgery/Procedure: 11/19/17 Time of Surgery/Procedure: 10:26
[2017-11-19] MEDS ORDERED: Oxycodone/Acetaminophen 5/325 mg Tab PO PRN (10:27)
--- NOTE | 2017-11-19 21:48 | OP ---
PROCEDURE DATE: 11/19/2017 PREOPERATIVE DIAGNOSIS: Renal failure. POSTOPERATIVE DIAGNOSIS: Renal failure. PROCEDURE CARRIED: Brachiocephalic fistula, left elbow. SURGEON: Neto Gil Jr., MD OPTICAL TECHNICIAN: Carmelo Bryant DO ANESTHESIOLOGIST: Abby Lazcano CRNA INDICATIONS: The patient is a middle-aged male with renal insufficiency previous snuffbox fistula at the wrist, which included operative findings. We created a [id number] fistula with spatulated anastomosis just at the bifurcation of the brachial artery. This was extended down on to the radial. At the end of the procedure, we had an excellent flow in the wrist and the palpable pulse. DESCRIPTION OF PROCEDURE: The patient was given general anesthesia and intravenous antibiotics. The vein and artery were dissected away up to dissecting out, sketching out the vein with ultrasound. After this was done, the fistula was carried out in a spatulated fashion to the brachial artery. At the end of the procedure, we had a good flow. Afrin was then used. Loupe magnification was used. Blood loss for the procedure was 100 mL. The vessels were slightly calcified more than what I expected. OPERATION CARRIED OUT: Brachiocephalic fistula, left elbow. Neto Gil Jr., MD cc: [employer]
--- NOTE | 2017-11-20 07:00 | CP.PCM.PN ---
<Nestor Garnett - Last Filed: 11/20/17 16:37> Subjective - Date & Time of Evaluation Date of Evaluation: 11/20/17 Time of Evaluation: 07:00 - Subjective Subjective: Progress note for Hospitalist service Patient seen and examined at bedside. He states that he is feeling well. Complains of mild pain at site of left arm AV fistula placement. He denies chest pain, headache, dizziness, nausea, vomiting, diarrhea, constipation, leg swelling, leg pain. States his right arm has improved slightly with warm compresses. Objective - Vital Signs/Intake and Output Vital Signs (last 24 hours): Temp Pulse Resp BP Pulse Ox 98.5 F 84 20 130/71 97 11/19/17 23:10 11/19/17 23:10 11/19/17 23:10 11/19/17 23:10 11/19/17 23:10 Intake and Output: 11/20/17 11/20/17 06:59 18:59 Intake Total 300 Balance 300 - Medications Medications: Current Medications Acetaminophen (Tylenol 325mg Tab) 650 mg PO Q6 PRN PRN Reason: Pain, Mild (1-3) Last Admin: 11/18/17 08:25 Dose: 650 mg Calcitriol (Rocaltrol) 0.5 mcg PO DAILY [facility] Last Admin: 11/19/17 10:00 Dose: Not Given Calcium Acetate (Phoslo) 667 mg PO TIDCC [facility] Last Admin: 11/19/17 17:55 Dose: 667 mg Carvedilol (Coreg) 6.25 mg PO BID [facility] Last Admin: 11/19/17 18:14 Dose: 6.25 mg Dextrose (Dextrose 50% Inj) 0 ml IV STAT PRN; Protocol PRN Reason: Hypoglycemia Protocol Dextrose (Glutose 15) 0 gm PO ONCE PRN; Protocol PRN Reason: Hypoglycemia Protocol Epoetin Rodrigo (Procrit) 10,000 unit IV [facility] [place] Famotidine (Pepcid) 20 mg PO DAILY [facility] Last Admin: 11/19/17 10:00 Dose: Not Given Ferric Sodium Gluconate Complex (Ferrlecit) 125 mg IVPB DAILY [facility] Stop: 11/27/17 10:01 Last Admin: 11/19/17 10:00 Dose: Not Given Gabapentin (Neurontin) 300 mg PO [facility] [place] Last Admin: 11/18/17 08:22 Dose: 300 mg Glipizide (Glucotrol) 5 mg PO ACB [facility] Last Admin: 11/19/17 08:00 Dose: Not Given Glucagon (Glucagen Diagnostic Kit) 0 mg IM STAT PRN; Protocol PRN Reason: Hypoglycemia Protocol Insulin Human Regular (Novolin R) 0 unit SC ACHS [place] PRN Reason: Protocol Last Admin: 11/19/17 22:20 Dose: Not Given Oxycodone/Acetaminophen (Percocet 5/325 Mg Tab) 1 tab PO Q4H PRN PRN Reason: Pain, moderate (4-7) Stop: 11/22/17 10:28 Tamsulosin HCl (Flomax) 0.4 mg PO DAILY [facility] Last Admin: 11/19/17 10:00 Dose: Not Given - Labs Labs: 11/19/17 06:37 11/19/17 06:37 PT 11.8 SECONDS (9.7-12.2) 11/10/17 08:23 INR 1.1 11/10/17 08:23 APTT 33 SECONDS (21-34) 11/04/17 02:01 - Constitutional Appears: Well, No Acute Distress - Head Exam Head Exam: ATRAUMATIC, NORMOCEPHALIC - Eye Exam Eye Exam: EOMI - ENT Exam ENT Exam: Mucous Membranes Moist - Neck Exam Neck Exam: Full ROM. absent: Tenderness - Respiratory Exam Respiratory Exam: Clear to Ausculation Bilateral, NORMAL BREATHING PATTERN. absent: Rales, Rhonchi, Wheezes, Respiratory Distress, Stridor - Cardiovascular Exam Cardiovascular Exam: REGULAR RHYTHM, +S1, +S2. absent: Gallop, Rubs, Murmur - GI/Abdominal Exam GI & Abdominal Exam: Soft, Normal Bowel Sounds. absent: Distended, Firm, Guarding, Rigid, Tenderness - Extremities Exam Extremities Exam: absent: Calf Tenderness, Pedal Edema Additional comments: Right upper extremity: edema over right forearm with mild tenderness Left upper extremity: Left brachiocephalic AV fistula in place, palpable thrill. Bandage over left snuffbox - dry and intact. Bilateral lower extremities: no calf tenderness, no edema. Good distal pulses. - Back Exam Back Exam: absent: CVA tenderness (L), CVA tenderness (R) - Neurological Exam Neurological Exam: Alert, Awake, Oriented x3 - Psychiatric Exam Psychiatric exam: Normal Affect, Normal Mood - Skin Skin Exam: Dry, Intact, Warm Assessment and Plan - Assessment and Plan (Free Text) Plan: Assessment/plan SOB secondary to Pulmonary Edema secondary to ESRD-resolved * Symptomatically improved after 100 mg total of Lasix on 11/04/17 and Metalozone at the time of admission * resolved ESRD CKD Stage 5 * Nephrology (Dr. Davis) on the case help appreciated * Vascular surgery (Dr. Gil) on the case help appreciated * dialysis MWF, received dialysis today * S/P Right Chest Permacath placement by Dr. Gil 11/05/17 * AVF placement left snuffbox on 11/10/17, no longer functioning * AVF placed in left brachiocephalic on 11/19/17 * As per surgery, dressing may be removed in 3 days, and sutures to be removed by Surgery in 10-14 days. * Postoperative telemetry monitoring * Per cardiology, can discontinue telemetry if repeat EKG shows no changes post- op * Environmental Sampler Smita and Automatic Shirring Machine Operator Julia are aware that patient needs outpatient HD placement * Calcitriol 0.5 mcg PO 1x/day * Phoslo 667 mg PO TIDCC * Monitor Cr R arm phlebitis Continue to apply warm compresses tylenol for pain keep arm elevated RUE US- negative Consider short term Prednisone taper if warm compresses do not work Hx Elevated Troponin * Likely secondary to ESRD * continue to monitor for symptoms Hx CAD with Angioplasty in 2012 and Hx of HFpEF * Cardiology Dr. Smith on board and cleared patient for planned AVF * Coreg 6.25 by mouth BID * Crestor 5 mg PO HS * Lasix and Metolazone were discontinued 11/05/17 * ProBNP upon admission 2910 * Echo 04/2017: LVEF 50-55%, mild concentric LVH, Grade I abnormal relaxation pattern, aortic valve mildly sclerotic DM 2 requiring Insulin * HgBA1C is 7.1 * home medications: Insulin Degludec 45 units SC 1x/day and Glipizide 5 mg PO 1x /day at home * Currently on RISS and hold Glipizide 5 mg PO 1x/day and blood glucose are under control * Accu-Cheks Q before meals daily at bedtime * hypoglycemic protocol HTN * Norvasc discontinued by nephrology noted for low blood pressure * Coreg to 6.25 mg by mouth twice a day * blood pressure controlled * Patient is dialysis Thursday Diabetic Neuropathy * Involving the toes and feet bilaterally * Gabapentin 300 mg PO 1x/day BPH * Flomax 0.4 mg PO 1x/day Anemia likely secondary to ESRD * H&H stable. Continue to monitor * 11/06/17- hemoglobin downtrending. Dr. Davis to order iron studies. EPO MWF. * EPO 81693 units MWF, as per nephro Prophylaxis * Resumed Heparin 5,000 Units SC Q8H post procedure * ICE Pack to the Right Lateral Ankle Q6H * Pepcid 20 mg once a day * PT/OT discharge rec: home with cane Plan: Patient pending outpatient hemodialysis treatment. Case discussed with Dr. Bjorn Garnett, PGY1 <Bjorn Damon - Last Filed: 11/20/17 18:09> Objective - Vital Signs/Intake and Output Vital Signs (last 24 hours): Temp Pulse Resp BP Pulse Ox 98 F 102 H 20 147/69 98 11/20/17 15:00 11/20/17 15:00 11/20/17 15:00 11/20/17 15:00 11/20/17 15:00 Intake and Output: 11/20/17 11/20/17 06:59 18:59 Intake Total 300 Balance 300 - Medications Medications: Current Medications Acetaminophen (Tylenol 325mg Tab) 650 mg PO Q6 PRN PRN Reason: Pain, Mild (1-3) Last Admin: 11/18/17 08:25 Dose: 650 mg Calcitriol (Rocaltrol) 0.5 mcg PO DAILY [facility] Last Admin: 11/20/17 09:00 Dose: 0.5 mcg Calcium Acetate (Phoslo) 667 mg PO TIDCC [facility] Last Admin: 11/20/17 13:25 Dose: 667 mg Carvedilol (Coreg) 6.25 mg PO BID [facility] Last Admin: 11/20/17 10:00 Dose: Not Given Dextrose (Dextrose 50% Inj) 0 ml IV STAT PRN; Protocol PRN Reason: Hypoglycemia Protocol Dextrose (Glutose 15) 0 gm PO ONCE PRN; Protocol PRN Reason: Hypoglycemia Protocol Epoetin Rodrigo (Procrit) 10,000 unit IV MWF [facility] Last Admin: 11/20/17 10:36 Dose: 10,000 unit Famotidine (Pepcid) 20 mg PO DAILY [facility] Last Admin: 11/20/17 09:01 Dose: 20 mg Ferric Sodium Gluconate Complex (Ferrlecit) 125 mg IVPB DAILY [facility] Stop: 11/27/17 10:01 Last Admin: 11/20/17 10:39 Dose: 125 mg Gabapentin (Neurontin) 300 mg PO MWF [facility] Last Admin: 11/20/17 09:01 Dose: 300 mg Glipizide (Glucotrol) 5 mg PO ACB [facility] Last Admin: 11/20/17 09:08 Dose: 5 mg Glucagon (Glucagen Diagnostic Kit) 0 mg IM STAT PRN; Protocol PRN Reason: Hypoglycemia Protocol Insulin Human Regular (Novolin R) 0 unit SC ACHS [place] PRN Reason: Protocol Last Admin: 11/20/17 11:30 Dose: Not Given Oxycodone/Acetaminophen (Percocet 5/325 Mg Tab) 1 tab PO Q4H PRN PRN Reason: Pain, moderate (4-7) Stop: 11/22/17 10:28 Tamsulosin HCl (Flomax) 0.4 mg PO DAILY [facility] Last Admin: 11/20/17 09:07 Dose: 0.4 mg - Labs Labs: 11/20/17 09:00 11/20/17 09:00 PT 11.8 SECONDS (9.7-12.2) 11/10/17 08:23 INR 1.1 11/10/17 08:23 APTT 33 SECONDS (21-34) 11/04/17 02:01 Attending/Attestation - Attestation I have personally seen and examined this patient.: Yes I have fully participated in the care of the patient.: Yes I have reviewed all pertinent clinical information, including history, physical exam and plan: Yes Notes (Text): 11/20/17 17:58 Patient was seen and examined at 7:45 AM Exam, assessment and plan were gone over with the resident. Hospitalist Progress Note Patient was seen and examined at 2:30 PM at 652 A Currently upon FULL ROS: Complains of Right Lateral Arm pain by the antecubital raj NO chest pain NO SOB/Cough NO abdominal pain NO n/v/d/c: normal bowel movement this morning NO burning pain with urination NO dysphagia/odynophagia NO lightheadedenss/dizziness NO paresthesias NO new changes in visioin NO new changes in hearing NO headache Exam: General: AAOX3, NAD HEENT: NCA, EOMI, PERRLA, NO cervical/supraclavicular/submandibular lymphadenopathy, NO pharyngeal erythema/exudate, Nasal Turbinates are nonerythematous/nonedematous, Oral Mucosa is moist Cardio: NS1 and NS2, NO M/R/G Resp: CTA B/L, NO R/R/W Right chest permacath GI: BSx4, Soft, NT, NO HSM, NO guarding/rebound tenderness Ext: Pulses are strong and equal in bilateral UE and LE, NO edema noted, capillary refills is 2 seconds on all toes, Left Anatomic Snuff Box AVF without thrill, Left Upper Arm AVF with (+) Thrill, Right Lateral Arm by the antecubital fossa there is some tenderness to palpation and a palpable cord (no signs of cellulitis) Neuro: CN II through XII are grossly intact Assessments: 1). SOB secondary to Pulmonary Edema secondary to ESRD Symptomatically improved after 100 mg total of Lasix on 11/04/17 and Metalozone at the time of admission 2). ESRD CKD Stage 5 on HD MWF via Right Chest Permacath and awaiting maturity of Left Arm AVF S/P Right Chest Permacath placement by Dr. Gil 11/05/17 Had Left Anatomic Snuff Box AVF placed however this no longer had a thrill therefore Left Upper Arm AVF performed 11/19/17. Environmental Sampler Smita and Automatic Shirring Machine Operator Julia are aware that patient needs outpatient HD placement Nephrology Dr. Davis Vascular Surgery Dr. Gil Calcitriol 0.5 mcg PO 1x/day Phoslo 667 mg PO TID 3). Hx Elevated Troponin Likely secondary to ESRD 4). Hx CAD with Angioplasty in 2012 and Hx of HFpEF Coreg 12.5 mg PO 1x/day Crestor 5 mg PO HS Lasix and Metolazone were discontinued 11/05/17 ProBNP upon admission 2910 Echo 04/2017: LVEF 50-55%, mild concentric LVH, Grade I abnormal relaxation pattern, aortic valve mildly sclerotic Cardiology Dr. Smith 5). DM 2 requiring Insulin HgBA1C is 7.1 On Insulin Degludec 45 units SC 1x/day and Glipizide 5 mg PO 1x/day at home Currently on RISS and Glipizide 5 mg PO 1x/day and blood glucose are under control 6). HTN Coreg 12.5 mg PO 1x/day NO longer on Norvasc 10 mg PO 1x/day 7). Diabetic Neuropathy Involving the toes and feet bilaterally Gabapentin 300 mg PO 1x/day 8). BPH Flomax 0.4 mg PO 1x/day 9). Anemia likely secondary to ESRD Ferric Gluconate 125 mg IV 1x/day through 11/27/17 Procrit 10,000 IV MWF 10). Right Lateral Mid Arm Phlebitis Likely secondary to IV access infiltration Venous Doppler was negative Warm compresses help however this is not being consistently provided as per patient Medicine Team: wet a towel with warm water, microwave the towel for 30 seconds, place the microwaved towel in plastic specimen bag, apply carefully to the right lateral mid arm for 30 minutes every 4 to 6 hours We will consider providing short Prednisone Taper should the warm compresses not resolve this issue 11). Prophylaxis SCDs Patient is out of bed to chair and has been encouraged to walk throughout the day and has been observed doing so Pepcid 20 mg PO 1x/day Bjorn Damon D.O.
--- NOTE | 2017-11-20 08:31 | CP.PCM.PN ---
Subjective - Date & Time of Evaluation Date of Evaluation: 11/20/17 Time of Evaluation: 08:28 - Subjective Subjective: Vascular Surgery Progress Note for Dr. Gil This 62M was seen and evaluated this AM at bedside no acute events overnight. He reports pain well controlled in LUE. Strong pulse in brachiocephalic AVF. Denies chest pain or SOB. Objective - Vital Signs/Intake and Output Vital Signs (last 24 hours): Temp Pulse Resp BP Pulse Ox 98.2 F 97 H 18 115/62 99 11/20/17 07:00 11/20/17 07:00 11/20/17 07:00 11/20/17 07:00 11/20/17 07:00 Intake and Output: 11/20/17 11/20/17 06:59 18:59 Intake Total 300 Balance 300 - Medications Medications: Current Medications Acetaminophen (Tylenol 325mg Tab) 650 mg PO Q6 PRN PRN Reason: Pain, Mild (1-3) Last Admin: 11/18/17 08:25 Dose: 650 mg Calcitriol (Rocaltrol) 0.5 mcg PO DAILY [facility] Last Admin: 11/19/17 10:00 Dose: Not Given Calcium Acetate (Phoslo) 667 mg PO TIDCC [facility] Last Admin: 11/19/17 17:55 Dose: 667 mg Carvedilol (Coreg) 6.25 mg PO BID [facility] Last Admin: 11/19/17 18:14 Dose: 6.25 mg Dextrose (Dextrose 50% Inj) 0 ml IV STAT PRN; Protocol PRN Reason: Hypoglycemia Protocol Dextrose (Glutose 15) 0 gm PO ONCE PRN; Protocol PRN Reason: Hypoglycemia Protocol Epoetin Rodrigo (Procrit) 10,000 unit IV [facility] Famotidine (Pepcid) 20 mg PO DAILY [facility] Last Admin: 11/19/17 10:00 Dose: Not Given Ferric Sodium Gluconate Complex (Ferrlecit) 125 mg IVPB DAILY [facility] Stop: 11/27/17 10:01 Last Admin: 11/19/17 10:00 Dose: Not Given Gabapentin (Neurontin) 300 mg PO F [facility] Last Admin: 11/18/17 08:22 Dose: 300 mg Glipizide (Glucotrol) 5 mg PO ACB [facility] Last Admin: 11/19/17 08:00 Dose: Not Given Glucagon (Glucagen Diagnostic Kit) 0 mg IM STAT PRN; Protocol PRN Reason: Hypoglycemia Protocol Insulin Human Regular (Novolin R) 0 unit SC ACHS [place] PRN Reason: Protocol Last Admin: 11/19/17 22:20 Dose: Not Given Oxycodone/Acetaminophen (Percocet 5/325 Mg Tab) 1 tab PO Q4H PRN PRN Reason: Pain, moderate (4-7) Stop: 11/22/17 10:28 Tamsulosin HCl (Flomax) 0.4 mg PO DAILY [facility] Last Admin: 11/19/17 10:00 Dose: Not Given - Labs Labs: 11/19/17 06:37 11/19/17 06:37 PT 11.8 SECONDS (9.7-12.2) 11/10/17 08:23 INR 1.1 11/10/17 08:23 APTT 33 SECONDS (21-34) 11/04/17 02:01 - Constitutional Appears: Non-toxic, No Acute Distress - Head Exam Head Exam: ATRAUMATIC, NORMOCEPHALIC - Eye Exam Eye Exam: EOMI, Normal appearance - ENT Exam ENT Exam: Mucous Membranes Moist - Respiratory Exam Respiratory Exam: NORMAL BREATHING PATTERN - Cardiovascular Exam Cardiovascular Exam: +S1, +S2 - GI/Abdominal Exam GI & Abdominal Exam: Soft. absent: Guarding, Rigid, Tenderness - Extremities Exam Additional comments: Brachiocephalic with strong pulse - Psychiatric Exam Psychiatric exam: Normal Affect, Normal Mood Assessment and Plan - Assessment and Plan (Free Text) Assessment: 62M with ESRD POD! s/p brachiocephalic AVF formation and doing well Pt clear from surgical standpoint Dressing maybe removed in 3 days, will remove sutures in 10-14 days D/W Dr. Jeffery Bryant [phone]
[2017-11-20] MEDS: (Novolin R) Insulin Human Regular 100 units/ml vial SC SCH ×4 (09:05→21:48)
[2017-11-20 09:16] LABS: BASO # 0.1 K/uL (0.0-0.2); BASO % 0.8 % (0.0-2.0); EOS # 0.3 K/uL (0.0-0.7); EOS % 2.6 % (0.0-4.0); HEMOGLOBIN 9.2 g/dL (12.0-18.0); LYMPH # 1.4 K/uL (1.0-4.3); LYMPH % 12.6 % (20.0-40.0); MEAN CELL VOLUME 88.4 fL (80.0-94.0); MEAN CORPUSCULAR HEMOGLOBIN 29.9 pg (27.0-31.0); MEAN CORPUSCULAR HGB CONC 33.8 g/dL (33.0-37.0); MEAN PLATELET VOLUME 8.3 fL (7.2-11.7); NEUT # 8.5 K/uL (1.8-7.0); RBC 3.09 Mil/uL (4.40-5.90); RED CELL DISTRIBUTION WIDTH 12.7 % (11.5-14.5); WHITE BLOOD COUNT 11.3 K/uL (4.8-10.8)
[2017-11-20] MEDS: Epoetin Alfa 10,000 unit/ml Dialysis IV SCH (10:36)
[2017-11-20] MEDS: Ferric Sodium Gluconat Complex 62.5 mg/5 ml Vial IVPB SCH (10:39)
[2017-11-20 11:34] LABS: ALB/GLOB RATIO 1.2 (1.0-2.1); ALBUMIN 4.1 g/dL (3.5-5.0)
--- NOTE | 2017-11-20 13:24 | CP.PCM.PN ---
Subjective - Date & Time of Evaluation Date of Evaluation: 11/20/17 Time of Evaluation: 13:22 - Subjective Subjective: new AV fistula placed left UE s/p dialysis now- UF 1500ml HTN controlled has good bruit in new AV fistula no complaints Objective - Vital Signs/Intake and Output Vital Signs (last 24 hours): Temp Pulse Resp BP Pulse Ox 98 F 90 18 129/69 98 11/20/17 12:30 11/20/17 12:30 11/20/17 12:30 11/20/17 12:30 11/20/17 12:30 Intake and Output: 11/20/17 11/20/17 06:59 18:59 Intake Total 300 Balance 300 - Medications Medications: Current Medications Acetaminophen (Tylenol 325mg Tab) 650 mg PO Q6 PRN PRN Reason: Pain, Mild (1-3) Last Admin: 11/18/17 08:25 Dose: 650 mg Calcitriol (Rocaltrol) 0.5 mcg PO DAILY [facility] Last Admin: 11/20/17 09:00 Dose: 0.5 mcg Calcium Acetate (Phoslo) 667 mg PO TIDCC [facility] Last Admin: 11/20/17 09:00 Dose: 667 mg Carvedilol (Coreg) 6.25 mg PO BID [facility] Last Admin: 11/19/17 18:14 Dose: 6.25 mg Dextrose (Dextrose 50% Inj) 0 ml IV STAT PRN; Protocol PRN Reason: Hypoglycemia Protocol Dextrose (Glutose 15) 0 gm PO ONCE PRN; Protocol PRN Reason: Hypoglycemia Protocol Epoetin Rodrigo (Procrit) 10,000 unit IV MWF [facility] Last Admin: 11/20/17 10:36 Dose: 10,000 unit Famotidine (Pepcid) 20 mg PO DAILY [facility] Last Admin: 11/20/17 09:01 Dose: 20 mg Ferric Sodium Gluconate Complex (Ferrlecit) 125 mg IVPB DAILY [facility] Stop: 11/27/17 10:01 Last Admin: 11/20/17 10:39 Dose: 125 mg Gabapentin (Neurontin) 300 mg PO MWF [facility] Last Admin: 11/20/17 09:01 Dose: 300 mg Glipizide (Glucotrol) 5 mg PO ACB [facility] Last Admin: 11/20/17 09:08 Dose: 5 mg Glucagon (Glucagen Diagnostic Kit) 0 mg IM STAT PRN; Protocol PRN Reason: Hypoglycemia Protocol Insulin Human Regular (Novolin R) 0 unit SC ACHS [place] PRN Reason: Protocol Last Admin: 11/20/17 09:05 Dose: 2 units Oxycodone/Acetaminophen (Percocet 5/325 Mg Tab) 1 tab PO Q4H PRN PRN Reason: Pain, moderate (4-7) Stop: 11/22/17 10:28 Tamsulosin HCl (Flomax) 0.4 mg PO DAILY [facility] Last Admin: 11/20/17 09:07 Dose: 0.4 mg - Labs Labs: 11/20/17 09:00 11/20/17 09:00 PT 11.8 SECONDS (9.7-12.2) 11/10/17 08:23 INR 1.1 11/10/17 08:23 APTT 33 SECONDS (21-34) 11/04/17 02:01 - Constitutional Appears: No Acute Distress, Chronically Ill - Head Exam Head Exam: ATRAUMATIC, NORMAL INSPECTION - Eye Exam Eye Exam: EOMI, Normal appearance - Neck Exam Neck Exam: Normal Inspection. absent: Tenderness - Respiratory Exam Respiratory Exam: Clear to Ausculation Bilateral, NORMAL BREATHING PATTERN - Cardiovascular Exam Cardiovascular Exam: REGULAR RHYTHM, +S1 - GI/Abdominal Exam GI & Abdominal Exam: Soft. absent: Tenderness - Extremities Exam Extremities Exam: Normal Inspection. absent: Tenderness - Neurological Exam Neurological Exam: Alert, CN II-XII Intact - Skin Skin Exam: Dry, Warm Assessment and Plan (1) CAD (coronary artery disease) Status: Acute (2) ESRD (end stage renal disease) Status: Acute (3) Type 2 diabetes mellitus with diabetic nephropathy Status: Acute (4) CHF (congestive heart failure) Status: Acute - Assessment and Plan (Free Text) Plan: dialysis MWF same BP meds continue ESAs needs outpt dialysis placement
--- NOTE | 2017-11-21 04:31 | CP.PCM.PN ---
<Bhavani Mendez - Last Filed: 11/21/17 04:28> Subjective - Date & Time of Evaluation Date of Evaluation: 11/21/17 Time of Evaluation: 04:28 - Subjective Subjective: PGY-1 Medicine Progress Note for Dr. Damon Patient was seen and examined today OOB in chair in no acute distress. Nurse reports no overnight events. Patient complains of no new problems. States the phlebitis on his right arm is starting to be more sore when warm compresses aren 't applied regularly. Denies chest pain, shortness of breath, abdominal pain, nausea, vomiting, constipation, diarrhea. Objective - Vital Signs/Intake and Output Vital Signs (last 24 hours): Temp Pulse Resp BP Pulse Ox 98 F 90 20 135/66 97 11/21/17 04:25 11/21/17 04:25 11/21/17 04:25 11/21/17 04:25 11/21/17 04:25 - Medications Medications: Current Medications Acetaminophen (Tylenol 325mg Tab) 650 mg PO Q6 PRN PRN Reason: Pain, Mild (1-3) Last Admin: 11/18/17 08:25 Dose: 650 mg Calcitriol (Rocaltrol) 0.5 mcg PO DAILY [facility] Last Admin: 11/20/17 09:00 Dose: 0.5 mcg Calcium Acetate (Phoslo) 667 mg PO TIDCC [facility] Last Admin: 11/20/17 21:40 Dose: 667 mg Carvedilol (Coreg) 6.25 mg PO BID [facility] Last Admin: 11/20/17 21:40 Dose: 6.25 mg Dextrose (Dextrose 50% Inj) 0 ml IV STAT PRN; Protocol PRN Reason: Hypoglycemia Protocol Dextrose (Glutose 15) 0 gm PO ONCE PRN; Protocol PRN Reason: Hypoglycemia Protocol Epoetin Rodrigo (Procrit) 10,000 unit IV MWF [facility] Last Admin: 11/20/17 10:36 Dose: 10,000 unit Famotidine (Pepcid) 20 mg PO DAILY [facility] Last Admin: 11/20/17 09:01 Dose: 20 mg Ferric Sodium Gluconate Complex (Ferrlecit) 125 mg IVPB DAILY [facility] Stop: 11/27/17 10:01 Last Admin: 11/20/17 10:39 Dose: 125 mg Gabapentin (Neurontin) 300 mg PO MWF [facility] Last Admin: 11/20/17 09:01 Dose: 300 mg Glipizide (Glucotrol) 5 mg PO ACB [facility] Last Admin: 11/20/17 09:08 Dose: 5 mg Glucagon (Glucagen Diagnostic Kit) 0 mg IM STAT PRN; Protocol PRN Reason: Hypoglycemia Protocol Heparin Sodium (Porcine) (Heparin) 5,000 units SC Q8 [facility] Last Admin: 11/21/17 00:29 Dose: 5,000 units Insulin Human Regular (Novolin R) 0 unit SC ACHS [place] PRN Reason: Protocol Last Admin: 11/20/17 21:48 Dose: Not Given Oxycodone/Acetaminophen (Percocet 5/325 Mg Tab) 1 tab PO Q4H PRN PRN Reason: Pain, moderate (4-7) Stop: 11/22/17 10:28 Last Admin: 11/20/17 21:40 Dose: 1 tab Rosuvastatin Calcium (Crestor) 5 mg PO HS [facility] Last Admin: 11/21/17 00:29 Dose: 5 mg Tamsulosin HCl (Flomax) 0.4 mg PO DAILY [facility] Last Admin: 11/20/17 09:07 Dose: 0.4 mg - Labs Labs: 11/20/17 09:00 11/20/17 09:00 PT 11.8 SECONDS (9.7-12.2) 11/10/17 08:23 INR 1.1 11/10/17 08:23 APTT 33 SECONDS (21-34) 11/04/17 02:01 - Constitutional Appears: Non-toxic, No Acute Distress - Head Exam Head Exam: ATRAUMATIC, NORMOCEPHALIC - Eye Exam Eye Exam: EOMI, Normal appearance - ENT Exam ENT Exam: Mucous Membranes Moist, Normal Exam - Respiratory Exam Respiratory Exam: Clear to Ausculation Bilateral, NORMAL BREATHING PATTERN. absent: Rales, Rhonchi, Wheezes - Cardiovascular Exam Cardiovascular Exam: REGULAR RHYTHM, +S1, +S2. absent: Gallop, Rubs, Murmur - GI/Abdominal Exam GI & Abdominal Exam: Soft, Normal Bowel Sounds. absent: Tenderness - Extremities Exam Additional comments: RUE: edema over right forearm with mild tenderness. Warm to touch, contained within erythematous area LUE: left brachiocephalic AV fistula in place, palpable thrill. bandage over left snuffbox: c/d/i bilateral LE: no calf tenderness, no edema peripheral pulses present (radial, PT, DP) - Neurological Exam Neurological Exam: Alert, Awake, Oriented x3 - Psychiatric Exam Psychiatric exam: Normal Affect, Normal Mood - Skin Skin Exam: Dry, Intact, Normal Color, Warm Assessment and Plan - Assessment and Plan (Free Text) Plan: ESRD CKD Stage 5 * Nephrology (Dr. Davis) on the case help appreciated * Vascular surgery (Dr. Gil) on the case help appreciated * dialysis MWF, received dialysis yesterday * S/P Right Chest Permacath placement by Dr. Gil 11/05/17 * AVF placement left snuffbox on 11/10/17, no longer functioning * AVF placed in left brachiocephalic on 11/19/17 * As per surgery, dressing may be removed in 3 days, and sutures to be removed by Surgery in 10-14 days. * Postoperative telemetry monitoring * Per cardiology, can discontinue telemetry if repeat EKG shows no changes post- op * Model Maker Apprentice Smita and Soda Clerk Julia are aware that patient needs outpatient HD placement * Calcitriol 0.5 mcg PO 1x/day * Phoslo 667 mg PO TIDCC * Monitor Cr R arm phlebitis * Continue to apply warm compresses * Tylenol for pain * Keep arm elevated * RUE US- negative * Consider short term Prednisone taper if warm compresses do not work SOB secondary to Pulmonary Edema secondary to ESRD-resolved * Symptomatically improved after 100 mg total of Lasix on 11/04/17 and Metalozone at the time of admission * resolved Hx Elevated Troponin * Likely secondary to ESRD * continue to monitor for symptoms Hx CAD with Angioplasty in 2012 and Hx of HFpEF * Cardiology Dr. Smith on board and cleared patient for planned AVF * Coreg 6.25 by mouth BID * Crestor 5 mg PO HS * Lasix and Metolazone were discontinued 11/05/17 * ProBNP upon admission 2910 * Echo 04/2017: LVEF 50-55%, mild concentric LVH, Grade I abnormal relaxation pattern, aortic valve mildly sclerotic DM 2 requiring Insulin * HgBA1C is 7.1 * home medications: Insulin Degludec 45 units SC 1x/day and Glipizide 5 mg PO 1x /day at home * Currently on RISS and hold Glipizide 5 mg PO 1x/day and blood glucose are under control * Accu-Cheks Q before meals daily at bedtime * hypoglycemic protocol HTN * Norvasc discontinued by nephrology noted for low blood pressure * Coreg to 6.25 mg by mouth twice a day * blood pressure controlled * Patient is dialysis Thursday Diabetic Neuropathy * Involving the toes and feet bilaterally * Gabapentin 300 mg PO 1x/day BPH * Flomax 0.4 mg PO 1x/day Anemia likely secondary to ESRD * H&H stable. Continue to monitor * 11/06/17- hemoglobin downtrending. Dr. Davis to order iron studies. EPO MWF. * EPO 01239 units MWF, as per nephro Prophylaxis * Resumed Heparin 5,000 Units SC Q8H post procedure * ICE Pack to the Right Lateral Ankle Q6H * Pepcid 20 mg once a day * PT/OT discharge rec: home with cane Plan: Patient pending outpatient hemodialysis treatment. <Bjorn Damon - Last Filed: 11/21/17 19:48> Objective - Vital Signs/Intake and Output Vital Signs (last 24 hours): Temp Pulse Resp BP Pulse Ox 98.4 F 94 H 20 130/69 99 11/21/17 15:00 11/21/17 15:00 11/21/17 15:00 11/21/17 15:00 11/21/17 15:00 - Medications Medications: Current Medications Acetaminophen (Tylenol 325mg Tab) 650 mg PO Q6 PRN PRN Reason: Pain, Mild (1-3) Last Admin: 11/18/17 08:25 Dose: 650 mg Calcitriol (Rocaltrol) 0.5 mcg PO DAILY [facility] Last Admin: 11/21/17 10:22 Dose: 0.5 mcg Calcium Acetate (Phoslo) 667 mg PO TIDCC [facility] Last Admin: 11/21/17 18:10 Dose: 667 mg Carvedilol (Coreg) 6.25 mg PO BID [facility] Last Admin: 11/21/17 18:10 Dose: 6.25 mg Dextrose (Dextrose 50% Inj) 0 ml IV STAT PRN; Protocol PRN Reason: Hypoglycemia Protocol Dextrose (Glutose 15) 0 gm PO ONCE PRN; Protocol PRN Reason: Hypoglycemia Protocol Epoetin Rodrigo (Procrit) 10,000 unit IV MWF [facility] Last Admin: 11/20/17 10:36 Dose: 10,000 unit Famotidine (Pepcid) 20 mg PO DAILY [facility] Last Admin: 11/21/17 10:26 Dose: 20 mg Ferric Sodium Gluconate Complex (Ferrlecit) 125 mg IVPB DAILY [facility] Stop: 11/27/17 10:01 Last Admin: 11/21/17 10:20 Dose: 125 mg Gabapentin (Neurontin) 300 mg PO MWF [facility] Last Admin: 11/20/17 09:01 Dose: 300 mg Glipizide (Glucotrol) 5 mg PO ACB [facility] Last Admin: 11/21/17 10:24 Dose: 5 mg Glucagon (Glucagen Diagnostic Kit) 0 mg IM STAT PRN; Protocol PRN Reason: Hypoglycemia Protocol Heparin Sodium (Porcine) (Heparin) 5,000 units SC Q8 [facility] Last Admin: 11/21/17 13:08 Dose: 5,000 units Insulin Human Regular (Novolin R) 0 unit SC ACHS [place] PRN Reason: Protocol Last Admin: 11/21/17 12:44 Dose: 4 units Oxycodone/Acetaminophen (Percocet 5/325 Mg Tab) 1 tab PO Q4H PRN PRN Reason: Pain, moderate (4-7) Stop: 11/22/17 10:28 Last Admin: 11/20/17 21:40 Dose: 1 tab Rosuvastatin Calcium (Crestor) 5 mg PO HS [facility] Last Admin: 11/21/17 00:29 Dose: 5 mg Tamsulosin HCl (Flomax) 0.4 mg PO DAILY [facility] Last Admin: 11/21/17 10:21 Dose: 0.4 mg - Labs Labs: 11/21/17 06:55 11/21/17 06:55 PT 11.8 SECONDS (9.7-12.2) 11/10/17 08:23 INR 1.1 11/10/17 08:23 APTT 33 SECONDS (21-34) 11/04/17 02:01 Attending/Attestation - Attestation I have personally seen and examined this patient.: Yes I have fully participated in the care of the patient.: Yes I have reviewed all pertinent clinical information, including history, physical exam and plan: Yes Notes (Text): 11/21/17 19:45 Hospitalist Progress Note Patient was seen and examined at 9:15 AM Currently upon FULL ROS: Complains of Right Lateral Arm pain by the antecubital fossa superiorly and inferiorly: states that the warm compresses are helping and he has been performing them himself NO chest pain NO SOB/Cough NO abdominal pain NO n/v/d/c: normal bowel movement this morning NO burning pain with urination NO dysphagia/odynophagia NO lightheadedenss/dizziness NO paresthesias NO new changes in visioin NO new changes in hearing NO headache Exam: General: AAOX3, NAD HEENT: NCA, EOMI, PERRLA, NO cervical/supraclavicular/submandibular lymphadenopathy, NO pharyngeal erythema/exudate, Nasal Turbinates are nonerythematous/nonedematous, Oral Mucosa is moist Cardio: NS1 and NS2, NO M/R/G Resp: CTA B/L, NO R/R/W Right chest permacath GI: BSx4, Soft, NT, NO HSM, NO guarding/rebound tenderness Ext: Pulses are strong and equal in bilateral UE and LE, NO edema noted, capillary refills is 2 seconds on all toes, Left Anatomic Snuff Box AVF without thrill, Left Upper Arm AVF with (+) Thrill, Right Lateral Arm by the antecubital fossa there is some tenderness to palpation and a palpable cord (no signs of cellulitis) Neuro: CN II through XII are grossly intact Assessments: 1). SOB secondary to Pulmonary Edema secondary to ESRD Symptomatically improved after 100 mg total of Lasix on 11/04/17 and Metalozone at the time of admission 2). ESRD CKD Stage 5 on HD MWF via Right Chest Permacath and awaiting maturity of Left Arm AVF S/P Right Chest Permacath placement by Dr. Gil 11/05/17 Had Left Anatomic Snuff Box AVF placed however this no longer had a thrill therefore Left Upper Arm AVF performed 11/19/17. Model Maker Apprentice Smita and Soda Clerk Julia are aware that patient needs outpatient HD placement Nephrology Dr. Davis Vascular Surgery Dr. Gil Calcitriol 0.5 mcg PO 1x/day Phoslo 667 mg PO TID 3). Hx Elevated Troponin Likely secondary to ESRD 4). Hx CAD with Angioplasty in 2012 and Hx of HFpEF Coreg 12.5 mg PO 1x/day Crestor 5 mg PO HS Lasix and Metolazone were discontinued 11/05/17 ProBNP upon admission 0 Echo 04/2017: LVEF 50-55%, mild concentric LVH, Grade I abnormal relaxation pattern, aortic valve mildly sclerotic Cardiology Dr. Smith 5). DM 2 requiring Insulin HgBA1C is 7.1 On Insulin Degludec 45 units SC 1x/day and Glipizide 5 mg PO 1x/day at home Currently on RISS and Glipizide 5 mg PO 1x/day and blood glucose are under control 6). HTN Coreg 12.5 mg PO 1x/day NO longer on Norvasc 10 mg PO 1x/day 7). Diabetic Neuropathy Involving the toes and feet bilaterally Gabapentin 300 mg PO 1x/day 8). BPH Flomax 0.4 mg PO 1x/day 9). Anemia likely secondary to ESRD Ferric Gluconate 125 mg IV 1x/day through 11/27/17 Procrit 10,000 IV MWF 10). Right Lateral Mid Arm Phlebitis Likely secondary to IV access infiltration Venous Doppler was negative Warm compresses help however this is not being consistently provided as per patient Medicine Team: wet a towel with warm water, microwave the towel for 30 seconds, place the microwaved towel in plastic specimen bag, apply carefully to the right lateral mid arm for 30 minutes every 4 to 6 hours We will consider providing short Prednisone Taper should the warm compresses not resolve this issue 11). Prophylaxis SCDs Patient is out of bed to chair and has been encouraged to walk throughout the day and has been observed doing so Pepcid 20 mg PO 1x/day Bjorn Damon D.O.
[2017-11-21 07:17] LABS: BASO % 0.1 % (0.0-2.0); EOS % 0.1 % (0.0-4.0); HEMOGLOBIN 10.4 g/dL (12.0-18.0); LYMPH % 9.6 % (20.0-40.0); MEAN CORPUSCULAR HEMOGLOBIN 27.5 pg (27.0-31.0); MEAN CORPUSCULAR HGB CONC 34.1 g/dL (33.0-37.0); MEAN PLATELET VOLUME 8.8 fL (7.2-11.7); MONO # 0.8 K/uL (0.0-0.8); MONO % 7.8 % (0.0-10.0); NEUT # 8.9 K/uL (1.8-7.0); NEUT % 82.4 % (50.0-75.0); NRBC % 0.3 % (0.0-2.0); PLATELET COUNT 336 K/uL (130-400); RBC 3.77 Mil/uL (4.40-5.90); RED CELL DISTRIBUTION WIDTH 14.3 % (11.5-14.5); WHITE BLOOD COUNT 10.8 K/uL (4.8-10.8)
[2017-11-21 07:36] LABS: MEAN CELL VOLUME 80.6 fL (80.0-94.0)
[2017-11-21] MEDS: (Novolin R) Insulin Human Regular 100 units/ml vial SC SCH ×4 (08:00→23:03)
[2017-11-21 08:06] LABS: ALB/GLOB RATIO 1.1 (1.0-2.1); ALBUMIN 2.9 g/dL (3.5-5.0); ALT/SGPT 32 U/L (21-72); AST/SGOT 21 U/L (17-59); BLOOD UREA NITROGEN 22 mg/dL (9-20); CALCIUM 8.6 mg/dl (8.6-10.4); GFR AFRICAN-AMERICAN > 60; GFR NON-AFRICAN AMERICAN > 60
[2017-11-21 09:28] LABS: EOSINOPHIL 1 % (0-4); LYMPHOCYTE 10 % (20-40); MONOCYTE 8 % (0-10); NEUTROPHIL 81 % (50-75); PLATELET ESTIMATE NORMAL (NORMAL); TOTAL CELLS COUNTED 100
[2017-11-21 09:29] LABS: ANISOCYTOSIS SLIGHT; HYPOCHROMIC SLIGHT; POLYCHROMIC SLIGHT
[2017-11-21 09:32] LABS: OVALOCYTES SLIGHT; POIKILOCYTOSIS SLIGHT
--- NOTE | 2017-11-21 10:14 | CP.PCM.PN ---
Subjective - Date & Time of Evaluation Date of Evaluation: 11/21/17 Time of Evaluation: 10:12 - Subjective Subjective: in chair, comfortable no complaints no CP or SOB afebrile ROS- as per HPI, other than that 10 point ROS negative Objective - Vital Signs/Intake and Output Vital Signs (last 24 hours): Temp Pulse Resp BP Pulse Ox 98.6 F 90 20 113/63 96 11/21/17 08:00 11/21/17 08:00 11/21/17 08:00 11/21/17 08:00 11/21/17 08:00 Intake and Output: 11/21/17 11/21/17 06:59 18:59 Intake Total 240 Balance 240 - Medications Medications: Current Medications Acetaminophen (Tylenol 325mg Tab) 650 mg PO Q6 PRN PRN Reason: Pain, Mild (1-3) Last Admin: 11/18/17 08:25 Dose: 650 mg Calcitriol (Rocaltrol) 0.5 mcg PO DAILY [facility] Last Admin: 11/20/17 09:00 Dose: 0.5 mcg Calcium Acetate (Phoslo) 667 mg PO TIDCC [facility] Last Admin: 11/20/17 21:40 Dose: 667 mg Carvedilol (Coreg) 6.25 mg PO BID [facility] Last Admin: 11/20/17 21:40 Dose: 6.25 mg Dextrose (Dextrose 50% Inj) 0 ml IV STAT PRN; Protocol PRN Reason: Hypoglycemia Protocol Dextrose (Glutose 15) 0 gm PO ONCE PRN; Protocol PRN Reason: Hypoglycemia Protocol Epoetin Rodrigo (Procrit) 10,000 [place] [facility] Admin: 11/20/17 10:36 Dose: 10,000 unit Famotidine (Pepcid) 20 mg PO DAILY [facility] Last Admin: 11/20/17 09:01 Dose: 20 mg Ferric Sodium Gluconate Complex (Ferrlecit) 125 mg IVPB DAILY [facility] Stop: 11/27/17 10:01 Last Admin: 11/20/17 10:39 Dose: 125 mg Gabapentin (Neurontin) 300 mg PO MWF [facility] Last Admin: 11/20/17 09:01 Dose: 300 mg Glipizide (Glucotrol) 5 mg PO ACB [facility] Last Admin: 11/20/17 09:08 Dose: 5 mg Glucagon (Glucagen Diagnostic Kit) 0 mg IM STAT PRN; Protocol PRN Reason: Hypoglycemia Protocol Heparin Sodium (Porcine) (Heparin) 5,000 units SC Q8 [facility] Last Admin: 11/21/17 06:59 Dose: 5,000 units Insulin Human Regular (Novolin R) 0 unit SC ACHS [place] PRN Reason: Protocol Last Admin: 11/21/17 08:00 Dose: Not Given Oxycodone/Acetaminophen (Percocet 5/325 Mg Tab) 1 tab PO Q4H PRN PRN Reason: Pain, moderate (4-7) Stop: 11/22/17 10:28 Last Admin: 11/20/17 21:40 Dose: 1 tab Rosuvastatin Calcium (Crestor) 5 mg PO HS [facility] Last Admin: 11/21/17 00:29 Dose: 5 mg Tamsulosin HCl (Flomax) 0.4 mg PO DAILY [facility] Last Admin: 11/20/17 09:07 Dose: 0.4 mg - Labs Labs: 11/21/17 06:55 11/21/17 06:55 PT 11.8 SECONDS (9.7-12.2) 11/10/17 08:23 INR 1.1 11/10/17 08:23 APTT 33 SECONDS (21-34) 11/04/17 02:01 - Constitutional Appears: Well, Non-toxic - Head Exam Head Exam: ATRAUMATIC, NORMOCEPHALIC - Eye Exam Eye Exam: EOMI, PERRL - ENT Exam ENT Exam: Mucous Membranes Moist - Neck Exam Neck Exam: Full ROM. absent: Lymphadenopathy - Respiratory Exam Respiratory Exam: Clear to Ausculation Bilateral. absent: Rhonchi, Wheezes - Cardiovascular Exam Cardiovascular Exam: REGULAR RHYTHM, +S1, +S2 - GI/Abdominal Exam GI & Abdominal Exam: Soft. absent: Tenderness - Extremities Exam Extremities Exam: Full ROM. absent: Pedal Edema Additional comments: left arm AV fistula- + bruit - Neurological Exam Neurological Exam: Alert, Awake, Oriented x3 - Psychiatric Exam Psychiatric exam: Normal Affect, Normal Mood Assessment and Plan (1) CAD (coronary artery disease) Status: Acute (2) CHF (congestive heart failure) Status: Acute (3) ESRD (end stage renal disease) Status: Acute (4) Type 2 diabetes mellitus with diabetic nephropathy Status: Acute - Assessment and Plan (Free Text) Plan: maintain HD MWF bp controlled next HD thursday await out pt HD unit placement
[2017-11-21] MEDS: Ferric Sodium Gluconat Complex 62.5 mg/5 ml Vial IVPB SCH (10:20)
--- NOTE | 2017-11-22 02:22 | CP.PCM.PN ---
<Bhavani Mendez - Last Filed: 11/22/17 02:19> Subjective - Date & Time of Evaluation Date of Evaluation: 11/22/17 Time of Evaluation: 02:19 - Subjective Subjective: PGY-1 Medicine Progress Note for Dr. Damon Patient was seen and examined today at bedside in no acute distress. Nurse reports no overnight events. Patient complains of no new problems. Patient states the warm compresses help with the arm soreness. Denies chest pain, shortness of breath, abdominal pain, nausea, vomiting, constipation, diarrhea. Objective - Vital Signs/Intake and Output Vital Signs (last 24 hours): Temp Pulse Resp BP Pulse Ox 98.5 F 97 H 20 159/68 H 96 11/21/17 23:10 11/21/17 23:10 11/21/17 23:10 11/21/17 23:10 11/21/17 23:10 - Medications Medications: Current Medications Acetaminophen (Tylenol 325mg Tab) 650 mg PO Q6 PRN PRN Reason: Pain, Mild (1-3) Last Admin: 11/18/17 08:25 Dose: 650 mg Calcitriol (Rocaltrol) 0.5 mcg PO DAILY [facility] Last Admin: 11/21/17 10:22 Dose: 0.5 mcg Calcium Acetate (Phoslo) 667 mg PO TIDCC [facility] Last Admin: 11/21/17 18:10 Dose: 667 mg Carvedilol (Coreg) 6.25 mg PO BID [facility] Last Admin: 11/21/17 18:10 Dose: 6.25 mg Dextrose (Dextrose 50% Inj) 0 ml IV STAT PRN; Protocol PRN Reason: Hypoglycemia Protocol Dextrose (Glutose 15) 0 gm PO ONCE PRN; Protocol PRN Reason: Hypoglycemia Protocol Epoetin Rodrigo (Procrit) 10,000 unit IV MWF [facility] Last Admin: 11/20/17 10:36 Dose: 10,000 unit Famotidine (Pepcid) 20 mg PO DAILY [facility] Last Admin: 11/21/17 10:26 Dose: 20 mg Ferric Sodium Gluconate Complex (Ferrlecit) 125 mg IVPB DAILY [facility] Stop: 11/27/17 10:01 Last Admin: 11/21/17 10:20 Dose: 125 mg Gabapentin (Neurontin) 300 mg PO F [facility] Last Admin: 11/20/17 09:01 Dose: 300 mg Glipizide (Glucotrol) 5 mg PO ACB [facility] Last Admin: 11/21/17 10:24 Dose: 5 mg Glucagon (Glucagen Diagnostic Kit) 0 mg IM STAT PRN; Protocol PRN Reason: Hypoglycemia Protocol Heparin Sodium (Porcine) (Heparin) 5,000 units SC Q8 [facility] Last Admin: 11/21/17 22:59 Dose: 5,000 units Insulin Human Regular (Novolin R) 0 unit SC ACHS [facility] PRN Reason: Protocol Last Admin: 11/21/17 23:03 Dose: Not Given Oxycodone/Acetaminophen (Percocet 5/325 Mg Tab) 1 tab PO Q4H PRN PRN Reason: Pain, moderate (4-7) Stop: 11/22/17 10:28 Last Admin: 11/20/17 21:40 Dose: 1 tab Rosuvastatin Calcium (Crestor) 5 mg PO HS [facility] Last Admin: 11/21/17 22:59 Dose: 5 mg Tamsulosin HCl (Flomax) 0.4 mg PO DAILY [facility] Last Admin: 11/21/17 10:21 Dose: 0.4 mg - Labs Labs: 11/21/17 06:55 11/21/17 06:55 PT 11.8 SECONDS (9.7-12.2) 11/10/17 08:23 INR 1.1 11/10/17 08:23 APTT 33 SECONDS (21-34) 11/04/17 02:01 - Constitutional Appears: Non-toxic, No Acute Distress - Head Exam Head Exam: ATRAUMATIC, NORMOCEPHALIC - Eye Exam Eye Exam: EOMI, Normal appearance, PERRL - ENT Exam ENT Exam: Mucous Membranes Moist, Normal Exam - Respiratory Exam Respiratory Exam: Clear to Ausculation Bilateral, NORMAL BREATHING PATTERN. absent: Rales, Rhonchi, Wheezes - Cardiovascular Exam Cardiovascular Exam: REGULAR RHYTHM, +S1, +S2. absent: Gallop, Rubs, Murmur - GI/Abdominal Exam GI & Abdominal Exam: Soft, Normal Bowel Sounds. absent: Tenderness Additional comments: obese - Extremities Exam Extremities Exam: Full ROM, Normal Capillary Refill Additional comments: RUE: edema over right forearm with mild tenderness. Warm to touch, contained within erythematous area LUE: left brachiocephalic AV fistula in place, palpable thrill. bandage over left snuffbox: c/d/i bilateral LE: no calf tenderness, no edema peripheral pulses present (radial, PT, DP) - Neurological Exam Neurological Exam: Alert, Awake, Oriented x3 - Psychiatric Exam Psychiatric exam: Normal Affect, Normal Mood - Skin Skin Exam: Dry, Intact, Normal Color, Warm Assessment and Plan - Assessment and Plan (Free Text) Plan: ESRD CKD Stage 5 * Nephrology (Dr. Davis) on the case help appreciated * Vascular surgery (Dr. Gil) on the case help appreciated * dialysis MWF, received dialysis yesterday * S/P Right Chest Permacath placement by Dr. Gil 11/05/17 * AVF placement left snuffbox on 11/10/17, no longer functioning * AVF placed in left brachiocephalic on 11/19/17 * As per surgery, dressing may be removed in 3 days, and sutures to be removed by Surgery in 10-14 days. * Postoperative telemetry monitoring * Per cardiology, can discontinue telemetry if repeat EKG shows no changes post- op * Evening Sitter Smita and Step Down Specialist Julia are aware that patient needs outpatient HD placement * Calcitriol 0.5 mcg PO 1x/day * Phoslo 667 mg PO TIDCC * Monitor Cr R arm phlebitis * Continue to apply warm compresses * Tylenol for pain * Keep arm elevated * RUE US- negative * Consider short term Prednisone taper if warm compresses do not work SOB secondary to Pulmonary Edema secondary to ESRD-resolved * Symptomatically improved after 100 mg total of Lasix on 11/04/17 and Metalozone at the time of admission * resolved Hx Elevated Troponin * Likely secondary to ESRD * continue to monitor for symptoms Hx CAD with Angioplasty in 2012 and Hx of HFpEF * Cardiology Dr. Smith on board and cleared patient for planned AVF * Coreg 6.25 by mouth BID * Crestor 5 mg PO HS * Lasix and Metolazone were discontinued 11/05/17 * ProBNP upon admission 2910 * Echo 04/2017: LVEF 50-55%, mild concentric LVH, Grade I abnormal relaxation pattern, aortic valve mildly sclerotic DM 2 requiring Insulin * HgBA1C is 7.1 * home medications: Insulin Degludec 45 units SC 1x/day and Glipizide 5 mg PO 1x /day at home * Currently on RISS and hold Glipizide 5 mg PO 1x/day and blood glucose are under control * Accu-Cheks Q before meals daily at bedtime * hypoglycemic protocol HTN * Norvasc discontinued by nephrology noted for low blood pressure * Coreg to 6.25 mg by mouth twice a day * blood pressure controlled * Patient is dialysis Thursday Diabetic Neuropathy * Involving the toes and feet bilaterally * Gabapentin 300 mg PO 1x/day BPH * Flomax 0.4 mg PO 1x/day Anemia likely secondary to ESRD * H&H stable. Continue to monitor * 11/06/17- hemoglobin downtrending. Dr. Davis to order iron studies. EPO MWF. * EPO 51335 units MWF, as per nephro Prophylaxis * Resumed Heparin 5,000 Units SC Q8H post procedure * ICE Pack to the Right Lateral Ankle Q6H * Pepcid 20 mg once a day * PT/OT discharge rec: home with cane Plan: Patient pending outpatient hemodialysis treatment. <Bjorn Damon - Last Filed: 11/22/17 19:35> Objective - Vital Signs/Intake and Output Vital Signs (last 24 hours): Temp Pulse Resp BP Pulse Ox 98.1 F 90 20 148/70 97 11/22/17 15:00 11/22/17 15:00 11/22/17 15:00 11/22/17 15:00 11/22/17 15:00 - Medications Medications: Current Medications Acetaminophen (Tylenol 325mg Tab) 650 mg PO Q6 PRN PRN Reason: Pain, Mild (1-3) Last Admin: 11/18/17 08:25 Dose: 650 mg Calcitriol (Rocaltrol) 0.5 mcg PO DAILY [facility] Last Admin: 11/22/17 10:11 Dose: 0.5 mcg Calcium Acetate (Phoslo) 667 mg PO TIDCC [facility] Last Admin: 11/22/17 17:08 Dose: 667 mg Carvedilol (Coreg) 6.25 mg PO BID [facility] Last Admin: 11/22/17 17:08 Dose: 6.25 mg Dextrose (Dextrose 50% Inj) 0 ml IV STAT PRN; Protocol PRN Reason: Hypoglycemia Protocol Dextrose (Glutose 15) 0 gm PO ONCE PRN; Protocol PRN Reason: Hypoglycemia Protocol Epoetin Rodrigo (Procrit) 10,000 unit IV MWF [facility] Last Admin: 11/20/17 10:36 Dose: 10,000 unit Famotidine (Pepcid) 20 mg PO DAILY [facility] Last Admin: 11/22/17 10:12 Dose: 20 mg Ferric Sodium Gluconate Complex (Ferrlecit) 125 mg IVPB DAILY [facility] Stop: 11/27/17 10:01 Last Admin: 11/22/17 10:29 Dose: Not Given Gabapentin (Neurontin) 300 mg PO MWF [facility] Last Admin: 11/20/17 09:01 Dose: 300 mg Glipizide (Glucotrol) 5 mg PO ACB [facility] Last Admin: 11/22/17 10:09 Dose: 5 mg Glucagon (Glucagen Diagnostic Kit) 0 mg IM STAT PRN; Protocol PRN Reason: Hypoglycemia Protocol Insulin Human Regular (Novolin R) 0 unit SC ACHS [facility] PRN Reason: Protocol Last Admin: 11/22/17 17:08 Dose: 6 units Prednisone (Prednisone Tab) 40 mg PO ONCE ONE Stop: 11/23/17 10:01 Prednisone (Prednisone Tab) 30 mg PO ONCE ONE Stop: 11/24/17 10:01 Prednisone (Prednisone Tab) 20 mg PO ONCE ONE Stop: 11/25/17 10:01 Prednisone (Prednisone Tab) 10 mg PO ONCE ONE Stop: 11/26/17 10:01 Rosuvastatin Calcium (Crestor) 5 mg PO HS [facility] Last Admin: 11/21/17 22:59 Dose: 5 mg Tamsulosin HCl (Flomax) 0.4 mg PO DAILY [facility] Last Admin: 11/22/17 10:12 Dose: 0.4 mg - Labs Labs: 11/22/17 07:04 11/22/17 07:04 PT 11.8 SECONDS (9.7-12.2) 11/10/17 08:23 INR 1.1 11/10/17 08:23 APTT 33 SECONDS (21-34) 11/04/17 02:01 Attending/Attestation - Attestation I have personally seen and examined this patient.: Yes I have fully participated in the care of the patient.: Yes I have reviewed all pertinent clinical information, including history, physical exam and plan: Yes
[2017-11-22 07:14] LABS: BASO # 0.1 K/uL (0.0-0.2); BASO % 1.2 % (0.0-2.0); EOS # 0.6 K/uL (0.0-0.7); EOS % 4.9 % (0.0-4.0); HEMOGLOBIN 9.7 g/dL (12.0-18.0); LYMPH # 1.9 K/uL (1.0-4.3); LYMPH % 16.2 % (20.0-40.0); MEAN CORPUSCULAR HEMOGLOBIN 30.7 pg (27.0-31.0); MEAN CORPUSCULAR HGB CONC 34.6 g/dL (33.0-37.0); MEAN PLATELET VOLUME 8.1 fL (7.2-11.7); MONO % 8.6 % (0.0-10.0); NEUT % 69.1 % (50.0-75.0); RBC 3.16 Mil/uL (4.40-5.90); RED CELL DISTRIBUTION WIDTH 12.6 % (11.5-14.5); WHITE BLOOD COUNT 11.5 K/uL (4.8-10.8)
[2017-11-22 07:20] LABS: MEAN CELL VOLUME 88.6 fL (80.0-94.0)
[2017-11-22] MEDS: (Novolin R) Insulin Human Regular 100 units/ml vial SC SCH ×5 (08:00→21:24)
[2017-11-22 08:01] LABS: ALB/GLOB RATIO 1.2 (1.0-2.1); CALCIUM 9.5 mg/dl (8.6-10.4)
--- NOTE | 2017-11-22 09:21 | CP.PCM.PN ---
Subjective - Date & Time of Evaluation Date of Evaluation: 11/22/17 Time of Evaluation: 09:00 - Subjective Subjective: Hospitalist Progress Note Patient was seen and examined at 9:00 AM 11/22/17 652 A Currently upon FULL ROS: Complains of Right Lateral Arm pain by the antecubital fossa superiorly and inferiorly: this morning he states that the warm compresses are not helping even though he has been performing the warm compresses every 4 to 6 hours NO chest pain NO SOB/Cough NO abdominal pain NO n/v/d/c: normal bowel movement this morning NO burning pain with urination NO dysphagia/odynophagia NO lightheadedenss/dizziness NO paresthesias NO new changes in visioin NO new changes in hearing NO headache Exam: General: AAOX3, NAD HEENT: NCA, EOMI, PERRLA, NO cervical/supraclavicular/submandibular lymphadenopathy, NO pharyngeal erythema/exudate, Nasal Turbinates are nonerythematous/nonedematous, Oral Mucosa is moist Cardio: NS1 and NS2, NO M/R/G Resp: CTA B/L, NO R/R/W Right chest permacath GI: BSx4, Soft, NT, NO HSM, NO guarding/rebound tenderness Ext: Pulses are strong and equal in bilateral UE and LE, NO edema note in the Left Arm/Left Leg/Right Leg, capillary refills is 2 seconds on all toes, Left Anatomic Snuff Box AVF without thrill, Left Upper Arm AVF with (+) Thrill, Right Lateral Upper Arm superior to the antecubital fossa there is some tenderness to palpation and Right Lateral Lower Arm inferior to the antecubital raj there is also some tenderness to palpation and a palpable cord (no signs of cellulitis), the right hand also appears to be edematous when compared to the left hand Neuro: CN II through XII are grossly intact Assessments: 1). SOB secondary to Pulmonary Edema secondary to ESRD Symptomatically improved after 100 mg total of Lasix on 11/04/17 and Metalozone at the time of admission 2). ESRD CKD Stage 5 on HD MWF via Right Chest Permacath and awaiting maturity of Left Arm AVF S/P Right Chest Permacath placement by Dr. Gil 11/05/17 Had Left Anatomic Snuff Box AVF placed however this no longer had a thrill therefore Left Upper Arm AVF performed 11/19/17. Crime Prevention Worker Smita and Hydraulic Corrugating Machine Operator Julia are aware that patient needs outpatient HD placement Nephrology Dr. Davis Vascular Surgery Dr. Gil Calcitriol 0.5 mcg PO 1x/day Phoslo 667 mg PO TID 3). Hx Elevated Troponin Likely secondary to ESRD 4). Hx CAD with Angioplasty in 2012 and Hx of HFpEF Coreg 12.5 mg PO 1x/day Crestor 5 mg PO HS Lasix and Metolazone were discontinued 11/05/17 ProBNP upon admission 0 Echo 04/2017: LVEF 50-55%, mild concentric LVH, Grade I abnormal relaxation pattern, aortic valve mildly sclerotic Cardiology Dr. Smith 5). DM 2 requiring Insulin HgBA1C is 7.1 On Insulin Degludec 45 units SC 1x/day and Glipizide 5 mg PO 1x/day at home Currently on RISS and Glipizide 5 mg PO 1x/day ACB and blood glucose are under control Keep any eye on the Glucose while patient on Prednisone taper (see Assessment # 10 below) 6). HTN Coreg 12.5 mg PO 1x/day NO longer on Norvasc 10 mg PO 1x/day 7). Diabetic Neuropathy Involving the toes and feet bilaterally Gabapentin 300 mg PO 1x/day MWF 8). BPH Flomax 0.4 mg PO 1x/day 9). Anemia likely secondary to ESRD Ferric Gluconate 125 mg IV 1x/day through 11/27/17 Procrit 10,000 IV MWF 10). Right Arm Phlebitis Likely secondary to IV access infiltration Venous Doppler was negative Warm compresses help however this is not being consistently provided as per patient Medicine Team: wet a towel with warm water, microwave the towel for 30 seconds, place the microwaved towel in plastic specimen bag, apply carefully to the right lateral mid arm for 30 minutes every 4 to 6 hours Prednisone Taper started 11/22/17 through 11/26/17: 50--> 40--> 30 --> 20 --> 10 mg Consider another U/S should the Prednisone taper not alleviate symptoms 11). Prophylaxis SCDs Patient is out of bed to chair and has been encouraged to walk throughout the day (10 laps around medical floor every 1 to 2 hours) and has been observed doing so therefore Heparin 5,000 Units SC was discontinued. Bilateral SCDs while in bed Pepcid 20 mg PO 1x/day Bjorn Damon D.O. Objective - Vital Signs/Intake and Output Vital Signs (last 24 hours): Temp Pulse Resp BP Pulse Ox 99.3 F 108 H 20 131/74 97 11/22/17 07:20 11/22/17 07:20 11/22/17 07:20 11/22/17 07:20 11/22/17 07:20 - Medications Medications: Current Medications Acetaminophen (Tylenol 325mg Tab) 650 mg PO Q6 PRN PRN Reason: Pain, Mild (1-3) Last Admin: 11/18/17 08:25 Dose: 650 mg Calcitriol (Rocaltrol) 0.5 mcg PO DAILY [facility] Last Admin: 11/21/17 10:22 Dose: 0.5 mcg Calcium Acetate (Phoslo) 667 mg PO TIDCC [facility] Last Admin: 11/21/17 18:10 Dose: 667 mg Carvedilol (Coreg) 6.25 mg PO BID [facility] Last Admin: 11/21/17 18:10 Dose: 6.25 mg Dextrose (Dextrose 50% Inj) 0 ml IV STAT PRN; Protocol PRN Reason: Hypoglycemia Protocol Dextrose (Glutose 15) 0 gm PO ONCE PRN; Protocol PRN Reason: Hypoglycemia Protocol Epoetin Rodrigo (Procrit) 10,000 unit IV F [facility] Last Admin: 11/20/17 10:36 Dose: 10,000 unit Famotidine (Pepcid) 20 mg PO DAILY [facility] Last Admin: 11/21/17 10:26 Dose: 20 mg Ferric Sodium Gluconate Complex (Ferrlecit) 125 mg IVPB DAILY [facility] Stop: 11/27/17 10:01 Last Admin: 11/21/17 10:20 Dose: 125 mg Gabapentin (Neurontin) 300 mg PO MWF [facility] Last Admin: 11/20/17 09:01 Dose: 300 mg Glipizide (Glucotrol) 5 mg PO ACB [facility] Last Admin: 11/21/17 10:24 Dose: 5 mg Glucagon (Glucagen Diagnostic Kit) 0 mg IM STAT PRN; Protocol PRN Reason: Hypoglycemia Protocol Heparin Sodium (Porcine) (Heparin) 5,000 units SC Q8 [facility] Last Admin: 11/22/17 06:31 Dose: 5,000 units Insulin Human Regular (Novolin R) 0 unit SC ACHS [facility] PRN Reason: Protocol Last Admin: 11/21/17 23:03 Dose: Not Given Rosuvastatin Calcium (Crestor) 5 mg PO HS [facility] Last Admin: 11/21/17 22:59 Dose: 5 mg Tamsulosin HCl (Flomax) 0.4 mg PO DAILY [facility] Last Admin: 11/21/17 10:21 Dose: 0.4 mg - Labs Labs: 11/22/17 07:04 11/22/17 07:04 PT 11.8 SECONDS (9.7-12.2) 11/10/17 08:23 INR 1.1 11/10/17 08:23 APTT 33 SECONDS (21-34) 11/04/17 02:01
[2017-11-22] MEDS: Ferric Sodium Gluconat Complex 62.5 mg/5 ml Vial IVPB SCH ×2 (10:25→10:29)
[2017-11-23 06:25] LABS: BASO % 0.3 % (0.0-2.0); HEMOGLOBIN 9.1 g/dL (12.0-18.0); LYMPH # 1.5 K/uL (1.0-4.3); LYMPH % 9.5 % (20.0-40.0); MEAN CELL VOLUME 88.2 fL (80.0-94.0); MEAN CORPUSCULAR HEMOGLOBIN 29.8 pg (27.0-31.0); MEAN CORPUSCULAR HGB CONC 33.8 g/dL (33.0-37.0); MEAN PLATELET VOLUME 7.8 fL (7.2-11.7); MONO # 1.4 K/uL (0.0-0.8); MONO % 9.1 % (0.0-10.0); NEUT # 12.5 K/uL (1.8-7.0); NEUT % 81.1 % (50.0-75.0); PLATELET COUNT 465 K/uL (130-400); RBC 3.06 Mil/uL (4.40-5.90); RED CELL DISTRIBUTION WIDTH 12.6 % (11.5-14.5); WHITE BLOOD COUNT 15.4 K/uL (4.8-10.8)
[2017-11-23 06:36] LABS: ALB/GLOB RATIO 1.3 (1.0-2.1); ALBUMIN 4.1 g/dL (3.5-5.0); CALCIUM 9.5 mg/dl (8.6-10.4)
--- NOTE | 2017-11-23 07:53 | CP.PCM.PN ---
<Mayo Mendez L - Last Filed: 11/23/17 19:54> Subjective - Date & Time of Evaluation Date of Evaluation: 11/23/17 Time of Evaluation: 08:20 - Subjective Subjective: Mayo Mendez [employer] Service Technician, Hospitalist Progress Note Patient examined at bedside in dialysis unit. No acute events overnight. Offers no complaints. Denies fever, chills, chest pain, shortness of breath, abdominal pain, nausea, vomiting, dysuria. Objective - Vital Signs/Intake and Output Vital Signs (last 24 hours): Temp Pulse Resp BP Pulse Ox 97.4 F L 102 H 20 139/71 97 11/23/17 04:31 11/23/17 04:31 11/23/17 04:31 11/23/17 04:31 11/23/17 04:31 Intake and Output: 11/23/17 11/23/17 06:59 18:59 Intake Total 470 Balance 470 - Medications Medications: Current Medications Acetaminophen (Tylenol 325mg Tab) 650 mg PO Q6 PRN PRN Reason: Pain, Mild (1-3) Last Admin: 11/18/17 08:25 Dose: 650 mg Calcitriol (Rocaltrol) 0.5 mcg PO DAILY [facility] Last Admin: 11/22/17 10:11 Dose: 0.5 mcg Calcium Acetate (Phoslo) 667 mg PO TIDCC [facility] Last Admin: 11/22/17 17:08 Dose: 667 mg Carvedilol (Coreg) 6.25 mg PO BID [facility] Last Admin: 11/22/17 17:08 Dose: 6.25 mg Dextrose (Dextrose 50% Inj) 0 ml IV STAT PRN; Protocol PRN Reason: Hypoglycemia Protocol Dextrose (Glutose 15) 0 gm PO ONCE PRN; Protocol PRN Reason: Hypoglycemia Protocol Epoetin Rodrigo (Procrit) 10,000 unit IV F [facility] Last Admin: 11/20/17 10:36 Dose: 10,000 unit Famotidine (Pepcid) 20 mg PO DAILY [facility] Last Admin: 11/22/17 10:12 Dose: 20 mg Ferric Sodium Gluconate Complex (Ferrlecit) 125 mg IVPB DAILY [facility] Stop: 11/27/17 10:01 Last Admin: 11/22/17 10:29 Dose: Not Given Gabapentin (Neurontin) 300 mg PO F [facility] Last Admin: 11/20/17 09:01 Dose: 300 mg Glipizide (Glucotrol) 5 mg PO ACB [facility] Last Admin: 11/22/17 10:09 Dose: 5 mg Glucagon (Glucagen Diagnostic Kit) 0 mg IM STAT PRN; Protocol PRN Reason: Hypoglycemia Protocol Insulin Human Regular (Novolin R) 0 unit SC ACHS [facility] PRN Reason: Protocol Last Admin: 11/22/17 21:24 Dose: 3 units Prednisone (Prednisone Tab) 40 mg PO ONCE ONE Stop: 11/23/17 10:01 Prednisone (Prednisone Tab) 30 mg PO ONCE ONE Stop: 11/24/17 10:01 Prednisone (Prednisone Tab) 20 mg PO ONCE ONE Stop: 11/25/17 10:01 Prednisone (Prednisone Tab) 10 mg PO ONCE ONE Stop: 11/26/17 10:01 Rosuvastatin Calcium (Crestor) 5 mg PO HS [facility] Last Admin: 11/22/17 21:05 Dose: 5 mg Tamsulosin HCl (Flomax) 0.4 mg PO DAILY [facility] Last Admin: 11/22/17 10:12 Dose: 0.4 mg - Labs Labs: 11/23/17 06:08 11/23/17 06:08 PT 11.8 SECONDS (9.7-12.2) 11/10/17 08:23 INR 1.1 11/10/17 08:23 APTT 33 SECONDS (21-34) 11/04/17 02:01 - Constitutional Appears: Non-toxic, No Acute Distress - Head Exam Head Exam: ATRAUMATIC, NORMOCEPHALIC - Eye Exam Eye Exam: EOMI, Normal appearance - ENT Exam ENT Exam: Mucous Membranes Moist, Normal Exam - Neck Exam Neck Exam: Full ROM, Normal Inspection - Respiratory Exam Respiratory Exam: Clear to Ausculation Bilateral, NORMAL BREATHING PATTERN. absent: Rales, Rhonchi, Wheezes - Cardiovascular Exam Cardiovascular Exam: REGULAR RHYTHM, +S1, +S2 - GI/Abdominal Exam GI & Abdominal Exam: Soft, Normal Bowel Sounds. absent: Firm, Guarding, Tenderness - Extremities Exam Extremities Exam: Normal Capillary Refill Additional comments: Right upper extremity slightly more edematous than left upper extremity. Left anatomic snuff box AVF without thrill, left upper arm AVF with thrill. - Back Exam Back Exam: NORMAL INSPECTION - Neurological Exam Neurological Exam: Alert, Awake, CN II-XII Intact, Oriented x3 - Psychiatric Exam Psychiatric exam: Normal Affect, Normal Mood - Skin Skin Exam: Dry, Intact, Warm Assessment and Plan - Assessment and Plan (Free Text) Assessment: Patient is a 62 year old male with past medical history end stage renal disease on HD, CHF, HTN, DM admitted for shortness of breath secondary to pulmonary edema secondary to ESRD. Plan: SOB secondary to Pulmonary Edema secondary to ESRD Symptomatically improved after 100 mg total of Lasix on 11/04/17 and Metalozone at the time of admission ESRD CKD Stage 5 on HD MWF via Right Chest Permacath and awaiting maturity of Left Arm AVF S/P Right Chest Permacath placement by Dr. Gil 11/05/17 Had Left Anatomic Snuff Box AVF placed however this no longer had a thrill therefore Left Upper Arm AVF performed 11/19/17. Pur[employer] Operator Helper Smita and [employer] G[employer] Julia are aware that patient needs outpatient HD placement Nephrology Dr. Davis Vascular Surgery Dr. Gil Calcitriol 0.5 mcg PO 1x/day Phoslo 667 mg PO TID Hx Elevated Troponin Likely secondary to ESRD Hx CAD with Angioplasty in 2012 and Hx of HFpEF Coreg 12.5 mg PO 1x/day Crestor 5 mg PO HS Lasix and Metolazone were discontinued 11/05/17 ProBNP upon admission 0 Echo 04/2017: LVEF 50-55%, mild concentric LVH, Grade I abnormal relaxation pattern, aortic valve mildly sclerotic Cardiology Dr. Smith DM 2 requiring Insulin HgBA1C is 7.1 On Insulin Degludec 45 units SC 1x/day and Glipizide 5 mg PO 1x/day at home Currently on RISS and Glipizide 5 mg PO 1x/day ACB and blood glucose are under control Keep any eye on the Glucose while patient on Prednisone taper (see Assessment # 10 below) HTN Coreg 12.5 mg PO 1x/day No longer on Norvasc 10 mg PO 1x/day Diabetic Neuropathy Involving the toes and feet bilaterally Gabapentin 300 mg PO 1x/day MWF BPH Flomax 0.4 mg PO 1x/day Anemia likely secondary to ESRD Ferric Gluconate 125 mg IV 1x/day through 11/27/17 Procrit 10,000 IV MWF Right Arm Phlebitis Likely secondary to IV access infiltration Venous Doppler was negative Warm compresses help however this is not being consistently provided as per patient Medicine Team: wet a towel with warm water, microwave the towel for 30 seconds, place the microwaved towel in plastic specimen bag, apply carefully to the right lateral mid arm for 30 minutes every 4 to 6 hours Prednisone Taper started 11/22/17 through 11/26/17: 50--> 40--> 30 --> 20 --> 10 mg Consider another U/S should the Prednisone taper not alleviate symptoms Prophylaxis SCDs Patient is out of bed to chair and has been encouraged to walk throughout the day (10 laps around medical floor every 1 to 2 hours) and has been observed doing so therefore Heparin 5,000 Units SC was discontinued. Bilateral SCDs while in bed Pepcid 20 mg PO 1x/day Mayo Mendez PGY-1 <Liana Aguilera V - Last Filed: 11/24/17 09:27> Objective - Vital Signs/Intake and Output Vital Signs (last 24 hours): Temp Pulse Resp BP Pulse Ox 98.5 F 90 18 150/81 98 11/24/17 07:00 11/24/17 07:00 11/24/17 07:00 11/24/17 07:00 11/24/17 07:00 Intake and Output: 11/24/17 11/24/17 06:59 18:59 Intake Total 240 Balance 240 - Medications Medications: Current Medications Acetaminophen (Tylenol 325mg Tab) 650 mg PO Q6 PRN PRN Reason: Pain, Mild (1-3) Last Admin: 11/23/17 14:46 Dose: 650 mg Calcitriol (Rocaltrol) 0.5 mcg PO DAILY [facility] Last Admin: 11/23/17 13:07 Dose: 0.5 mcg Calcium Acetate (Phoslo) 667 mg PO TIDCC [facility] Last Admin: 11/24/17 07:47 Dose: 667 mg Carvedilol (Coreg) 6.25 mg PO BID [facility] Last Admin: 11/23/17 18:53 Dose: 6.25 mg Dextrose (Dextrose 50% Inj) 0 ml IV STAT PRN; Protocol PRN Reason: Hypoglycemia Protocol Dextrose (Glutose 15) 0 gm PO ONCE PRN; Protocol PRN Reason: Hypoglycemia Protocol Epoetin Rodrigo (Procrit) 10,000 unit IV MWF [facility] Last Admin: 11/23/17 10:13 Dose: 10,000 unit Famotidine (Pepcid) 20 mg PO DAILY [facility] Last Admin: 11/23/17 13:07 Dose: 20 mg Ferric Sodium Gluconate Complex (Ferrlecit) 125 mg IVPB DAILY [facility] Stop: 11/27/17 10:01 Last Admin: 11/23/17 10:12 Dose: 125 mg Gabapentin (Neurontin) 300 mg PO [facility] Last Admin: 11/23/17 13:07 Dose: 300 mg Glipizide (Glucotrol) 5 mg PO B [facility] Last Admin: 11/24/17 08:05 Dose: 5 mg Glucagon (Glucagen Diagnostic Kit) 0 mg IM STAT PRN; Protocol PRN Reason: Hypoglycemia Protocol Heparin Sodium (Porcine) (Heparin) 2,500 units IVP [facility] Stop: 12/04/17 09:01 Last Admin: 11/23/17 11:52 Dose: 2,500 units Insulin Human Regular (Novolin R) 0 unit SC [facility] PRN Reason: Protocol Last Admin: 11/24/17 07:48 Dose: 3 units Prednisone (Prednisone Tab) 30 mg PO ONCE ONE Stop: 11/24/17 10:01 Prednisone (Prednisone Tab) 20 mg PO ONCE ONE Stop: 11/25/17 10:01 Prednisone (Prednisone Tab) 10 mg PO ONCE ONE Stop: 11/26/17 10:01 Rosuvastatin Calcium (Crestor) 5 mg PO [facility] Last Admin: 11/23/17 22:26 Dose: 5 mg Tamsulosin HCl (Flomax) 0.4 mg PO DAILY [facility] Last Admin: 11/23/17 13:07 Dose: 0.4 mg - Labs Labs: 11/24/17 07:20 11/24/17 07:20 PT 11.8 SECONDS (9.7-12.2) 11/10/17 08:23 INR 1.1 11/10/17 08:23 APTT 33 SECONDS (21-34) 11/04/17 02:01 Attending/Attestation - Attestation I have personally seen and examined this patient.: Yes I have fully participated in the care of the patient.: Yes I have reviewed all pertinent clinical information, including history, physical exam and plan: Yes Notes (Text): This is late computer entry for 11/23/2017. Patient seen, examined, case discussed with chief medical director. Patient seen during dialysis. Patient denies any acute complaints. Patient awaiting outpatient dialysis placement. Patient has dressing over his snuffbox which is no longer functioning and has a second AV fistula placement over the left brachiocephalic with dressing which is clean dry and intact. Patient is on a steroid taper to relieve pain from prior right arm phlebitis. He has no complaints. Assessments: 1). SOB secondary to Pulmonary Edema secondary to ESRD Assessment/plan * Symptomatically improved after 100 mg total of Lasix on 11/04/17 and Metalozone at the time of admission * resolved 2). ESRD CKD Stage 5 Assessment/plan * Nephrology (Dr. Davis) on the case help appreciated * Vascular surgery (Dr. Gil) on the case help appreciated * dialysis Thursday//Thursday * S/P Right Chest Permacath placement by Dr. Gil 11/05/17 * s/P Right Chest Permacath placement by Dr. Gil 11/05/17 * AVF placement left snuffbox on 11/10/17, no longer functioning * AVF placed in left brachiocephalic on 11/19/17 * As per surgery, dressing may be removed by 11/22; sutures to be removed by Surgery by November 29-. * Will need to have at least 3 HD inpatient before being accepted by outpatient HD center * Purification Operator Helper Smita and [employer] Gauger Julia are aware that patient needs outpatient HD placement * Calcitriol 0.5 mcg PO 1x/day * Phoslo 667 mg PO TIDCC 3). Hx Elevated Troponin Assessment/plan * Likely secondary to ESRD 4). Hx CAD with Angioplasty in 2012 and Hx of HFpEF Assessment/plan * Cardiology Dr. Smith on board and he has cleared patient for planned AVF * changed Coreg to 6.25 by mouth twice to accommodate 12.5mg PO once a daily * Crestor 5 mg PO HS * Lasix and Metolazone were discontinued 11/05/17 * ProBNP upon admission 2910 * Echo 04/2017: LVEF 50-55%, mild concentric LVH, Grade I abnormal relaxation pattern, aortic valve mildly sclerotic 5). DM 2 requiring Insulin Assessment/plan * HgBA1C is 7.1 * home medications: Insulin Degludec 45 units SC 1x/day and Glipizide 5 mg PO 1x /day at home * Currently on RISS and hold Glipizide 5 mg PO 1x/day and blood glucose are under control * Accu-Cheks Q before meals daily at bedtime * hypoglycemic protocol 6). HTN Assessment/Plan * Norvasc discontinued by nephrology noted for low blood pressure * Coreg 6.25 mg by mouth twice a day * Patient is dialysis Thursday 7). Diabetic Neuropathy Assessment/Plan * Involving the toes and feet bilaterally * Gabapentin 300 mg PO 1x/day 8). BPH Assessment/Plan * Flomax 0.4 mg PO 1x/day 9). Anemia likely secondary to ESRD * Ferric Gluconate 125 mg IV 1x/day 10) Right arm phlebitis * Likely secondary to IV access infiltration * Venous Doppler was negative * Warm compresses help however this is not being consistently provided as per patient * Medicine Team: wet a towel with warm water, microwave the towel for 30 seconds , place the microwaved towel in plastic specimen bag, apply carefully to the right lateral mid arm for 30 minutes every 4 to 6 hours * Prednisone Taper started 11/22/17 through 11/26/17: 50--> 40--> 30 --> 20 --> 10 mg * Consider another U/S should the Prednisone taper not alleviate symptoms 11). Prophylaxis * d/c Heparin 5,000 Units SC Q8H since patient is ambulatory * ICE Pack to the Right Lateral Ankle Q6H * Pepcid 20 mg once a day Plan: patient is awaiting placement for outpatient dialysis.
[2017-11-23] MEDS: (Novolin R) Insulin Human Regular 100 units/ml vial SC SCH ×4 (08:28→22:27)
[2017-11-23 08:45] LABS: BANDS 1 % (0-2); MONOCYTE 5 % (0-10); NEUTROPHIL 81 % (50-75); TOTAL CELLS COUNTED 100
[2017-11-23 08:46] LABS: LYMPHOCYTE 13 % (20-40); PLATELET ESTIMATE NORMAL (NORMAL)
[2017-11-23 08:47] LABS: HYPOCHROMIC SLIGHT
[2017-11-23] MEDS: Ferric Sodium Gluconat Complex 62.5 mg/5 ml Vial IVPB SCH (10:12)
[2017-11-23] MEDS: Epoetin Alfa 10,000 unit/ml Dialysis IV SCH (10:13)
--- NOTE | 2017-11-23 11:12 | CP.PCM.PN ---
Subjective - Date & Time of Evaluation Date of Evaluation: 11/23/17 Time of Evaluation: 11:08 - Subjective Subjective: alert; seen at dialysis UF 2000ml on ESAs, IV Fe for anemia AV fistula with thrill no new complaint Objective - Vital Signs/Intake and Output Vital Signs (last 24 hours): Temp Pulse Resp BP Pulse Ox 98 F 98 H 20 132/72 97 11/23/17 09:15 11/23/17 09:15 11/23/17 09:15 11/23/17 10:15 11/23/17 09:15 Intake and Output: 11/23/17 11/23/17 06:59 18:59 Intake Total 470 Balance 470 - Medications Medications: Current Medications Acetaminophen (Tylenol 325mg Tab) 650 mg PO Q6 PRN PRN Reason: Pain, Mild (1-3) Last Admin: 11/18/17 08:25 Dose: 650 mg Calcitriol (Rocaltrol) 0.5 mcg PO DAILY [facility] Last Admin: 11/22/17 10:11 Dose: 0.5 mcg Calcium Acetate (Phoslo) 667 mg PO TIDCC [facility] Last Admin: 11/23/17 08:27 Dose: 667 mg Carvedilol (Coreg) 6.25 mg PO BID [facility] Last Admin: 11/22/17 17:08 Dose: 6.25 mg Dextrose (Dextrose 50% Inj) 0 ml IV STAT PRN; Protocol PRN Reason: Hypoglycemia Protocol Dextrose (Glutose 15) 0 gm PO ONCE PRN; Protocol PRN Reason: Hypoglycemia Protocol Epoetin Rodrigo (Procrit) 10,000 unit IV F [facility] Last Admin: 11/23/17 10:13 Dose: 10,000 unit Famotidine (Pepcid) 20 mg PO DAILY [facility] Last Admin: 11/22/17 10:12 Dose: 20 mg Ferric Sodium Gluconate Complex (Ferrlecit) 125 mg IVPB DAILY [facility] Stop: 11/27/17 10:01 Last Admin: 11/23/17 10:12 Dose: 125 mg Gabapentin (Neurontin) 300 mg PO MWF [facility] Last Admin: 11/20/17 09:01 Dose: 300 mg Glipizide (Glucotrol) 5 mg PO ACB [facility] Last Admin: 11/23/17 08:27 Dose: 5 mg Glucagon (Glucagen Diagnostic Kit) 0 mg IM STAT PRN; Protocol PRN Reason: Hypoglycemia Protocol Heparin Sodium (Porcine) (Heparin) 2,500 units IVP MWF [facility] Stop: 12/04/17 09:01 Insulin Human Regular (Novolin R) 0 unit SC ACHS [facility] PRN Reason: Protocol Last Admin: 11/23/17 08:28 Dose: 3 units Prednisone (Prednisone Tab) 30 mg PO ONCE ONE Stop: 11/24/17 10:01 Prednisone (Prednisone Tab) 20 mg PO ONCE ONE Stop: 11/25/17 10:01 Prednisone (Prednisone Tab) 10 mg PO ONCE ONE Stop: 11/26/17 10:01 Rosuvastatin Calcium (Crestor) 5 mg PO HS [facility] Last Admin: 11/22/17 21:05 Dose: 5 mg Tamsulosin HCl (Flomax) 0.4 mg PO DAILY [facility] Last Admin: 11/22/17 10:12 Dose: 0.4 mg - Labs Labs: 11/23/17 06:08 11/23/17 06:08 PT 11.8 SECONDS (9.7-12.2) 11/10/17 08:23 INR 1.1 11/10/17 08:23 APTT 33 SECONDS (21-34) 11/04/17 02:01 - Constitutional Appears: No Acute Distress, Chronically Ill - Head Exam Head Exam: ATRAUMATIC, NORMAL INSPECTION - Eye Exam Eye Exam: EOMI, Normal appearance - Neck Exam Neck Exam: Normal Inspection. absent: Tenderness - Respiratory Exam Respiratory Exam: Clear to Ausculation Bilateral, NORMAL BREATHING PATTERN - Cardiovascular Exam Cardiovascular Exam: REGULAR RHYTHM, +S1 - GI/Abdominal Exam GI & Abdominal Exam: Soft. absent: Tenderness - Extremities Exam Extremities Exam: Normal Inspection. absent: Tenderness - Neurological Exam Neurological Exam: Alert, CN II-XII Intact - Skin Skin Exam: Dry, Warm Assessment and Plan (1) CAD (coronary artery disease) Status: Acute (2) ESRD (end stage renal disease) Status: Acute (3) Type 2 diabetes mellitus with diabetic nephropathy Status: Acute (4) CHF (congestive heart failure) Status: Acute - Assessment and Plan (Free Text) Plan: dialysis MWF monitor HG awalt AV access maturation needs dialysis placement
--- NOTE | 2017-11-24 06:59 | CP.PCM.PN ---
<Liana Aguilera V - Last Filed: 11/24/17 16:28> Objective - Vital Signs/Intake and Output Vital Signs (last 24 hours): Temp Pulse Resp BP Pulse Ox 98.2 F 92 H 20 135/68 99 11/24/17 15:00 11/24/17 15:00 11/24/17 15:00 11/24/17 15:00 11/24/17 15:00 Intake and Output: 11/24/17 11/24/17 06:59 18:59 Intake Total 240 Balance 240 - Medications Medications: Current Medications Acetaminophen (Tylenol 325mg Tab) 650 mg PO Q6 PRN PRN Reason: Pain, Mild (1-3) Last Admin: 11/23/17 14:46 Dose: 650 mg Calcitriol (Rocaltrol) 0.5 mcg PO DAILY [facility] Last Admin: 11/24/17 09:52 Dose: 0.5 mcg Calcium Acetate (Phoslo) 667 mg PO TIDCC [facility] Last Admin: 11/24/17 11:25 Dose: 667 mg Carvedilol (Coreg) 6.25 mg PO BID [facility] Last Admin: 11/24/17 09:52 Dose: 6.25 mg Dextrose (Dextrose 50% Inj) 0 ml IV STAT PRN; Protocol PRN Reason: Hypoglycemia Protocol Dextrose (Glutose 15) 0 gm PO ONCE PRN; Protocol PRN Reason: Hypoglycemia Protocol Epoetin Rodrigo (Procrit) 10,000 unit IV [facility] Last Admin: 11/23/17 10:13 Dose: 10,000 unit Famotidine (Pepcid) 20 mg PO DAILY [facility] Last Admin: 11/24/17 09:51 Dose: 20 mg Ferric Sodium Gluconate Complex (Ferrlecit) 125 mg IVPB DAILY [facility] Stop: 11/27/17 10:01 Last Admin: 11/24/17 10:07 Dose: Not Given Gabapentin (Neurontin) 300 mg PO MWF [facility] Last Admin: 11/23/17 13:07 Dose: 300 mg Glipizide (Glucotrol) 5 mg PO ACB [facility] Last Admin: 11/24/17 08:05 Dose: 5 mg Glucagon (Glucagen Diagnostic Kit) 0 mg IM STAT PRN; Protocol PRN Reason: Hypoglycemia Protocol Heparin Sodium (Porcine) (Heparin) 2,500 units IVP [facility] Stop: 12/04/17 09:01 Last Admin: 11/23/17 11:52 Dose: 2,500 units Insulin Aspart (Novolog) 3 unit SC TIDAC [facility] Insulin Glargine (Lantus) 5 unit SC HS [facility] Insulin Human Regular (Novolin R) 0 unit SC ACHS [facility] PRN Reason: Protocol Last Admin: 11/24/17 11:26 Dose: 3 units Prednisone (Prednisone Tab) 20 mg PO ONCE ONE Stop: 11/25/17 10:01 Prednisone (Prednisone Tab) 10 mg PO ONCE ONE Stop: 11/26/17 10:01 Rosuvastatin Calcium (Crestor) 5 mg PO HS [facility] Last Admin: 11/23/17 22:26 Dose: 5 mg Tamsulosin HCl (Flomax) 0.4 mg PO DAILY [facility] Last Admin: 11/24/17 09:52 Dose: 0.4 mg - Labs Labs: 11/24/17 07:20 11/24/17 07:20 PT 11.8 SECONDS (9.7-12.2) 11/10/17 08:23 INR 1.1 11/10/17 08:23 APTT 33 SECONDS (21-34) 11/04/17 02:01 Attending/Attestation - Attestation I have personally seen and examined this patient.: Yes I have fully participated in the care of the patient.: Yes I have reviewed all pertinent clinical information, including history, physical exam and plan: Yes Notes (Text): Patient seen, examined, case discussed with medical data analyst. Patient seen this morning during rounds. Patient denies acute complaints. Noted over right upper extremity does still have some mild induration the cost of some pain. Patient is currently on a steroid taper. Patient does have some leukocytosis likely secondary to steroid we'll continue to monitor. Patient is otherwise afebrile. Patient sugars uncontrolled likely secondary to steroid taper. Patient has recurred about 20 units of coverage yesterday we have started some pre-meal insulin at about 3 units at mealtime and Lantus 5 units at night. We will continue to monitor sugars as the steroid is being tapered off. I've spoken with case management will follow up with social work in terms of placement for the patient. Assessments: 1). SOB secondary to Pulmonary Edema secondary to ESRD Assessment/plan * Symptomatically improved after 100 mg total of Lasix on 11/04/17 and Metalozone at the time of admission * resolved 2). ESRD CKD Stage 5 Assessment/plan * Nephrology (Dr. Davis) on the case help appreciated * Vascular surgery (Dr. Gil) on the case help appreciated * dialysis Thursday//Thursday * S/P Right Chest Permacath placement by Dr. Gil 11/05/17 * s/P Right Chest Permacath placement by Dr. Gil 11/05/17 * AVF placement left snuffbox on 11/10/17, no longer functioning * AVF placed in left brachiocephalic on 11/19/17 * As per surgery, dressing may be removed by 11/22; sutures to be removed by Surgery by November 29. * Will need to have at least 3 HD inpatient before being accepted by outpatient HD center * Stationary Equipment Mechanic Smita and Senior Quantity Surveyor Julia are aware that patient needs outpatient HD placement * Calcitriol 0.5 mcg PO 1x/day * Phoslo 667 mg PO TIDCC 3). Hx Elevated Troponin Assessment/plan * Likely secondary to ESRD 4). Hx CAD with Angioplasty in 2012 and Hx of HFpEF Assessment/plan * Cardiology Dr. Smith on board and he has cleared patient for planned AVF * changed Coreg to 6.25 by mouth twice to accommodate 12.5mg PO once a daily * Crestor 5 mg PO HS * Lasix and Metolazone were discontinued 11/05/17 * ProBNP upon admission 2910 * Echo 04/2017: LVEF 50-55%, mild concentric LVH, Grade I abnormal relaxation pattern, aortic valve mildly sclerotic 5). DM 2 requiring Insulin Assessment/plan * HgBA1C is 7.1 * home medications: Insulin Degludec 45 units SC 1x/day and Glipizide 5 mg PO 1x /day at home * Currently on RISS and hold Glipizide 5 mg PO 1x/day and blood glucose not controlled * Likely secondary to steroid taper * Start Novolog 3 units sub TIDAC * Start Lantus 5 units sub HS * Accuchecks Q before meals daily at bedtime * hypoglycemic protocol 6). HTN Assessment/Plan * Norvasc discontinued by nephrology noted for low blood pressure * Coreg 6.25 mg by mouth twice a day * Patient is dialysis Thursday * Blood pressure is controlled 7). Diabetic Neuropathy Assessment/Plan * Involving the toes and feet bilaterally * Gabapentin 300 mg PO 1x/day 8). BPH Assessment/Plan * Flomax 0.4 mg PO 1x/day 9). Anemia likely secondary to ESRD * Ferric Gluconate 125 mg IV 1x/day 10) Right arm phlebitis * Likely secondary to IV access infiltration * Venous Doppler was negative * Warm compresses help however this is not being consistently provided as per patient * Medicine Team: wet a towel with warm water, microwave the towel for 30 seconds , place the microwaved towel in plastic specimen bag, apply carefully to the right lateral mid arm for 30 minutes every 4 to 6 hours * Prednisone Taper started 11/22/17 through 11/26/17: 50--> 40--> 30 --> 20 --> 10 mg * Consider another U/S should the Prednisone taper not alleviate symptoms 11). Prophylaxis * d/c Heparin 5,000 Units SC Q8H since patient is ambulatory * ICE Pack to the Right Lateral Ankle Q6H * Pepcid 20 mg once a day Plan: patient is awaiting placement for outpatient dialysis. <Mayo Mendez L - Last Filed: 11/24/17 17:21> Subjective - Date & Time of Evaluation Date of Evaluation: 11/24/17 Time of Evaluation: 07:30 - Subjective Subjective: Hospitalist Progress Note Patient examined at bedside. Offers no new complaints. States that he is feeling well. Denies chest pain, shortness of breath, abdominal pain, changes in bowel movements, dysuria. Was sitting in chair at bedside. No new complaints today. Objective - Vital Signs/Intake and Output Vital Signs (last 24 hours): Temp Pulse Resp BP Pulse Ox 97.6 F 94 H 20 167/75 H 96 11/24/17 04:10 11/24/17 04:10 11/24/17 04:10 11/24/17 04:10 11/24/17 04:10 Intake and Output: 11/23/17 11/24/17 18:59 06:59 Intake Total 730 240 Balance 730 240 - Medications Medications: Current Medications Acetaminophen (Tylenol 325mg Tab) 650 mg PO Q6 PRN PRN Reason: Pain, Mild (1-3) Last Admin: 11/23/17 14:46 Dose: 650 mg Calcitriol (Rocaltrol) 0.5 mcg PO DAILY [facility] Last Admin: 11/23/17 13:07 Dose: 0.5 mcg Calcium Acetate (Phoslo) 667 mg PO TIDCC [facility] Last Admin: 11/23/17 18:53 Dose: 667 mg Carvedilol (Coreg) 6.25 mg PO BID [facility] Last Admin: 11/23/17 18:53 Dose: 6.25 mg Dextrose (Dextrose 50% Inj) 0 ml IV STAT PRN; Protocol PRN Reason: Hypoglycemia Protocol Dextrose (Glutose 15) 0 gm PO ONCE PRN; Protocol PRN Reason: Hypoglycemia Protocol Epoetin Rodrigo (Procrit) 10,000 unit IV [facility] Last Admin: 11/23/17 10:13 Dose: 10,000 unit Famotidine (Pepcid) 20 mg PO DAILY [facility] Last Admin: 11/23/17 13:07 Dose: 20 mg Ferric Sodium Gluconate Complex (Ferrlecit) 125 mg IVPB DAILY [facility] Stop: 11/27/17 10:01 Last Admin: 11/23/17 10:12 Dose: 125 mg Gabapentin (Neurontin) 300 mg PO [facility] Last Admin: 11/23/17 13:07 Dose: 300 mg Glipizide (Glucotrol) 5 mg PO B [facility] Last Admin: 11/23/17 08:27 Dose: 5 mg Glucagon (Glucagen Diagnostic Kit) 0 mg IM STAT PRN; Protocol PRN Reason: Hypoglycemia Protocol Heparin Sodium (Porcine) (Heparin) 2,500 units IVP [facility] Stop: 12/04/17 09:01 Last Admin: 11/23/17 11:52 Dose: 2,500 units Insulin Human Regular (Novolin R) 0 unit SC [facility] PRN Reason: Protocol Last Admin: 11/23/17 22:27 Dose: 10 units Prednisone (Prednisone Tab) 30 mg PO ONCE ONE Stop: 11/24/17 10:01 Prednisone (Prednisone Tab) 20 mg PO ONCE ONE Stop: 11/25/17 10:01 Prednisone (Prednisone Tab) 10 mg PO ONCE ONE Stop: 11/26/17 10:01 Rosuvastatin Calcium (Crestor) 5 mg PO [facility] Last Admin: 11/23/17 22:26 Dose: 5 mg Tamsulosin HCl (Flomax) 0.4 mg PO DAILY [facility] Last Admin: 11/23/17 13:07 Dose: 0.4 mg - Labs Labs: 11/23/17 06:08 11/23/17 06:08 PT 11.8 SECONDS (9.7-12.2) 11/10/17 08:23 INR 1.1 11/10/17 08:23 APTT 33 SECONDS (21-34) 11/04/17 02:01 - Constitutional Appears: Non-toxic, No Acute Distress - Head Exam Head Exam: ATRAUMATIC, NORMAL INSPECTION - Eye Exam Eye Exam: EOMI, PERRL Pupil Exam: NORMAL ACCOMODATION - ENT Exam ENT Exam: Mucous Membranes Moist - Neck Exam Neck Exam: Normal Inspection - Cardiovascular Exam Cardiovascular Exam: REGULAR RHYTHM, +S1, +S2 - GI/Abdominal Exam GI & Abdominal Exam: Soft, Normal Bowel Sounds. absent: Distended, Firm, Guarding, Tenderness - Extremities Exam Additional comments: Right upper extremity slightly more edematous than left upper extremity Left anatomic snuff box AVF without thrill, left upper arm AVF with thrill. - Back Exam Back Exam: NORMAL INSPECTION - Neurological Exam Neurological Exam: Alert, Awake, Normal Gait, Oriented x3 - Psychiatric Exam Psychiatric exam: Normal Affect, Normal Mood Assessment and Plan - Assessment and Plan (Free Text) Assessment: Assessment: Patient is a 62 year old male with past medical history end stage renal disease on HD, CHF, HTN, DM admitted for shortness of breath secondary to pulmonary edema secondary to ESRD. Plan: SOB secondary to Pulmonary Edema secondary to ESRD Improving Patient was given 100 mg total of Lasix on 11/04/17 and Metalozone at the time of admission ESRD CKD Stage 5; on hemodialysis MWF Waiting for outpatient dialysis placement; case management aware S/P Right Chest Permacath placement by Dr. Gil 11/05/17; awaiting maturity of Left Arm AVF Had Left Anatomic Snuff Box AVF placed however this no longer had a thrill therefore Left Upper Arm AVF performed 11/19/[address] Davis consulted, help appreciated Vascular Surgery Dr. Gil consulted, help appreciated Calcitriol 0.5 mcg PO 1x/day Phoslo 667 mg PO TID Monitor labs Hx Elevated Troponin 11/04- likely due to demand ischemia Patient denies clinical complaints of chest pain at this time Hx CAD with Angioplasty in 2012 and Coreg 12.5 mg PO 1x/day Crestor 5 mg PO HS Cardiology Dr. Smith consulted, help appreciated Hx of heart failure with preserved ejection fraction Lasix and Metolazone were discontinued 11/05/17 ProBNP upon admission 2909 Echo 04/2017: LVEF 50-55%, mild concentric LVH, Grade I abnormal relaxation pattern, aortic valve mildly sclerotic Cardiology Dr. Smith consulted DM 2 requiring Insulin HgBA1C is 7.1 Patient has had elevated overnight blood sugar readings- could be 2/2 prednisone Novolog 3 units TIDAC added on Currently on RISS and Glipizide 5 mg PO 1x/day ACB and blood glucose are under control Added on Lantus 5 U SC HS Will closely monitor and adjust accordingly based on accuchecks Hypoglycemia protocol in place HTN Coreg 6.25 mg PO BID Continue to monitor Diabetic Neuropathy Involving the toes and feet bilaterally Gabapentin 300 mg PO 1x/day MWF BPH Flomax 0.4 mg PO 1x/day Anemia likely secondary to ESRD Stable Ferric Gluconate 125 mg IV 1x/day through 11/27/17 Procrit 10,000 IV MWF Right Arm Phlebitis Improving with warm compresses Likely secondary to IV access infiltration Venous Doppler was negative Prednisone Taper started 11/22/17 through 11/26/17: 50--> 40--> 30 --> 20 --> 10 mg Consider another U/S should the Prednisone taper not alleviate symptoms Prophylaxis Patient is out of bed to chair and has been encouraged to walk throughout the day (10 laps around medical floor every 1 to 2 hours) and has been observed doing so therefore Heparin 5,000 Units SC was discontinued. Bilateral SCDs while in bed Pepcid 20 mg PO 1x/day Mayo Mendez PGY-1
[2017-11-24 07:45] LABS: BASO # 0.1 K/uL (0.0-0.2); BASO % 0.4 % (0.0-2.0); HEMOGLOBIN 9.9 g/dL (12.0-18.0); LYMPH # 1.8 K/uL (1.0-4.3); LYMPH % 10.3 % (20.0-40.0); MEAN CELL VOLUME 88.7 fL (80.0-94.0); MEAN CORPUSCULAR HEMOGLOBIN 30.7 pg (27.0-31.0); MEAN CORPUSCULAR HGB CONC 34.7 g/dL (33.0-37.0); MONO # 1.3 K/uL (0.0-0.8); MONO % 7.7 % (0.0-10.0); NEUT # 13.9 K/uL (1.8-7.0); NEUT % 81.6 % (50.0-75.0); NRBC % 0.2 % (0.0-2.0); RBC 3.23 Mil/uL (4.40-5.90); RED CELL DISTRIBUTION WIDTH 12.7 % (11.5-14.5)
[2017-11-24] MEDS: (Novolin R) Insulin Human Regular 100 units/ml vial SC SCH ×4 (07:48→23:30)
[2017-11-24 08:08] LABS: ALB/GLOB RATIO 1.3 (1.0-2.1); ALBUMIN 4.1 g/dL (3.5-5.0); CALCIUM 9.2 mg/dl (8.6-10.4)
--- NOTE | 2017-11-24 10:06 | CP.PCM.PN ---
Subjective - Date & Time of Evaluation Date of Evaluation: 11/24/17 Time of Evaluation: 10:05 - Subjective Subjective: seen and examined no complaints hd yesterday unremarkable Objective - Vital Signs/Intake and Output Vital Signs (last 24 hours): Temp Pulse Resp BP Pulse Ox 98.5 F 90 18 150/81 98 11/24/17 07:00 11/24/17 07:00 11/24/17 07:00 11/24/17 07:00 11/24/17 07:00 Intake and Output: 11/24/17 11/24/17 06:59 18:59 Intake Total 240 Balance 240 - Medications Medications: Current Medications Acetaminophen (Tylenol 325mg Tab) 650 mg PO Q6 PRN PRN Reason: Pain, Mild (1-3) Last Admin: 11/23/17 14:46 Dose: 650 mg Calcitriol (Rocaltrol) 0.5 mcg PO DAILY [facility] Last Admin: 11/24/17 09:52 Dose: 0.5 mcg Calcium Acetate (Phoslo) 667 mg PO TIDCC [facility] Last Admin: 11/24/17 07:47 Dose: 667 mg Carvedilol (Coreg) 6.25 mg PO BID [facility] Last Admin: 11/24/17 09:52 Dose: 6.25 mg Dextrose (Dextrose 50% Inj) 0 ml IV STAT PRN; Protocol PRN Reason: Hypoglycemia Protocol Dextrose (Glutose 15) 0 gm PO ONCE PRN; Protocol PRN Reason: Hypoglycemia Protocol Epoetin Rodrigo (Procrit) 10,000 unit IV F [facility] Last Admin: 11/23/17 10:13 Dose: 10,000 unit Famotidine (Pepcid) 20 mg PO DAILY [facility] Last Admin: 11/24/17 09:51 Dose: 20 mg Ferric Sodium Gluconate Complex (Ferrlecit) 125 mg IVPB DAILY [facility] Stop: 11/27/17 10:01 Last Admin: 11/23/17 10:12 Dose: 125 mg Gabapentin (Neurontin) 300 mg PO MWF [facility] Last Admin: 11/23/17 13:07 Dose: 300 mg Glipizide (Glucotrol) 5 mg PO ACB [facility] Last Admin: 11/24/17 08:05 Dose: 5 mg Glucagon (Glucagen Diagnostic Kit) 0 mg IM STAT PRN; Protocol PRN Reason: Hypoglycemia Protocol Heparin Sodium (Porcine) (Heparin) 2,500 units IVP [facility]WF [facility] Stop: 12/04/17 09:01 Last Admin: 11/23/17 11:52 Dose: 2,500 units Insulin Human Regular (Novolin R) 0 unit SC ACHS [facility] PRN Reason: Protocol Last Admin: 11/24/17 07:48 Dose: 3 units Prednisone (Prednisone Tab) 20 mg PO ONCE ONE Stop: 11/25/17 10:01 Prednisone (Prednisone Tab) 10 mg PO ONCE ONE Stop: 11/26/17 10:01 Rosuvastatin Calcium (Crestor) 5 mg PO HS [facility] Last Admin: 11/23/17 22:26 Dose: 5 mg Tamsulosin HCl (Flomax) 0.4 mg PO DAILY [facility] Last Admin: 11/24/17 09:52 Dose: 0.4 mg - Labs Labs: 11/24/17 07:20 11/24/17 07:20 PT 11.8 SECONDS (9.7-12.2) 11/10/17 08:23 INR 1.1 11/10/17 08:23 APTT 33 SECONDS (21-34) 11/04/17 02:01 - Constitutional Appears: No Acute Distress, Chronically Ill - Head Exam Head Exam: NORMAL INSPECTION, NORMOCEPHALIC - Eye Exam Eye Exam: Normal appearance, PERRL - ENT Exam ENT Exam: Mucous Membranes Moist, Normal Exam - Neck Exam Neck Exam: Full ROM, Normal Inspection - Respiratory Exam Respiratory Exam: Clear to Ausculation Bilateral, NORMAL BREATHING PATTERN - Cardiovascular Exam Cardiovascular Exam: REGULAR RHYTHM, RRR - GI/Abdominal Exam GI & Abdominal Exam: Distended, Soft - Extremities Exam Extremities Exam: Normal Inspection Additional comments: [employer] Assessment and Plan (1) CAD (coronary artery disease) Status: Acute (2) CHF (congestive heart failure) Status: Acute (3) ESRD (end stage renal disease) Status: Acute (4) Respiratory distress Status: Acute (5) Type 2 diabetes mellitus with diabetic nephropathy Status: Acute - Assessment and Plan (Free Text) Assessment: bp acceptable on mae, monitor hgb hd mwf placement
[2017-11-24] MEDS: Ferric Sodium Gluconat Complex 62.5 mg/5 ml Vial IVPB SCH (10:07)
[2017-11-24] MEDS: (Novolog) Insulin Aspart, Recombinant 100 u/ml 10 ml vial SC SCH (16:45)
[2017-11-24] MEDS: (Lantus) Insulin Glargine, Recombinant SC SCH (21:15)
--- NOTE | 2017-11-25 06:34 | CP.PCM.PN ---
Subjective - Date & Time of Evaluation Date of Evaluation: 11/25/17 Time of Evaluation: 06:34 - Subjective Subjective: Candy Domínguez Progress Note for Dr. Aguilera Patient examined in dialysis unit. No acute events overnight. He states that his right upper extremity pain is unchanged from yesterday. However swelling is improved. Offers no other complaints at this time. Denies chest pain, shortness of breath, abdominal pain, changes in bowel movements, dysuria. Objective - Vital Signs/Intake and Output Vital Signs (last 24 hours): Temp Pulse Resp BP Pulse Ox 98.2 F 94 H 20 144/78 98 11/25/17 04:00 11/25/17 04:00 11/25/17 04:00 11/25/17 04:00 11/25/17 04:00 - Medications Medications: Current Medications Acetaminophen (Tylenol 325mg Tab) 650 mg PO Q6 PRN PRN Reason: Pain, Mild (1-3) Last Admin: 11/23/17 14:46 Dose: 650 mg Calcitriol (Rocaltrol) 0.5 mcg PO DAILY [facility] Last Admin: 11/24/17 09:52 Dose: 0.5 mcg Calcium Acetate (Phoslo) 667 mg PO TIDCC [facility] Last Admin: 11/24/17 16:45 Dose: 667 mg Carvedilol (Coreg) 6.25 mg PO BID [facility] Last Admin: 11/24/17 17:32 Dose: 6.25 mg Dextrose (Dextrose 50% Inj) 0 ml IV STAT PRN; Protocol PRN Reason: Hypoglycemia Protocol Dextrose (Glutose 15) 0 gm PO ONCE PRN; Protocol PRN Reason: Hypoglycemia Protocol Epoetin Rodrigo (Procrit) 10,000 unit IV MWF [facility] Last Admin: 11/23/17 10:13 Dose: 10,000 unit Famotidine (Pepcid) 20 mg PO DAILY [facility] Last Admin: 11/24/17 09:51 Dose: 20 mg Ferric Sodium Gluconate Complex (Ferrlecit) 125 mg IVPB DAILY [facility] Stop: 11/27/17 10:01 Last Admin: 11/24/17 10:07 Dose: Not Given Gabapentin (Neurontin) 300 mg PO MWF [facility] Last Admin: 11/23/17 13:07 Dose: 300 mg Glipizide (Glucotrol) 5 mg PO ACB [facility] Last Admin: 11/24/17 08:05 Dose: 5 mg Glucagon (Glucagen Diagnostic Kit) 0 mg IM STAT PRN; Protocol PRN Reason: Hypoglycemia Protocol Heparin Sodium (Porcine) (Heparin) 2,500 units IVP MWF [facility] Stop: 12/04/17 09:01 Last Admin: 11/23/17 11:52 Dose: 2,500 units Insulin Aspart (Novolog) 3 unit SC TIDAC [facility] Last Admin: 11/24/17 16:45 Dose: 3 units Insulin Glargine (Lantus) 5 unit SC [facility] Last Admin: 11/24/17 21:15 Dose: 5 units Insulin Human Regular (Novolin R) 0 unit SC ACHS [facility] PRN Reason: Protocol Last Admin: 11/24/17 23:30 Dose: Not Given Prednisone (Prednisone Tab) 20 mg PO ONCE ONE Stop: 11/25/17 10:01 Prednisone (Prednisone Tab) 10 mg PO ONCE ONE Stop: 11/26/17 10:01 Rosuvastatin Calcium (Crestor) 5 mg PO [facility] Last Admin: 11/24/17 21:15 Dose: 5 mg Tamsulosin HCl (Flomax) 0.4 mg PO DAILY [facility] Last Admin: 11/24/17 09:52 Dose: 0.4 mg - Labs Labs: 11/24/17 07:20 11/24/17 07:20 PT 11.8 SECONDS (9.7-12.2) 11/10/17 08:23 INR 1.1 11/10/17 08:23 APTT 33 SECONDS (21-34) 11/04/17 02:01 - Additional Findings Additional findings: - Constitutional Appears: Non-toxic, No Acute Distress - Head Exam Head Exam: ATRAUMATIC, NORMAL INSPECTION - Eye Exam Eye Exam: EOMI, PERRL Pupil Exam: NORMAL ACCOMODATION - ENT Exam ENT Exam: Mucous Membranes Moist - Neck Exam Neck Exam: Normal Inspection - Cardiovascular Exam Cardiovascular Exam: REGULAR RHYTHM, +S1, +S2 - GI/Abdominal Exam GI & Abdominal Exam: Soft, Normal Bowel Sounds. absent: Distended, Firm, Guarding, Tenderness - Extremities Exam Additional comments: Right upper extremity edema improved in comparison to yesterday. Left anatomic snuff box AVF without thrill, left upper arm AVF with thrill. - Back Exam Back Exam: NORMAL INSPECTION - Neurological Exam Neurological Exam: Alert, Awake, Normal Gait, Oriented x3 - Psychiatric Exam Psychiatric exam: Normal Affect, Normal Mood Assessment and Plan - Assessment and Plan (Free Text) Assessment: Patient is a 62 year old male with past medical history end stage renal disease on HD, CHF, HTN, DM admitted for shortness of breath secondary to pulmonary edema secondary to ESRD. Plan: ESRD CKD Stage 5; on hemodialysis MWF Waiting for outpatient dialysis placement; case management aware S/P Right Chest Permacath placement by Dr. Gil 11/05/17; awaiting maturity of Left Arm AVF Had Left Anatomic Snuff Box AVF placed however this no longer had a thrill therefore Left Upper Arm AVF performed 11/19/[address] Davis consulted, help appreciated Vascular Surgery Dr. Gil consulted, help appreciated Calcitriol 0.5 mcg PO 1x/day Phoslo 667 mg PO TID Monitor labs Right Arm Phlebitis Improving with warm compresses Likely secondary to IV access infiltration Venous Doppler was negative Prednisone Taper started 11/22/17 through 11/26/17: 50--> 40--> 30 --> 20 --> 10 mg Consider another U/S should the Prednisone taper not alleviate symptoms DM 2 requiring Insulin HgBA1C is 7.1 Patient has had elevated overnight blood sugar readings- could be 2/2 prednisone Novolog 3 units TIDAC added on Currently on RISS and Glipizide 5 mg PO 1x/day ACB and blood glucose are under control Added on Lantus 5 U SC HS Will closely monitor and adjust accordingly based on accuchecks Hypoglycemia protocol in place SOB secondary to Pulmonary Edema secondary to ESRD Improving Patient was given 100 mg total of Lasix on 11/04/17 and Metalozone at the time of admission Hx Elevated Troponin 11/04- likely due to demand ischemia Patient denies clinical complaints of chest pain at this time Hx CAD with Angioplasty in 2012 and Coreg 12.5 mg PO 1x/day Crestor 5 mg PO HS Cardiology Dr. Smith consulted, help appreciated Hx of heart failure with preserved ejection fraction Lasix and Metolazone were discontinued 11/05/17 ProBNP upon admission 2909 Echo 04/2017: LVEF 50-55%, mild concentric LVH, Grade I abnormal relaxation pattern, aortic valve mildly sclerotic Cardiology Dr. Smith consulted HTN Coreg 6.25 mg PO BID Continue to monitor Diabetic Neuropathy Involving the toes and feet bilaterally Gabapentin 300 mg PO 1x/day MWF BPH Flomax 0.4 mg PO 1x/day Anemia likely secondary to ESRD Stable Ferric Gluconate 125 mg IV 1x/day through 11/27/17 Procrit 10,000 IV MWF Prophylaxis Patient is out of bed to chair and has been encouraged to walk throughout the day (10 laps around medical floor every 1 to 2 hours) and has been observed doing so therefore Heparin 5,000 Units SC was discontinued. Bilateral SCDs while in bed Pepcid 20 mg PO 1x/day Dispo: Pending outpatient dialysis placement Mayo Mendez PGY-1
[2017-11-25 07:31] LABS: BASO # 0.1 K/uL (0.0-0.2); BASO % 0.6 % (0.0-2.0); EOS # 0.1 K/uL (0.0-0.7); EOS % 0.5 % (0.0-4.0); HEMOGLOBIN 9.5 g/dL (12.0-18.0); LYMPH # 2.8 K/uL (1.0-4.3); LYMPH % 18.5 % (20.0-40.0); MEAN CELL VOLUME 89.2 fL (80.0-94.0); MEAN CORPUSCULAR HEMOGLOBIN 30.6 pg (27.0-31.0); MEAN CORPUSCULAR HGB CONC 34.3 g/dL (33.0-37.0); MEAN PLATELET VOLUME 8.1 fL (7.2-11.7); MONO # 1.3 K/uL (0.0-0.8); MONO % 8.5 % (0.0-10.0); NEUT % 71.9 % (50.0-75.0); NRBC % 0.1 % (0.0-2.0); RBC 3.1 Mil/uL (4.40-5.90); RED CELL DISTRIBUTION WIDTH 12.8 % (11.5-14.5); WHITE BLOOD COUNT 15.4 K/uL (4.8-10.8)
[2017-11-25 08:09] LABS: ALB/GLOB RATIO 1.3 (1.0-2.1); ALBUMIN 3.9 g/dL (3.5-5.0); CALCIUM 9.2 mg/dl (8.6-10.4)
[2017-11-25] MEDS: (Novolin R) Insulin Human Regular 100 units/ml vial SC SCH ×2 (08:12→17:24)
[2017-11-25] MEDS: (Novolog) Insulin Aspart, Recombinant 100 u/ml 10 ml vial SC SCH ×2 (08:12→17:24)
[2017-11-25] MEDS: Ferric Sodium Gluconat Complex 62.5 mg/5 ml Vial IVPB SCH (11:36)
[2017-11-25] MEDS: Epoetin Alfa 10,000 unit/ml Dialysis IV SCH (11:37)
--- NOTE | 2017-11-25 13:16 | CP.PCM.PN ---
Subjective - Date & Time of Evaluation Date of Evaluation: 11/25/17 Time of Evaluation: 13:15 - Subjective Subjective: stable dialysis now on steroid taper as per medicine AV F with thrill Objective - Vital Signs/Intake and Output Vital Signs (last 24 hours): Temp Pulse Resp BP Pulse Ox 97.7 F 72 18 165/81 H 98 11/25/17 12:15 11/25/17 12:15 11/25/17 12:15 11/25/17 12:15 11/25/17 12:15 Intake and Output: 11/25/17 11/25/17 06:59 18:59 Intake Total 120 Balance 120 - Medications Medications: Current Medications Acetaminophen (Tylenol 325mg Tab) 650 mg PO Q6 PRN PRN Reason: Pain, Mild (1-3) Last Admin: 11/23/17 14:46 Dose: 650 mg Calcitriol (Rocaltrol) 0.5 mcg PO DAILY [facility] Last Admin: 11/24/17 09:52 Dose: 0.5 mcg Calcium Acetate (Phoslo) 667 mg PO TIDCC [facility] Last Admin: 11/25/17 08:11 Dose: 667 mg Carvedilol (Coreg) 6.25 mg PO BID [facility] Last Admin: 11/24/17 17:32 Dose: 6.25 mg Dextrose (Dextrose 50% Inj) 0 ml IV STAT PRN; Protocol PRN Reason: Hypoglycemia Protocol Dextrose (Glutose 15) 0 gm PO ONCE PRN; Protocol PRN Reason: Hypoglycemia Protocol Epoetin Rodrigo (Procrit) 10,000 unit IV F [facility] Last Admin: 11/25/17 11:37 Dose: 10,000 unit Famotidine (Pepcid) 20 mg PO DAILY [facility] Last Admin: 11/24/17 09:51 Dose: 20 mg Ferric Sodium Gluconate Complex (Ferrlecit) 125 mg IVPB DAILY [facility] Stop: 11/27/17 10:01 Last Admin: 11/25/17 11:36 Dose: 125 mg Gabapentin (Neurontin) 300 mg PO MWF [facility] Last Admin: 11/23/17 13:07 Dose: 300 mg Glipizide (Glucotrol) 5 mg PO ACB [facility] Last Admin: 11/25/17 08:11 Dose: 5 mg Glucagon (Glucagen Diagnostic Kit) 0 mg IM STAT PRN; Protocol PRN Reason: Hypoglycemia Protocol Heparin Sodium (Porcine) (Heparin) 2,500 units IVP MWF [facility] Stop: 12/04/17 09:01 Last Admin: 11/25/17 11:37 Dose: 2,500 units Insulin Aspart (Novolog) 3 unit SC TIDAC [facility] Last Admin: 11/25/17 08:12 Dose: 3 units Insulin Glargine (Lantus) 5 unit SC HS [facility] Last Admin: 11/24/17 21:15 Dose: 5 units Insulin Human Regular (Novolin R) 0 unit SC ACHS [facility] PRN Reason: Protocol Last Admin: 11/25/17 08:12 Dose: 2 units Prednisone (Prednisone Tab) 10 mg PO ONCE ONE Stop: 11/26/17 10:01 Rosuvastatin Calcium (Crestor) 5 mg PO HS [facility] Last Admin: 11/24/17 21:15 Dose: 5 mg Tamsulosin HCl (Flomax) 0.4 mg PO DAILY [facility] Last Admin: 11/24/17 09:52 Dose: 0.4 mg - Labs Labs: 11/25/17 07:20 11/25/17 07:20 PT 11.8 SECONDS (9.7-12.2) 11/10/17 08:23 INR 1.1 11/10/17 08:23 APTT 33 SECONDS (21-34) 11/04/17 02:01 - Constitutional Appears: No Acute Distress, Chronically Ill - Head Exam Head Exam: ATRAUMATIC, NORMAL INSPECTION - Eye Exam Eye Exam: EOMI, Normal appearance - Neck Exam Neck Exam: Normal Inspection. absent: Tenderness - Respiratory Exam Respiratory Exam: Clear to Ausculation Bilateral, NORMAL BREATHING PATTERN - Cardiovascular Exam Cardiovascular Exam: REGULAR RHYTHM, +S1 - GI/Abdominal Exam GI & Abdominal Exam: Soft. absent: Tenderness - Extremities Exam Extremities Exam: Normal Inspection. absent: Tenderness - Neurological Exam Neurological Exam: Awake, CN II-XII Intact - Skin Skin Exam: Dry, Warm Assessment and Plan (1) CAD (coronary artery disease) Status: Acute (2) ESRD (end stage renal disease) Status: Acute (3) Type 2 diabetes mellitus with diabetic nephropathy Status: Acute (4) CHF (congestive heart failure) Status: Acute - Assessment and Plan (Free Text) Plan: dialysis MWF monitor HTN with steroid taper
[2017-11-25] MEDS: (Lantus) Insulin Glargine, Recombinant SC SCH (21:06)
[2017-11-26 06:16] LABS: BASO # 0.1 K/uL (0.0-0.2); BASO % 0.8 % (0.0-2.0); EOS # 0.1 K/uL (0.0-0.7); EOS % 0.3 % (0.0-4.0); HEMOGLOBIN 9.9 g/dL (12.0-18.0); LYMPH # 2.4 K/uL (1.0-4.3); LYMPH % 14.9 % (20.0-40.0); MEAN CELL VOLUME 89.9 fL (80.0-94.0); MEAN CORPUSCULAR HEMOGLOBIN 30.7 pg (27.0-31.0); MEAN CORPUSCULAR HGB CONC 34.2 g/dL (33.0-37.0); MEAN PLATELET VOLUME 7.7 fL (7.2-11.7); MONO # 1.7 K/uL (0.0-0.8); MONO % 10.4 % (0.0-10.0); NEUT # 11.8 K/uL (1.8-7.0); NEUT % 73.6 % (50.0-75.0); NRBC % 0.8 % (0.0-2.0); RBC 3.21 Mil/uL (4.40-5.90); RED CELL DISTRIBUTION WIDTH 12.8 % (11.5-14.5); WHITE BLOOD COUNT 16.1 K/uL (4.8-10.8)
[2017-11-26 06:30] LABS: ALB/GLOB RATIO 1.2 (1.0-2.1); ALBUMIN 3.7 g/dL (3.5-5.0); CALCIUM 8.9 mg/dl (8.6-10.4)
[2017-11-26] MEDS: (Novolin R) Insulin Human Regular 100 units/ml vial SC SCH ×5 (08:05→21:39)
[2017-11-26] MEDS: (Novolog) Insulin Aspart, Recombinant 100 u/ml 10 ml vial SC SCH ×4 (08:05→17:22)
--- NOTE | 2017-11-26 09:58 | CP.PCM.PN ---
Subjective - Date & Time of Evaluation Date of Evaluation: 11/26/17 Time of Evaluation: 09:56 - Subjective Subjective: stable dialysis 11/25 HTN controlled no new events Objective - Vital Signs/Intake and Output Vital Signs (last 24 hours): Temp Pulse Resp BP Pulse Ox 98.5 F 100 H 20 134/81 98 11/26/17 08:04 11/26/17 08:04 11/26/17 08:04 11/26/17 08:04 11/26/17 08:04 Intake and Output: 11/26/17 11/26/17 06:59 18:59 Intake Total 120 Balance 120 - Medications Medications: Current Medications Acetaminophen (Tylenol 325mg Tab) 650 mg PO Q6 PRN PRN Reason: Pain, Mild (1-3) Last Admin: 11/25/17 20:16 Dose: 650 mg Calcitriol (Rocaltrol) 0.5 mcg PO DAILY [facility] Last Admin: 11/25/17 13:32 Dose: 0.5 mcg Calcium Acetate (Phoslo) 667 mg PO TIDCC [facility] Last Admin: 11/25/17 17:23 Dose: 667 mg Carvedilol (Coreg) 6.25 mg PO BID [facility] Last Admin: 11/25/17 17:23 Dose: 6.25 mg Dextrose (Dextrose 50% Inj) 0 ml IV STAT PRN; Protocol PRN Reason: Hypoglycemia Protocol Dextrose (Glutose 15) 0 gm PO ONCE PRN; Protocol PRN Reason: Hypoglycemia Protocol Epoetin Rodrigo (Procrit) 10,000 unit IV MWF [facility] Last Admin: 11/25/17 11:37 Dose: 10,000 unit Famotidine (Pepcid) 20 mg PO DAILY [facility] Last Admin: 11/25/17 13:32 Dose: 20 mg Ferric Sodium Gluconate Complex (Ferrlecit) 125 mg IVPB DAILY [facility] Stop: 11/27/17 10:01 Last Admin: 11/25/17 11:36 Dose: 125 mg Gabapentin (Neurontin) 300 mg PO MWF [facility] Last Admin: 11/25/17 13:31 Dose: 300 mg Glipizide (Glucotrol) 5 mg PO ACB [facility] Last Admin: 11/26/17 08:05 Dose: 5 mg Glucagon (Glucagen Diagnostic Kit) 0 mg IM STAT PRN; Protocol PRN Reason: Hypoglycemia Protocol Heparin Sodium (Porcine) (Heparin) 2,500 units IVP MWF [facility] Stop: 12/04/17 09:01 Last Admin: 11/25/17 11:37 Dose: 2,500 units Insulin Aspart (Novolog) 3 unit SC TIDAC [facility] Last Admin: 11/26/17 08:06 Dose: Not Given Insulin Glargine (Lantus) 5 unit SC HS [facility] Last Admin: 11/25/17 21:06 Dose: 5 units Insulin Human Regular (Novolin R) 0 unit SC ACHS [facility] PRN Reason: Protocol Last Admin: 11/26/17 08:06 Dose: Not Given Prednisone (Prednisone Tab) 10 mg PO ONCE ONE Stop: 11/26/17 10:01 Rosuvastatin Calcium (Crestor) 5 mg PO HS [facility] Last Admin: 11/25/17 21:06 Dose: 5 mg Tamsulosin HCl (Flomax) 0.4 mg PO DAILY [facility] Last Admin: 11/25/17 13:31 Dose: 0.4 mg - Labs Labs: 11/26/17 06:11 11/26/17 06:11 PT 11.8 SECONDS (9.7-12.2) 11/10/17 08:23 INR 1.1 11/10/17 08:23 APTT 33 SECONDS (21-34) 11/04/17 02:01 - Constitutional Appears: Non-toxic, No Acute Distress - Head Exam Head Exam: ATRAUMATIC, NORMAL INSPECTION - Eye Exam Eye Exam: EOMI, Normal appearance - Neck Exam Neck Exam: Normal Inspection. absent: Tenderness - Respiratory Exam Respiratory Exam: Clear to Ausculation Bilateral, NORMAL BREATHING PATTERN - Cardiovascular Exam Cardiovascular Exam: REGULAR RHYTHM, +S1 - GI/Abdominal Exam GI & Abdominal Exam: Soft. absent: Tenderness - Extremities Exam Extremities Exam: Normal Inspection. absent: Tenderness - Neurological Exam Neurological Exam: Alert, CN II-XII Intact - Skin Skin Exam: Dry, Warm Assessment and Plan (1) CAD (coronary artery disease) Status: Acute (2) ESRD (end stage renal disease) Status: Acute (3) Type 2 diabetes mellitus with diabetic nephropathy Status: Acute (4) CHF (congestive heart failure) Status: Acute - Assessment and Plan (Free Text) Plan: same dialysis MWF monitor Hg AV F maturing await HD placement
[2017-11-26] MEDS: Ferric Sodium Gluconat Complex 62.5 mg/5 ml Vial IVPB SCH (10:08)
--- NOTE | 2017-11-26 19:01 | CP.PCM.PN ---
Subjective - Date & Time of Evaluation Date of Evaluation: 11/26/17 Time of Evaluation: 09:45 - Subjective Subjective: PGY-1 Aissatou Stern D.O. Medicine progress note for Dr. Tobias service: Patient is seen and examined this morning. He is sitting comfortably in a chair next to his bed. He is complaining of arm pain at the site of IV infiltration. A warm compress was placed at the site. The patient says the swelling is decreasing, and he would like to go home. It was explained to the patient that we need to find placement at a hemodialysis center prior to discharge. He denies fevers, chills. He is sleeping and eating well. He has no urinary symptoms and is having regular BMs. Objective - Vital Signs/Intake and Output Vital Signs (last 24 hours): Temp Pulse Resp BP Pulse Ox 98.3 F 88 20 142/82 97 11/26/17 15:31 11/26/17 15:31 11/26/17 15:31 11/26/17 15:31 11/26/17 15:31 Intake and Output: 11/26/17 11/26/17 06:59 18:59 Intake Total 120 Balance 120 - Medications Medications: Current Medications Acetaminophen (Tylenol 325mg Tab) 650 mg PO Q6 PRN PRN Reason: Pain, Mild (1-3) Last Admin: 11/25/17 20:16 Dose: 650 mg Calcitriol (Rocaltrol) 0.5 mcg PO DAILY [facility] Last Admin: 11/26/17 10:12 Dose: 0.5 mcg Calcium Acetate (Phoslo) 667 mg PO TIDCC [facility] Last Admin: 11/26/17 17:26 Dose: 667 mg Carvedilol (Coreg) 6.25 mg PO BID [facility] Last Admin: 11/26/17 17:23 Dose: 6.25 mg Dextrose (Dextrose 50% Inj) 0 ml IV STAT PRN; Protocol PRN Reason: Hypoglycemia Protocol Dextrose (Glutose 15) 0 gm PO ONCE PRN; Protocol PRN Reason: Hypoglycemia Protocol Epoetin Rodrigo (Procrit) 10,000 unit IV MWF [facility] Last Admin: 11/25/17 11:37 Dose: 10,000 unit Famotidine (Pepcid) 20 mg PO DAILY [facility] Last Admin: 11/26/17 10:08 Dose: 20 mg Ferric Sodium Gluconate Complex (Ferrlecit) 125 mg IVPB DAILY [facility] Stop: 11/27/17 10:01 Last Admin: 11/26/17 10:08 Dose: Not Given Gabapentin (Neurontin) 300 mg PO MWF [facility] Last Admin: 11/25/17 13:31 Dose: 300 mg Glipizide (Glucotrol) 5 mg PO ACB [facility] Last Admin: 11/26/17 08:05 Dose: 5 mg Glucagon (Glucagen Diagnostic Kit) 0 mg IM STAT PRN; Protocol PRN Reason: Hypoglycemia Protocol Insulin Aspart (Novolog) 3 unit SC TIDAC [facility] Last Admin: 11/26/17 17:22 Dose: 3 units Insulin Glargine (Lantus) 5 unit SC HS [facility] Last Admin: 11/25/17 21:06 Dose: 5 units Insulin Human Regular (Novolin R) 0 unit SC ACHS [facility] PRN Reason: Protocol Last Admin: 11/26/17 17:22 Dose: 6 units Rosuvastatin Calcium (Crestor) 5 mg PO HS [facility] Last Admin: 11/25/17 21:06 Dose: 5 mg Tamsulosin HCl (Flomax) 0.4 mg PO DAILY [facility] Last Admin: 11/26/17 10:08 Dose: 0.4 mg - Labs Labs: 11/26/17 06:11 11/26/17 06:11 PT 11.8 SECONDS (9.7-12.2) 11/10/17 08:23 INR 1.1 11/10/17 08:23 APTT 33 SECONDS (21-34) 11/04/17 02:01 - Constitutional Appears: Well, No Acute Distress - Head Exam Head Exam: ATRAUMATIC, NORMAL INSPECTION, NORMOCEPHALIC - Eye Exam Eye Exam: EOMI, Normal appearance - ENT Exam ENT Exam: Mucous Membranes Moist, Normal Exam - Neck Exam Neck Exam: Normal Inspection - Respiratory Exam Respiratory Exam: Clear to Ausculation Bilateral, NORMAL BREATHING PATTERN - Cardiovascular Exam Cardiovascular Exam: REGULAR RHYTHM. absent: Murmur - GI/Abdominal Exam GI & Abdominal Exam: Soft. absent: Tenderness - Rectal Exam Rectal Exam: Deferred - Extremities Exam Extremities Exam: Full ROM Additional comments: Right upper extremity edema present but improving. No erythema. Left anatomic snuff box AVF without thrill. Left arm AVF with thrill. - Back Exam Back Exam: NORMAL INSPECTION - Neurological Exam Neurological Exam: Alert, Awake, Normal Gait, Oriented x3 - Psychiatric Exam Psychiatric exam: Normal Affect, Normal Mood - Skin Skin Exam: Dry, Intact, Normal Color, Warm Assessment and Plan - Assessment and Plan (Free Text) Assessment: Patient is a 62 year old male with past medical history end stage renal disease on HD, CHF, HTN, DM admitted for shortness of breath secondary to pulmonary edema secondary to ESRD. Plan: ESRD CKD Stage 5; on hemodialysis MWF - Case management consult for outpatient dialysis placement - S/p Right chest Permacath placement by Dr. Gil 11/05/17 while awaiting maturity of Left Arm AVF - Previously had Left Anatomic Snuff Box AVF placed however this no longer had a thrill so Left Upper Arm AVF performed 11/19/17 - Nephrology consult- Dr. Davis - Vascular surgery consult- Dr. Gil - Calcitriol 0.5 mcg PO 1x/day - Phoslo 667 mg PO TID - Monitor labs Right arm phlebitis, acute, improving likely 2/2 to IV access infiltration - Frequent warm compresses - Venous Doppler negative - Prednisone taper last dose today (started 11/22/17 through 11/26/17: 50--> 40- -> 30 --> 20 --> 10 mg) - Consider another U/S should the Prednisone taper not alleviate symptoms T2DM requiring insulin, chronic - A1C 7.1 - Patient has had elevated overnight blood sugar readings but could be 2/2 prednisone - Novolog 3 units TIDAC added on - Currently on RISS and Glipizide 5 mg PO 1x/day ACB and blood glucose are under control - Added on Lantus 5 U SC HS - Will closely monitor and adjust accordingly based on accuchecks - Hypoglycemia protocol in place SOB, acute, improving- 2/2 to pulmonary edema due to ESRD - 100 mg total of Lasix on 11/04/17 and Metalozone at the time of admission Hx Elevated Troponin (11/04), resolved- likely due to demand ischemia; patient denies clinical complaints of chest pain at this time Hx CAD with Angioplasty in 2012 - Coreg 12.5 mg PO 1x/day - Crestor 5 mg PO HS - Cardiology consult- Dr. Smith Hx of heart failure with preserved ejection fraction - Lasix and Metolazone were discontinued 11/05/17 - ProBNP upon admission 2910 - Echo 04/2017: LVEF 50-55%, mild concentric LVH, Grade I abnormal relaxation pattern, aortic valve mildly sclerotic - Cardiology consult- Dr. Smith HTN, chronic, stable - Coreg 6.25 mg PO BID Diabetic neuropathy, chronic- involving the toes and feet bilaterally - Gabapentin 300 mg PO 1x/day MWF BPH, chronic, stable - Flomax 0.4 mg PO 1x/day Anemia, stable- likely 2/2 to ESRD - Ferric Gluconate 125 mg IV 1x/day through 11/27/17 - Procrit 10,000 IV MWF Prophylaxis: Patient is out of bed to chair and has been encouraged to walk throughout the day (10 laps around medical floor every 1 to 2 hours) and has been observed doing so therefore Heparin 5,000 Units SC was discontinued. Bilateral SCDs while in bed Pepcid 20 mg PO 1x/day Dispo: Pending outpatient dialysis placement
[2017-11-26] MEDS: (Lantus) Insulin Glargine, Recombinant SC SCH (22:13)
[2017-11-27 06:50] LABS: BASO # 0.1 K/uL (0.0-0.2); BASO % 0.8 % (0.0-2.0); EOS # 0.3 K/uL (0.0-0.7); EOS % 2.1 % (0.0-4.0); HEMOGLOBIN 10.1 g/dL (12.0-18.0); LYMPH # 2.9 K/uL (1.0-4.3); MEAN CELL VOLUME 89.8 fL (80.0-94.0); MEAN CORPUSCULAR HEMOGLOBIN 30.5 pg (27.0-31.0); MEAN CORPUSCULAR HGB CONC 33.9 g/dL (33.0-37.0); MEAN PLATELET VOLUME 7.6 fL (7.2-11.7); MONO # 1.2 K/uL (0.0-0.8); MONO % 9.6 % (0.0-10.0); NEUT # 8.2 K/uL (1.8-7.0); NEUT % 64.5 % (50.0-75.0); NRBC % 0.5 % (0.0-2.0); RBC 3.32 Mil/uL (4.40-5.90); RED CELL DISTRIBUTION WIDTH 13.2 % (11.5-14.5); WHITE BLOOD COUNT 12.7 K/uL (4.8-10.8)
[2017-11-27 06:58] LABS: ALB/GLOB RATIO 1.4 (1.0-2.1); CALCIUM 9.3 mg/dl (8.6-10.4)
--- NOTE | 2017-11-27 07:11 | CP.PCM.PN ---
Subjective - Date & Time of Evaluation Date of Evaluation: 11/27/17 Time of Evaluation: 07:30 - Subjective Subjective: Medicine Progress Note for Dr. Aguilera Patient examined at bedside. No acute events overnight. States that he is still having some right upper extremity pain and edema. Denies chest pain, shortness of breath, abdominal pain, changes in bowel movements, dysuria. Objective - Vital Signs/Intake and Output Vital Signs (last 24 hours): Temp Pulse Resp BP Pulse Ox 98.3 F 90 20 145/80 97 11/27/17 04:56 11/27/17 04:56 11/27/17 04:56 11/27/17 04:56 11/27/17 04:56 Intake and Output: 11/27/17 11/27/17 06:59 18:59 Intake Total 120 Balance 120 - Medications Medications: Current Medications Acetaminophen (Tylenol 325mg Tab) 650 mg PO Q6 PRN PRN Reason: Pain, Mild (1-3) Last Admin: 11/25/17 20:16 Dose: 650 mg Calcitriol (Rocaltrol) 0.5 mcg PO DAILY [facility] Last Admin: 11/26/17 10:12 Dose: 0.5 mcg Calcium Acetate (Phoslo) 667 mg PO TIDCC [facility] Last Admin: 11/26/17 17:26 Dose: 667 mg Carvedilol (Coreg) 6.25 mg PO BID [facility] Last Admin: 11/26/17 17:23 Dose: 6.25 mg Dextrose (Dextrose 50% Inj) 0 ml IV STAT PRN; Protocol PRN Reason: Hypoglycemia Protocol Dextrose (Glutose 15) 0 gm PO ONCE PRN; Protocol PRN Reason: Hypoglycemia Protocol Epoetin Rodrigo (Procrit) 10,000 unit IV F [facility] Last Admin: 11/25/17 11:37 Dose: 10,000 unit Famotidine (Pepcid) 20 mg PO DAILY [facility] Last Admin: 11/26/17 10:08 Dose: 20 mg Ferric Sodium Gluconate Complex (Ferrlecit) 125 mg IVPB DAILY [facility] Stop: 11/27/17 10:01 Last Admin: 11/26/17 10:08 Dose: Not Given Gabapentin (Neurontin) 300 mg PO MWF [facility] Last Admin: 11/25/17 13:31 Dose: 300 mg Glipizide (Glucotrol) 5 mg PO ACB [facility] Last Admin: 11/26/17 08:05 Dose: 5 mg Glucagon (Glucagen Diagnostic Kit) 0 mg IM STAT PRN; Protocol PRN Reason: Hypoglycemia Protocol Insulin Aspart (Novolog) 3 unit SC TIDAC [facility] Last Admin: 11/26/17 17:22 Dose: 3 units Insulin Glargine (Lantus) 5 unit SC HS [facility] Last Admin: 11/26/17 22:13 Dose: 5 units Insulin Human Regular (Novolin R) 0 unit SC ACHS [facility] PRN Reason: Protocol Last Admin: 11/26/17 21:39 Dose: Not Given Rosuvastatin Calcium (Crestor) 5 mg PO HS [facility] Last Admin: 11/26/17 22:13 Dose: 5 mg Tamsulosin HCl (Flomax) 0.4 mg PO DAILY [facility] Last Admin: 11/26/17 10:08 Dose: 0.4 mg - Labs Labs: 11/27/17 06:35 11/27/17 06:35 PT 11.8 SECONDS (9.7-12.2) 11/10/17 08:23 INR 1.1 11/10/17 08:23 APTT 33 SECONDS (21-34) 11/04/17 02:01 - Additional Findings Additional findings: - Constitutional Appears: Non-toxic, No Acute Distress - Head Exam Head Exam: ATRAUMATIC, NORMAL INSPECTION - Eye Exam Eye Exam: EOMI, PERRL Pupil Exam: NORMAL ACCOMODATION - ENT Exam ENT Exam: Mucous Membranes Moist - Neck Exam Neck Exam: Normal Inspection - Cardiovascular Exam Cardiovascular Exam: REGULAR RHYTHM, +S1, +S2 - GI/Abdominal Exam GI & Abdominal Exam: Soft, Normal Bowel Sounds. absent: Distended, Firm, Guarding, Tenderness - Extremities Exam Additional comments: Right upper extremity edema. Left anatomic snuff box AVF without thrill, left upper arm AVF with thrill. - Back Exam Back Exam: NORMAL INSPECTION - Neurological Exam Neurological Exam: Alert, Awake, Normal Gait, Oriented x3 - Psychiatric Exam Psychiatric exam: Normal Affect, Normal Mood Assessment and Plan - Assessment and Plan (Free Text) Plan: ESRD CKD Stage 5; on hemodialysis MWF Waiting for outpatient dialysis placement; case management aware S/P Right Chest Permacath placement by Dr. Gil 11/05/17; awaiting maturity of Left Arm AVF Had Left Anatomic Snuff Box AVF placed however this no longer had a thrill therefore Left Upper Arm AVF performed 11/19/[address] Davis consulted, help appreciated Vascular Surgery Dr. Gil consulted, help appreciated Calcitriol 0.5 mcg PO 1x/day Phoslo 667 mg PO TID Monitor labs Right Arm Phlebitis Improving with warm compresses Likely secondary to IV access infiltration Venous Doppler was negative Prednisone Taper started 11/22/17 through 11/26/17: 50--> 40--> 30 --> 20 --> 10 mg Consider another U/S should the Prednisone taper not alleviate symptoms Leukocytosis trending down. 16.1-->12.7 DM 2 requiring Insulin HgBA1C is 7.1 Patient has had elevated overnight blood sugar readings- could be 2/2 prednisone Novolog 3 units TIDAC added on Currently on RISS and Glipizide 5 mg PO 1x/day ACB and blood glucose are under control Added on Lantus 5 U SC HS Will closely monitor and adjust accordingly based on accuchecks Hypoglycemia protocol in place SOB secondary to Pulmonary Edema secondary to ESRD Improving Patient was given 100 mg total of Lasix on 11/04/17 and Metalozone at the time of admission Hx Elevated Troponin 11/04- likely due to demand ischemia Patient denies clinical complaints of chest pain at this time Hx CAD with Angioplasty in 2012 and Coreg 12.5 mg PO 1x/day Crestor 5 mg PO HS Cardiology Dr. Smith consulted, help appreciated Hx of heart failure with preserved ejection fraction Lasix and Metolazone were discontinued 11/05/17 ProBNP upon admission 2910 Echo 04/2017: LVEF 50-55%, mild concentric LVH, Grade I abnormal relaxation pattern, aortic valve mildly sclerotic Cardiology Dr. Smith consulted HTN Coreg 6.25 mg PO BID Continue to monitor Diabetic Neuropathy Involving the toes and feet bilaterally Gabapentin 300 mg PO 1x/day MWF BPH Flomax 0.4 mg PO 1x/day Anemia likely secondary to ESRD Stable Ferric Gluconate 125 mg IV 1x/day through 11/27/17 Procrit 10,000 IV MWF Prophylaxis Patient is out of bed to chair and has been encouraged to walk throughout the day (10 laps around medical floor every 1 to 2 hours) and has been observed doing so therefore Heparin 5,000 Units SC was discontinued. Bilateral SCDs while in bed Pepcid 20 mg PO 1x/day Dispo: Pending outpatient dialysis placement Mayo Mendez PGY-1
[2017-11-27] MEDS: (Novolog) Insulin Aspart, Recombinant 100 u/ml 10 ml vial SC SCH ×3 (08:30→17:19)
[2017-11-27] MEDS ORDERED: Ferric Sodium Gluconat Complex 62.5 mg/5 ml Vial IVPB SCH (11:30)
[2017-11-27] MEDS: Epoetin Alfa 10,000 unit/ml Dialysis IV SCH (11:53)
--- NOTE | 2017-11-27 12:55 | CP.PCM.PN ---
Subjective - Date & Time of Evaluation Date of Evaluation: 11/27/17 Time of Evaluation: 12:53 - Subjective Subjective: Seen at dialysis now- to UF 1500ml HTN controlled labs reviewed- acceptable no new complaint Objective - Vital Signs/Intake and Output Vital Signs (last 24 hours): Temp Pulse Resp BP Pulse Ox 97.4 F L 85 17 140/64 97 11/27/17 09:40 11/27/17 12:30 11/27/17 12:30 11/27/17 12:30 11/27/17 12:30 Intake and Output: 11/27/17 11/27/17 06:59 18:59 Intake Total 120 Balance 120 - Medications Medications: Current Medications Acetaminophen (Tylenol 325mg Tab) 650 mg PO Q6 PRN PRN Reason: Pain, Mild (1-3) Last Admin: 11/25/17 20:16 Dose: 650 mg Calcitriol (Rocaltrol) 0.5 mcg PO DAILY [facility] Last Admin: 11/26/17 10:12 Dose: 0.5 mcg Calcium Acetate (Phoslo) 667 mg PO TIDCC [facility] Last Admin: 11/27/17 08:31 Dose: 667 mg Carvedilol (Coreg) 6.25 mg PO BID [facility] Last Admin: 11/26/17 17:23 Dose: 6.25 mg Dextrose (Dextrose 50% Inj) 0 ml IV STAT PRN; Protocol PRN Reason: Hypoglycemia Protocol Dextrose (Glutose 15) 0 gm PO ONCE PRN; Protocol PRN Reason: Hypoglycemia Protocol Epoetin Rodrigo (Procrit) 10,000 unit IV F [facility] Last Admin: 11/27/17 11:53 Dose: 10,000 unit Famotidine (Pepcid) 20 mg PO DAILY [facility] Last Admin: 11/26/17 10:08 Dose: 20 mg Gabapentin (Neurontin) 300 mg PO MWF [facility] Last Admin: 11/25/17 13:31 Dose: 300 mg Glipizide (Glucotrol) 5 mg PO ACB [facility] Last Admin: 11/27/17 08:31 Dose: 5 mg Glucagon (Glucagen Diagnostic Kit) 0 mg IM STAT PRN; Protocol PRN Reason: Hypoglycemia Protocol Insulin Aspart (Novolog) 3 unit SC TIDAC [facility] Last Admin: 11/27/17 08:30 Dose: 3 units Insulin Glargine (Lantus) 5 unit SC HS [facility] Last Admin: 11/26/17 22:13 Dose: 5 units Insulin Human Regular (Novolin R) 0 unit SC [facility] PRN Reason: Protocol Last Admin: 11/26/17 21:39 Dose: Not Given Rosuvastatin Calcium (Crestor) 5 mg PO HS [facility] Last Admin: 11/26/17 22:13 Dose: 5 mg Tamsulosin HCl (Flomax) 0.4 mg PO DAILY [facility] Last Admin: 11/26/17 10:08 Dose: 0.4 mg - Labs Labs: 11/27/17 06:35 11/27/17 06:35 PT 11.8 SECONDS (9.7-12.2) 11/10/17 08:23 INR 1.1 11/10/17 08:23 APTT 33 SECONDS (21-34) 11/04/17 02:01 - Constitutional Appears: No Acute Distress, Chronically Ill - Head Exam Head Exam: ATRAUMATIC, NORMAL INSPECTION - Eye Exam Eye Exam: EOMI, Normal appearance - Neck Exam Neck Exam: Normal Inspection. absent: Tenderness - Respiratory Exam Respiratory Exam: Clear to Ausculation Bilateral, NORMAL BREATHING PATTERN - Cardiovascular Exam Cardiovascular Exam: REGULAR RHYTHM, +S1 - GI/Abdominal Exam GI & Abdominal Exam: Soft. absent: Tenderness - Extremities Exam Extremities Exam: Normal Inspection. 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
[2017-11-27] MEDS: (Novolin R) Insulin Human Regular 100 units/ml vial SC SCH ×3 (13:45→21:00)
[2017-11-27] MEDS: (Lantus) Insulin Glargine, Recombinant SC SCH (21:19)
--- NOTE | 2017-11-28 00:23 | CP.PCM.PN ---
<DavidsonCeline - Last Filed: 11/28/17 02:16> Subjective - Date & Time of Evaluation Date of Evaluation: 11/28/17 Time of Evaluation: 00:19 - Subjective Subjective: Pt seen and examined at bedside, in no acute distress. Pt complains of right UE pain at site of infiltration, however admits it is improving. Pt denies chest pain, SOB, nausea, vomiting, diarrhea, constipation. Objective - Vital Signs/Intake and Output Vital Signs (last 24 hours): Temp Pulse Resp BP Pulse Ox 98.9 F 93 H 20 148/74 97 11/27/17 15:00 11/27/17 15:00 11/27/17 15:00 11/27/17 15:00 11/27/17 15:00 Intake and Output: 11/27/17 11/28/17 18:59 06:59 Intake Total 250 Balance 250 - Medications Medications: Current Medications Acetaminophen (Tylenol 325mg Tab) 650 mg PO Q6 PRN PRN Reason: Pain, Mild (1-3) Last Admin: 11/25/17 20:16 Dose: 650 mg Calcitriol (Rocaltrol) 0.5 mcg PO DAILY [facility] Last Admin: 11/27/17 13:43 Dose: 0.5 mcg Calcium Acetate (Phoslo) 667 mg PO TIDCC [facility] Last Admin: 11/27/17 17:18 Dose: 667 mg Carvedilol (Coreg) 6.25 mg PO BID [facility] Last Admin: 11/27/17 17:18 Dose: 6.25 mg Dextrose (Dextrose 50% Inj) 0 ml IV STAT PRN; Protocol PRN Reason: Hypoglycemia Protocol Dextrose (Glutose 15) 0 gm PO ONCE PRN; Protocol PRN Reason: Hypoglycemia Protocol Epoetin Rodrigo (Procrit) 10,000 unit IV [facility] Last Admin: 11/27/17 11:53 Dose: 10,000 unit Famotidine (Pepcid) 20 mg PO DAILY [facility] Last Admin: 11/27/17 13:44 Dose: 20 mg Gabapentin (Neurontin) 300 mg PO MWF [facility] Last Admin: 11/27/17 13:44 Dose: 300 mg Glipizide (Glucotrol) 5 mg PO ACB [facility] Last Admin: 11/27/17 08:31 Dose: 5 mg Glucagon (Glucagen Diagnostic Kit) 0 mg IM STAT PRN; Protocol PRN Reason: Hypoglycemia Protocol Insulin Aspart (Novolog) 3 unit SC TIDAC [facility] Last Admin: 11/27/17 17:19 Dose: 3 units Insulin Glargine (Lantus) 5 unit SC HS [facility] Last Admin: 11/27/17 21:19 Dose: 5 units Insulin Human Regular (Novolin R) 0 unit SC ACHS [facility] PRN Reason: Protocol Last Admin: 11/27/17 21:00 Dose: Not Given Rosuvastatin Calcium (Crestor) 5 mg PO HS [facility] Last Admin: 11/27/17 21:19 Dose: 5 mg Tamsulosin HCl (Flomax) 0.4 mg PO DAILY [facility] Last Admin: 11/27/17 13:44 Dose: 0.4 mg - Labs Labs: 11/27/17 06:35 11/27/17 06:35 PT 11.8 SECONDS (9.7-12.2) 11/10/17 08:23 INR 1.1 11/10/17 08:23 APTT 33 SECONDS (21-34) 11/04/17 02:01 Assessment and Plan - Assessment and Plan (Free Text) Assessment: 62 yo M w/ PMHx ESRD(HD MWF), DM2 w/ diabetic neuropathy, CAD, CHF, HTN admitted for acute pulmonary edema 2/2 fluid overload from ESRD 1. ESRD -HD MWF -LUE AVF(11/19), awaiting maturity -R permacath(11/05) -renal diet -calcitriol .5 -procrit 10,000U MWF -nephro consult Dr. Davis -sx consult Dr. Gil 2. DM2/neuropathy -glipizide 5mg ACB -Aspart 3U TIDAC -glargine 5U HS -gabapentin 300 MWF 3. CAD -crestor 5mg -cardio consult Dr. Smith 4. HTN -Coreg 6.25 BID 5. BPH -flomax .4 6. Ppx -pepcid 20mg Dispo: Clear for d/c pending HD placement <Liana Aguilera V - Last Filed: 11/28/17 08:16> Objective - Vital Signs/Intake and Output Vital Signs (last 24 hours): Temp Pulse Resp BP Pulse Ox 98.0 F 87 18 143/78 97 11/28/17 07:20 11/28/17 07:20 11/28/17 07:20 11/28/17 07:20 11/28/17 07:20 Intake and Output: 11/28/17 11/28/17 06:59 18:59 Intake Total 370 Balance 370 - Medications Medications: Current Medications Acetaminophen (Tylenol 325mg Tab) 650 mg PO Q6 PRN PRN Reason: Pain, Mild (1-3) Last Admin: 11/25/17 20:16 Dose: 650 mg Calcitriol (Rocaltrol) 0.5 mcg PO DAILY [facility] Last Admin: 11/27/17 13:43 Dose: 0.5 mcg Calcium Acetate (Phoslo) 667 mg PO TIDCC [facility] Last Admin: 11/27/17 17:18 Dose: 667 mg Carvedilol (Coreg) 6.25 mg PO BID [facility] Last Admin: 11/27/17 17:18 Dose: 6.25 mg Dextrose (Dextrose 50% Inj) 0 ml IV STAT PRN; Protocol PRN Reason: Hypoglycemia Protocol Dextrose (Glutose 15) 0 gm PO ONCE PRN; Protocol PRN Reason: Hypoglycemia Protocol Epoetin Rodrigo (Procrit) 10,000 unit IV [facility] Last Admin: 11/27/17 11:53 Dose: 10,000 unit Famotidine (Pepcid) 20 mg PO DAILY [facility] Last Admin: 11/27/17 13:44 Dose: 20 mg Gabapentin (Neurontin) 300 mg PO MWF [facility] Last Admin: 11/27/17 13:44 Dose: 300 mg Glipizide (Glucotrol) 5 mg PO ACB [facility] Last Admin: 11/27/17 08:31 Dose: 5 mg Glucagon (Glucagen Diagnostic Kit) 0 mg IM STAT PRN; Protocol PRN Reason: Hypoglycemia Protocol Insulin Aspart (Novolog) 3 unit SC TIDAC [facility] Last Admin: 11/27/17 17:19 Dose: 3 units Insulin Glargine (Lantus) 5 unit SC [facility] Last Admin: 11/27/17 21:19 Dose: 5 units Insulin Human Regular (Novolin R) 0 unit SC ACHS [facility] PRN Reason: Protocol Last Admin: 11/27/17 21:00 Dose: Not Given Rosuvastatin Calcium (Crestor) 5 mg PO [facility] Last Admin: 11/27/17 21:19 Dose: 5 mg Tamsulosin HCl (Flomax) 0.4 mg PO DAILY [facility] Last Admin: 11/27/17 13:44 Dose: 0.4 mg - Labs Labs: 11/27/17 06:35 11/27/17 06:35 PT 11.8 SECONDS (9.7-12.2) 11/10/17 08:23 INR 1.1 11/10/17 08:23 APTT 33 SECONDS (21-34) 11/04/17 02:01 Attending/Attestation - Attestation I have personally seen and examined this patient.: Yes I have fully participated in the care of the patient.: Yes I have reviewed all pertinent clinical information, including history, physical exam and plan: Yes Notes (Text): Patient seen, examined, case discussed with emergency medical service coordinator. Patient seen this morning during rounds. Patient denies acute complaints. Noted over right upper extremity is improving and softening on my exam today. White count is downtrending. Awaiting labs for this morning. We are awaiting outside dialysis placement. Patient has completed steroid taper. We will see if we need adjust insulin in light of completing steroid taper. Assessments: 1). SOB secondary to Pulmonary Edema secondary to ESRD Assessment/plan * Symptomatically improved after 100 mg total of Lasix on 11/04/17 and Metalozone at the time of admission * resolved 2). ESRD CKD Stage 5 Assessment/plan * Nephrology (Dr. Davis) on the case help appreciated * Vascular surgery (Dr. Gil) on the case help appreciated * dialysis Thursday//Thursday * S/P Right Chest Permacath placement by Dr. Gil 11/05/17 * s/P Right Chest Permacath placement by Dr. Gil 11/05/17 * AVF placement left snuffbox on 11/10/17, no longer functioning * AVF placed in left brachiocephalic on 11/19/17 * As per surgery, dressing may be removed by 11/22; sutures to be removed by Surgery by November 29-. * Will need to have at least 3 HD inpatient before being accepted by outpatient HD center * Grain Trimmer Smita and Electronic Parts Designer Julia are aware that patient needs outpatient HD placement * Calcitriol 0.5 mcg PO 1x/day * Phoslo 667 mg PO TIDCC 3). Hx Elevated Troponin Assessment/plan * Likely secondary to ESRD 4). Hx CAD with Angioplasty in 2012 and Hx of HFpEF Assessment/plan * Cardiology Dr. Smith on board and he has cleared patient for planned AVF * changed Coreg to 6.25 by mouth twice to accommodate 12.5mg PO once a daily * Crestor 5 mg PO HS * Lasix and Metolazone were discontinued 11/05/17 * ProBNP upon admission 2910 * Echo 04/2017: LVEF 50-55%, mild concentric LVH, Grade I abnormal relaxation pattern, aortic valve mildly sclerotic 5). DM 2 requiring Insulin Assessment/plan * HgBA1C is 7.1 * home medications: Insulin Degludec 45 units SC 1x/day and Glipizide 5 mg PO 1x /day at home * Currently on RISS and hold Glipizide 5 mg PO 1x/day and blood glucose not controlled * Likely secondary to steroid taper * Start Novolog 3 units sub TIDAC * Start Lantus 5 units sub HS * Accuchecks Q before meals daily at bedtime * hypoglycemic protocol 6). HTN Assessment/Plan * Norvasc discontinued by nephrology noted for low blood pressure * Coreg 6.25 mg by mouth twice a day * Patient is dialysis Thursday * Blood pressure is controlled 7). Diabetic Neuropathy Assessment/Plan * Involving the toes and feet bilaterally * Gabapentin 300 mg PO 1x/day 8). BPH Assessment/Plan * Flomax 0.4 mg PO 1x/day 9). Anemia likely secondary to ESRD * Ferric Gluconate 125 mg IV 1x/day 10) Right arm phlebitis * Likely secondary to IV access infiltration * Venous Doppler was negative * Warm compresses do help the patient; we have been providing on our rounds * Medicine Team: wet a towel with warm water, microwave the towel for 30 seconds, place the microwaved towel in plastic specimen bag, apply carefully to the right lateral mid arm for 30 minutes every 4 to 6 hours * Prednisone Taper completed on * Consider another U/S should the Prednisone taper not alleviate symptoms 11). Prophylaxis * d/c Heparin 5,000 Units SC Q8H since patient is ambulatory * ICE Pack to the Right Lateral Ankle Q6H * Pepcid 20 mg once a day Plan: patient is awaiting placement for outpatient dialysis.
[2017-11-28 08:12] LABS: BASO # 0.1 K/uL (0.0-0.2); BASO % 0.8 % (0.0-2.0); EOS # 0.3 K/uL (0.0-0.7); EOS % 2.7 % (0.0-4.0); HEMOGLOBIN 10.9 g/dL (12.0-18.0); LYMPH % 19.2 % (20.0-40.0); MEAN CELL VOLUME 90.5 fL (80.0-94.0); MEAN CORPUSCULAR HGB CONC 34.3 g/dL (33.0-37.0); MEAN PLATELET VOLUME 7.4 fL (7.2-11.7); MONO % 10.1 % (0.0-10.0); NEUT # 6.8 K/uL (1.8-7.0); NEUT % 67.2 % (50.0-75.0); NRBC % 0.2 % (0.0-2.0); RBC 3.52 Mil/uL (4.40-5.90); RED CELL DISTRIBUTION WIDTH 13.4 % (11.5-14.5); WHITE BLOOD COUNT 10.2 K/uL (4.8-10.8)
[2017-11-28] MEDS: (Novolin R) Insulin Human Regular 100 units/ml vial SC SCH ×4 (08:28→21:26)
[2017-11-28] MEDS: (Novolog) Insulin Aspart, Recombinant 100 u/ml 10 ml vial SC SCH ×3 (08:29→17:44)
[2017-11-28 08:32] LABS: ALB/GLOB RATIO 1.4 (1.0-2.1); CALCIUM 9.1 mg/dl (8.6-10.4)
[2017-11-28] MEDS: (Lantus) Insulin Glargine, Recombinant SC SCH (21:26)
--- NOTE | 2017-11-29 03:09 | CP.PCM.PN ---
<Celine Davidson - Last Filed: 11/29/17 03:15> Subjective - Date & Time of Evaluation Date of Evaluation: 11/29/17 Time of Evaluation: 03:01 - Subjective Subjective: 62 yo M seen and examined at bedside. No acute events and no complaints. Pt reports minimal pain in right distal are 2/2 infiltration. Reports no issues with R AVF, no chest pain, SOB, abd pain, change to bowel habits, no calf tenderness Objective - Vital Signs/Intake and Output Vital Signs (last 24 hours): Temp Pulse Resp BP Pulse Ox 98.2 F 87 20 169/99 H 97 11/28/17 23:05 11/28/17 23:05 11/28/17 23:05 11/28/17 23:05 11/28/17 23:05 Intake and Output: 11/28/17 11/29/17 18:59 06:59 Intake Total 830 Balance 830 - Medications Medications: Current Medications Acetaminophen (Tylenol 325mg Tab) 650 mg PO Q6 PRN PRN Reason: Pain, Mild (1-3) Last Admin: 11/25/17 20:16 Dose: 650 mg Calcitriol (Rocaltrol) 0.5 mcg PO DAILY [facility] Last Admin: 11/28/17 09:59 Dose: 0.5 mcg Calcium Acetate (Phoslo) 667 mg PO TIDCC [facility] Last Admin: 11/28/17 17:44 Dose: 667 mg Carvedilol (Coreg) 6.25 mg PO BID [facility] Last Admin: 11/28/17 17:44 Dose: 6.25 mg Dextrose (Dextrose 50% Inj) 0 ml IV STAT PRN; Protocol PRN Reason: Hypoglycemia Protocol Dextrose (Glutose 15) 0 gm PO ONCE PRN; Protocol PRN Reason: Hypoglycemia Protocol Epoetin Rodrigo (Procrit) 10,000 unit IV [facility] Last Admin: 11/27/17 11:53 Dose: 10,000 unit Famotidine (Pepcid) 20 mg PO DAILY [facility] Last Admin: 11/28/17 09:59 Dose: 20 mg Gabapentin (Neurontin) 300 mg PO MWF [facility] Last Admin: 11/27/17 13:44 Dose: 300 mg Glipizide (Glucotrol) 5 mg PO ACB [facility] Last Admin: 11/28/17 08:54 Dose: 5 mg Glucagon (Glucagen Diagnostic Kit) 0 mg IM STAT PRN; Protocol PRN Reason: Hypoglycemia Protocol Insulin Aspart (Novolog) 3 unit SC TIDAC [facility] Last Admin: 11/28/17 17:44 Dose: 3 units Insulin Glargine (Lantus) 5 unit SC HS [facility] Last Admin: 11/28/17 21:26 Dose: 5 units Insulin Human Regular (Novolin R) 0 unit SC ACHS [facility] PRN Reason: Protocol Last Admin: 11/28/17 21:26 Dose: Not Given Rosuvastatin Calcium (Crestor) 5 mg PO HS [facility] Last Admin: 11/28/17 21:26 Dose: 5 mg Tamsulosin HCl (Flomax) 0.4 mg PO DAILY [facility] Last Admin: 11/28/17 09:59 Dose: 0.4 mg - Labs Labs: 11/28/17 08:06 11/28/17 08:06 PT 11.8 SECONDS (9.7-12.2) 11/10/17 08:23 INR 1.1 11/10/17 08:23 APTT 33 SECONDS (21-34) 11/04/17 02:01 - Constitutional Appears: Well, Non-toxic, No Acute Distress - Head Exam Head Exam: ATRAUMATIC, NORMAL INSPECTION, NORMOCEPHALIC - Eye Exam Eye Exam: EOMI, Normal appearance - ENT Exam ENT Exam: Mucous Membranes Moist, Normal Exam - Neck Exam Neck Exam: Normal Inspection - Respiratory Exam Respiratory Exam: Clear to Ausculation Bilateral, NORMAL BREATHING PATTERN. absent: Rhonchi, Wheezes - Cardiovascular Exam Cardiovascular Exam: REGULAR RHYTHM, +S1, +S2. absent: Tachycardia, Murmur - GI/Abdominal Exam GI & Abdominal Exam: Soft, Normal Bowel Sounds. absent: Distended, Tenderness - Extremities Exam Extremities Exam: Normal Capillary Refill, Normal Inspection. absent: Calf Tenderness Additional comments: Left AVF dressed, clean, dry and intact. No surrounding erythema noted Right forearm, edema improving, no erythema - Neurological Exam Neurological Exam: Alert, Awake, Oriented x3 - Psychiatric Exam Psychiatric exam: Normal Affect - Skin Skin Exam: Dry, Intact, Normal Color Assessment and Plan - Assessment and Plan (Free Text) Assessment: 62 yo M w/ PMHx ESRD(HD MWF), DM2 w/ diabetic neuropathy, CAD, CHF, HTN admitted for acute pulmonary edema 2/2 fluid overload from ESRD 1. ESRD -HD MWF -LUE AVF(11/19), awaiting maturity -R permacath(11/05) -renal diet -calcitriol .5 -procrit 10,000U MWF -nephro consult Dr. Davis -sx consult Dr. Gil 2. DM2/neuropathy -glipizide 5mg ACB -Aspart 3U TIDAC -glargine 5U HS -gabapentin 300 MWF 3. CAD -crestor 5mg -cardio consult Dr. Smith 4. HTN -Coreg 6.25 BID 5. BPH -flomax .4 6. Ppx -pepcid 20mg -DVT therapy not indicated as pt is ambulatory Dispo: Clear for d/c pending HD placement <Liana Aguilera V - Last Filed: 11/29/17 13:06> Objective - Vital Signs/Intake and Output Vital Signs (last 24 hours): Temp Pulse Resp BP Pulse Ox 98.1 F 91 H 20 133/75 98 11/29/17 07:20 11/29/17 09:23 11/29/17 07:20 11/29/17 09:23 11/29/17 07:20 - Medications Medications: Current Medications Acetaminophen (Tylenol 325mg Tab) 650 mg PO Q6 PRN PRN Reason: Pain, Mild (1-3) Last Admin: 11/25/17 20:16 Dose: 650 mg Calcitriol (Rocaltrol) 0.5 mcg PO DAILY [facility] Last Admin: 11/29/17 09:24 Dose: 0.5 mcg Calcium Acetate (Phoslo) 667 mg PO TIDCC [facility] Last Admin: 11/29/17 12:30 Dose: 667 mg Carvedilol (Coreg) 6.25 mg PO BID [facility] Last Admin: 11/29/17 09:23 Dose: 6.25 mg Dextrose (Dextrose 50% Inj) 0 ml IV STAT PRN; Protocol PRN Reason: Hypoglycemia Protocol Dextrose (Glutose 15) 0 gm PO ONCE PRN; Protocol PRN Reason: Hypoglycemia Protocol Epoetin Rodrigo (Procrit) 10,000 unit IV MWF [facility] Last Admin: 11/27/17 11:53 Dose: 10,000 unit Famotidine (Pepcid) 20 mg PO DAILY [facility] Last Admin: 11/29/17 09:23 Dose: 20 mg Gabapentin (Neurontin) 300 mg PO MWF [facility] Last Admin: 11/27/17 13:44 Dose: 300 mg Glipizide (Glucotrol) 5 mg PO ACB [facility] Last Admin: 11/29/17 08:02 Dose: 5 mg Glucagon (Glucagen Diagnostic Kit) 0 mg IM STAT PRN; Protocol PRN Reason: Hypoglycemia Protocol Insulin Aspart (Novolog) 3 unit SC TIDAC [facility] Last Admin: 11/29/17 12:31 Dose: 3 units Insulin Glargine (Lantus) 5 unit SC HS [facility] Last Admin: 11/28/17 21:26 Dose: 5 units Insulin Human Regular (Novolin R) 0 unit SC ACHS [facility] PRN Reason: Protocol Last Admin: 11/29/17 12:31 Dose: 2 units Rosuvastatin Calcium (Crestor) 5 mg PO HS [facility] Last Admin: 11/28/17 21:26 Dose: 5 mg Tamsulosin HCl (Flomax) 0.4 mg PO DAILY [facility] Last Admin: 11/29/17 09:23 Dose: 0.4 mg - Labs Labs: 11/28/17 08:06 11/28/17 08:06 PT 11.8 SECONDS (9.7-12.2) 11/10/17 08:23 INR 1.1 11/10/17 08:23 APTT 33 SECONDS (21-34) 11/04/17 02:01 Attending/Attestation - Attestation I have personally seen and examined this patient.: Yes I have fully participated in the care of the patient.: Yes I have reviewed all pertinent clinical information, including history, physical exam and plan: Yes Notes (Text): Patient seen, examined, and case discussed with day-time resident. Patient seen at bedside accompanied by his . Patient denies acute complaints. We are awaiting outpatient dialysis placement for discharge planning purposes. Assessments: 1). SOB secondary to Pulmonary Edema secondary to ESRD Assessment/plan * Symptomatically improved after 100 mg total of Lasix on 11/04/17 and Metalozone at the time of admission * resolved 2). ESRD CKD Stage 5 Assessment/plan * Nephrology (Dr. Davis) on the case help appreciated * Vascular surgery (Dr. Gil) on the case help appreciated * dialysis Thursday//Thursday * S/P Right Chest Permacath placement by Dr. Gil 11/05/17 * s/P Right Chest Permacath placement by Dr. Gil 11/05/17 * AVF placement left snuffbox on 11/10/17, no longer functioning * AVF placed in left brachiocephalic on 11/19/17 * As per surgery, dressing may be removed by 11/22; sutures to be removed by Surgery by November 29-. * Will need to have at least 3 HD inpatient before being accepted by outpatient HD center * Media Operator Smita and Family Coach Julia are aware that patient needs outpatient HD placement * Calcitriol 0.5 mcg PO 1x/day * Phoslo 667 mg PO TIDCC 3). Hx Elevated Troponin Assessment/plan * Likely secondary to ESRD 4). Hx CAD with Angioplasty in 2012 and Hx of HFpEF Assessment/plan * Cardiology Dr. Smith on board and he has cleared patient for planned AVF * changed Coreg to 6.25 by mouth twice to accommodate 12.5mg PO once a daily * Crestor 5 mg PO HS * Lasix and Metolazone were discontinued 11/05/17 * ProBNP upon admission 2910 * Echo 04/2017: LVEF 50-55%, mild concentric LVH, Grade I abnormal relaxation pattern, aortic valve mildly sclerotic 5). DM 2 requiring Insulin Assessment/plan * HgBA1C is 7.1 * home medications: Insulin Degludec 45 units SC 1x/day and Glipizide 5 mg PO 1x /day at home * Currently on RISS and hold Glipizide 5 mg PO 1x/day and blood glucose not controlled * Likely secondary to steroid taper * Start Novolog 3 units sub TIDAC * Start Lantus 5 units sub HS * Accuchecks Q before meals daily at bedtime * hypoglycemic protocol 6). HTN Assessment/Plan * Norvasc discontinued by nephrology noted for low blood pressure * Coreg 6.25 mg by mouth twice a day * Patient is dialysis Thursday * Blood pressure is controlled 7). Diabetic Neuropathy Assessment/Plan * Involving the toes and feet bilaterally * Gabapentin 300 mg PO 1x/day 8). BPH Assessment/Plan * Flomax 0.4 mg PO 1x/day 9). Anemia likely secondary to ESRD * Ferric Gluconate 125 mg IV 1x/day 10) Right arm phlebitis * Likely secondary to IV access infiltration * Venous Doppler was negative * Warm compresses do help the patient; we have been providing on our rounds * Medicine Team: wet a towel with warm water, microwave the towel for 30 seconds, place the microwaved towel in plastic specimen bag, apply carefully to the right lateral mid arm for 30 minutes every 4 to 6 hours * Prednisone Taper completed on * White count has resolved 11). Prophylaxis * d/c Heparin 5,000 Units SC Q8H since patient is ambulatory * ICE Pack to the Right Lateral Ankle Q6H * Pepcid 20 mg once a day Plan: patient is awaiting placement for outpatient dialysis. We will need to f/ u surgery in regards to suture removal.
[2017-11-29] MEDS: (Novolog) Insulin Aspart, Recombinant 100 u/ml 10 ml vial SC SCH ×3 (07:30→17:03)
[2017-11-29] MEDS: (Novolin R) Insulin Human Regular 100 units/ml vial SC SCH ×4 (07:30→21:19)
[2017-11-29] MEDS: (Lantus) Insulin Glargine, Recombinant SC SCH (21:19)
[2017-11-30 06:52] LABS: BASO # 0.1 K/uL (0.0-0.2); BASO % 0.6 % (0.0-2.0); EOS # 0.5 K/uL (0.0-0.7); EOS % 4.9 % (0.0-4.0); HEMOGLOBIN 10.1 g/dL (12.0-18.0); MEAN CELL VOLUME 91.3 fL (80.0-94.0); MEAN CORPUSCULAR HEMOGLOBIN 30.8 pg (27.0-31.0); MEAN CORPUSCULAR HGB CONC 33.8 g/dL (33.0-37.0); MEAN PLATELET VOLUME 7.6 fL (7.2-11.7); MONO % 9.4 % (0.0-10.0); NEUT # 6.9 K/uL (1.8-7.0); NEUT % 66.1 % (50.0-75.0); NRBC % 0.1 % (0.0-2.0); RBC 3.27 Mil/uL (4.40-5.90); RED CELL DISTRIBUTION WIDTH 13.7 % (11.5-14.5); WHITE BLOOD COUNT 10.4 K/uL (4.8-10.8)
[2017-11-30 07:39] LABS: ALB/GLOB RATIO 1.3 (1.0-2.1); ALBUMIN 3.7 g/dL (3.5-5.0); CALCIUM 9.1 mg/dl (8.6-10.4)
--- NOTE | 2017-11-30 07:54 | CP.PCM.PN ---
<Mayo Mendez L - Last Filed: 11/30/17 16:05> Subjective - Date & Time of Evaluation Date of Evaluation: 11/30/17 Time of Evaluation: 10:20 - Subjective Subjective: Resident Progress Note for Hospitalist Service Patient examined at bedside in dialysis unit. States his swelling and pain in his right arm is continuously improving. States he is drinking and eating well. Has no other complaints at this time. Denies headache, dizziness, chest pain, shortness of breath, abdominal pain, changes in bowel movements, dysuria. Objective - Vital Signs/Intake and Output Vital Signs (last 24 hours): Temp Pulse Resp BP Pulse Ox 97.3 F L 89 20 138/76 96 11/29/17 23:05 11/29/17 23:05 11/29/17 23:05 11/29/17 23:05 11/29/17 23:05 - Medications Medications: Current Medications Acetaminophen (Tylenol 325mg Tab) 650 mg PO Q6 PRN PRN Reason: Pain, Mild (1-3) Last Admin: 11/25/17 20:16 Dose: 650 mg Calcitriol (Rocaltrol) 0.5 mcg PO DAILY [facility] Last Admin: 11/29/17 09:24 Dose: 0.5 mcg Calcium Acetate (Phoslo) 667 mg PO TIDCC [facility] Last Admin: 11/29/17 17:03 Dose: 667 mg Carvedilol (Coreg) 6.25 mg PO BID [facility] Last Admin: 11/29/17 17:03 Dose: 6.25 mg Dextrose (Dextrose 50% Inj) 0 ml IV STAT PRN; Protocol PRN Reason: Hypoglycemia Protocol Dextrose (Glutose 15) 0 gm PO ONCE PRN; Protocol PRN Reason: Hypoglycemia Protocol Epoetin Rodrigo (Procrit) 10,000 unit IV [facility] Last Admin: 11/27/17 11:53 Dose: 10,000 unit Famotidine (Pepcid) 20 mg PO DAILY [facility] Last Admin: 11/29/17 09:23 Dose: 20 mg Gabapentin (Neurontin) 300 mg PO MWF [facility] Last Admin: 11/27/17 13:44 Dose: 300 mg Glipizide (Glucotrol) 5 mg PO ACB [facility] Last Admin: 11/29/17 08:02 Dose: 5 mg Glucagon (Glucagen Diagnostic Kit) 0 mg IM STAT PRN; Protocol PRN Reason: Hypoglycemia Protocol Insulin Aspart (Novolog) 3 unit SC TIDAC [facility] Last Admin: 11/29/17 17:03 Dose: Not Given Insulin Glargine (Lantus) 5 unit SC HS [facility] Last Admin: 11/29/17 21:19 Dose: 5 units Insulin Human Regular (Novolin R) 0 unit SC ACHS [facility] PRN Reason: Protocol Last Admin: 11/29/17 21:19 Dose: Not Given Rosuvastatin Calcium (Crestor) 5 mg PO HS [facility] Last Admin: 11/29/17 21:18 Dose: 5 mg Tamsulosin HCl (Flomax) 0.4 mg PO DAILY [facility] Last Admin: 11/29/17 09:23 Dose: 0.4 mg - Labs Labs: 11/30/17 06:38 11/30/17 06:38 PT 11.8 SECONDS (9.7-12.2) 11/10/17 08:23 INR 1.1 11/10/17 08:23 APTT 33 SECONDS (21-34) 11/04/17 02:01 - Additional Findings Additional findings: - Constitutional Appears: Non-toxic, No Acute Distress - Head Exam Head Exam: ATRAUMATIC, NORMAL INSPECTION - Eye Exam Eye Exam: EOMI, PERRL Pupil Exam: NORMAL ACCOMODATION - ENT Exam ENT Exam: Mucous Membranes Moist - Neck Exam Neck Exam: Normal Inspection - Cardiovascular Exam Cardiovascular Exam: REGULAR RHYTHM, +S1, +S2 - GI/Abdominal Exam GI & Abdominal Exam: Soft, Normal Bowel Sounds. absent: Distended, Firm, Guarding, Tenderness - Extremities Exam Additional comments: Right upper extremity tenderness with edema. Improving. Left anatomic snuff box AVF without thrill, left upper arm AVF with thrill. - Back Exam Back Exam: NORMAL INSPECTION - Neurological Exam Neurological Exam: Alert, Awake, Normal Gait, Oriented x3 - Psychiatric Exam Psychiatric exam: Normal Affect, Normal Mood Assessment and Plan - Assessment and Plan (Free Text) Plan: ESRD CKD Stage 5; on hemodialysis MWF Waiting for outpatient dialysis placement; case management aware S/P Right Chest Permacath placement by Dr. Gil 11/05/17; awaiting maturity of Left Arm AVF Had Left Anatomic Snuff Box AVF placed however this no longer had a thrill therefore Left Upper Arm AVF performed 11/19/[address] Davis consulted, help appreciated Vascular Surgery Dr. Gil consulted, help appreciated Calcitriol 0.5 mcg PO 1x/day Phoslo 667 mg PO TID Monitor labs Right Arm Phlebitis Improving with warm compresses Likely secondary to IV access infiltration Venous Doppler was negative Prednisone Taper completed (11/22/17 through 11/26/17) Consider another U/S should the Prednisone taper not alleviate symptoms Leukocytosis trending down DM 2 requiring Insulin HgBA1C is 7.1 Patient has had elevated overnight blood sugar readings- could be 2/2 prednisone Novolog 3 units TIDAC added on Currently on RISS and Glipizide 5 mg PO 1x/day ACB and blood glucose are under control Added on Lantus 5 U SC HS Will closely monitor and adjust accordingly based on accuchecks Hypoglycemia protocol in place Hx Elevated Troponin 11/04- likely due to demand ischemia Patient denies clinical complaints of chest pain at this time Hx CAD with Angioplasty in 2012 and Coreg 6.25 mg PO BID Crestor 5 mg PO HS Cardiology Dr. Smith consulted, help appreciated Hx of heart failure with preserved ejection fraction Lasix and Metolazone were discontinued 11/05/17 ProBNP upon admission 2910 Echo 04/2017: LVEF 50-55%, mild concentric LVH, Grade I abnormal relaxation pattern, aortic valve mildly sclerotic Cardiology Dr. Smith consulted HTN Coreg 6.25 mg PO BID Continue to monitor Diabetic Neuropathy Involving the toes and feet bilaterally Gabapentin 300 mg PO 1x/day MWF BPH Flomax 0.4 mg PO 1x/day Anemia likely secondary to ESRD Stable Ferric Gluconate 125 mg IV 1x/day completed 11/27/17 Procrit 10,000 IV MWF SOB secondary to Pulmonary Edema secondary to ESRD Resolved Prophylaxis Patient is out of bed to chair and has been encouraged to walk throughout the day (10 laps around medical floor every 1 to 2 hours) and has been observed doing so. Bilateral SCDs while in bed Pepcid 20 mg PO 1x/day Dispo: Pending outpatient dialysis placement Mayo Mendez PGY-1 <Bjorn Damon - Last Filed: 11/30/17 21:00> Objective - Vital Signs/Intake and Output Vital Signs (last 24 hours): Temp Pulse Resp BP Pulse Ox 98.9 F 99 H 20 116/66 97 11/30/17 15:00 11/30/17 15:00 08/06/18 15:00 11/30/17 15:00 11/30/17 15:00 - Medications Medications: Current Medications Acetaminophen (Tylenol 325mg Tab) 650 mg PO Q6 PRN PRN Reason: Pain, Mild (1-3) Last Admin: 11/25/17 20:16 Dose: 650 mg Calcitriol (Rocaltrol) 0.5 mcg PO DAILY [facility] Last Admin: 11/30/17 12:48 Dose: 0.5 mcg Calcium Acetate (Phoslo) 667 mg PO TIDCC [facility] Last Admin: 11/30/17 17:27 Dose: 667 mg Carvedilol (Coreg) 6.25 mg PO BID [facility] Last Admin: 11/30/17 17:27 Dose: 6.25 mg Dextrose (Dextrose 50% Inj) 0 ml IV STAT PRN; Protocol PRN Reason: Hypoglycemia Protocol Dextrose (Glutose 15) 0 gm PO ONCE PRN; Protocol PRN Reason: Hypoglycemia Protocol Epoetin Rodrigo (Procrit) 10,000 unit IV [facility] Last Admin: 11/30/17 09:57 Dose: 10,000 unit Famotidine (Pepcid) 20 mg PO DAILY [facility] Last Admin: 11/30/17 12:48 Dose: 20 mg Gabapentin (Neurontin) 300 mg PO MWF [facility] Last Admin: 11/30/17 08:19 Dose: 300 mg Glipizide (Glucotrol) 5 mg PO ACB [facility] Last Admin: 11/30/17 08:19 Dose: 5 mg Glucagon (Glucagen Diagnostic Kit) 0 mg IM STAT PRN; Protocol PRN Reason: Hypoglycemia Protocol Insulin Aspart (Novolog) 3 unit SC TIDAC [facility] Last Admin: 11/30/17 17:28 Dose: 3 units Insulin Glargine (Lantus) 5 unit SC HS [facility] Last Admin: 11/29/17 21:19 Dose: 5 units Insulin Human Regular (Novolin R) 0 unit SC ACHS [facility] PRN Reason: Protocol Last Admin: 11/30/17 17:27 Dose: 4 units Rosuvastatin Calcium (Crestor) 5 mg PO HS [facility] Last Admin: 11/29/17 21:18 Dose: 5 mg Tamsulosin HCl (Flomax) 0.4 mg PO DAILY [facility] Last Admin: 11/30/17 12:47 Dose: 0.4 mg - Labs Labs: 11/30/17 06:38 11/30/17 06:38 PT 11.8 SECONDS (9.7-12.2) 11/10/17 08:23 INR 1.1 11/10/17 08:23 APTT 33 SECONDS (21-34) 11/04/17 02:01 Attending/Attestation - Attestation I have personally seen and examined this patient.: Yes I have fully participated in the care of the patient.: Yes I have reviewed all pertinent clinical information, including history, physical exam and plan: Yes Notes (Text): 11/30/17 20:56 Hospitalist Progress Note Patient was seen and examined at 12:45 PM 11/30/17 650 B Currently upon FULL ROS: States that the Right Lateral Arm pain by the antecubital fossa superiorly and inferiorly as essentially resolved since the last time I saw him on 11/22/17: the warm compresses and Prednisone Taper helped him NO chest pain NO SOB/Cough NO abdominal pain NO n/v/d/c: normal bowel movement this morning NO burning pain with urination NO dysphagia/odynophagia NO lightheadedenss/dizziness NO paresthesias NO new changes in visioin NO new changes in hearing NO headache Exam: General: AAOX3, NAD HEENT: NCA, EOMI, PERRLA, NO cervical/supraclavicular/submandibular lymphadenopathy, NO pharyngeal erythema/exudate, Nasal Turbinates are nonerythematous/nonedematous, Oral Mucosa is moist Cardio: NS1 and NS2, NO M/R/G Resp: CTA B/L, NO R/R/W Right chest permacath GI: BSx4, Soft, NT, NO HSM, NO guarding/rebound tenderness Ext: Pulses are strong and equal in bilateral UE and LE, NO edema note in the Left Arm/Left Leg/Right Leg, capillary refills is 2 seconds on all toes, Left Anatomic Snuff Box AVF without thrill, Left Upper Arm AVF with (+) Thrill, Right Lateral Upper Arm superior to the antecubital fossa there is essentially no tenderness to palpation and Right Lateral Lower Arm inferior to the antecubital fossa there is also resolution of tenderness to palpation, Right hand edema has resolved Neuro: CN II through XII are grossly intact Assessments: 1). SOB secondary to Pulmonary Edema secondary to ESRD Symptomatically improved after 100 mg total of Lasix on 11/04/17 and Metalozone at the time of admission 2). ESRD CKD Stage 5 on HD MWF via Right Chest Permacath and awaiting maturity of Left Arm AVF S/P Right Chest Permacath placement by Dr. Gil 11/05/17 Had Left Anatomic Snuff Box AVF placed however this no longer had a thrill therefore Left Upper Arm AVF performed 11/19/17. [employer] Die Maker Smita and Racehorse Trainer Julia are aware that patient needs outpatient HD placement Nephrology Dr. Davis Vascular Surgery Dr. Gil Calcitriol 0.5 mcg PO 1x/day Phoslo 667 mg PO TID 3). Hx Elevated Troponin Likely secondary to ESRD 4). Hx CAD with Angioplasty in 2012 and Hx of HFpEF Coreg 12.5 mg PO 1x/day Crestor 5 mg PO HS Lasix and Metolazone were discontinued 11/05/17 ProBNP upon admission 2910 Echo 04/2017: LVEF 50-55%, mild concentric LVH, Grade I abnormal relaxation pattern, aortic valve mildly sclerotic Cardiology Dr. Smith 5). DM 2 requiring Insulin HgBA1C is 7.1 On Insulin Degludec 45 units SC 1x/day and Glipizide 5 mg PO 1x/day at home Currently on Aspart 3 units SC TID, Lantus 5 units SC HS, Glipizide 5 mg PO ACB and RISS ACHS 6). HTN Coreg 12.5 mg PO 1x/day NO longer on Norvasc 10 mg PO 1x/day 7). Diabetic Neuropathy Involving the toes and feet bilaterally Gabapentin 300 mg PO 1x/day MWF 8). BPH Flomax 0.4 mg PO 1x/day 9). Anemia likely secondary to ESRD Procrit 10,000 IV MWF 10). Right Arm Phlebitis Likely secondary to IV access infiltration Venous Doppler was negative Warm compresses and Prednisone Taper given 11/22/17 through 11/26/17: 50--> 40--> 30 --> 20 --> 10 mg Essentially resolved 11). Prophylaxis SCDs Patient is out of bed to chair and has been encouraged to walk throughout the day (10 laps around medical floor every 1 to 2 hours) and has been observed doing so therefore Heparin 5,000 Units SC was discontinued. Bilateral SCDs while in bed Pepcid 20 mg PO 1x/day Bjorn Damon D.O.
[2017-11-30] MEDS: (Novolog) Insulin Aspart, Recombinant 100 u/ml 10 ml vial SC SCH ×3 (08:19→17:28)
[2017-11-30] MEDS: (Novolin R) Insulin Human Regular 100 units/ml vial SC SCH ×5 (08:30→21:52)
[2017-11-30] MEDS: Epoetin Alfa 10,000 unit/ml Dialysis IV SCH (09:57)
--- NOTE | 2017-11-30 11:33 | CP.PCM.PN ---
Subjective - Date & Time of Evaluation Date of Evaluation: 11/30/17 Time of Evaluation: 11:31 - Subjective Subjective: Stable dialysis now- UF 2000ml HTN controlled Labs acceptable AV F with bruit no new complaint Objective - Vital Signs/Intake and Output Vital Signs (last 24 hours): Temp Pulse Resp BP Pulse Ox 97.8 F 94 H 18 141/84 97 11/30/17 09:00 11/30/17 09:00 11/30/17 09:00 11/30/17 11:00 11/30/17 09:00 - Medications Medications: Current Medications Acetaminophen (Tylenol 325mg Tab) 650 mg PO Q6 PRN PRN Reason: Pain, Mild (1-3) Last Admin: 11/25/17 20:16 Dose: 650 mg Calcitriol (Rocaltrol) 0.5 mcg PO DAILY [facility] Last Admin: 11/29/17 09:24 Dose: 0.5 mcg Calcium Acetate (Phoslo) 667 mg PO TIDCC [facility] Last Admin: 11/30/17 08:19 Dose: 667 mg Carvedilol (Coreg) 6.25 mg PO BID [facility] Last Admin: 11/29/17 17:03 Dose: 6.25 mg Dextrose (Dextrose 50% Inj) 0 ml IV STAT PRN; Protocol PRN Reason: Hypoglycemia Protocol Dextrose (Glutose 15) 0 gm PO ONCE PRN; Protocol PRN Reason: Hypoglycemia Protocol Epoetin Rodrigo (Procrit) 10,000 unit IV [facility] Last Admin: 11/30/17 09:57 Dose: 10,000 unit Famotidine (Pepcid) 20 mg PO DAILY [facility] Last Admin: 11/29/17 09:23 Dose: 20 mg Gabapentin (Neurontin) 300 mg PO MWF [facility] Last Admin: 11/30/17 08:19 Dose: 300 mg Glipizide (Glucotrol) 5 mg PO ACB [facility] Last Admin: 11/30/17 08:19 Dose: 5 mg Glucagon (Glucagen Diagnostic Kit) 0 mg IM STAT PRN; Protocol PRN Reason: Hypoglycemia Protocol Insulin Aspart (Novolog) 3 unit SC TIDAC [facility] Last Admin: 11/30/17 08:19 Dose: 3 units Insulin Glargine (Lantus) 5 unit SC HS [facility] Last Admin: 11/29/17 21:19 Dose: 5 units Insulin Human Regular (Novolin R) 0 unit SC ACHS [facility] PRN Reason: Protocol Last Admin: 11/29/17 21:19 Dose: Not Given Rosuvastatin Calcium (Crestor) 5 mg PO HS [facility] Last Admin: 11/29/17 21:18 Dose: 5 mg Tamsulosin HCl (Flomax) 0.4 mg PO DAILY [facility] Last Admin: 11/29/17 09:23 Dose: 0.4 mg - Labs Labs: 11/30/17 06:38 11/30/17 06:38 PT 11.8 SECONDS (9.7-12.2) 11/10/17 08:23 INR 1.1 11/10/17 08:23 APTT 33 SECONDS (21-34) 11/04/17 02:01 - Constitutional Appears: No Acute Distress, Chronically Ill - Head Exam Head Exam: ATRAUMATIC, NORMAL INSPECTION - Eye Exam Eye Exam: EOMI, Normal appearance - Neck Exam Neck Exam: Normal Inspection. absent: Tenderness - Respiratory Exam Respiratory Exam: Clear to Ausculation Bilateral, NORMAL BREATHING PATTERN - Cardiovascular Exam Cardiovascular Exam: REGULAR RHYTHM, +S1 - GI/Abdominal Exam GI & Abdominal Exam: Soft. absent: Tenderness - Extremities Exam Extremities Exam: Normal Inspection. absent: Tenderness - Neurological Exam Neurological Exam: Alert, CN II-XII Intact - Skin Skin Exam: Dry, Warm Assessment and Plan (1) CAD (coronary artery disease) Status: Acute (2) ESRD (end stage renal disease) Status: Acute (3) Type 2 diabetes mellitus with diabetic nephropathy Status: Acute (4) CHF (congestive heart failure) Status: Acute - Assessment and Plan (Free Text) Plan: Dialysis MWF Same meds Await AV F maturation Await dialysis placement
[2017-11-30] MEDS: (Lantus) Insulin Glargine, Recombinant SC SCH (22:00)
--- NOTE | 2017-12-01 07:12 | CP.PCM.PN ---
Subjective - Date & Time of Evaluation Date of Evaluation: 12/01/17 Time of Evaluation: 07:10 - Subjective Subjective: Resident Progress Note for Hospitalist Service Patient examined at bedside. No acute events overnight. States his arm pain and swelling is still present. States he is eating and drinking well. Denies headache, dizziness, chest pain, shortness of breath, abdominal pain, changes in bowel movements, dysuria. Objective - Vital Signs/Intake and Output Vital Signs (last 24 hours): Temp Pulse Resp BP Pulse Ox 98.2 F 85 20 146/80 96 11/30/17 23:05 11/30/17 23:05 11/30/17 23:05 11/30/17 23:05 11/30/17 23:05 - Medications Medications: Current Medications Acetaminophen (Tylenol 325mg Tab) 650 mg PO Q6 PRN PRN Reason: Pain, Mild (1-3) Last Admin: 11/25/17 20:16 Dose: 650 mg Calcitriol (Rocaltrol) 0.5 mcg PO DAILY [facility] Last Admin: 11/30/17 12:48 Dose: 0.5 mcg Calcium Acetate (Phoslo) 667 mg PO TIDCC [facility] Last Admin: 11/30/17 17:27 Dose: 667 mg Carvedilol (Coreg) 6.25 mg PO BID [facility] Last Admin: 11/30/17 17:27 Dose: 6.25 mg Dextrose (Dextrose 50% Inj) 0 ml IV STAT PRN; Protocol PRN Reason: Hypoglycemia Protocol Dextrose (Glutose 15) 0 gm PO ONCE PRN; Protocol PRN Reason: Hypoglycemia Protocol Epoetin Rodrigo (Procrit) 10,000 unit IV [facility] [place] Last Admin: 11/30/17 09:57 Dose: 10,000 unit Famotidine (Pepcid) 20 mg PO DAILY [facility] Last Admin: 11/30/17 12:48 Dose: 20 mg Gabapentin (Neurontin) 300 mg PO MWF [facility] Last Admin: 11/30/17 08:19 Dose: 300 mg Glipizide (Glucotrol) 5 mg PO ACB [facility] Last Admin: 11/30/17 08:19 Dose: 5 mg Glucagon (Glucagen Diagnostic Kit) 0 mg IM STAT PRN; Protocol PRN Reason: Hypoglycemia Protocol Insulin Aspart (Novolog) 3 unit SC TIDAC [facility] Last Admin: 11/30/17 17:28 Dose: 3 units Insulin Glargine (Lantus) 5 unit SC [facility] Last Admin: 11/30/17 22:00 Dose: 5 units Insulin Human Regular (Novolin R) 0 unit SC [facility] PRN Reason: Protocol Last Admin: 11/30/17 21:52 Dose: Not Given Rosuvastatin Calcium (Crestor) 5 mg PO [facility] Last Admin: 11/30/17 22:00 Dose: 5 mg Tamsulosin HCl (Flomax) 0.4 mg PO DAILY [facility] Last Admin: 11/30/17 12:47 Dose: 0.4 mg - Labs Labs: 11/30/17 06:38 11/30/17 06:38 PT 11.8 SECONDS (9.7-12.2) 11/10/17 08:23 INR 1.1 11/10/17 08:23 APTT 33 SECONDS (21-34) 11/04/17 02:01 - Additional Findings Additional findings: - Constitutional Appears: Non-toxic, No Acute Distress - Head Exam Head Exam: ATRAUMATIC, NORMAL INSPECTION - Eye Exam Eye Exam: EOMI, PERRL Pupil Exam: NORMAL ACCOMODATION - ENT Exam ENT Exam: Mucous Membranes Moist - Neck Exam Neck Exam: Normal Inspection - Cardiovascular Exam Cardiovascular Exam: REGULAR RHYTHM, +S1, +S2 - GI/Abdominal Exam GI & Abdominal Exam: Soft, Normal Bowel Sounds. absent: Distended, Firm, Guarding, Tenderness - Extremities Exam Additional comments: Right upper extremity edema. Improved Left anatomic snuff box AVF without thrill, left upper arm AVF with thrill. - Back Exam Back Exam: NORMAL INSPECTION - Neurological Exam Neurological Exam: Alert, Awake, Normal Gait, Oriented x3 - Psychiatric Exam Psychiatric exam: Normal Affect, Normal Mood Assessment and Plan - Assessment and Plan (Free Text) Plan: ESRD CKD Stage 5; on hemodialysis MWF Waiting for outpatient dialysis placement; case management aware S/P Right Chest Permacath placement by Dr. Gil 11/05/17; awaiting maturity of Left Arm AVF Had Left Anatomic Snuff Box AVF placed however this no longer had a thrill therefore Left Upper Arm AVF performed 11/19/[address] Davis consulted, help appreciated Vascular Surgery Dr. Gil consulted, help appreciated Calcitriol 0.5 mcg PO 1x/day Phoslo 667 mg PO TID Monitor labs Right Arm Phlebitis Improving with warm compresses Likely secondary to IV access infiltration Venous Doppler was negative Prednisone Taper completed (11/22/17 through 11/26/17) Consider another U/S should the Prednisone taper not alleviate symptoms Leukocytosis trending down DM 2 requiring Insulin HgBA1C is 7.1 Patient has had elevated overnight blood sugar readings- could be 2/2 prednisone Novolog 3 units TIDAC added on Currently on RISS and Glipizide 5 mg PO 1x/day ACB and blood glucose are under control Added on Lantus 5 U SC HS Will closely monitor and adjust accordingly based on accuchecks Hypoglycemia protocol in place Hx Elevated Troponin 11/04- likely due to demand ischemia Patient denies clinical complaints of chest pain at this time Hx CAD with Angioplasty in 2012 and Coreg 6.25 mg PO BID Crestor 5 mg PO HS Cardiology Dr. Smith consulted, help appreciated Hx of heart failure with preserved ejection fraction Lasix and Metolazone were discontinued 11/05/17 ProBNP upon admission 2910 Echo 04/2017: LVEF 50-55%, mild concentric LVH, Grade I abnormal relaxation pattern, aortic valve mildly sclerotic Cardiology Dr. Smith consulted HTN Coreg 6.25 mg PO BID Continue to monitor Diabetic Neuropathy Involving the toes and feet bilaterally Gabapentin 300 mg PO 1x/day MWF BPH Flomax 0.4 mg PO 1x/day Anemia likely secondary to ESRD Stable Ferric Gluconate 125 mg IV 1x/day completed 11/27/17 Procrit 10,000 IV MWF SOB secondary to Pulmonary Edema secondary to ESRD Resolved Prophylaxis Patient is out of bed to chair and has been encouraged to walk throughout the day (10 laps around medical floor every 1 to 2 hours) and has been observed doing so. Bilateral SCDs while in bed Pepcid 20 mg PO 1x/day Dispo: Pending outpatient dialysis placement. Sutures from 11/19 AVF placement to be removed today. Mayo Mendez PGY-1
[2017-12-01 07:40] LABS: BASO # 0.1 K/uL (0.0-0.2); BASO % 0.9 % (0.0-2.0); EOS # 0.5 K/uL (0.0-0.7); EOS % 5.9 % (0.0-4.0); HEMOGLOBIN 10.6 g/dL (12.0-18.0); LYMPH % 25.6 % (20.0-40.0); MEAN CELL VOLUME 91.3 fL (80.0-94.0); MEAN CORPUSCULAR HEMOGLOBIN 31.6 pg (27.0-31.0); MEAN CORPUSCULAR HGB CONC 34.6 g/dL (33.0-37.0); MEAN PLATELET VOLUME 7.5 fL (7.2-11.7); MONO # 0.9 K/uL (0.0-0.8); MONO % 12.2 % (0.0-10.0); NEUT # 4.3 K/uL (1.8-7.0); NEUT % 55.4 % (50.0-75.0); RBC 3.34 Mil/uL (4.40-5.90); RED CELL DISTRIBUTION WIDTH 14.2 % (11.5-14.5); WHITE BLOOD COUNT 7.7 K/uL (4.8-10.8)
[2017-12-01 07:52] LABS: ALB/GLOB RATIO 1.4 (1.0-2.1); ALBUMIN 3.9 g/dL (3.5-5.0)
[2017-12-01] MEDS: (Novolog) Insulin Aspart, Recombinant 100 u/ml 10 ml vial SC SCH ×3 (08:33→17:49)
[2017-12-01] MEDS: (Novolin R) Insulin Human Regular 100 units/ml vial SC SCH ×4 (08:33→21:06)
--- NOTE | 2017-12-01 09:54 | CP.PCM.PN ---
Subjective - Date & Time of Evaluation Date of Evaluation: 12/01/17 Time of Evaluation: 09:53 - Subjective Subjective: seen and examined no events no complaints comfortable no n/v/d/sob/dizziness/cp/f/c/headache Objective - Vital Signs/Intake and Output Vital Signs (last 24 hours): Temp Pulse Resp BP Pulse Ox 98.0 F 87 20 131/82 98 12/01/17 07:10 12/01/17 07:10 12/01/17 07:10 12/01/17 07:10 12/01/17 07:10 - Medications Medications: Current Medications Acetaminophen (Tylenol 325mg Tab) 650 mg PO Q6 PRN PRN Reason: Pain, Mild (1-3) Last Admin: 11/25/17 20:16 Dose: 650 mg Calcitriol (Rocaltrol) 0.5 mcg PO DAILY [facility] Last Admin: 11/30/17 12:48 Dose: 0.5 mcg Calcium Acetate (Phoslo) 667 mg PO TIDCC [facility] Last Admin: 11/30/17 17:27 Dose: 667 mg Carvedilol (Coreg) 6.25 mg PO BID [facility] Last Admin: 11/30/17 17:27 Dose: 6.25 mg Dextrose (Dextrose 50% Inj) 0 ml IV STAT PRN; Protocol PRN Reason: Hypoglycemia Protocol Dextrose (Glutose 15) 0 gm PO ONCE PRN; Protocol PRN Reason: Hypoglycemia Protocol Epoetin Rodrigo (Procrit) 10,000 unit IV [facility] [place] Last Admin: 11/30/17 09:57 Dose: 10,000 unit Famotidine (Pepcid) 20 mg PO DAILY [facility] Last Admin: 11/30/17 12:48 Dose: 20 mg Gabapentin (Neurontin) 300 mg PO MWF [facility] Last Admin: 11/30/17 08:19 Dose: 300 mg Glipizide (Glucotrol) 5 mg PO ACB [facility] Last Admin: 11/30/17 08:19 Dose: 5 mg Glucagon (Glucagen Diagnostic Kit) 0 mg IM STAT PRN; Protocol PRN Reason: Hypoglycemia Protocol Insulin Aspart (Novolog) 3 unit SC TIDAC [facility] Last Admin: 12/01/17 08:33 Dose: Not Given Insulin Glargine (Lantus) 5 unit SC [facility] Last Admin: 11/30/17 22:00 Dose: 5 units Insulin Human Regular (Novolin R) 0 unit SC ACHS [facility] PRN Reason: Protocol Last Admin: 12/01/17 08:33 Dose: Not Given Rosuvastatin Calcium (Crestor) 5 mg PO HS [facility] Last Admin: 11/30/17 22:00 Dose: 5 mg Tamsulosin HCl (Flomax) 0.4 mg PO DAILY [facility] Last Admin: 11/30/17 12:47 Dose: 0.4 mg - Labs Labs: 12/01/17 07:22 12/01/17 07:22 PT 11.8 SECONDS (9.7-12.2) 11/10/17 08:23 INR 1.1 11/10/17 08:23 APTT 33 SECONDS (21-34) 11/04/17 02:01 - Constitutional Appears: Non-toxic, No Acute Distress - Head Exam Head Exam: NORMAL INSPECTION, NORMOCEPHALIC - Eye Exam Eye Exam: Normal appearance, PERRL - ENT Exam ENT Exam: Mucous Membranes Moist, Normal Exam - Neck Exam Neck Exam: Full ROM, Normal Inspection - Respiratory Exam Respiratory Exam: Clear to Ausculation Bilateral, NORMAL BREATHING PATTERN - Cardiovascular Exam Cardiovascular Exam: REGULAR RHYTHM, RRR - GI/Abdominal Exam GI & Abdominal Exam: Soft, Normal Bowel Sounds - Extremities Exam Extremities Exam: Normal Inspection (lue avf) - Neurological Exam Neurological Exam: Alert, Awake - Psychiatric Exam Psychiatric exam: Normal Affect, Normal Mood - Skin Skin Exam: Dry, Intact Assessment and Plan (1) CAD (coronary artery disease) Status: Acute (2) CHF (congestive heart failure) Status: Acute (3) ESRD (end stage renal disease) Status: Acute (4) Respiratory distress Status: Acute (5) Type 2 diabetes mellitus with diabetic nephropathy Status: Acute - Assessment and Plan (Free Text) Assessment: stable, maintain hd bp controlled await placment in hd unit
[2017-12-01] MEDS: (Lantus) Insulin Glargine, Recombinant SC SCH (21:07)
--- NOTE | 2017-12-02 07:23 | CP.PCM.PN ---
Subjective - Date & Time of Evaluation Date of Evaluation: 12/02/17 Time of Evaluation: 07:22 - Subjective Subjective: Resident Progress Note for Hospitalist Service Patient examined at bedside. No acute events overnight. Patient to receive dialysis today. States he has not been having pain or swelling at the site of suture removal. States he is eating and drinking well. Denies chest pain, shortness of breath, abdominal pain, changes in bowel movements, dysuria. Objective - Vital Signs/Intake and Output Vital Signs (last 24 hours): Temp Pulse Resp BP Pulse Ox 97.6 F 77 20 151/77 H 98 12/01/17 23:05 12/01/17 23:05 12/01/17 23:05 12/01/17 23:05 12/01/17 23:05 - Medications Medications: Current Medications Acetaminophen (Tylenol 325mg Tab) 650 mg PO Q6 PRN PRN Reason: Pain, Mild (1-3) Last Admin: 11/25/17 20:16 Dose: 650 mg Calcitriol (Rocaltrol) 0.5 mcg PO DAILY [facility] Last Admin: 12/01/17 10:28 Dose: 0.5 mcg Calcium Acetate (Phoslo) 667 mg PO TIDCC [facility] Last Admin: 12/01/17 17:49 Dose: 667 mg Carvedilol (Coreg) 6.25 mg PO BID [facility] Last Admin: 12/01/17 17:49 Dose: 6.25 mg Dextrose (Dextrose 50% Inj) 0 ml IV STAT PRN; Protocol PRN Reason: Hypoglycemia Protocol Dextrose (Glutose 15) 0 gm PO ONCE PRN; Protocol PRN Reason: Hypoglycemia Protocol Epoetin Rodrigo (Procrit) 10,000 unit IV F [facility] Last Admin: 11/30/17 09:57 Dose: 10,000 unit Famotidine (Pepcid) 20 mg PO DAILY [facility] Last Admin: 12/01/17 10:28 Dose: 20 mg Gabapentin (Neurontin) 300 mg PO MWF [facility] Last Admin: 11/30/17 08:19 Dose: 300 mg Glipizide (Glucotrol) 5 mg PO ACB [facility] Last Admin: 12/01/17 10:28 Dose: 5 mg Glucagon (Glucagen Diagnostic Kit) 0 mg IM STAT PRN; Protocol PRN Reason: Hypoglycemia Protocol Insulin Aspart (Novolog) 3 unit SC TIDAC [facility] Last Admin: 12/01/17 17:49 Dose: Not Given Insulin Glargine (Lantus) 5 unit SC HS [facility] Last Admin: 12/01/17 21:07 Dose: 5 units Insulin Human Regular (Novolin R) 0 unit SC [facility] PRN Reason: Protocol Last Admin: 12/01/17 21:06 Dose: Not Given Rosuvastatin Calcium (Crestor) 5 mg PO [facility] Last Admin: 12/01/17 21:07 Dose: 5 mg Tamsulosin HCl (Flomax) 0.4 mg PO DAILY [facility] Last Admin: 12/01/17 10:28 Dose: 0.4 mg - Labs Labs: 12/01/17 07:22 12/01/17 07:22 PT 11.8 SECONDS (9.7-12.2) 11/10/17 08:23 INR 1.1 11/10/17 08:23 APTT 33 SECONDS (21-34) 11/04/17 02:01 - Additional Findings Additional findings: - Constitutional Appears: Non-toxic, No Acute Distress - Head Exam Head Exam: ATRAUMATIC, NORMAL INSPECTION - Eye Exam Eye Exam: EOMI, PERRL Pupil Exam: NORMAL ACCOMODATION - ENT Exam ENT Exam: Mucous Membranes Moist - Neck Exam Neck Exam: Normal Inspection - Cardiovascular Exam Cardiovascular Exam: REGULAR RHYTHM, +S1, +S2 - GI/Abdominal Exam GI & Abdominal Exam: Soft, Normal Bowel Sounds. absent: Distended, Firm, Guarding, Tenderness - Extremities Exam Additional comments: Right upper extremity edema. Improved Left anatomic snuff box AVF without thrill, left upper arm AVF with thrill. Site of suture removal clean and intact with no erythema, purulence. - Back Exam Back Exam: NORMAL INSPECTION - Neurological Exam Neurological Exam: Alert, Awake, Normal Gait, Oriented x3 - Psychiatric Exam Psychiatric exam: Normal Affect, Normal Mood Assessment and Plan - Assessment and Plan (Free Text) Plan: ESRD CKD Stage 5; on hemodialysis MWF Waiting for outpatient dialysis placement; case management aware S/P Right Chest Permacath placement by Dr. Gil 11/05/17; awaiting maturity of Left Arm AVF Had Left Anatomic Snuff Box AVF placed however this no longer had a thrill therefore Left Upper Arm AVF performed 11/19/[address] Davis consulted, help appreciated Vascular Surgery Dr. Gil consulted, help appreciated Calcitriol 0.5 mcg PO 1x/day Phoslo 667 mg PO TID Monitor labs Right Arm Phlebitis Improving with warm compresses Likely secondary to IV access infiltration Venous Doppler was negative Prednisone Taper completed (11/22/17 through 11/26/17) Consider another U/S should the Prednisone taper not alleviate symptoms Leukocytosis trending down DM 2 requiring Insulin HgBA1C is 7.1 Patient has had elevated overnight blood sugar readings- could be 2/2 prednisone Novolog 3 units TIDAC added on Currently on RISS and Glipizide 5 mg PO 1x/day ACB and blood glucose are under control Added on Lantus 5 U SC HS Will closely monitor and adjust accordingly based on accuchecks Hypoglycemia protocol in place Hx Elevated Troponin 11/04- likely due to demand ischemia Patient denies clinical complaints of chest pain at this time Hx CAD with Angioplasty in 2012 and Coreg 6.25 mg PO BID Crestor 5 mg PO HS Cardiology Dr. Smith consulted, help appreciated Hx of heart failure with preserved ejection fraction Lasix and Metolazone were discontinued 11/05/17 ProBNP upon admission 2910 Echo 04/2017: LVEF 50-55%, mild concentric LVH, Grade I abnormal relaxation pattern, aortic valve mildly sclerotic Cardiology Dr. Smith consulted HTN Coreg 6.25 mg PO BID Continue to monitor Diabetic Neuropathy Involving the toes and feet bilaterally Gabapentin 300 mg PO 1x/day MWF BPH Flomax 0.4 mg PO 1x/day Anemia likely secondary to ESRD Stable Ferric Gluconate 125 mg IV 1x/day completed 11/27/17 Procrit 10,000 IV MWF SOB secondary to Pulmonary Edema secondary to ESRD Resolved Prophylaxis Patient is out of bed to chair and has been encouraged to walk throughout the day (10 laps around medical floor every 1 to 2 hours) and has been observed doing so. Bilateral SCDs while in bed Pepcid 20 mg PO 1x/day Dispo: Pending outpatient dialysis placement. Mayo Mendez PGY-1
[2017-12-02 08:18] LABS: BASO # 0.1 K/uL (0.0-0.2); BASO % 0.7 % (0.0-2.0); EOS # 0.5 K/uL (0.0-0.7); EOS % 6.1 % (0.0-4.0); HEMOGLOBIN 11.4 g/dL (12.0-18.0); LYMPH # 1.9 K/uL (1.0-4.3); LYMPH % 23.3 % (20.0-40.0); MEAN CELL VOLUME 92.1 fL (80.0-94.0); MEAN CORPUSCULAR HEMOGLOBIN 31.1 pg (27.0-31.0); MEAN CORPUSCULAR HGB CONC 33.8 g/dL (33.0-37.0); MEAN PLATELET VOLUME 7.8 fL (7.2-11.7); MONO # 0.8 K/uL (0.0-0.8); NEUT # 4.9 K/uL (1.8-7.0); NEUT % 59.9 % (50.0-75.0); NRBC % 0.1 % (0.0-2.0); RBC 3.65 Mil/uL (4.40-5.90); RED CELL DISTRIBUTION WIDTH 14.6 % (11.5-14.5); WHITE BLOOD COUNT 8.2 K/uL (4.8-10.8)
[2017-12-02 08:24] LABS: ALB/GLOB RATIO 1.3 (1.0-2.1); ALBUMIN 4.1 g/dL (3.5-5.0); CALCIUM 9.4 mg/dl (8.6-10.4)
[2017-12-02] MEDS: (Novolog) Insulin Aspart, Recombinant 100 u/ml 10 ml vial SC SCH ×3 (09:13→17:03)
[2017-12-02] MEDS: (Novolin R) Insulin Human Regular 100 units/ml vial SC SCH ×3 (09:13→17:02)
[2017-12-02] MEDS: Epoetin Alfa 10,000 unit/ml Dialysis IV SCH (11:14)
--- NOTE | 2017-12-02 13:07 | CP.PCM.PN ---
Subjective - Date & Time of Evaluation Date of Evaluation: 12/02/17 Time of Evaluation: 13:06 - Subjective Subjective: stable dialysis now BP controlled feels well UF 1500ml with HD Objective - Vital Signs/Intake and Output Vital Signs (last 24 hours): Temp Pulse Resp BP Pulse Ox 97.8 F 86 20 112/72 97 12/02/17 12:36 12/02/17 12:36 12/02/17 12:36 12/02/17 12:36 12/02/17 12:36 - Medications Medications: Current Medications Acetaminophen (Tylenol 325mg Tab) 650 mg PO Q6 PRN PRN Reason: Pain, Mild (1-3) Last Admin: 11/25/17 20:16 Dose: 650 mg Calcitriol (Rocaltrol) 0.5 mcg PO DAILY [facility] Last Admin: 12/01/17 10:28 Dose: 0.5 mcg Calcium Acetate (Phoslo) 667 mg PO TIDCC [facility] Last Admin: 12/02/17 09:14 Dose: Not Given Carvedilol (Coreg) 6.25 mg PO BID [facility] Last Admin: 12/02/17 09:13 Dose: Not Given Dextrose (Dextrose 50% Inj) 0 ml IV STAT PRN; Protocol PRN Reason: Hypoglycemia Protocol Dextrose (Glutose 15) 0 gm PO ONCE PRN; Protocol PRN Reason: Hypoglycemia Protocol Epoetin Rodrigo (Procrit) 10,000 unit IV F [facility] Last Admin: 12/02/17 11:14 Dose: 10,000 unit Famotidine (Pepcid) 20 mg PO DAILY [facility] Last Admin: 12/01/17 10:28 Dose: 20 mg Gabapentin (Neurontin) 300 mg PO MWF [facility] Last Admin: 11/30/17 08:19 Dose: 300 mg Glipizide (Glucotrol) 5 mg PO ACB [facility] Last Admin: 12/02/17 09:13 Dose: Not Given Glucagon (Glucagen Diagnostic Kit) 0 mg IM STAT PRN; Protocol PRN Reason: Hypoglycemia Protocol Insulin Aspart (Novolog) 3 unit SC TIDAC [facility] Last Admin: 12/02/17 12:44 Dose: Not Given Insulin Glargine (Lantus) 5 unit SC HS [facility] Last Admin: 12/01/17 21:07 Dose: 5 units Insulin Human Regular (Novolin R) 0 unit SC ACHS [facility] PRN Reason: Protocol Last Admin: 12/02/17 12:44 Dose: Not Given Rosuvastatin Calcium (Crestor) 5 mg PO HS [facility] Last Admin: 12/01/17 21:07 Dose: 5 mg Tamsulosin HCl (Flomax) 0.4 mg PO DAILY [facility] Last Admin: 12/01/17 10:28 Dose: 0.4 mg - Labs Labs: 12/02/17 07:47 12/02/17 07:47 PT 11.8 SECONDS (9.7-12.2) 11/10/17 08:23 INR 1.1 11/10/17 08:23 APTT 33 SECONDS (21-34) 11/04/17 02:01 - Constitutional Appears: No Acute Distress, Chronically Ill - Head Exam Head Exam: ATRAUMATIC, NORMAL INSPECTION - Eye Exam Eye Exam: EOMI, Normal appearance - Neck Exam Neck Exam: Normal Inspection. absent: Tenderness - Respiratory Exam Respiratory Exam: Clear to Ausculation Bilateral, NORMAL BREATHING PATTERN - Cardiovascular Exam Cardiovascular Exam: REGULAR RHYTHM, +S1 - GI/Abdominal Exam GI & Abdominal Exam: Soft. absent: Tenderness - Extremities Exam Extremities Exam: Normal Inspection. absent: Tenderness - Neurological Exam Neurological Exam: Awake, CN II-XII Intact - Skin Skin Exam: Dry, Warm Assessment and Plan (1) CAD (coronary artery disease) Status: Acute (2) ESRD (end stage renal disease) Status: Acute (3) Type 2 diabetes mellitus with diabetic nephropathy Status: Acute (4) CHF (congestive heart failure) Status: Acute - Assessment and Plan (Free Text) Plan: Same dialysis MWF await HD placement
[2017-12-02] MEDS: (Lantus) Insulin Glargine, Recombinant SC SCH (21:00)
[2017-12-03 06:35] LABS: BASO # 0.1 K/uL (0.0-0.2); BASO % 0.9 % (0.0-2.0); EOS # 0.4 K/uL (0.0-0.7); EOS % 5.7 % (0.0-4.0); HEMOGLOBIN 10.6 g/dL (12.0-18.0); LYMPH # 1.5 K/uL (1.0-4.3); LYMPH % 22.8 % (20.0-40.0); MEAN CELL VOLUME 91.1 fL (80.0-94.0); MEAN CORPUSCULAR HEMOGLOBIN 30.6 pg (27.0-31.0); MEAN CORPUSCULAR HGB CONC 33.6 g/dL (33.0-37.0); MEAN PLATELET VOLUME 7.6 fL (7.2-11.7); MONO # 0.9 K/uL (0.0-0.8); MONO % 13.4 % (0.0-10.0); NEUT # 3.9 K/uL (1.8-7.0); NEUT % 57.2 % (50.0-75.0); NRBC % 0.2 % (0.0-2.0); RBC 3.46 Mil/uL (4.40-5.90); RED CELL DISTRIBUTION WIDTH 14.5 % (11.5-14.5); WHITE BLOOD COUNT 6.7 K/uL (4.8-10.8)
[2017-12-03 07:37] LABS: ALB/GLOB RATIO 1.2 (1.0-2.1); ALBUMIN 3.7 g/dL (3.5-5.0); CALCIUM 9.1 mg/dl (8.6-10.4)
[2017-12-03] MEDS: (Novolin R) Insulin Human Regular 100 units/ml vial SC SCH ×4 (10:02→21:43)
[2017-12-03] MEDS: (Novolog) Insulin Aspart, Recombinant 100 u/ml 10 ml vial SC SCH ×3 (10:02→17:03)
--- NOTE | 2017-12-03 13:40 | CP.PCM.PN ---
Subjective - Date & Time of Evaluation Date of Evaluation: 12/03/17 Time of Evaluation: 13:37 - Subjective Subjective: medicine note for hospitalist service Pt seen and examined at bedside. Pt has no complaints overnight. Pt sitting comfortably in chair watching TV in room. Pt denies chest pain, SOB, dizziness, loss of vision, cough, leg pain, body aches, pain with inspiration n/v, f/c. Objective - Vital Signs/Intake and Output Vital Signs (last 24 hours): Temp Pulse Resp BP Pulse Ox 98.3 F 100 H 18 122/74 98 12/03/17 08:12 12/03/17 08:12 12/03/17 08:12 12/03/17 08:12 12/03/17 08:12 - Medications Medications: Current Medications Acetaminophen (Tylenol 325mg Tab) 650 mg PO Q6 PRN PRN Reason: Pain, Mild (1-3) Last Admin: 11/25/17 20:16 Dose: 650 mg Calcitriol (Rocaltrol) 0.5 mcg PO DAILY [facility] Last Admin: 12/03/17 09:35 Dose: 0.5 mcg Calcium Acetate (Phoslo) 667 mg PO TIDCC [facility] Last Admin: 12/03/17 09:35 Dose: 667 mg Carvedilol (Coreg) 6.25 mg PO BID [facility] Last Admin: 12/03/17 09:36 Dose: 6.25 mg Dextrose (Dextrose 50% Inj) 0 ml IV STAT PRN; Protocol PRN Reason: Hypoglycemia Protocol Dextrose (Glutose 15) 0 gm PO ONCE PRN; Protocol PRN Reason: Hypoglycemia Protocol Epoetin Rodrigo (Procrit) 10,000 unit IV [facility] [place] Last Admin: 12/02/17 11:14 Dose: 10,000 unit Famotidine (Pepcid) 20 mg PO DAILY [facility] Last Admin: 12/03/17 10:33 Dose: 20 mg Gabapentin (Neurontin) 300 mg PO MWF [facility] Last Admin: 12/02/17 13:06 Dose: 300 mg Glipizide (Glucotrol) 5 mg PO ACB [facility] Last Admin: 12/03/17 09:36 Dose: 5 mg Glucagon (Glucagen Diagnostic Kit) 0 mg IM STAT PRN; Protocol PRN Reason: Hypoglycemia Protocol Insulin Aspart (Novolog) 3 unit SC TIDAC [facility] Last Admin: 12/03/17 12:43 Dose: 3 units Insulin Glargine (Lantus) 5 unit SC HS [facility] Last Admin: 12/02/17 21:00 Dose: 5 units Insulin Human Regular (Novolin R) 0 unit SC [facility] PRN Reason: Protocol Last Admin: 12/03/17 12:44 Dose: 2 units Rosuvastatin Calcium (Crestor) 5 mg PO HS [facility] Last Admin: 12/02/17 21:00 Dose: 5 mg Tamsulosin HCl (Flomax) 0.4 mg PO DAILY [facility] Last Admin: 12/03/17 09:35 Dose: 0.4 mg - Labs Labs: 12/03/17 06:29 12/03/17 06:29 PT 11.8 SECONDS (9.7-12.2) 11/10/17 08:23 INR 1.1 11/10/17 08:23 APTT 33 SECONDS (21-34) 11/04/17 02:01 - Constitutional Appears: Well, Non-toxic, No Acute Distress - Head Exam Head Exam: ATRAUMATIC, NORMAL INSPECTION - Eye Exam Eye Exam: EOMI, Normal appearance. absent: Periorbital swelling - ENT Exam ENT Exam: Mucous Membranes Moist - Neck Exam Neck Exam: Normal Inspection. absent: Thyromegaly - Respiratory Exam Respiratory Exam: Clear to Ausculation Bilateral, NORMAL BREATHING PATTERN. absent: Rales, Wheezes, Stridor - Cardiovascular Exam Cardiovascular Exam: RRR, +S1, +S2 - GI/Abdominal Exam GI & Abdominal Exam: Soft, Normal Bowel Sounds. absent: Firm, Guarding, Tenderness - Extremities Exam Extremities Exam: Full ROM. absent: Calf Tenderness - Back Exam Back Exam: NORMAL INSPECTION. absent: rash noted - Neurological Exam Neurological Exam: Alert, Awake, CN II-XII Intact, Oriented x3 Neuro motor strength exam: Left Upper Extremity: 5, Right Upper Extremity: 5, Left Lower Extremity: 5, Right Lower Extremity: 5 - Psychiatric Exam Psychiatric exam: Normal Affect, Normal Mood - Skin Skin Exam: Normal Color, Warm. absent: Diaphoretic, Pallor Assessment and Plan - Assessment and Plan (Free Text) Assessment: 62yo male with a pmh of HTN, DM, CHF, ESRD, NSTEMI admitted for acute cardiac symptoms and for ESRD complications. Plan: ESRD CKD Stage 5; on hemodialysis MWF -Pending outpatient dialysis placement; case management aware -S/P Right Chest Permacath placement by Dr. Gil 11/05/17; awaiting maturity of Left Arm AVF -Had Left Anatomic Snuff Box AVF placed however this no longer had a thrill therefore Left Upper Arm AVF performed 11/19/17 -Nephrology Dr. Davis consulted: continue HD MWF -Vascular Surgery Dr. Gil consulted, help appreciated -Calcitriol 0.5 mcg PO 1x/day -Phoslo 667 mg PO TID -Monitor labs Right Arm Phlebitis -Improving with warm compresses -Likely secondary to IV access infiltration -Venous Doppler: neg -Prednisone Taper completed (11/22/17 through 11/26/17) -Consider another U/S should the Prednisone taper not alleviate symptoms -Leukocytosis trending down DM 2 requiring Insulin -HgBA1C is 7.1 -clucose 132: likely secondary to Prednisone -Novolog 3 units TIDAC added on -Currently on RISS and Glipizide 5 mg PO 1x/day ACB and blood glucose are under control -Added on Lantus 5 U SC HS -Will closely monitor and adjust accordingly based on accuchecks -Hypoglycemia protocol in place Hx Elevated Troponin -11/04- likely due to demand ischemia -Patient denies clinical complaints of chest pain at this time Hx CAD with Angioplasty in 2012 and -Coreg 6.25 mg PO BID -Crestor 5 mg PO HS -Cardiology Dr. Smith consulted, help appreciated Hx of heart failure with preserved ejection fraction -Lasix and Metolazone were discontinued 11/05/17 -ProBNP upon admission 2910 -Echo 04/2017: LVEF 50-55%, mild concentric LVH, Grade I abnormal relaxation pattern, aortic valve mildly sclerotic -Cardiology Dr. Smith consulted HTN -Coreg 6.25 mg PO BID -Continue to monitor Diabetic Neuropathy -Involving the toes and feet bilaterally -Gabapentin 300 mg PO 1x/day MWF BPH -Flomax 0.4 mg PO 1x/day Anemia likely secondary to ESRD -Stable -Ferric Gluconate 125 mg IV 1x/day completed 11/27/17 -Procrit 10,000 IV MWF SOB secondary to Pulmonary Edema secondary to ESRD Resolved Prophylaxis Pt educated to ambulate and maintain light physical activity daily Bilateral SCDs while in bed Pepcid 20 mg PO 1x/day Dispo: Pending outpatient dialysis placement.
[2017-12-03] MEDS: (Lantus) Insulin Glargine, Recombinant SC SCH (21:55)
--- NOTE | 2017-12-04 07:08 | CP.PCM.PN ---
Subjective - Date & Time of Evaluation Date of Evaluation: 12/04/17 Time of Evaluation: 07:07 - Subjective Subjective: Resident Progress Note for Hospitalist Service Patient examined at bedside. No acute events overnight. Patient states that he is eating and drinking well. Denies any headache, dizziness, nausea, vomiting, abdominal pain, changes in bowel movements, dysuria. Objective - Vital Signs/Intake and Output Vital Signs (last 24 hours): Temp Pulse Resp BP Pulse Ox 97.7 F 84 20 157/82 H 98 12/03/17 23:05 12/03/17 23:05 12/03/17 23:05 12/03/17 23:05 12/03/17 23:05 - Medications Medications: Current Medications Acetaminophen (Tylenol 325mg Tab) 650 mg PO Q6 PRN PRN Reason: Pain, Mild (1-3) Last Admin: 11/25/17 20:16 Dose: 650 mg Calcitriol (Rocaltrol) 0.5 mcg PO DAILY [facility] Last Admin: 12/03/17 09:35 Dose: 0.5 mcg Calcium Acetate (Phoslo) 667 mg PO TIDCC [facility] Last Admin: 12/03/17 17:03 Dose: 667 mg Carvedilol (Coreg) 6.25 mg PO BID [facility] Last Admin: 12/03/17 17:03 Dose: 6.25 mg Dextrose (Dextrose 50% Inj) 0 ml IV STAT PRN; Protocol PRN Reason: Hypoglycemia Protocol Dextrose (Glutose 15) 0 gm PO ONCE PRN; Protocol PRN Reason: Hypoglycemia Protocol Epoetin Rodrigo (Procrit) 10,000 unit IV [facility] Last Admin: 12/02/17 11:14 Dose: 10,000 unit Famotidine (Pepcid) 20 mg PO DAILY [facility] Last Admin: 12/03/17 10:33 Dose: 20 mg Gabapentin (Neurontin) 300 mg PO MWF [facility] Last Admin: 12/02/17 13:06 Dose: 300 mg Glipizide (Glucotrol) 5 mg PO ACB [facility] Last Admin: 12/03/17 09:36 Dose: 5 mg Glucagon (Glucagen Diagnostic Kit) 0 mg IM STAT PRN; Protocol PRN Reason: Hypoglycemia Protocol Insulin Aspart (Novolog) 3 unit SC TIDAC [facility] Last Admin: 12/03/17 17:03 Dose: 3 units Insulin Glargine (Lantus) 5 unit SC [facility] Last Admin: 12/03/17 21:55 Dose: 5 units Insulin Human Regular (Novolin R) 0 unit SC [facility] PRN Reason: Protocol Last Admin: 12/03/17 21:43 Dose: Not Given Rosuvastatin Calcium (Crestor) 5 mg PO [facility] Last Admin: 12/03/17 21:55 Dose: 5 mg Tamsulosin HCl (Flomax) 0.4 mg PO DAILY [facility] Last Admin: 12/03/17 09:35 Dose: 0.4 mg - Labs Labs: 12/03/17 06:29 12/03/17 06:29 PT 11.8 SECONDS (9.7-12.2) 11/10/17 08:23 INR 1.1 11/10/17 08:23 APTT 33 SECONDS (21-34) 11/04/17 02:01 - Additional Findings Additional findings: - Constitutional Appears: Non-toxic, No Acute Distress - Head Exam Head Exam: ATRAUMATIC, NORMAL INSPECTION - Eye Exam Eye Exam: EOMI - ENT Exam ENT Exam: Mucous Membranes Moist - Neck Exam Neck Exam: Normal Inspection - Cardiovascular Exam Cardiovascular Exam: REGULAR RHYTHM, +S1, +S2 - GI/Abdominal Exam GI & Abdominal Exam: Soft, Normal Bowel Sounds. - Extremities Exam Additional comments: Right upper extremity edema. Improved Left anatomic snuff box AVF without thrill, left upper arm AVF with thrill. Site of suture removal clean and intact with no erythema, purulence. - Back Exam Back Exam: NORMAL INSPECTION - Neurological Exam Neurological Exam: Alert, Awake, Normal Gait, Oriented x3 - Psychiatric Exam Psychiatric exam: Normal Affect, Normal Mood Assessment and Plan - Assessment and Plan (Free Text) Plan: ESRD CKD Stage 5; on hemodialysis MWF Waiting for outpatient dialysis placement; case management aware S/P Right Chest Permacath placement by Dr. Gil 11/05/17; awaiting maturity of Left Arm AVF Had Left Anatomic Snuff Box AVF placed however this no longer had a thrill therefore Left Upper Arm AVF performed 11/19/[address] Davis consulted, help appreciated Vascular Surgery Dr. Gil consulted, help appreciated Calcitriol 0.5 mcg PO 1x/day Phoslo 667 mg PO TID Monitor labs Right Arm Phlebitis Improving with warm compresses Likely secondary to IV access infiltration Venous Doppler was negative Prednisone Taper completed (11/22/17 through 11/26/17) Consider another U/S should the Prednisone taper not alleviate symptoms Leukocytosis trending down DM 2 requiring Insulin HgBA1C is 7.1 Patient has had elevated overnight blood sugar readings- could be 2/2 prednisone Novolog 3 units TIDAC added on Currently on RISS and Glipizide 5 mg PO 1x/day ACB and blood glucose are under control Added on Lantus 5 U SC HS Will closely monitor and adjust accordingly based on accuchecks Hypoglycemia protocol in place Hx Elevated Troponin 11/04- likely due to demand ischemia Patient denies clinical complaints of chest pain at this time Hx CAD with Angioplasty in 2012 and Coreg 6.25 mg PO BID Crestor 5 mg PO HS Cardiology Dr. Smith consulted, help appreciated Hx of heart failure with preserved ejection fraction Lasix and Metolazone were discontinued 11/05/17 ProBNP upon admission 2910 Echo 04/2017: LVEF 50-55%, mild concentric LVH, Grade I abnormal relaxation pattern, aortic valve mildly sclerotic Cardiology Dr. Smith consulted HTN Coreg 6.25 mg PO BID Continue to monitor Diabetic Neuropathy Involving the toes and feet bilaterally Gabapentin 300 mg PO 1x/day MWF BPH Flomax 0.4 mg PO 1x/day Anemia likely secondary to ESRD Stable Ferric Gluconate 125 mg IV 1x/day completed 11/27/17 Procrit 10,000 IV MWF SOB secondary to Pulmonary Edema secondary to ESRD Resolved Prophylaxis Patient is out of bed to chair and has been encouraged to walk throughout the day (10 laps around medical floor every 1 to 2 hours) and has been observed doing so. Bilateral SCDs while in bed Pepcid 20 mg PO 1x/day Dispo: Pending outpatient dialysis patient. Mayo Mendez PGY-1
[2017-12-04] MEDS: (Novolin R) Insulin Human Regular 100 units/ml vial SC SCH ×4 (08:12→21:45)
[2017-12-04] MEDS: (Novolog) Insulin Aspart, Recombinant 100 u/ml 10 ml vial SC SCH ×3 (08:45→17:28)
[2017-12-04 09:42] LABS: BASO # 0.1 K/uL (0.0-0.2); BASO % 0.7 % (0.0-2.0); EOS # 0.4 K/uL (0.0-0.7); EOS % 4.9 % (0.0-4.0); HEMOGLOBIN 10.3 g/dL (12.0-18.0); LYMPH # 1.4 K/uL (1.0-4.3); MEAN CELL VOLUME 91.2 fL (80.0-94.0); MEAN CORPUSCULAR HEMOGLOBIN 30.3 pg (27.0-31.0); MEAN CORPUSCULAR HGB CONC 33.2 g/dL (33.0-37.0); MEAN PLATELET VOLUME 7.8 fL (7.2-11.7); MONO # 0.7 K/uL (0.0-0.8); MONO % 9.7 % (0.0-10.0); NEUT % 65.7 % (50.0-75.0); RBC 3.4 Mil/uL (4.40-5.90); WHITE BLOOD COUNT 7.6 K/uL (4.8-10.8)
[2017-12-04 10:07] LABS: ALB/GLOB RATIO 1.4 (1.0-2.1); ALBUMIN 3.8 g/dL (3.5-5.0); CALCIUM 9.1 mg/dl (8.6-10.4)
[2017-12-04] MEDS: Epoetin Alfa 10,000 unit/ml Dialysis IV SCH (12:29)
--- NOTE | 2017-12-04 12:33 | CP.PCM.PN ---
Subjective - Date & Time of Evaluation Date of Evaluation: 12/04/17 Time of Evaluation: 12:31 - Subjective Subjective: alert seen at dialysis BP controlled no new complaint phos elevated Objective - Vital Signs/Intake and Output Vital Signs (last 24 hours): Temp Pulse Resp BP Pulse Ox 97.9 F 89 16 141/74 89 L 12/04/17 09:56 12/04/17 09:56 12/04/17 09:56 12/04/17 11:25 12/04/17 08:55 - Medications Medications: Current Medications Acetaminophen (Tylenol 325mg Tab) 650 mg PO Q6 PRN PRN Reason: Pain, Mild (1-3) Last Admin: 11/25/17 20:16 Dose: 650 mg Calcitriol (Rocaltrol) 0.5 mcg PO DAILY [facility] Last Admin: 12/03/17 09:35 Dose: 0.5 mcg Calcium Acetate (Phoslo) 1,334 mg PO [facility] Carvedilol (Coreg) 6.25 mg PO BID [facility] Last Admin: 12/04/17 09:28 Dose: Not Given Dextrose (Dextrose 50% Inj) 0 ml IV STAT PRN; Protocol PRN Reason: Hypoglycemia Protocol Dextrose (Glutose 15) 0 gm PO ONCE PRN; Protocol PRN Reason: Hypoglycemia Protocol Epoetin Rodrigo (Procrit) 10,000 unit IV [facility] Last Admin: 12/02/17 11:14 Dose: 10,000 unit Famotidine (Pepcid) 20 mg PO DAILY [facility] Last Admin: 12/03/17 10:33 Dose: 20 mg Gabapentin (Neurontin) 300 mg PO F [facility] Last Admin: 12/02/17 13:06 Dose: 300 mg Glipizide (Glucotrol) 5 mg PO B [facility] Last Admin: 12/04/17 08:45 Dose: Not Given Glucagon (Glucagen Diagnostic Kit) 0 mg IM STAT PRN; Protocol PRN Reason: Hypoglycemia Protocol Heparin Sodium (Porcine) (Heparin) 3,700 units IVP [facility] Stop: 12/16/17 09:01 Insulin Aspart (Novolog) 3 unit SC TIDAC [facility] Last Admin: 12/04/17 08:45 Dose: Not Given Insulin Glargine (Lantus) 5 unit SC HS [facility] Last Admin: 12/03/17 21:55 Dose: 5 units Insulin Human Regular (Novolin R) 0 unit SC [facility] PRN Reason: Protocol Last Admin: 12/04/17 12:10 Dose: Not Given Rosuvastatin Calcium (Crestor) 5 mg PO HS [facility] Last Admin: 12/03/17 21:55 Dose: 5 mg Tamsulosin HCl (Flomax) 0.4 mg PO DAILY [facility] Last Admin: 12/03/17 09:35 Dose: 0.4 mg - Labs Labs: 12/04/17 09:33 12/04/17 09:33 PT 11.8 SECONDS (9.7-12.2) 11/10/17 08:23 INR 1.1 11/10/17 08:23 APTT 33 SECONDS (21-34) 11/04/17 02:01 - Constitutional Appears: No Acute Distress, Chronically Ill - Head Exam Head Exam: ATRAUMATIC, NORMAL INSPECTION - Eye Exam Eye Exam: EOMI, Normal appearance - Neck Exam Neck Exam: Normal Inspection. absent: Tenderness - Respiratory Exam Respiratory Exam: Clear to Ausculation Bilateral, NORMAL BREATHING PATTERN - Cardiovascular Exam Cardiovascular Exam: REGULAR RHYTHM, +S1 - GI/Abdominal Exam GI & Abdominal Exam: Soft. absent: Tenderness - Extremities Exam Extremities Exam: Normal Inspection. 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
[2017-12-04 17:00] VITALS: RESP 20
[2017-12-04] MEDS: (Lantus) Insulin Glargine, Recombinant SC SCH (22:11)
--- NOTE | 2017-12-05 06:59 | CP.PCM.PN ---
Subjective - Date & Time of Evaluation Date of Evaluation: 12/05/17 Time of Evaluation: 06:56 - Subjective Subjective: Pt seen and examined at bedside. Pt reports normal bowel movemnt and urinary production yesterday. Pt has no new complaints overnight. pt denies chest pain, f/c n/v sob Objective - Vital Signs/Intake and Output Vital Signs (last 24 hours): Temp Pulse Resp BP Pulse Ox 97.8 F 73 20 168/84 H 99 12/04/17 23:10 12/04/17 23:10 12/04/17 23:10 12/04/17 23:10 12/04/17 23:10 Intake and Output: 12/04/17 12/05/17 18:59 06:59 Intake Total 0 Balance 0 - Medications Medications: Current Medications Acetaminophen (Tylenol 325mg Tab) 650 mg PO Q6 PRN PRN Reason: Pain, Mild (1-3) Last Admin: 11/25/17 20:16 Dose: 650 mg Calcitriol (Rocaltrol) 0.5 mcg PO DAILY [facility] Last Admin: 12/04/17 13:22 Dose: 0.5 mcg Calcium Acetate (Phoslo) 1,334 mg PO TIDCC [facility] Last Admin: 12/04/17 17:28 Dose: 1,334 mg Carvedilol (Coreg) 6.25 mg PO BID [facility] Last Admin: 12/04/17 17:28 Dose: 6.25 mg Dextrose (Dextrose 50% Inj) 0 ml IV STAT PRN; Protocol PRN Reason: Hypoglycemia Protocol Dextrose (Glutose 15) 0 gm PO ONCE PRN; Protocol PRN Reason: Hypoglycemia Protocol Epoetin Rodrigo (Procrit) 10,000 unit IV [facility] Last Admin: 12/04/17 12:29 Dose: 10,000 unit Famotidine (Pepcid) 20 mg PO DAILY [facility] Last Admin: 12/04/17 13:22 Dose: 20 mg Gabapentin (Neurontin) 300 mg PO F [facility] Last Admin: 12/04/17 13:22 Dose: 300 mg Glipizide (Glucotrol) 5 mg PO B [facility] Last Admin: 12/04/17 08:45 Dose: Not Given Glucagon (Glucagen Diagnostic Kit) 0 mg IM STAT PRN; Protocol PRN Reason: Hypoglycemia Protocol Heparin Sodium (Porcine) (Heparin) 3,700 units IVP [facility] Stop: 12/16/17 09:01 Last Admin: 12/04/17 12:36 Dose: 3,700 units Insulin Aspart (Novolog) 3 unit SC TIDAC [facility] Last Admin: 12/04/17 17:28 Dose: 3 units Insulin Glargine (Lantus) 5 unit SC HS [facility] Last Admin: 12/04/17 22:11 Dose: 5 units Insulin Human Regular (Novolin R) 0 unit SC ACHS [facility] PRN Reason: Protocol Last Admin: 12/04/17 21:45 Dose: Not Given Rosuvastatin Calcium (Crestor) 5 mg PO HS [facility] Last Admin: 12/04/17 22:10 Dose: 5 mg Tamsulosin HCl (Flomax) 0.4 mg PO DAILY [facility] Last Admin: 12/04/17 13:23 Dose: 0.4 mg - Labs Labs: 12/04/17 09:33 12/04/17 09:33 PT 11.8 SECONDS (9.7-12.2) 11/10/17 08:23 INR 1.1 11/10/17 08:23 APTT 33 SECONDS (21-34) 11/04/17 02:01 - Constitutional Appears: Well, No Acute Distress - Head Exam Head Exam: ATRAUMATIC, NORMAL INSPECTION - Eye Exam Eye Exam: EOMI. absent: Nystagmus, Scleral icterus - ENT Exam ENT Exam: Mucous Membranes Moist - Neck Exam Neck Exam: Normal Inspection. absent: Tenderness, Thyromegaly - Respiratory Exam Respiratory Exam: Clear to Ausculation Bilateral, NORMAL BREATHING PATTERN. absent: Prolonged Expiratory Phase, Wheezes, Respiratory Distress - Cardiovascular Exam Cardiovascular Exam: RRR, +S1, +S2 - GI/Abdominal Exam GI & Abdominal Exam: Soft, Normal Bowel Sounds. absent: Tenderness, Organomegaly - Extremities Exam Extremities Exam: Normal Inspection. absent: Calf Tenderness, Pedal Edema, Tenderness - Back Exam Back Exam: NORMAL INSPECTION - Neurological Exam Neurological Exam: Alert, Awake, CN II-XII Intact, Normal Gait, Oriented x3 Neuro motor strength exam: Left Upper Extremity: 5, Right Upper Extremity: 5, Left Lower Extremity: 5, Right Lower Extremity: 5 - Psychiatric Exam Psychiatric exam: Normal Affect, Normal Mood - Skin Skin Exam: Dry, Intact, Normal Color, Warm Assessment and Plan - Assessment and Plan (Free Text) Assessment: ESRD CKD Stage 5; on hemodialysis MWF -Pending outpatient dialysis placement; case management aware -S/P Right Chest Permacath placement by Dr. Gil 11/05/17; awaiting maturity of Left Arm AVF -Had Left Anatomic Snuff Box AVF placed however this no longer had a thrill therefore Left Upper Arm AVF performed 11/19/17 -Nephrology Dr. Davis consulted: continue HD MWF -Vascular Surgery Dr. Gil consulted, help appreciated -Calcitriol 0.5 mcg PO 1x/day -Phoslo 667 mg PO TID -Monitor labs Right Arm Phlebitis -Improving with warm compresses -Likely secondary to IV access infiltration -Venous Doppler: neg -Prednisone Taper completed (11/22/17 through 11/26/17) -Consider another U/S should the Prednisone taper not alleviate symptoms -Leukocytosis trending down DM 2 requiring Insulin -HgBA1C is 7.1 -clucose 132: likely secondary to Prednisone -Novolog 3 units TIDAC added on -Currently on RISS and Glipizide 5 mg PO 1x/day ACB and blood glucose are under control -Added on Lantus 5 U SC HS -Will closely monitor and adjust accordingly based on accuchecks -Hypoglycemia protocol in place Hx Elevated Troponin -11/04- likely due to demand ischemia -Patient denies clinical complaints of chest pain at this time Hx CAD with Angioplasty in 2012 and -Coreg 6.25 mg PO BID -Crestor 5 mg PO HS -Cardiology Dr. Smith consulted, help appreciated Hx of heart failure with preserved ejection fraction -Lasix and Metolazone were discontinued 11/05/17 -ProBNP upon admission 2910 -Echo 04/2017: LVEF 50-55%, mild concentric LVH, Grade I abnormal relaxation pattern, aortic valve mildly sclerotic -Cardiology Dr. Smith consulted HTN -Coreg 6.25 mg PO BID -Continue to monitor Diabetic Neuropathy -Involving the toes and feet bilaterally -Gabapentin 300 mg PO 1x/day MWF BPH -Flomax 0.4 mg PO 1x/day Anemia likely secondary to ESRD -Stable -Ferric Gluconate 125 mg IV 1x/day completed 11/27/17 -Procrit 10,000 IV MWF SOB secondary to Pulmonary Edema secondary to ESRD Resolved Prophylaxis Pt educated to ambulate and maintain light physical activity daily Bilateral SCDs while in bed Pepcid 20 mg PO 1x/day Dispo: Pending outpatient dialysis placement.
[2017-12-05] MEDS: (Novolog) Insulin Aspart, Recombinant 100 u/ml 10 ml vial SC SCH ×2 (08:00→12:32)
[2017-12-05 08:10] LABS: BASO # 0.1 K/uL (0.0-0.2); BASO % 1.4 % (0.0-2.0); EOS # 0.3 K/uL (0.0-0.7); EOS % 6.2 % (0.0-4.0); HEMOGLOBIN 10.8 g/dL (12.0-18.0); LYMPH # 1.4 K/uL (1.0-4.3); LYMPH % 25.9 % (20.0-40.0); MEAN CELL VOLUME 91.1 fL (80.0-94.0); MEAN PLATELET VOLUME 7.8 fL (7.2-11.7); MONO # 0.6 K/uL (0.0-0.8); MONO % 11.8 % (0.0-10.0); NEUT # 2.9 K/uL (1.8-7.0); NEUT % 54.7 % (50.0-75.0); RBC 3.49 Mil/uL (4.40-5.90); RED CELL DISTRIBUTION WIDTH 14.8 % (11.5-14.5); WHITE BLOOD COUNT 5.4 K/uL (4.8-10.8)
[2017-12-05] MEDS: (Novolin R) Insulin Human Regular 100 units/ml vial SC SCH ×2 (08:16→12:31)
[2017-12-05 08:18] LABS: ALB/GLOB RATIO 1.3 (1.0-2.1); ALBUMIN 3.8 g/dL (3.5-5.0); CALCIUM 9.3 mg/dl (8.6-10.4)
[2017-12-05 08:35] VITALS: BP 142/81; PULSE 92; TEMP 98.5; O2SAT 97
--- NOTE | 2017-12-05 09:02 | CP.PCM.PN ---
Subjective - Date & Time of Evaluation Date of Evaluation: 12/05/17 Time of Evaluation: 08:45 - Subjective Subjective: Hospitalist Progress Note Patient was seen and examined at 8:45 AM 12/05/17 650 B Currently upon FULL ROS: NO longer with any Right Arm Pain NO chest pain NO SOB/Cough NO abdominal pain NO n/v/d/c: normal bowel movements NO burning pain with urination NO dysphagia/odynophagia NO lightheadedenss/dizziness NO paresthesias NO new changes in visioin NO new changes in hearing NO headache Exam: General: AAOX3, NAD HEENT: NCA, EOMI, PERRLA, NO cervical/supraclavicular/submandibular lymphadenopathy, NO pharyngeal erythema/exudate, Nasal Turbinates are nonerythematous/nonedematous, Oral Mucosa is moist Cardio: NS1 and NS2, NO M/R/G Resp: CTA B/L, NO R/R/W Right chest permacath GI: BSx4, Soft, NT, NO HSM, NO guarding/rebound tenderness Ext: Pulses are strong and equal in bilateral UE and LE, NO edema note in the Right/Left Arm/Left Leg/Right Leg, capillary refills is 2 seconds on all toes, Left Anatomic Snuff Box AVF without thrill, Left Upper Arm AVF with (+) Thrill, Right Lateral Upper Arm superior to the antecubital fossa and Right Lateral Lower Arm inferior to the antecubital fossa: swelling/hardness/tenderness to palpation have RESOLVED Neuro: CN II through XII are grossly intact Assessments: 1). SOB secondary to Pulmonary Edema secondary to ESRD Symptomatically improved after 100 mg total of Lasix on 11/04/17 and Metalozone at the time of admission 2). ESRD CKD Stage 5 on HD MWF via Right Chest Permacath and awaiting maturity of Left Arm AVF S/P Right Chest Permacath placement by Dr. Gil 11/05/17 Had Left Anatomic Snuff Box AVF placed however this no longer had a thrill therefore Left Upper Arm AVF performed 11/19/17. Aquatics Coordinator Julia has set up outpatient HD at [facility] in [facility] for - -Sat starting 12/08/17 at 2:30 PM Spoke with Polymer Scientist Dr. Louise from Dr. Davis's group and patient does not need extra HD today 12/05/17 and may resume new schedule at [facility] Nephrology Dr. Davis Vascular Surgery Dr. Gil Calcitriol 0.5 mcg PO 1x/day Phoslo 667 mg PO TID 3). Hx Elevated Troponin Likely secondary to ESRD 4). Hx CAD with Angioplasty in 2012 and Hx of HFpEF Coreg 12.5 mg PO 1x/day Crestor 5 mg PO HS Lasix and Metolazone were discontinued 11/05/17 ProBNP upon admission 2910 Echo 04/2017: LVEF 50-55%, mild concentric LVH, Grade I abnormal relaxation pattern, aortic valve mildly sclerotic Cardiology Dr. Smith 5). DM 2 requiring Insulin HgBA1C is 7.1 On Insulin Degludec 45 units SC 1x/day and Glipizide 5 mg PO 1x/day at home which he will resume at home 6). HTN Coreg 6.25 mg PO 1x/day NO longer on Norvasc 10 mg PO 1x/day 7). Diabetic Neuropathy Involving the toes and feet bilaterally Gabapentin 300 mg PO 1x/day MWF 8). BPH Flomax 0.4 mg PO 1x/day 9). Anemia likely secondary to ESRD Was given Ferric Gluconate 125 mg IV 1x/day through 11/27/17 Was also treated with Procrit 10,000 IV MWF at times during his hospital admission and will continue this at [facility] under the direction of Nephrology 10). Right Arm Phlebitis This has resolved Likely secondary to IV access infiltration Venous Doppler was negative Warm compresses helped and patient was given Prednisone Taper 11/22/17 through 11/26/17: 50--> 40--> 30 --> 20 --> 10 mg 11). Prophylaxis SCDs Patient is out of bed to chair and has been encouraged to walk throughout the day (10 laps around medical floor every 1 to 2 hours) and has been observed doing so therefore Heparin 5,000 Units SC was discontinued. Bilateral SCDs while in bed Pepcid 20 mg PO 1x/day The patient has been set up for outpatient HD at [facility] in [place] at 2:30 PM on [id number] by Aquatics Coordinator Julia who also provided patient with [facility] address, phone number, and schedule and also went over this with him. Spoke with Polymer Scientist Dr. Louise who is covering Dr. Davis this weekend and she informed me that patient does not require extra HD and may resume new HD schedule at [facility]. Patient informed me that he will be able to pay for his medications at the pharmacy. He understands to follow up with his PMD Dr. Conte at the [facility] on [facility] in [place], [place] and has Dr. Conte' contact information. Patient is stable for discharge. The following instructions were explained to patient and a copy will need to be provided to patient upon discharge: 1). Schedule follow up with your Primary Care Physician Dr. Conte at the [facility] to take place in the next 7 to 10 days for coordination of your health care. Please bring a copy of your discharge instructions with you for Dr. Conte' review. 2). Schedule follow up with Vascular Surgeon Dr. Gil by calling his office [phone]. This appointment should take place in 10 to 14 days. He will determine when your left arm fistula may used for dialysis. Until then you will receive dialysis through the right chest port. 3). You were provided with prescriptions for the following medications. Please use as directed and have the prescriptions filled at your pharmacy on your way home from the hospital: Calcitriol 0.5 mcg, 1 tablet by mouth 1 time a day (8 AM), Dispense #30, NO refills Calcium Acetate 1,334 mg, 1 tablet by mouth 3 times a day with your meals (8 AM , 2PM, and 8 PM), Dispense #90, NO refills Carvedilol 6.25 mg, 1 tablet by mouth 2 times a day (8AM and 8PM), Dispense #60 , NO refills Pepcid 20 mg, 1 tablet by mouth 1 time a day (8AM), Dispense #30, NO refills Gabapentin 300 mg, 1 tablet by mouth 1 time a day on your dialysis days Thursday- -Thursday, Dispense #12, NO refills Glipizide 5 mg, 1 tablet by mouth 1 time a day with lunch (2 PM), Dispense #30, NO refills Insulin Degludec, 45 units subcutaneous 1 time a day with breakfast (8AM), Dispense 100 units/ml prefilled pen Flex Touch #1, NO refills Atorvastatin 10 mg, 1 tablet by mouth 1 time a day (8 PM), Dispense #30, NO refills Tamsulosin 0.4 mg, 1 tablet by mouth 1 time a day (8 AM), Dispense #30, NO refills 4). Please take care and be well. Please note a copy of this note was provided to patient to bring with him to his appointment with Dr. Dg Damon D.O. Objective - Vital Signs/Intake and Output Vital Signs (last 24 hours): Temp Pulse Resp BP Pulse Ox 98.5 F 92 H 20 142/81 97 12/05/17 07:00 12/05/17 07:00 12/05/17 07:00 12/05/17 07:00 12/05/17 07:00 Intake and Output: 12/05/17 12/05/17 06:59 18:59 Intake Total 0 Balance 0 - Medications Medications: Current Medications Acetaminophen (Tylenol 325mg Tab) 650 mg PO Q6 PRN PRN Reason: Pain, Mild (1-3) Last Admin: 11/25/17 20:16 Dose: 650 mg Calcitriol (Rocaltrol) 0.5 mcg PO DAILY [facility] Last Admin: 12/04/17 13:22 Dose: 0.5 mcg Calcium Acetate (Phoslo) 1,334 mg PO TIDCC [facility] Last Admin: 12/04/17 17:28 Dose: 1,334 mg Carvedilol (Coreg) 6.25 mg PO BID [facility] Last Admin: 12/04/17 17:28 Dose: 6.25 mg Dextrose (Dextrose 50% Inj) 0 ml IV STAT PRN; Protocol PRN Reason: Hypoglycemia Protocol Dextrose (Glutose 15) 0 gm PO ONCE PRN; Protocol PRN Reason: Hypoglycemia Protocol Epoetin Rodrigo (Procrit) 10,000 unit IV [facility] Last Admin: 12/04/17 12:29 Dose: 10,000 unit Famotidine (Pepcid) 20 mg PO DAILY [facility] Last Admin: 12/04/17 13:22 Dose: 20 mg Gabapentin (Neurontin) 300 mg PO MWF [facility] Last Admin: 12/04/17 13:22 Dose: 300 mg Glipizide (Glucotrol) 5 mg PO ACB [facility] Last Admin: 12/05/17 08:20 Dose: 5 mg Glucagon (Glucagen Diagnostic Kit) 0 mg IM STAT PRN; Protocol PRN Reason: Hypoglycemia Protocol Heparin Sodium (Porcine) (Heparin) 3,700 units IVP MWF [facility] Stop: 12/16/17 09:01 Last Admin: 12/04/17 12:36 Dose: 3,700 units Insulin Aspart (Novolog) 3 unit SC TIDAC [facility] Last Admin: 12/04/17 17:28 Dose: 3 units Insulin Glargine (Lantus) 5 unit SC HS [facility] Last Admin: 12/04/17 22:11 Dose: 5 units Insulin Human Regular (Novolin R) 0 unit SC ACHS [facility] PRN Reason: Protocol Last Admin: 12/05/17 08:16 Dose: Not Given Rosuvastatin Calcium (Crestor) 5 mg PO HS [facility] Last Admin: 12/04/17 22:10 Dose: 5 mg Tamsulosin HCl (Flomax) 0.4 mg PO DAILY [facility] Last Admin: 12/04/17 13:23 Dose: 0.4 mg - Labs Labs: 12/05/17 07:46 12/05/17 07:46 PT 11.8 SECONDS (9.7-12.2) 11/10/17 08:23 INR 1.1 11/10/17 08:23 APTT 33 SECONDS (21-34) 11/04/17 02:01
--- NOTE | 2017-12-05 10:20 | CP.PCM.PN ---
Subjective - Date & Time of Evaluation Date of Evaluation: 12/05/17 Time of Evaluation: 10:20 - Subjective Subjective: bp stable afebrile chems ok up walking appears well ROS entirely negative Objective - Vital Signs/Intake and Output Vital Signs (last 24 hours): Temp Pulse Resp BP Pulse Ox 98.5 F 92 H 20 142/81 97 12/05/17 07:00 12/05/17 07:00 12/05/17 07:00 12/05/17 07:00 12/05/17 07:00 Intake and Output: 12/05/17 12/05/17 06:59 18:59 Intake Total 0 Balance 0 - Medications Medications: Current Medications Acetaminophen (Tylenol 325mg Tab) 650 mg PO Q6 PRN PRN Reason: Pain, Mild (1-3) Last Admin: 11/25/17 20:16 Dose: 650 mg Calcitriol (Rocaltrol) 0.5 mcg PO DAILY [facility] Last Admin: 12/05/17 09:25 Dose: 0.5 mcg Calcium Acetate (Phoslo) 1,334 mg PO TIDCC [facility] Last Admin: 12/05/17 09:00 Dose: 1,334 mg Carvedilol (Coreg) 6.25 mg PO BID [facility] Last Admin: 12/05/17 09:26 Dose: 6.25 mg Dextrose (Dextrose 50% Inj) 0 ml IV STAT PRN; Protocol PRN Reason: Hypoglycemia Protocol Dextrose (Glutose 15) 0 gm PO ONCE PRN; Protocol PRN Reason: Hypoglycemia Protocol Epoetin Rodrigo (Procrit) 10,000 unit IV [facility] Last Admin: 12/04/17 12:29 Dose: 10,000 unit Famotidine (Pepcid) 20 mg PO DAILY [facility] Last Admin: 12/05/17 09:25 Dose: 20 mg Gabapentin (Neurontin) 300 mg PO F [facility] Last Admin: 12/04/17 13:22 Dose: 300 mg Glipizide (Glucotrol) 5 mg PO ACB [facility] Last Admin: 12/05/17 08:20 Dose: 5 mg Glucagon (Glucagen Diagnostic Kit) 0 mg IM STAT PRN; Protocol PRN Reason: Hypoglycemia Protocol Heparin Sodium (Porcine) (Heparin) 3,700 units IVP [facility] Stop: 12/16/17 09:01 Last Admin: 08/10/18 12:36 Dose: 3,700 units Insulin Aspart (Novolog) 3 unit SC TIDAC [facility] Last Admin: 12/05/17 08:00 Dose: Not Given Insulin Glargine (Lantus) 5 unit SC [facility] Last Admin: 12/04/17 22:11 Dose: 5 units Insulin Human Regular (Novolin R) 0 unit SC ACHS [facility] PRN Reason: Protocol Last Admin: 12/05/17 08:16 Dose: Not Given Rosuvastatin Calcium (Crestor) 5 mg PO [facility] Last Admin: 12/04/17 22:10 Dose: 5 mg Tamsulosin HCl (Flomax) 0.4 mg PO DAILY [facility] Last Admin: 12/05/17 09:30 Dose: 0.4 mg - Labs Labs: 12/05/17 07:46 12/05/17 07:46 PT 11.8 SECONDS (9.7-12.2) 11/10/17 08:23 INR 1.1 11/10/17 08:23 APTT 33 SECONDS (21-34) 11/04/17 02:01 - Constitutional Appears: Well, No Acute Distress - Eye Exam Eye Exam: Normal appearance - ENT Exam ENT Exam: Mucous Membranes Moist - Respiratory Exam Respiratory Exam: Clear to Ausculation Bilateral, NORMAL BREATHING PATTERN - Cardiovascular Exam Cardiovascular Exam: REGULAR RHYTHM - GI/Abdominal Exam GI & Abdominal Exam: Soft. absent: Distended, Tenderness - Back Exam Back Exam: absent: CVA tenderness (L), CVA tenderness (R) - Neurological Exam Neurological Exam: Alert - Psychiatric Exam Psychiatric exam: Normal Mood - Skin Skin Exam: Dry Assessment and Plan (1) ESRD (end stage renal disease) Status: Acute (2) Type 2 diabetes mellitus with diabetic nephropathy Status: Acute - Assessment and Plan (Free Text) Plan: to follow as outpatient on dialysis
--- NOTE | 2017-12-05 12:27 | CP.PCM.DIS ---
Provider - Provider Date of Admission: 11/04/17 03:17 Attending physician: MD Dr. Liana Guerrero Consults: Nephrology- Dr. Davis, Dr. Huggins, Dr. Root, Dr. Duron (Shared group) Vascular- Dr. 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 (10) Phlebitis Status: Acute Hospital Course - Lab Results Lab Results: Micro Results 11/04/17 16:06 Blood Blood Culture - Final NO GROWTH AFTER 5 DAYS 11/04/17 16:06 Blood Gram Stain - Final TEST NOT PERFORMED 11/04/17 16:06 Blood Blood Culture - Final NO GROWTH AFTER 5 DAYS Most Recent Lab Values WBC 5.4 K/uL (4.8-10.8) 12/05/17 07:46 RBC 3.49 Mil/uL (4.40-5.90) L 12/05/17 07:46 Hgb 10.8 g/dL (12.0-18.0) L 12/05/17 07:46 Hct 31.8 % (35.0-51.0) L 12/05/17 07:46 MCV 91.1 fL (80.0-94.0) 12/05/17 07:46 MCH 31.0 pg (27.0-31.0) 12/05/17 07:46 MCHC 34.0 g/dL (33.0-37.0) 12/05/17 07:46 RDW 14.8 % (11.5-14.5) H 12/05/17 07:46 Plt Count 306 K/uL (130-400) 12/05/17 07:46 MPV 7.8 fL (7.2-11.7) 12/05/17 07:46 Neut % (Auto) 54.7 % (50.0-75.0) 12/05/17 07:46 Lymph % (Auto) 25.9 % (20.0-40.0) 12/05/17 07:46 Coos % (Auto) 11.8 % (0.0-10.0) H 12/05/17 07:46 Eos % (Auto) 6.2 % (0.0-4.0) H 12/05/17 07:46 Baso % (Auto) 1.4 % (0.0-2.0) 12/05/17 07:46 Neut # (Auto) 2.9 K/uL (1.8-7.0) 12/05/17 07:46 Lymph # (Auto) 1.4 K/uL (1.0-4.3) 12/05/17 07:46 Coos # (Auto) 0.6 K/uL (0.0-0.8) 12/05/17 07:46 Eos # (Auto) 0.3 K/uL (0.0-0.7) 12/05/17 07:46 Baso # (Auto) 0.1 K/uL (0.0-0.2) 12/05/17 07:46 Neutrophils % (Manual) 81 % (50-75) H 11/23/17 06:08 Band Neutrophils % 1 % (0-2) 11/23/17 06:08 Lymphocytes % (Manual) 13 % (20-40) L 11/23/17 06:08 Monocytes % (Manual) 5 % (0-10) 11/23/17 06:08 Eosinophils % (Manual) 1 % (0-4) 11/21/17 06:55 Platelet Estimate Normal (NORMAL) 11/23/17 06:08 Polychromasia Slight 11/21/17 06:55 Hypochromasia (manual) Slight 11/23/17 06:08 Poikilocytosis (manual Slight 11/21/17 06:55 Anisocytosis (manual) Slight 11/21/17 06:55 Ovalocytes Slight 11/21/17 06:55 PT 11.8 SECONDS (9.7-12.2) 11/10/17 08:23 INR 1.1 11/10/17 08:23 APTT 33 SECONDS (21-34) 11/04/17 02:01 D-Dimer, Quantitative 329 ng/mlDDU (0-243) H 11/04/17 02:01 Puncture Site Rr 11/04/17 05:50 pCO2 53 mm/Hg (35-45) H 11/04/17 05:50 pO2 193 mm/Hg (80-100) H 11/04/17 05:50 HCO3 26.4 mmol/L (21-28) 11/04/17 05:50 ABG pH 7.34 (7.35-7.45) L 11/04/17 05:50 ABG Total CO2 30.2 mmol/L (22-28) H 11/04/17 05:50 ABG O2 Saturation 100.0 % (95-98) H 11/04/17 05:50 ABG Base Excess 1.8 mmol/L (-2.0-3.0) 11/04/17 05:50 Dre Test Pos 11/04/17 05:50 ABG Potassium 2.7 mmol/L (3.6-5.2) L 11/04/17 05:50 A-a O2 Difference 454.0 mm/Hg 11/04/17 05:50 Respiratory Index 2.4 11/04/17 05:50 Sodium 144.0 mmol/l (132-148) 11/04/17 05:50 Chloride 109.0 mmol/L (98-107) H 11/04/17 05:50 Glucose 106 mg/dl (75-110) 11/04/17 05:50 Lactate 0.5 mmol/L (0.7-2.1) L 11/04/17 05:50 Vent Mode Bipap 11/04/17 02:05 FiO2 100.0 % 11/04/17 05:50 Inspiratory BiPAP 12 11/04/17 05:50 Expiratory BiPAP 6 11/04/17 05:50 Crit Value Called To Yecenia rosen/rn 11/04/17 02:05 Crit Value Called By Rudolph graham/rt 11/04/17 02:05 Crit Value Read Back Y 11/04/17 02:05 Blood Gas Notified Time 220 11/04/17 02:05 Sodium 140 mmol/L (132-148) 12/05/17 07:46 Potassium 4.0 mmol/L (3.6-5.2) 12/05/17 07:46 Chloride 99 mmol/L (98-107) 12/05/17 07:46 Carbon Dioxide 31 mmol/L (22-30) H 12/05/17 07:46 Anion Gap 15 (10-20) 12/05/17 07:46 BUN 38 mg/dL (9-20) H 12/05/17 07:46 Creatinine 4.8 mg/dL (0.8-1.5) H 12/05/17 07:46 Est GFR ( Amer) 15 12/05/17 07:46 Est GFR (Non-Af Amer) 12 12/05/17 07:46 POC Glucose (mg/dL) 122 mg/dL (65-110) H 12/04/17 11:09 Random Glucose 123 mg/dL (75-110) H 12/05/17 07:46 Hemoglobin A1c 7.3 % (4.2-6.5) H 11/04/17 05:17 Calcium 9.3 mg/dl (8.6-10.4) 12/05/17 07:46 Phosphorus 4.4 mg/dL (2.5-4.5) 12/05/17 07:46 Magnesium 2.3 mg/dL (1.6-2.3) 12/05/17 07:46 % Saturation 11 (20-55) L 11/17/17 07:37 Ferritin 311.0 ng/mL 11/17/17 07:37 Total Bilirubin 0.3 mg/dL (0.2-1.3) 12/05/17 07:46 AST 14 U/L (17-59) L 12/05/17 07:46 ALT 27 U/L (21-72) 12/05/17 07:46 Alkaline Phosphatase 58 U/L (38-126) 12/05/17 07:46 Total Creatine Kinase 352 U/L (55-170) H 11/04/17 13:54 CK-MB (Mass) 2.47 ng/mL (0.0-3.38) 11/04/17 13:54 Troponin I 0.3820 ng/mL (0.00-0.120) H* 11/04/17 13:54 NT-Pro-B Natriuret Pep 2910 pg/mL (0-900) H 11/04/17 02:01 Total Protein 6.7 g/dL (6.3-8.3) 12/05/17 07:46 Albumin 3.8 g/dL (3.5-5.0) 12/05/17 07:46 Globulin 2.9 gm/dL (2.2-3.9) 12/05/17 07:46 Albumin/Globulin Ratio 1.3 (1.0-2.1) 12/05/17 07:46 Triglycerides 423 mg/dL (0-149) H D 11/04/17 05:17 Cholesterol 225 mg/dL (0-199) H 11/04/17 05:17 LDL Cholesterol Direct 98 mg/dL (0-129) 11/04/17 05:17 HDL Cholesterol 24 mg/dL (30-70) L 11/04/17 05:17 Procalcitonin 0.66 NG/ML (0.19-0.49) H 11/04/17 08:17 PTH Intact Whole Molec 90 pg/mL (14-64) H 11/04/17 17:08 Arterial Blood Potassium 2.7 mmol/L (3.6-5.2) L 11/04/17 05:50 Urine Color Yellow (YELLOW) 11/04/17 07:30 Urine Clarity Clear (Clear) 11/04/17 07:30 Urine pH 5.0 (5.0-8.0) 11/04/17 07:30 Ur Specific [place] 1.011 (1.003-1.030) 11/04/17 07:30 Urine Protein 2+ mg/dL (NEGATIVE) H 11/04/17 07:30 Urine Glucose (UA) 1+ mg/dL (Normal) H 11/04/17 07:30 Urine Ketones Negative mg/dL (NEGATIVE) 11/04/17 07:30 Urine Blood 1+ (NEGATIVE) H 11/04/17 07:30 Urine Nitrate Negative (NEGATIVE) 11/04/17 07:30 Urine Bilirubin Negative (NEGATIVE) 11/04/17 07:30 Urine Urobilinogen Normal mg/dL (0.2-1.0) 11/04/17 07:30 Ur Leukocyte Esterase Neg Serge/uL (Negative) 11/04/17 07:30 Urine WBC (Auto) 2 /hpf (0-5) 11/04/17 07:30 Urine RBC (Auto) 1 /hpf (0-3) 11/04/17 07:30 Urine Bacteria Rare (<OCC) 11/04/17 07:30 Hep Bs Antigen Negative (NEGATIVE) 11/04/17 17:08 Hep Bs Antibody Negative (NEGATIVE) 11/04/17 17:08 Hep B Core IgM Ab Negative (NEGATIVE) 11/04/17 17:08 Hepatitis C Antibody Negative (NEGATIVE) 11/04/17 17:08 Blood Type A POSITIVE 11/09/17 14:57 Antibody Screen Negative 11/09/17 14:57 - Hospital Course Hospital Course: On admission: Patient is a 62 year old male with a past medical history of HTN, DM, CHF, CKD, and cardiac stent, who presents to the ED with complaints of shortness of breath. The patient was sleeping, and abruptly woke up in the middle of the night feeling short of breath. He has had 2-3 similar episodes in the past few weeks, but never this severe. The patient sleeps flat with one pillow, but also sleeps on a chair that he has at bedside. Per the , who is at bedside, the patient transfers back and forth from the bed to the chair for the past few months due to shortness of breath. The patient reports being able to walk without difficulty, but he has noticed that he becomes increasingly more short of breath over the past few months. Patient states he also has a productive cough with white phlegm. He recently started using a CPAP since August 2017. Per the patient and patient's , they were scheduled for a "dialysis class" today to discuss possibly starting dialysis. The patient has been taking all of his medications as prescribed. He has not been hospitalized recently. He reports he is urinating normally, without difficulty, approximately every 2-3 hours. Patient denies chest pain, palpitations, nausea, vomiting, fevers, headaches, abdominal pain, diarrhea, constipation, dysuria, hematuria, sick contacts, and recent illnesses. Hosp Course as stated previously: 1). SOB secondary to Pulmonary Edema secondary to ESRD Symptomatically improved after 100 mg total of Lasix on 11/04/17 and Metalozone at the time of admission 2). ESRD CKD Stage 5 on HD MWF via Right Chest Permacath and awaiting maturity of Left Arm AVF S/P Right Chest Permacath placement by Dr. Gil 11/05/17 Had Left Anatomic Snuff Box AVF placed however this no longer had a thrill therefore Left Upper Arm AVF performed 11/19/17. Professor Of Archaeology Julia has set up outpatient HD at [facility] in [facility] for - -Thu starting 12/08/17 at 2:30 PM Spoke with Straw Hat Plunger Operator Dr. Louise from Dr. Davis's group and patient does not need extra HD today 12/05/17 and may resume new schedule at [facility] Nephrology Dr. Davis Vascular Surgery Dr. Gil Calcitriol 0.5 mcg PO 1x/day Phoslo 667 mg PO TID 3). Hx Elevated Troponin Likely secondary to ESRD 4). Hx CAD with Angioplasty in 2012 and Hx of HFpEF Coreg 12.5 mg PO 1x/day Crestor 5 mg PO HS Lasix and Metolazone were discontinued 11/05/17 ProBNP upon admission 0 Echo 04/2017: LVEF 50-55%, mild concentric LVH, Grade I abnormal relaxation pattern, aortic valve mildly sclerotic Cardiology Dr. Smith 5). DM 2 requiring Insulin HgBA1C is 7.1 On Insulin Degludec 45 units SC 1x/day and Glipizide 5 mg PO 1x/day at home which he will resume at home 6). HTN Coreg 6.25 mg PO 1x/day NO longer on Norvasc 10 mg PO 1x/day 7). Diabetic Neuropathy Involving the toes and feet bilaterally Gabapentin 300 mg PO 1x/day MWF 8). BPH Flomax 0.4 mg PO 1x/day 9). Anemia likely secondary to ESRD Was given Ferric Gluconate 125 mg IV 1x/day through 11/27/17 Was also treated with Procrit 10,000 IV MWF at times during his hospital admission and will continue this at [facility] under the direction of Nephrology 10). Right Arm Phlebitis This has resolved Likely secondary to IV access infiltration Venous Doppler was negative Warm compresses helped and patient was given Prednisone Taper 11/22/17 through 11/26/17: 50--> 40--> 30 --> 20 --> 10 mg 11). Prophylaxis SCDs Patient is out of bed to chair and has been encouraged to walk throughout the day (10 laps around medical floor every 1 to 2 hours) and has been observed doing so therefore Heparin 5,000 Units SC was discontinued. Bilateral SCDs while in bed Pepcid 20 mg PO 1x/day The patient has been set up for outpatient HD at [facility] in [place] at 2:30 PM on [id number] by Professor Of Archaeology Julia who also provided patient with [facility] address, phone number, and schedule and also went over this with him. Spoke with Straw Hat Plunger Operator Dr. Louise who is covering Dr. Davis this weekend and she informed me that patient does not require extra HD and may resume new HD schedule at [facility]. Patient informed me that he will be able to pay for his medications at the pharmacy. He understands to follow up with his PMD Dr. Conte at the [facility] on [facility] in [place], [place] and has Dr. Conte' contact information. Patient is stable for discharge. DC Instructions The following instructions were explained to patient and a copy will need to be provided to patient upon discharge: 1). Schedule follow up with your Primary Care Physician Dr. Conte at the [facility] to take place in the next 7 to 10 days for coordination of your health care. Please bring a copy of your discharge instructions with you for Dr. Conte' review. 2). Schedule follow up with Vascular Surgeon Dr. Gil by calling his office [phone]. This appointment should take place in 10 to 14 days. He will determine when your left arm fistula may used for dialysis. Until then you will receive dialysis through the right chest port. 3). You were provided with prescriptions for the following medications. Please use as directed and have the prescriptions filled at your pharmacy on your way home from the hospital: Calcitriol 0.5 mcg, 1 tablet by mouth 1 time a day (8 AM), Dispense #30, NO refills Calcium Acetate 1,334 mg, 1 tablet by mouth 3 times a day with your meals (8 AM , 2PM, and 8 PM), Dispense #90, NO refills Carvedilol 6.25 mg, 1 tablet by mouth 2 times a day (8AM and 8PM), Dispense #60 , NO refills Pepcid 20 mg, 1 tablet by mouth 1 time a day (8AM), Dispense #30, NO refills Gabapentin 300 mg, 1 tablet by mouth 1 time a day on your dialysis days Thursday- -Thursday, Dispense #12, NO refills Glipizide 5 mg, 1 tablet by mouth 1 time a day with lunch (2 PM), Dispense #30, NO refills Insulin Degludec, 45 units subcutaneous 1 time a day with breakfast (8AM), Dispense 100 units/ml prefilled pen Flex Touch #1, NO refills Atorvastatin 10 mg, 1 tablet by mouth 1 time a day (8 PM), Dispense #30, NO refills Tamsulosin 0.4 mg, 1 tablet by mouth 1 time a day (8 AM), Dispense #30, NO refills 4). Please take care and be well. Please note a copy of this note was provided to patient to bring with him to his appointment with Dr. Conte This is a brief summary of events as previously reiterated by primary covering team. For a complete course, refer to the medical record. Discharge Exam - Head Exam Head Exam: ATRAUMATIC, NORMAL INSPECTION - Eye Exam Eye Exam: EOMI, Normal appearance, PERRL Pupil Exam: NORMAL ACCOMODATION - ENT Exam ENT Exam: Mucous Membranes Moist - Neck Exam Neck exam: Full Rom - Respiratory Exam Respiratory Exam: Clear to PA & Lateral, NORMAL BREATHING PATTERN. absent: Wheezes - Cardiovascular Exam Cardiovascular Exam: +S1, +S2. absent: Gallop, Rubs - GI/Abdominal Exam GI & Abdominal Exam: Normal Bowel Sounds, Soft. absent: Rebound, Rigid - Extremities Exam Extremities exam: full ROM, normal capillary refill, pedal pulses present Additional comments: AVF without thrill, Left Upper Arm AVF with (+) Thrill, Right Lateral Upper Arm superior to the antecubital fossa and Right Lateral Lower Arm inferior to the antecubital fossa: swelling/hardness/tenderness to palpation have resolved - Back Exam Back exam: FULL ROM - Neurological Exam Neurological exam: Alert, CN II-XII Intact, Oriented x3 - Psychiatric Exam Psychiatric exam: Normal Affect, Normal Mood - Skin Skin Exam: Warm Discharge Plan - Discharge Medications Prescriptions: Atorvastatin [Lipitor] 10 mg PO DIN #30 tab Calcitriol [Rocaltrol] 0.5 mcg PO DAILY #30 sgl Calcium Acetate 667 mg PO TID #180 capsule Carvedilol [Coreg] 6.25 mg PO BID #60 tab Famotidine [Pepcid] 20 mg PO DAILY #30 tab Gabapentin [Neurontin] 300 mg PO TTS #12 cap GlipiZIDE [Glucotrol] 5 mg PO DAILY #30 tab Insulin Degludec [Tresiba Flextouch U-100] 45 unit SQ DAILY #1 insuln.pen Tamsulosin [Flomax] 0.4 mg PO DAILY #30 cap - Follow Up Plan Condition: CRITICAL Disposition: HOME/ ROUTINE Instructions: Renal Failure Diet (DC) Additional Instructions: As tolerated. Referrals: Bennie Duron MD [Staff Provider] - Clinical Quality Measures - CQM - Heart Failure Ejection Fraction: 40 % or Greater
--- NOTE | 2017-12-05 17:33 | PCM.HF ---
Heart Failure Core Measure - Heart Failure Ejection Fraction: 40 % or Greater CELSO Inhibitor Prescribed: No Contraindication/Reason for not providing: ESRD Beta-Connie Prescribed: Carvedilol Angiotensin II Receptor Connie Prescribed: No Contraindication/Reason for not providing: ESRD AnticoagulationTherapy for Atrial Fibrillation/Atrialflutter: No Contraindication/Reason for not providing: NO HX OF A fib Aldosterone Antagonist Prescribed: No Contraindication/Reason for not providing: esrd, ef>45 Hydralazine Nitrate Prescribed: No Contraindication/Reason for not providing: ef>45 Implantable Cardioverter Defibrillator Therapy: No Contraindication/Reason for not providing: ef>45 Cardiac Resynchronization Therapy Prescribed: No Contraindication/Reason for not providing: ef>45 - Follow up Will be discharged to: Home Follow Up Date (must be within 7 days from discharge): 12/08/17 Follow Up Time: 09:00
== END 2017-12-05 14:22 | disposition home or self-care (01) | DRG 264 ==
LOC: C.ER 01:38 → C.9E 03:17 → C.6T 10:11
PROVIDERS: ADMIT Hospitalist; ATTEND Family Medicine
PROC: B548ZZA Ultrasonography of Superior Vena Cava, Guidance (ICD-10-PCS; 2017-11-05)
PROC: 5A1D70Z Performance of Urinary Filtration, Intermittent, Less than 6 Hours Per Day (ICD-10-PCS; 2017-11-05)
PROC: 02HV33Z Insertion of Infusion Device into Superior Vena Cava, Percutaneous Approach (ICD-10-PCS; principal; 2017-11-05 15:00)
PROC: 031C0ZF Bypass Left Radial Artery to Lower Arm Vein, Open Approach (ICD-10-PCS; 2017-11-10)
DX: I13.2 Hypertensive heart and chronic kidney disease with heart failure and with stage 5 chronic kidney disease, or end stage renal disease (principal); I21.4 Non-ST elevation (NSTEMI) myocardial infarction; N18.6 End stage renal disease; I50.33 Acute on chronic diastolic (congestive) heart failure; I25.10 Atherosclerotic heart disease of native coronary artery without angina pectoris; E11.21 Type 2 diabetes mellitus with diabetic nephropathy; E11.22 Type 2 diabetes mellitus with diabetic chronic kidney disease; E78.00 Pure hypercholesterolemia, unspecified; E87.6 Hypokalemia; I80.8 Phlebitis and thrombophlebitis of other sites; N40.0 Benign prostatic hyperplasia without lower urinary tract symptoms; T38.0X5A Adverse effect of glucocorticoids and synthetic analogues, initial encounter; E11.40 Type 2 diabetes mellitus with diabetic neuropathy, unspecified; D63.1 Anemia in chronic kidney disease; Z82.3 Family history of stroke; Z87.891 Personal history of nicotine dependence; Z95.5 Presence of coronary angioplasty implant and graft; Z99.2 Dependence on renal dialysis; Z79.4 Long term (current) use of insulin